=== PATIENT | male | born 1965 | race Caucasian/White ===

== ENCOUNTER 2018-05-29 13:16 | Inpatient (IN) | payer OTHER ==
[2018-05-29 13:28] VITALS: BMI 37.0
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
[2018-05-29] MEDS ORDERED: IBUPROFEN 400 MG TABLET (FP) PO PRN (15:47)
[2018-05-29] MEDS ORDERED: P-EPHED 60MG/TRIPROLIDI 2.5MG TABLET PO PRN (15:47)
[2018-05-29] MEDS ORDERED: ACETAMINOPHEN 325 MG TABLET (FP) PO PRN (15:47)
[2018-05-29] MEDS ORDERED: chlordiazePOXIDE HCL 25 MG CAPSULE PO PRN (15:47)
[2018-05-29] MEDS ORDERED: MAG HYDROX/AL HYDROX/SIMETH 30 ML UNIT-DOSE CUP PO PRN (15:47)
[2018-05-29] MEDS ORDERED: MENTHOL/PHENOL 1 EACH UD MM PRN (15:47)
[2018-05-29] MEDS ORDERED: MAGNESIUM HYDROX 2400MG/30ML ORAL SUSPENSION 30 ML CUP PO PRN (15:47)
[2018-05-29] MEDS ORDERED: guaiFENesin/D-METHORPHAN HB 10 ML UNIT-DOSE CUPS PO PRN (15:47)
[2018-05-29] MEDS ORDERED: MAGNESIUM CITRATE 300 ML BOTTLE PO PRN (15:47)
[2018-05-29] MEDS ORDERED: NICOTINE POLACRILEX 2 MG GUM BC PRN (15:47)
[2018-05-29] MEDS: OFLOXACIN 0.3% OPHTHALMIC SOLUTION 5 ML BOTTLE OD SCH ×2 (19:20→22:11)
[2018-05-29] MEDS ORDERED: COLLOIDAL OATMEAL 1 BAR EACH TP PRN (21:57)
[2018-05-29] MEDS ORDERED: MELATONIN 5 MG TABLETS PO PRN (22:00)
[2018-05-29] MEDS: THIAMINE HCL 100 MG TABLET (FP) PO SCH (22:11)
[2018-05-29] MEDS: AMOXICILLIN 500 MG CAPSULE (FP) PO SCH (22:11)
[2018-05-29] MEDS: chlordiazePOXIDE HCL 25 MG CAPSULE PO SCH (22:14)
[2018-05-30] MEDS: chlordiazePOXIDE HCL 25 MG CAPSULE PO SCH ×4 (05:57→22:09)
[2018-05-30] MEDS: AMOXICILLIN 500 MG CAPSULE (FP) PO SCH ×3 (05:57→22:09)
[2018-05-30] MEDS: OFLOXACIN 0.3% OPHTHALMIC SOLUTION 5 ML BOTTLE OD SCH ×5 (05:57→22:08)
[2018-05-30 10:16] LABS: HEMATOCRIT 40.9 % (35.4-49); HEMOGLOBIN 13.6 GM/dL (11.7-16.9); MCH 29.8 pg (25.7-33.7); MCHC 33.3 g/dl (32.0-35.9); MEAN CELL VOLUME 89.7 fl (80-96); MEAN PLT VOLUME 9.8 fl (7.5-11.1); PLATELET COUNT 230 K/MM3 (134-434); RBC 4.56 M/mm3 (4.00-5.60); RDW 14.1 % (11.9-15.9); WHITE BLOOD COUNT 9.1 K/mm3 (4.0-10.0)
[2018-05-30 10:26] LABS: ALBUMIN 3.4 g/dl (3.4-5.0); ALK PHOS 64 U/L (45-117); ANION GAP 9 MMOL/L (8-16); BILIRUBIN,TOTAL 0.3 mg/dL (0.2-1); BLOOD UREA NITROGEN 11 mg/dL (7-18); CALCIUM 8.5 mg/dL (8.5-10.1); CHLORIDE 106 mmol/L (98-107); CO2 26 mmol/L (21-32); CREATININE 1.1 mg/dL (0.55-1.3); GLUCOSE,RANDOM 106 mg/dL (74-106); POTASSIUM 3.7 mmol/L (3.5-5.1); SGOT/AST 16 U/L (15-37); SGPT/ALT 31 U/L (13-61); SODIUM 142 mmol/L (136-145); TOT PROT 6.3 g/dl (6.4-8.2)
[2018-05-30] MEDS: PRENATAL VITAMINS W/ FOLIC ACID TABLET (FP) PO SCH (10:55)
--- NOTE | 2018-05-30 11:12 | PN ---
S CIWA - CIWA Score Nausea/Vomitin-Mild Nausea/No Vomiting Muscle Tremors: 3 Anxiety: 3 Agitation: 3 Paroxysmal Sweats: 1-Minimal Palms Moist Orientation: 1-Uncertain about Date Tacttile Disturbances: 0-None Auditory Disturbances: 0-None Visual Disturbances: 0-None Headache: 2-Mild CIWA-Ar Total Score: 14 S Progress Note (SOAP) Subjective: tremor sweating anxiety irritable Objective: 05/30/18 11:16 Vital Signs Temperature 98.0 F 05/30/18 09:07 Pulse Rate 83 05/30/18 09:07 Respiratory Rate 18 05/30/18 09:07 Blood Pressure 97/58 L 05/30/18 09:07 O2 Sat by Pulse Oximetry (%) Laboratory Last Values WBC 9.1 K/mm3 (4.0-10.0) 05/30/18 07:00 RBC 4.56 M/mm3 (4.00-5.60) 05/30/18 07:00 Hgb 13.6 GM/dL (11.7-16.9) 05/30/18 07:00 Hct 40.9 % (35.4-49) 05/30/18 07:00 MCV 89.7 fl (80-96) 05/30/18 07:00 MCH 29.8 pg (25.7-33.7) 05/30/18 07:00 MCHC 33.3 g/dl (32.0-35.9) 05/30/18 07:00 RDW 14.1 % (11.9-15.9) 05/30/18 07:00 Plt Count 230 K/MM3 (134-434) 05/30/18 07:00 MPV 9.8 fl (7.5-11.1) 05/30/18 07:00 Sodium 142 mmol/L (136-145) 05/30/18 07:00 Potassium 3.7 mmol/L (3.5-5.1) 05/30/18 07:00 Chloride 106 mmol/L (98-107) 05/30/18 07:00 Carbon Dioxide 26 mmol/L (21-32) 05/30/18 07:00 Anion Gap 9 MMOL/L (8-16) 05/30/18 07:00 BUN 11 mg/dL (7-18) 05/30/18 07:00 Creatinine 1.1 mg/dL (0.55-1.3) 05/30/18 07:00 Creat Clearance w eGFR > 60 (>60) 05/30/18 07:00 Random Glucose 106 mg/dL (74-106) 05/30/18 07:00 Calcium 8.5 mg/dL (8.5-10.1) 05/30/18 07:00 Total Bilirubin 0.3 mg/dL (0.2-1) 05/30/18 07:00 AST 16 U/L (15-37) 05/30/18 07:00 ALT 31 U/L (13-61) 05/30/18 07:00 Alkaline Phosphatase 64 U/L (45-117) 05/30/18 07:00 Total Protein 6.3 g/dl (6.4-8.2) L 05/30/18 07:00 Albumin 3.4 g/dl (3.4-5.0) 05/30/18 07:00 lab noted Assessment: 05/30/18 11:16 withdrawal sx Plan: continue detox
[2018-05-30] MEDS: THIAMINE HCL 100 MG TABLET (FP) PO SCH (22:09)
[2018-05-31] MEDS: AMOXICILLIN 500 MG CAPSULE (FP) PO SCH ×3 (06:21→21:37)
[2018-05-31] MEDS: chlordiazePOXIDE HCL 25 MG CAPSULE PO SCH ×3 (06:21→17:37)
[2018-05-31] MEDS: OFLOXACIN 0.3% OPHTHALMIC SOLUTION 5 ML BOTTLE OD SCH ×5 (07:21→21:40)
[2018-05-31] MEDS: PRENATAL VITAMINS W/ FOLIC ACID TABLET (FP) PO SCH (10:14)
--- NOTE | 2018-05-31 10:47 | DS ---
[facility] Detox Discharge Summary Admission Date: 05/29/18 Discharge Date: 05/31/18 - History Present History: Alcohol Dependence Additional Comments: 53 years old male admitted on 05/29/18 for alcohol withdrawal stabilization reported mother is in the hospital no one available to taking care of her patient is alert no acute distress denies suicidal no homocidal ideation Pertinent Past History: encourage the patient return to [facility] - Physical Exam Results Vital Signs: Vital Signs Temperature 97.8 F 05/31/18 09:05 Pulse Rate 68 05/31/18 09:05 Respiratory Rate 18 05/31/18 09:05 Blood Pressure 97/59 L 05/31/18 09:05 O2 Sat by Pulse Oximetry (%) Pertinent Admission Physical Exam Findings: alcohol withdrawal sx Laboratory Last Values WBC 9.1 K/mm3 (4.0-10.0) 05/30/18 07:00 RBC 4.56 M/mm3 (4.00-5.60) 05/30/18 07:00 Hgb 13.6 GM/dL (11.7-16.9) 05/30/18 07:00 Hct 40.9 % (35.4-49) 05/30/18 07:00 MCV 89.7 fl (80-96) 05/30/18 07:00 MCH 29.8 pg (25.7-33.7) 05/30/18 07:00 MCHC 33.3 g/dl (32.0-35.9) 05/30/18 07:00 RDW 14.1 % (11.9-15.9) 05/30/18 07:00 Plt Count 230 K/MM3 (134-434) 05/30/18 07:00 MPV 9.8 fl (7.5-11.1) 05/30/18 07:00 Sodium 142 mmol/L (136-145) 05/30/18 07:00 Potassium 3.7 mmol/L (3.5-5.1) 05/30/18 07:00 Chloride 106 mmol/L (98-107) 05/30/18 07:00 Carbon Dioxide 26 mmol/L (21-32) 05/30/18 07:00 Anion Gap 9 MMOL/L (8-16) 05/30/18 07:00 BUN 11 mg/dL (7-18) 05/30/18 07:00 Creatinine 1.1 mg/dL (0.55-1.3) 05/30/18 07:00 Creat Clearance w eGFR > 60 (>60) 05/30/18 07:00 Random Glucose 106 mg/dL (74-106) 05/30/18 07:00 Calcium 8.5 mg/dL (8.5-10.1) 05/30/18 07:00 Total Bilirubin 0.3 mg/dL (0.2-1) 05/30/18 07:00 AST 16 U/L (15-37) 05/30/18 07:00 ALT 31 U/L (13-61) 05/30/18 07:00 Alkaline Phosphatase 64 U/L (45-117) 05/30/18 07:00 Total Protein 6.3 g/dl (6.4-8.2) L 05/30/18 07:00 Albumin 3.4 g/dl (3.4-5.0) 05/30/18 07:00 RPR Titer Nonreactive (NONREACTIVE) 05/30/18 07:00 lab noted - Treatment Hospital Course: Detox Protocol Followed, Responded well Patient has Accepted a [facility] Referral [facility]: [facility] - Medication Discharge Medications: Ambulatory Orders Amoxicillin - [Amoxicillin 500mg Capsule -] 500 mg PO TID #21 capsule 01/26/15 Cyclobenzaprine HCl [Flexeril] 5 mg PO TID PRN #20 tablet 01/26/15 Ibuprofen 400 mg PO Q6H PRN #30 tablet 01/26/15 predniSONE [Deltasone -] 20 mg PO BID #10 tablet 01/26/15 Ibuprofen [Motrin -] 600 mg PO TID #21 tablet 04/01/15 Meclizine HCl [Antivert -] 25 mg PO TID #21 tablet 04/01/15 Oxycodone HCl/Acetaminophen [Percocet 5/325 -] 1 - 2 tab PO Q6H #20 tab - Diagnosis (1) Uncomplicated alcohol dependence Current Visit: Yes Status: Acute (2) Nicotine dependence Current Visit: Yes Status: Acute Qualifiers: Nicotine product type: cigarettes Substance use status: in withdrawal Qualified Code(s): F17.213 - Nicotine dependence, cigarettes, with withdrawal (3) BPH (benign prostatic hyperplasia) Current Visit: Yes Status: Chronic Qualifiers: Lower urinary tract symptom presence: symptoms absent Qualified Code(s): N40.0 - Benign prostatic hyperplasia without lower urinary tract symptoms (4) Drug-induced mood disorder Current Visit: Yes Status: Suspected (5) GERD (gastroesophageal reflux disease) Current Visit: Yes Status: Chronic Qualifiers: Esophagitis presence: without esophagitis Qualified Code(s): K21.9 - Gastro -esophageal reflux disease without esophagitis - AMA Did Patient Leave Against Medical Advice: Yes
[2018-05-31] MEDS ORDERED: diphenhydrAMINE HCL 25 MG CAPSULE (FP) PO ONE (11:30)
[2018-05-31] MEDS: HYDROCORTISONE 0.5% TOPICAL CREAM 30 GM TUBE TP SCH ×2 (13:17→21:40)
--- NOTE | 2018-05-31 14:19 | PN ---
S CIWA - CIWA Score Nausea/Vomitin-No Nausea/No Vomiting Muscle Tremors: None Anxiety: 3 Agitation: 3 Paroxysmal Sweats: 3 Orientation: 2-Disoriented Date<2 days Tacttile Disturbances: 0-None Auditory Disturbances: 0-None Visual Disturbances: 0-None Headache: 3-Moderate CIWA-Ar Total Score: 14 BHS Progress Note (SOAP) Subjective: Sweating, Anxious, Agitated, H/A, Constipation. Objective: PATIENT A & O X 2 (UNCERTAIN ABOUT CURRENT DAY / DATE). PATIENT OBSERVED AMBULATING ON UNIT. IN NO ACUTE DISTRESS. 05/31/18 14:16 Vital Signs Temperature 97.8 F 05/31/18 09:05 Pulse Rate 68 05/31/18 09:05 Respiratory Rate 18 05/31/18 09:05 Blood Pressure 97/59 L 05/31/18 09:05 O2 Sat by Pulse Oximetry (%) Laboratory Tests 05/30/18 05/30/18 05/30/18 07:00 07:00 07:00 WBC 9.1 RBC 4.56 Hgb 13.6 Hct 40.9 MCV 89.7 MCH 29.8 MCHC 33.3 RDW 14.1 Plt Count 230 MPV 9.8 Sodium 142 Potassium 3.7 Chloride 106 Carbon Dioxide 26 Anion Gap 9 BUN 11 Creatinine 1.1 Creat Clearance w eGFR > 60 Random Glucose 106 Calcium 8.5 Total Bilirubin 0.3 AST 16 ALT 31 Alkaline Phosphatase 64 Total Protein 6.3 L Albumin 3.4 RPR Titer Nonreactive LABS NOTED. Assessment: 05/31/18 14:17 WITHDRAWAL SYMPTOMS. Plan: CONTINUE DETOX. INCREASE DAILY PO FLUID INTAKE. PRN MOM FOR CONSTIPATION.
--- NOTE | 2018-05-31 17:43 | PN ---
[facility] Progress Note Note: Called by nurse: Pt states that he needs a fleets enema as he has not been able to move his bowels. Pt states has tried all the other laxatives and needs this to have a BM: X1 ordered.-
[2018-05-31] MEDS ORDERED: SODIUM PHOSPHATE/NA BIPHOS 133 ML ENEMA PR ONE (18:30)
[2018-05-31] MEDS: THIAMINE HCL 100 MG TABLET (FP) PO SCH (21:37)
[2018-05-31] MEDS: chlordiazePOXIDE 5 MG CAPSULE PO SCH (22:13)
[2018-06-01] MEDS: chlordiazePOXIDE 5 MG CAPSULE PO SCH ×2 (06:14→10:28)
[2018-06-01] MEDS: OFLOXACIN 0.3% OPHTHALMIC SOLUTION 5 ML BOTTLE OD SCH ×2 (06:15→09:12)
[2018-06-01 09:25] VITALS: BP 118/72; PULSE 88; TEMP 96.5
[2018-06-01] MEDS: PRENATAL VITAMINS W/ FOLIC ACID TABLET (FP) PO SCH (10:27)
[2018-06-01] MEDS: HYDROCORTISONE 0.5% TOPICAL CREAM 30 GM TUBE TP SCH (10:28)
--- NOTE | 2018-06-01 15:39 | DS ---
[facility] Detox Discharge Summary Admission Date: 05/29/18 Discharge Date: 06/01/18 - History Present History: Alcohol Dependence, Cocaine Dependence Additional Comments: PATIENT DOES NOT WISH TO REMAIN TO COMPLETE DETOX REGIMEN. RISKS OF LEAVING DETOX UNIT AGAINST MEDICAL ADVICE AND PRIOR TO COMPLETION OF DETOX REGIMEN EXPLAINED TO PATIENT. PATIENT ADVISED TO GO IMMEDIATELY TO NEAREST ER SHOULD ANY INTOLERABLE DETOX SYMPTOMS DEVELOP AT ANY TIME. PATIENT VERBALIZED UNDERSTANDING OF ALL INFORMATION / RECOMMENDATIONS PRESENTED TO HIM PRIOR TO DEPARTURE FROM DETOX UNIT. PRIOR TO LEAVING DETOX UNIT, PATIENT DID NOTE THAT HE PLANS ON GOING [address] ([place], [place]) FOR AFTERCARE. PATIENT LEFT DETOX UNIT IN STABLE MEDICAL CONDITION. Pertinent Past History: Hypercholesterolemia, History of G.E.R.D., History of B.P.H., History of Depression, Nicotine Dependence. - Physical Exam Results Vital Signs: Vital Signs Temperature 96.5 F L 06/01/18 09:24 Pulse Rate 88 06/01/18 09:24 Respiratory Rate 18 06/01/18 09:24 Blood Pressure 118/72 06/01/18 09:24 O2 Sat by Pulse Oximetry (%) Pertinent Admission Physical Exam Findings: WITHDRAWAL SYMPTOMS. Laboratory Tests 05/30/18 05/30/18 05/30/18 07:00 07:00 07:00 WBC 9.1 RBC 4.56 Hgb 13.6 Hct 40.9 MCV 89.7 MCH 29.8 MCHC 33.3 RDW 14.1 Plt Count 230 MPV 9.8 Sodium 142 Potassium 3.7 Chloride 106 Carbon Dioxide 26 Anion Gap 9 BUN 11 Creatinine 1.1 Creat Clearance w eGFR > 60 Random Glucose 106 Calcium 8.5 Total Bilirubin 0.3 AST 16 ALT 31 Alkaline Phosphatase 64 Total Protein 6.3 L Albumin 3.4 RPR Titer Nonreactive LABS NOTED. - Treatment Hospital Course: Detoxed Safely - Medication Discharge Medications: Ambulatory Orders Amoxicillin - [Amoxicillin 500mg Capsule -] 500 mg PO TID #21 capsule 01/26/15 Cyclobenzaprine HCl [Flexeril] 5 mg PO TID PRN #20 tablet 01/26/15 Ibuprofen 400 mg PO Q6H PRN #30 tablet 01/26/15 predniSONE [Deltasone -] 20 mg PO BID #10 tablet 01/26/15 Ibuprofen [Motrin -] 600 mg PO TID #21 tablet 04/01/15 Meclizine HCl [Antivert -] 25 mg PO TID #21 tablet 04/01/15 Oxycodone HCl/Acetaminophen [Percocet 5/325 -] 1 - 2 tab PO Q6H #20 tab - Diagnosis (1) Alcohol dependence Status: Acute Qualifiers: Substance use status: in withdrawal Complication of substance-induced condition: uncomplicated Qualified Code(s): F10.230 - Alcohol dependence with withdrawal, uncomplicated (2) Nicotine dependence Status: Acute Qualifiers: Nicotine product type: cigarettes Substance use status: in withdrawal Qualified Code(s): F17.213 - Nicotine dependence, cigarettes, with withdrawal (3) Cocaine dependence Status: Chronic Qualifiers: Substance use status: uncomplicated Qualified Code(s): F14.20 - Cocaine dependence, uncomplicated - AMA Did Patient Leave Against Medical Advice: Yes (PATIENT DID NOT WISH TO REMAIN TO COMPLETE DETOX REGIMEN.)
--- NOTE | 2018-06-01 15:39 | PN ---
[facility] Progress Note (SOAP) Subjective: Interrupted Sleep, Tremors, Anxious. Objective: PATIENT A & O X 3, OBSERVED AMBULATING ON UNIT. IN NO ACUTE DISTRESS. 06/01/18 15:38 Vital Signs Temperature 96.5 F L 06/01/18 09:24 Pulse Rate 88 06/01/18 09:24 Respiratory Rate 18 06/01/18 09:24 Blood Pressure 118/72 06/01/18 09:24 O2 Sat by Pulse Oximetry (%) Laboratory Tests 05/30/18 05/30/18 05/30/18 07:00 07:00 07:00 WBC 9.1 RBC 4.56 Hgb 13.6 Hct 40.9 MCV 89.7 MCH 29.8 MCHC 33.3 RDW 14.1 Plt Count 230 MPV 9.8 Sodium 142 Potassium 3.7 Chloride 106 Carbon Dioxide 26 Anion Gap 9 BUN 11 Creatinine 1.1 Creat Clearance w eGFR > 60 Random Glucose 106 Calcium 8.5 Total Bilirubin 0.3 AST 16 ALT 31 Alkaline Phosphatase 64 Total Protein 6.3 L Albumin 3.4 RPR Titer Nonreactive LABS NOTED. Assessment: 06/01/18 15:38 WITHDRAWAL SYMPTOMS. Plan: CONTINUE DETOX.
[2018-06-01] MEDS ORDERED: chlordiazePOXIDE HCL 10 MG CAPSULE PO SCH (23:00)
== END 2018-06-01 13:12 | disposition left against medical advice (07) | DRG 770 ==
LOC: YASAS 13:16 → Y3N 18:42
PROVIDERS: ADMIT Neuromusculoskeletal Medicine & OMM; ATTEND Neuromusculoskeletal Medicine & OMM
PROC: HZ2ZZZZ Detoxification Services for Substance Abuse Treatment (ICD-10-PCS; principal; 2018-05-29)
DX: F10.230 Alcohol dependence with withdrawal, uncomplicated (principal); F14.20 Cocaine dependence, uncomplicated; F17.213 Nicotine dependence, cigarettes, with withdrawal; F19.24 Other psychoactive substance dependence with psychoactive substance-induced mood disorder; K21.9 Gastro-esophageal reflux disease without esophagitis; N40.0 Benign prostatic hyperplasia without lower urinary tract symptoms
CPT/HCPCS: 36415; 80053; 85027; 86593

== ENCOUNTER 2018-07-06 17:05 | Inpatient (IN) | payer OTHER ==
[~2018-07-06 17:05] MED LIST: chlordiazePOXIDE HCL 25 MG CAPSULE PO SCH
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
[2018-07-06 18:02] LABS: BASO % 0.5 % (0-2.0); EOS % 1.4 % (0-4.5); HEMATOCRIT 39.8 % (35.4-49); HEMOGLOBIN 13.9 GM/dL (11.7-16.9); LYMPH % 28.6 % (8-40); MCHC 34.9 g/dl (32.0-35.9); MEAN PLT VOLUME 9.7 fl (7.5-11.1); MONO % 9.4 % (3.8-10.2); NEUT % 60.1 % (42.8-82.8); PLATELET COUNT 239 K/MM3 (134-434); RBC 4.47 M/mm3 (4.00-5.60); RDW 13.8 % (11.9-15.9); WHITE BLOOD COUNT 9.5 K/mm3 (4.0-10.0)
[2018-07-06 18:11] LABS: INR 1.21 (0.83-1.09); PROTHROMBIN TIME (PATIENT) 14.3 SEC (9.7-13.0)
[2018-07-06 18:16] LABS: ALBUMIN 3.7 g/dl (3.4-5.0); ALK PHOS 66 U/L (45-117); ANION GAP 6 MMOL/L (8-16); BILIRUBIN,TOTAL 0.4 mg/dL (0.2-1); BLOOD UREA NITROGEN 15 mg/dL (7-18); CALCIUM 8.4 mg/dL (8.5-10.1); CHLORIDE 105 mmol/L (98-107); CHOLESTEROL 98 mg/dL (50-200); CO2 29 mmol/L (21-32); CREATININE 1.1 mg/dL (0.55-1.3); GLUCOSE,RANDOM 113 mg/dL (74-106); HDL CHOLESTEROL 41 mg/dL (40-60); MAGNESIUM 2.1 mg/dL (1.8-2.4); POTASSIUM 4.1 mmol/L (3.5-5.1); SGOT/AST 23 U/L (15-37); SGPT/ALT 52 U/L (13-61); SODIUM 140 mmol/L (136-145); TOT PROT 6.6 g/dl (6.4-8.2); TRIGLYCERIDES 189 mg/dL (0-150)
[2018-07-06] MEDS ORDERED: SODIUM CHLORIDE 0.9% 500 ML INFUS.BAG IV ONE (18:26)
[2018-07-06] MEDS ORDERED: chlordiazePOXIDE HCL 25 MG CAPSULE PO ONE (18:54)
[2018-07-06] MEDS ORDERED: FOLIC ACID INJECTION - 1 MG, THIAMINE HCL 100 MG, MULTIVIT INJECTION ADULT 10 ML in SOD... IVPB ONE (19:14)
[2018-07-06] MEDS ORDERED: chlordiazePOXIDE HCL 25 MG CAPSULE PO PRN (19:20)
[2018-07-06] MEDS ORDERED: SODIUM CHLORIDE 1,000 ML IV STA (20:11)
[2018-07-06] MEDS ORDERED: chlordiazePOXIDE HCL 25 MG CAPSULE ONE (20:12)
--- NOTE | 2018-07-06 20:14 | HP ---
<Thong Salazar - Last Filed: 07/07/18 02:51> CHIEF COMPLAINT: Syncopal episode PCP: None HISTORY OF PRESENT ILLNESS: 53yo M with h/o ALONSO, CAD, HTN, HLD, polysubstance abuse (Cocaine, alcohol) who presents today from [facility] due to witnessed syncopal event. Pt was in waiting room of [facility] due to wanting to detox from his recent alcohol binge when he started to develop blurry vision while walking. Pt reports worsening blurry vision and then lightheadedness when he walked to security staff for help. Pt started to sit down and then loss consciousness. Pt woke up after a minute or so on the ground with staff around him. Per EMR and verbal signout pt did not have any trauma to his head or extremities. He was brought via EMS here for further evaluation. Admittedly pt has had decreased PO intake compared to previous weeks from his binge drinking and lack of eating/drinking anything else. He denies any headaches, weakness, parasthesias, shortness of breath, chest pain , palpitations, abdominal pain, diarrhea, dysuria, hematuria, polyuria. Pt after 1LNS in Ed reportedly feels better than when coming to ER. Of note, pt had recent nuclear stress test performed at [facility] which reportedly found to have anterior reversible ischemia. Pt reports he had chest pain at the time of admission there and was recommended to transfer to [place]. He states that he wanted to follow-up outpatient and was so discharged from their hospital. He never did follow up however. Recent Travel: Denies PAST MEDICAL HISTORY: PAST SURGICAL HISTORY: Social History: Smokin-3 cigarettes daily for 5 years; pt reports quitting starting today Alcohol: Fifth of whiskey daily for multiple binge days with intermittent resting periods (last drink 2 days ago) Drugs: Cocaine (snorting; last use 3-4 weeks ago) Lives at home alone; binge drinking triggered with events involving 's about 3 years ago (i.e. ) Family History: Noncontributory Allergies No Known Allergies Allergy (Verified 07/06/18 17:14) HOME MEDICATIONS: Home Medications Medication Instructions Recorded Aspirin [Aspirin EC] 81 mg PO DAILY 07/06/18 Atorvastatin Ca [Lipitor] 80 mg PO HS 07/06/18 Clopidogrel Bisulfate [Clopidogrel] 75 mg PO DAILY 07/06/18 Tamsulosin HCl [Flomax] 0.4 mg PO DAILY 07/06/18 REVIEW OF SYSTEMS As per HPI PHYSICAL EXAMINATION Vital Signs - 24 hr 07/06/18 07/06/18 17:09 18:24 Temperature 98.0 F Pulse Rate 82 Pulse Rate [ 94 H Right side Sitting] Respiratory 16 Rate Blood Pressure 95/62 Blood Pressure 93/53 L [Right side Sitting] O2 Sat by Pulse 100 Oximetry (%) GENERAL: NAd, awake, alert, and fully oriented, laying in bed HEENT: Nc/AT, EOMi, GLADIS, sclera anicteric, MMM, no posterior oropharynx erythema or exudates. No JVD. no carotid bruits LUNGS: CTA bilaterally. No wheezes, and no crackles. No accessory muscle use. On RA HEART: RRR, normal S1 and S2 without murmur ABDOMEN: Soft, nondistended, obese, abdominal scar noted (C/D/I), nontender, 4inch hard epigastric mass noted underneath epigastric surgical site, normoactive BS, no gurading. No hepatomegaly appreciated via percussion MUSCULOSKELETAL: No CVA tenderness. EXTREMITIES: 2+ pulses, warm, well-perfused. No calf tenderness. No peripheral edema. PSYCHIATRIC: Cooperative. Good eye contact. Appropriate mood and affect. SKIN: Warm, dry, no rashes Laboratory Results 07/06/18 07/06/18 17:49 17:49 WBC 9.5 RBC 4.47 Hgb 13.9 Hct 39.8 MCV 89.0 MCH 31.0 MCHC 34.9 RDW 13.8 Plt Count 239 MPV 9.7 Absolute Neuts (auto) 5.7 Neutrophils % 60.1 D Lymphocytes % 28.6 D Monocytes % 9.4 Eosinophils % 1.4 Basophils % 0.5 Nucleated RBC % 0 PT with INR 14.30 H INR 1.21 H D-Dimer 262 Sodium Potassium Chloride Carbon Dioxide Anion Gap BUN Creatinine Creat Clearance w eGFR Random Glucose Calcium Magnesium Total Bilirubin AST ALT Alkaline Phosphatase Troponin I Total Protein Albumin Triglycerides Cholesterol Total LDL Cholesterol HDL Cholesterol 07/06/18 17:49 WBC RBC Hgb Hct MCV MCH MCHC RDW Plt Count MPV Absolute Neuts (auto) Neutrophils % Lymphocytes % Monocytes % Eosinophils % Basophils % Nucleated RBC % PT with INR INR D-Dimer Sodium 140 Potassium 4.1 Chloride 105 Carbon Dioxide 29 Anion Gap 6 L BUN 15 Creatinine 1.1 Creat Clearance w eGFR > 60 Random Glucose 113 H Calcium 8.4 L Magnesium 2.1 Total Bilirubin 0.4 AST 23 ALT 52 Alkaline Phosphatase 66 Troponin I < 0.02 Total Protein 6.6 Albumin 3.7 Triglycerides 189 H Cholesterol 98 Total LDL Cholesterol 46 HDL Cholesterol 41 ASSESSMENT/PLAN: Syncope 2/2 to dehydration CAD with NSTEMI on prior hospitalization Polysubstance abuse HLD --Dehydraton 2/2 to pt's decreased PO intake for the past couple of days --S/p 1LNS in Ed; will bolus 1LNS again and encourage PO intake --Echocardiogram for syncope workup --Cardiac monitoring to continue --Holding home Flomax due to hypotension/dehydration --Will try to obtain records from [facility] regarding nuclear stress test --Consult cardiology --Will continue ASA 81mg and Plavix 75mg qDaily --Due to pt's known CAD would recommend B-lisa, however will hold while hypotensive and start tomorrow morning --CIWA 1 due to fine tremor --Librium protocol initiated (LFTs WNL) --s/p folic acid; to continue daily --Thiamine daily --Due to pt's history he is amenable to psychiatrist referral upon discharge FEN: Fluids: NS1L bolus; bolus as needed and encourage PO Electrolyte abnormalities: None Nutrition: Regular PPX: DVT - Low risk; SCD's for now GI - Not indicated Medications confirmed with patient's medication list GOC - Full code Dispo: Telemetry observation Case discussed with Dr. Rigoberto Salazar, - IM PGY-2 Visit type - Emergency Visit Emergency Visit: Yes ED Registration Date: 07/06/18 Care time: The patient presented to the Emergency Department on the above date and was hospitalized for further evaluation of their emergent condition. - New Patient This patient is new to me today: Yes Date on this admission: 07/07/18 - Critical Care Critical Care patient: No <Deshaun Franklin - Last Filed: 07/23/18 21:05> Seen and examined; agree with the above aside from what is supplemented by myself in my own documentation. Reviewed all magaña parts of history and exam with resident team and verified independently.
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
[2018-07-06] MEDS ORDERED: ASPIRIN COATED 81 MG TABLET.EC ONE (22:06)
[2018-07-06] MEDS ORDERED: ATORVASTATIN CA 40 MG TABLET (FP) ONE (22:07)
[2018-07-06] MEDS ORDERED: CLOPIDOGREL BISULFATE 75 MG TABLET (FP) ONE (22:07)
[2018-07-06] MEDS: ASPIRIN COATED 81 MG TABLET.EC PO SCH (22:13)
[2018-07-06] MEDS: ATORVASTATIN CA 80 MG TABLET (FP) PO SCH (22:13)
[2018-07-06] MEDS: CLOPIDOGREL BISULFATE 75 MG TABLET (FP) PO SCH (22:13)
[2018-07-07 00:05] VITALS: BMI 35.4
[2018-07-07] MEDS: chlordiazePOXIDE HCL 25 MG CAPSULE PO SCH ×6 (00:35→22:37)
[2018-07-07] MEDS ORDERED: PT OWN MED DRAWER 7, Y5N ONE (06:44)
[2018-07-07 07:05] LABS: ANION GAP 5 MMOL/L (8-16); BLOOD UREA NITROGEN 11 mg/dL (7-18); CALCIUM 8.3 mg/dL (8.5-10.1); CHLORIDE 110 mmol/L (98-107); CO2 27 mmol/L (21-32); CREATININE 0.9 mg/dL (0.55-1.3); GLUCOSE,RANDOM 111 mg/dL (74-106); POTASSIUM 3.9 mmol/L (3.5-5.1); SODIUM 142 mmol/L (136-145)
[2018-07-07 07:08] LABS: HEMATOCRIT 37.2 % (35.4-49); HEMOGLOBIN 12.8 GM/dL (11.7-16.9); MCH 30.4 pg (25.7-33.7); MCHC 34.3 g/dl (32.0-35.9); MEAN CELL VOLUME 88.5 fl (80-96); MEAN PLT VOLUME 9.4 fl (7.5-11.1); PLATELET COUNT 224 K/MM3 (134-434); RBC 4.21 M/mm3 (4.00-5.60); RDW 13.8 % (11.9-15.9); WHITE BLOOD COUNT 8.8 K/mm3 (4.0-10.0)
[2018-07-07] MEDS: ASPIRIN COATED 81 MG TABLET.EC PO SCH (10:10)
[2018-07-07] MEDS: FOLIC ACID 1 MG TABLET (FP) PO SCH (10:10)
[2018-07-07] MEDS: CLOPIDOGREL BISULFATE 75 MG TABLET (FP) PO SCH (10:10)
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
--- NOTE | 2018-07-07 14:39 | PN ---
Progress Note (short form) - Note Progress Note: c/o lightheadedness, BECERRIL and shakes. denies CP, SOB, fever, chills, N/V/C/D states he signed out AMA from [facility] due to poor bedside manner. was unable to explain to him his test results in a way he could understand and implications of not getting treatment Current Medications Generic Name Dose Route Start Last Admin Trade Name Freq PRN Reason Stop Dose Admin Aspirin 81 mg 07/06/18 20:15 07/07/18 10:10 Ecotrin - PO 81 mg DAILY [facility] Administration Atorvastatin Calcium 80 mg 07/06/18 22:00 07/06/18 22:13 Lipitor - PO 80 mg HS [facility] Administration Chlordiazepoxide HCl 25 mg 07/07/18 17:00 Librium - PO 07/08/18 11:01 [id number] [facility] Chlordiazepoxide HCl 15 mg 07/08/18 17:00 Librium - PO 07/09/18 11:01 [id number] [facility] Chlordiazepoxide HCl 25 mg 07/06/18 19:20 Librium - PO 07/09/18 19:19 Q4H PRN WITHDRAWAL(CONT SUBST) Chlordiazepoxide HCl 10 mg 07/09/18 17:00 Librium - PO 07/10/18 11:01 [id number] [facility] Clopidogrel Bisulfate 75 mg 07/06/18 20:15 07/07/18 10:10 Plavix - PO 75 mg DAILY [facility] Administration Folic Acid 1 mg 07/07/18 10:00 07/07/18 10:10 Folic Acid - PO 1 mg DAILY [facility] Administration Thiamine HCl 100 mg 07/07/18 22:00 Vitamin B1 - PO [facility] Last Vital Signs Temp Pulse Resp BP Pulse Ox 98.0 F 70 18 97/44 L 96 07/07/18 14:19 07/07/18 14:19 07/07/18 14:19 07/07/18 14:19 07/07/18 11:29 General NAD CV S1 S2 RRR no murmur/rub/gallop Lungs CTA B/L no wheezing/rales/rhonchi Abdomen soft NT/ND Extremities +fine tremors CBCD WBC 8.8 K/mm3 (4.0-10.0) 07/07/18 05:30 RBC 4.21 M/mm3 (4.00-5.60) 07/07/18 05:30 Hgb 12.8 GM/dL (11.7-16.9) 07/07/18 05:30 Hct 37.2 % (35.4-49) 07/07/18 05:30 MCV 88.5 fl (80-96) 07/07/18 05:30 MCHC 34.3 g/dl (32.0-35.9) 07/07/18 05:30 RDW 13.8 % (11.9-15.9) 07/07/18 05:30 Plt Count 224 K/MM3 (134-434) 07/07/18 05:30 MPV 9.4 fl (7.5-11.1) 07/07/18 05:30 CMP Sodium 142 mmol/L (136-145) 07/07/18 05:30 Potassium 3.9 mmol/L (3.5-5.1) 07/07/18 05:30 Chloride 110 mmol/L (98-107) H 07/07/18 05:30 Carbon Dioxide 27 mmol/L (21-32) 07/07/18 05:30 Anion Gap 5 MMOL/L (8-16) L 07/07/18 05:30 BUN 11 mg/dL (7-18) 07/07/18 05:30 Creatinine 0.9 mg/dL (0.55-1.3) 07/07/18 05:30 Creat Clearance w eGFR > 60 (>60) 07/07/18 05:30 Random Glucose 111 mg/dL (74-106) H 07/07/18 05:30 Calcium 8.3 mg/dL (8.5-10.1) L 07/07/18 05:30 Total Bilirubin 0.4 mg/dL (0.2-1) 07/06/18 17:49 AST 23 U/L (15-37) 07/06/18 17:49 ALT 52 U/L (13-61) 07/06/18 17:49 Alkaline Phosphatase 66 U/L (45-117) 07/06/18 17:49 Total Protein 6.6 g/dl (6.4-8.2) 07/06/18 17:49 Albumin 3.7 g/dl (3.4-5.0) 07/06/18 17:49 CARDIAC ENZYMES Creatine Kinase 148 U/L (26-308) 07/07/18 05:30 Troponin I < 0.02 ng/ml (0.00-0.05) 07/07/18 05:30 A/P 53yo M with PMH Continuous polysubstance abuse, BPH and recent +NMST at [facility] sent from [facility] for syncope 1. Syncope- liekly due to ETOH intoxication however high concern for arrhythmia with +NMST. cardiac monitoring. check echo 2. Recent +NMST-cath was recommended but he refused as he was unclear of indication. troponins neg x2 here. will try to obtain report from [facility]. may need cath which pt is now agreeable to going. cont asa/plavix/statin. will hold betablocker at this time due to cocaine use 3. ETOH withdrawal- CIWA 5. on librium protocol. check Utox to ensure cocaine is no longer present prior to further cardiac testing. counselled on risk assoc with continued ETOH and cocaine. cont thiamine/folate/MVI 4. BPH- flomax 5. DVT ppx- EAM Visit type - Emergency Visit Emergency Visit: Yes ED Registration Date: 07/07/18 Care time: The patient presented to the Emergency Department on the above date and was hospitalized for further evaluation of their emergent condition. - New Patient This patient is new to me today: Yes Date on this admission: 07/07/18 - Critical Care Critical Care patient: No - Discharge Referral Referred to [facility] Med P.C.: No
[2018-07-07] MEDS: THIAMINE HCL 100 MG TABLET (FP) PO SCH (21:43)
[2018-07-07] MEDS: ATORVASTATIN CA 80 MG TABLET (FP) PO SCH (21:43)
[2018-07-07] MEDS: FLUTICASONE PROP 0.05% 16 GM NASAL SPRAY NS ONE (21:44)
[2018-07-07] MEDS: PSEUDOEPHEDRINE HCL 30 MG TABLET PO SCH (21:44)
--- NOTE | 2018-07-07 22:05 | EKG ---
Test Reason : Blood Pressure : / mmHG Vent. Rate : 081 BPM Atrial Rate : 081 BPM P-R Int : 164 ms QRS Dur : 092 ms QT Int : 382 ms P-R-T Axes : 052 -04 026 degrees QTc Int : 443 ms NORMAL SINUS RHYTHM INFERIOR INFARCT (CITED ON OR BEFORE 25-SEP-2014) ABNORMAL ECG WHEN COMPARED WITH ECG OF 25-SEP-2014 22:02, NO SIGNIFICANT CHANGE WAS FOUND Confirmed by OZIEL VELASQUEZ, OLIVER ([id number]) on 07/07/2018 10:04:24 PM Referred By: Confirmed By:OLIVER LUDWIG MD
[2018-07-08] MEDS: chlordiazePOXIDE HCL 25 MG CAPSULE PO SCH ×2 (04:58→10:14)
[2018-07-08] MEDS: PSEUDOEPHEDRINE HCL 30 MG TABLET PO SCH ×3 (04:59→17:57)
[2018-07-08 06:21] LABS: METHADONE, UR NEGATIVE ng/ml (CUTOFF=300); OPIATES, URI NEGATIVE ng/ml (CUTOFF=300); PHENCYCLIDINE,URINE NEGATIVE ng/ml (CUTOFF=25); URINE AMPHETAMINES NEGATIVE ng/ml (CUTOFF=500); URINE BARBITURATES NEGATIVE ng/ml (CUTOFF=200)
[2018-07-08 07:53] LABS: COCAINE, UR POSITIVE ng/ml (CUTOFF=300); URINE BENZODIAZEPINES POSITIVE ng/ml (CUTOFF=200)
--- NOTE | 2018-07-08 09:51 | PN ---
Progress Note, Physician Chief Complaint: Not in distress History of Present Illness: Patient was seen and examined. Awake and alert. Chart was reviewed Denies chest pain, SOB or palpitations - Current Medication List Current Medications: Active Medications Aspirin (Ecotrin -) 81 mg PO DAILY [facility] Last Admin: 07/07/18 10:10 Dose: 81 mg Atorvastatin Calcium (Lipitor -) 80 mg PO [facility] Last Admin: 07/07/18 21:43 Dose: 80 mg Chlordiazepoxide HCl (Librium -) 25 mg PO [id number] [facility] Stop: 07/08/18 11:01 Last Admin: 07/08/18 04:58 Dose: 25 mg Chlordiazepoxide HCl (Librium -) 15 mg PO [id number] [facility] Stop: 07/09/18 11:01 Chlordiazepoxide HCl (Librium -) 25 mg PO Q4H PRN PRN Reason: WITHDRAWAL(CONT SUBST) Stop: 07/09/18 19:19 Chlordiazepoxide HCl (Librium -) 10 mg PO [id number] [facility] Stop: 07/10/18 11:01 Clopidogrel Bisulfate (Plavix -) 75 mg PO DAILY [facility] Last Admin: 07/07/18 10:10 Dose: 75 mg Fluticasone Propionate (Flonase -) 1 spray NS ONCE ONE Stop: 07/08/18 20:53 Last Admin: 07/07/18 21:44 Dose: 1 spray Folic Acid (Folic Acid -) 1 mg PO DAILY [facility] Last Admin: 07/07/18 10:10 Dose: 1 mg Pseudoephedrine HCl (Sudafed -) 30 mg PO Q6HPO [facility] Last Admin: 07/08/18 04:59 Dose: 30 mg Thiamine HCl (Vitamin B1 -) 100 mg PO [facility] Last Admin: 07/07/18 21:43 Dose: 100 mg - Objective Vital Signs: Vital Signs Temperature 97.6 F 07/08/18 05:01 Pulse Rate 71 07/08/18 05:01 Respiratory Rate 18 07/08/18 05:01 Blood Pressure 118/63 07/08/18 05:01 O2 Sat by Pulse Oximetry (%) 97 07/07/18 21:00 Eyes: Yes: PERRL HENT: Yes: Atraumatic Neck: Yes: Supple Cardiovascular: Yes: Regular Rate and Rhythm, S1, S2 Respiratory: Yes: CTA Bilaterally Gastrointestinal: Yes: Normal Bowel Sounds, Soft. No: Tenderness Edema: No Additional Findings/Remarks: - Review of Systems Constitutional: denies: Chills, Fever Cardiovascular: denies: Chest Pain, Palpitations, Shortness of Breath Respiratory: denies: Cough, Hemoptysis, Orthopnea, PND, SOB, SOB on Exertion Gastrointestinal: denies: Abdominal Pain, Constipation, Diarrhea, Melena, Nausea , Rectal Bleeding, Vomiting Musculoskeletal: denies: Back Pain, Joint Pain Neurological: reports: Dizziness, Syncope. denies: Headache, Seizure Labs: CBC, BMP 07/07/18 05:30 07/07/18 05:30 INR, PTT INR 1.21 (0.83-1.09) H 07/06/18 17:49 Problem List - Problems (1) Hypercholesterolemia Code(s): E78.00 - PURE HYPERCHOLESTEROLEMIA, UNSPECIFIED (2) Syncope Code(s): R55 - SYNCOPE AND COLLAPSE Qualifiers: Syncope type: unspecified Qualified Code(s): R55 - Syncope and collapse (3) Alcohol dependence, episodic drinking behavior Code(s): F10.20 - ALCOHOL DEPENDENCE, UNCOMPLICATED (4) BPH (benign prostatic hyperplasia) Code(s): N40.0 - BENIGN PROSTATIC HYPERPLASIA WITHOUT LOWER URINRY TRACT SYMP Qualifiers: Lower urinary tract symptom presence: symptoms absent Qualified Code(s): N40.0 - Benign prostatic hyperplasia without lower urinary tract symptoms (5) Cocaine dependence Code(s): F14.20 - COCAINE DEPENDENCE, UNCOMPLICATED Qualifiers: Substance use status: uncomplicated Qualified Code(s): F14.20 - Cocaine dependence, uncomplicated (6) CAD (coronary artery disease) Code(s): I25.10 - ATHSCL HEART DISEASE OF [place] CORONARY ARTERY W/O ANG PCTRS Qualifiers: Coronary Disease-Associated Artery/Lesion type: [place] artery [place] vs. transplanted heart: [place] heart Associated angina: without angina Qualified Code(s): I25.10 - Atherosclerotic heart disease of [place] coronary artery without angina pectoris Assessment/Plan 1. Syncope, etiology to be determined 2. HTN currently normotensive without medications 3. Hypercholesterolemia 4. Abnormal Nuclear MPI suggests CAD to be ruled out 5. Polysubstance abuse PLAN: 1. Continue ASA and will decide on Plavix 2. Continue statin therapy 3. Avoid beta lisa for now 4. Obtain cardiac records from [facility] and further plans are to follow 5. Echocardiography should be repeated to assess LV/RV and valvular function 6. Continue telemetry monitoring Further plans are to follow David Mora MD
[2018-07-08] MEDS ORDERED: FOLIC ACID INJECTION - 1 MG, THIAMINE HCL 100 MG, MULTIVIT INJECTION ADULT 10 ML in SOD... IVPB ONE (10:00)
[2018-07-08] MEDS: ASPIRIN COATED 81 MG TABLET.EC PO SCH (10:14)
[2018-07-08] MEDS: FOLIC ACID 1 MG TABLET (FP) PO SCH (10:14)
[2018-07-08] MEDS: CLOPIDOGREL BISULFATE 75 MG TABLET (FP) PO SCH (10:14)
--- NOTE | 2018-07-08 11:10 | PN ---
Physical Exam: SUBJECTIVE: Patient seen and examined at bedside. Complains of intermittent tremors, excessive diaphoresis, and formication over his back overnight. No n/v/ c/d, no n/v, no abd pain, no CP, no SOB, no auditory/visual hallucination, no further lightheadedness. OBJECTIVE: Vital Signs Period Temp Pulse Resp BP Sys/Shah Pulse Ox Last 24 Hr 97.6 F-98.9 F 70-79 18-20 97-118/44-66 96-97 GENERAL: A&Ox3, NAD HEENT: NC/AT, PERRLA, AOMI, anicteric sclera, MMM NECK: Trachea midline, full range of motion, supple. LUNGS: CTA b/l HEART: RRR no m/r/g ABDOMEN: Soft, nondistended, obese, abdominal scar noted (C/D/I), nontender, 4inch hard epigastric mass noted underneath epigastric surgical site, EXTREMITIES: 2+ pulses, warm, well-perfused, no edema. 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 SKIN: Warm, dry, normal turgor, no rashes or lesions noted Laboratory Results - last 24 hr 07/08/18 05:00 Opiates Screen Negative Methadone Screen Negative Barbiturate Screen Negative Phencyclidine Screen Negative Ur Amphetamines Screen Negative MDMA (Ecstasy) Screen Negative Benzodiazepines Screen Positive A* Cocaine Screen Positive A* U Marijuana (THC) Screen Negative Active Medications Generic Name Dose Route Start Last Admin Trade Name Freq PRN Reason Stop Dose Admin Aspirin 81 mg 07/06/18 20:15 07/08/18 10:14 Ecotrin - PO 81 mg DAILY [facility] Administration Atorvastatin Calcium 80 mg 07/06/18 22:00 07/07/18 21:43 Lipitor - PO 80 mg HS [facility] Administration Chlordiazepoxide HCl 25 mg 07/07/18 17:00 07/08/18 10:14 Librium - PO 07/08/18 11:01 25 mg [id number] [facility] Administration Chlordiazepoxide HCl 15 mg 07/08/18 17:00 Librium - PO 07/09/18 11:01 [id number] [facility] Chlordiazepoxide HCl 25 mg 07/06/18 19:20 Librium - PO 07/09/18 19:19 Q4H PRN WITHDRAWAL(CONT SUBST) Chlordiazepoxide HCl 10 mg 07/09/18 17:00 Librium - PO 07/10/18 11:01 [id number] [facility] Clopidogrel Bisulfate 75 mg 07/06/18 20:15 07/08/18 10:14 Plavix - PO 75 mg DAILY [facility] Administration Fluticasone Propionate 1 spray 07/08/18 20:52 07/07/18 21:44 Flonase - NS 07/08/18 20:53 1 spray ONCE ONE Administration Folic Acid 1 mg 07/07/18 10:00 07/08/18 10:14 Folic Acid - PO 1 mg DAILY [facility] Administration Folic Acid 1 mg/ Thiamine HCl 1,000 mls @ 125 mls/hr 07/08/18 10:00 100 mg/ Multivitamins/Minerals IVPB 07/08/18 17:59 10 ml/ Sodium Chloride ONCE ONE Pseudoephedrine HCl 30 mg 07/07/18 21:00 07/08/18 04:59 Sudafed - PO 30 mg Q6HPO [facility] Administration Thiamine HCl 100 mg 07/07/18 22:00 07/07/18 21:43 Vitamin B1 - PO 100 mg HS [facility] Administration ASSESSMENT/PLAN: 53 y/o M w/ PMHx ALONSO, CAD, HTN, HLD, polysubstance abuse, presented from [facility] after witnessed atraumatic syncopal event, in active EtOH withdrawal #CV -syncope most likely d/t dehydration/poor PO intake/active susbtance use -no events on tele -will obtain records of NM stress study from [facility] -cannot pursue cardiac intervention while actively withdrawing -cont ASA/Plavix/Lipitor #toxicology -intermittent tremors, nighttime diaphoresis, formication -in active withdrawal -tox screen + for cocaine -librium protocol in place -will repeat tox screen after 48 hours to assess systemic clearance of cocaine -cannot pursue cardiac catheterization until no longer withdrawing and clear of cocaine -one further banana bag -cont folate, thiamine #FEN -encourage PO hydration -monitor and correct electrolytes -regular diet #PPx -DVT: SCDs -GI: not indicated #code -full #dispo -cont to monitor on telemetry Visit type - Emergency Visit Emergency Visit: No - New Patient This patient is new to me today: Yes Date on this admission: 07/08/18 - Critical Care Critical Care patient: No
--- NOTE | 2018-07-08 14:21 | PN ---
Teaching Attending Note Name of Resident: Aditya Rodriguez ATTENDING PHYSICIAN STATEMENT I saw and evaluated the patient. I reviewed the resident's note and discussed the case with the resident. I agree with the resident's findings and plan as documented. SUBJECTIVE:c/o anxiety. vry anxious about changing his life and results of echo tomorrow. denies CP, SOB, fever, chils, syncope or dizzyness OBJECTIVE: Last Vital Signs Temp Pulse Resp BP Pulse Ox 97.6 F 71 18 118/63 97 07/08/18 05:01 07/08/18 05:01 07/08/18 05:01 07/08/18 05:01 07/07/18 21:00 General NAD ASSESSMENT AND PLAN: 53yo M with PMH Continuous polysubstance abuse, BPH and recent +NMST at [facility] sent from [facility] for syncope 1. Syncope- liekly due to ETOH intoxication however high concern for arrhythmia with +NMST. cardiac monitoring. check echo 2. Recent +NMST-cath was recommended but he refused as he was unclear of indication. troponins neg x2 here. will try to obtain report from [facility]. may need cath which pt is now agreeable to going. cont asa/plavix/statin. will hold betablocker at this time due to cocaine use 3. ETOH withdrawal- CIWA 4. on librium protocol. UTOx +Cocaine and BZD (on librium) not interested in inpatient rehab, states he was sober in the past on his own and is highly motivated to do it again. cont thiamine/folate/MVI 4. Anxiety- some liekly related to ETOH withdrawals however also has significant family stressors right now. states he saw therapist in the past and was on BZD. will re-start seeing again. will give low dose ativan while hospitalized. understands script will NOT be provided on discharge 5. BPH- flomax 6. DVT ppx- EAM
[2018-07-08] MEDS ORDERED: LORazepam 2 MG/ML SDV VIAL IVPUSH ONE (16:17)
[2018-07-08] MEDS: chlordiazePOXIDE 5 MG CAPSULE PO SCH ×2 (17:57→23:03)
[2018-07-08] MEDS: ATORVASTATIN CA 80 MG TABLET (FP) PO SCH (21:37)
[2018-07-08] MEDS: THIAMINE HCL 100 MG TABLET (FP) PO SCH (21:38)
[2018-07-08] MEDS ORDERED: LORazepam 2 MG/ML SDV VIAL ONE (21:40)
[2018-07-08] MEDS: FLUTICASONE PROP 0.05% 16 GM NASAL SPRAY NS ONE (21:45)
[2018-07-09] MEDS: PSEUDOEPHEDRINE HCL 30 MG TABLET PO SCH ×4 (00:26→18:40)
[2018-07-09] MEDS: chlordiazePOXIDE 5 MG CAPSULE PO SCH ×4 (05:37→22:21)
[2018-07-09 06:07] LABS: BASO % 0.4 % (0-2.0); HEMATOCRIT 41.5 % (35.4-49); HEMOGLOBIN 14.3 GM/dL (11.7-16.9); LYMPH % 41.1 % (8-40); MCH 30.4 pg (25.7-33.7); MCHC 34.5 g/dl (32.0-35.9); MEAN CELL VOLUME 88.1 fl (80-96); MEAN PLT VOLUME 9.4 fl (7.5-11.1); MONO % 8.6 % (3.8-10.2); NEUT % 45.9 % (42.8-82.8); PLATELET COUNT 261 K/MM3 (134-434); RBC 4.71 M/mm3 (4.00-5.60); RDW 13.7 % (11.9-15.9); WHITE BLOOD COUNT 9.8 K/mm3 (4.0-10.0)
[2018-07-09 06:34] LABS: ANION GAP 6 MMOL/L (8-16); BLOOD UREA NITROGEN 7 mg/dL (7-18); CALCIUM 8.6 mg/dL (8.5-10.1); CHLORIDE 107 mmol/L (98-107); CO2 27 mmol/L (21-32); CREATININE 0.9 mg/dL (0.55-1.3); GLUCOSE,RANDOM 98 mg/dL (74-106); MAGNESIUM 1.8 mg/dL (1.8-2.4); PHOSPHOROUS 4.6 mg/dL (2.5-4.9); POTASSIUM 4.1 mmol/L (3.5-5.1); SODIUM 140 mmol/L (136-145)
--- NOTE | 2018-07-09 08:16 | PN ---
Physical Exam: SUBJECTIVE: Patient seen and examined at bedside. Unable to recall whether tremors are ongoing, continues to c/o diaphoresis and formication although improved. No n/v/c/d, no n/v, no abd pain, no CP, no SOB, no auditory/visual hallucination, no further lightheadedness. OBJECTIVE: Vital Signs Period Temp Pulse Resp BP Sys/Shah Pulse Ox Last 24 Hr 97.8 F-99.0 F 65-74 18-22 116-132/63-76 96-99 GENERAL: A&Ox3, NAD HEENT: NC/AT, PERRLA, AOMI, anicteric sclera, MMM NECK: Trachea midline, full range of motion, supple. LUNGS: CTA b/l HEART: RRR no m/r/g ABDOMEN: Soft, nondistended, obese, abdominal scar noted, nontender, 4inch hard epigastric mass noted underneath epigastric surgical site, EXTREMITIES: 2+ pulses, warm, well-perfused, no edema. 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 SKIN: Warm, dry, normal turgor, no rashes or lesions noted Laboratory Results - last 24 hr 07/09/18 07/09/18 05:30 05:30 WBC 9.8 RBC 4.71 Hgb 14.3 Hct 41.5 MCV 88.1 MCH 30.4 MCHC 34.5 RDW 13.7 Plt Count 261 MPV 9.4 Absolute Neuts (auto) 4.5 Neutrophils % 45.9 D Lymphocytes % 41.1 H D Monocytes % 8.6 Eosinophils % 4.0 D Basophils % 0.4 Nucleated RBC % 0 Sodium 140 Potassium 4.1 Chloride 107 Carbon Dioxide 27 Anion Gap 6 L BUN 7 Creatinine 0.9 Creat Clearance w eGFR > 60 Random Glucose 98 Calcium 8.6 Phosphorus 4.6 Magnesium 1.8 Active Medications Generic Name Dose Route Start Last Admin Trade Name Freq PRN Reason Stop Dose Admin Aspirin 81 mg 07/06/18 20:15 07/08/18 10:14 Ecotrin - PO 81 mg DAILY SOLITARIO Administration Atorvastatin Calcium 80 mg 07/06/18 22:00 07/08/18 21:37 Lipitor - PO 80 mg HS SOLITARIO Administration Chlordiazepoxide HCl 15 mg 07/08/18 17:00 07/09/18 05:37 Librium - PO 07/09/18 11:01 15 mg [id number] [facility] Administration Chlordiazepoxide HCl 25 mg 07/06/18 19:20 Librium - PO 07/09/18 19:19 Q4H PRN WITHDRAWAL(CONT SUBST) Chlordiazepoxide HCl 10 mg 07/09/18 17:00 Librium - PO 07/10/18 11:01 [id number] SOLITAR[facility] Clopidogrel Bisulfate 75 mg 07/06/18 20:15 07/08/18 10:14 Plavix - PO 75 mg DAILY SOLITARIO Administration Folic Acid 1 mg 07/07/18 10:00 07/08/18 10:14 Folic Acid - PO 1 mg DAILY SOLITAR[facility] Administration Pseudoephedrine HCl 30 mg 07/07/18 21:00 07/09/18 05:37 Sudafed - PO 30 mg Q6HPO SOLIT[facility] Administration Thiamine HCl 100 mg 07/07/18 22:00 07/08/18 21:38 Vitamin B1 - PO 100 mg HS SOLITARIO Administration ASSESSMENT/PLAN: 53 y/o M w/ PMHx ALONSO, CAD, HTN, HLD, polysubstance abuse, presented from [facility] after witnessed atraumatic syncopal event, in active EtOH withdrawal #CV -syncope most likely d/t dehydration/poor PO intake/active susbtance use -no events on tele -NM cardiology study at [facility] shows mild reversible mid-apical ischemia -cannot pursue cardiac intervention while actively withdrawing -cont ASA/Plavix/Lipitor -per cardiology, no invasive intervention, adding on Norvasc 2.5 qd -oupt f/u w/ [facility] [place] cardiology #toxicology -intermittent tremors, nighttime diaphoresis, formication -in active withdrawal -tox screen + for cocaine -librium protocol in place, to be completed -repeat cocaine screen in AM -cannot pursue cardiac catheterization until no longer withdrawing and clear of cocaine -one further banana bag -cont folate, thiamine #FEN -encourage PO hydration -monitor and correct electrolytes -regular diet #PPx -DVT: SCDs -GI: not indicated #code -full #dispo -cont to monitor on telemetry Visit type - Emergency Visit Emergency Visit: No - New Patient This patient is new to me today: No - Critical Care Critical Care patient: No
--- NOTE | 2018-07-09 10:04 | PN ---
Progress Note, Physician History of Present Illness: Review of recent records at [facility] show admission earlier 06/2018 for NSTEMI in context of cocaine and ETOH abuse, echo shows preserved LV fxn, MPI showed mild apical ischemia, denies recurrent near or true syncope. - Current Medication List Current Medications: Active Medications Aspirin (Ecotrin -) 81 mg PO DAILY [facility] Last Admin: 07/08/18 10:14 Dose: 81 mg Atorvastatin Calcium (Lipitor -) 80 mg PO HS [facility] Last Admin: 07/08/18 21:37 Dose: 80 mg Chlordiazepoxide HCl (Librium -) 15 mg PO [id number]-QCF [facility] Stop: 07/09/18 11:01 Last Admin: 07/09/18 05:37 Dose: 15 mg Chlordiazepoxide HCl (Librium -) 25 mg PO Q4H PRN PRN Reason: WITHDRAWAL(CONT SUBST) Stop: 07/09/18 19:19 Chlordiazepoxide HCl (Librium -) 10 mg PO [id number] [facility] Stop: 07/10/18 11:01 Clopidogrel Bisulfate (Plavix -) 75 mg PO DAILY [facility] Last Admin: 07/08/18 10:14 Dose: 75 mg Folic Acid (Folic Acid -) 1 mg PO DAILY [facility] Last Admin: 07/08/18 10:14 Dose: 1 mg Pseudoephedrine HCl (Sudafed -) 30 mg PO Q6HPO [facility] Last Admin: 07/09/18 05:37 Dose: 30 mg Thiamine HCl (Vitamin B1 -) 100 mg PO [facility] Last Admin: 07/08/18 21:38 Dose: 100 mg - Objective Vital Signs: Vital Signs Temperature 98 F 07/09/18 08:31 Pulse Rate 74 07/09/18 08:31 Respiratory Rate 18 07/09/18 08:31 Blood Pressure 111/57 L 07/09/18 08:31 O2 Sat by Pulse Oximetry (%) 99 07/08/18 20:32 Constitutional: Yes: No Distress, Calm Neck: Yes: Supple Cardiovascular: Yes: Regular Rate and Rhythm Respiratory: Yes: Regular, CTA Bilaterally Gastrointestinal: Yes: Normal Bowel Sounds, Soft Edema: No Labs: CBC, BMP 07/09/18 05:30 07/09/18 05:30 INR, PTT INR 1.21 (0.83-1.09) H 07/06/18 17:49 - ....Imaging EKG: Report Reviewed (Tele: NSR) Problem List - Problems (1) Non-ST elevation myocardial infarction (NSTEMI) greater than 8 weeks ago Code(s): I25.2 - OLD MYOCARDIAL INFARCTION (2) CAD (coronary artery disease) Code(s): I25.10 - ATHSCL HEART DISEASE OF [place] CORONARY ARTERY W/O ANG PCTRS Qualifiers: Coronary Disease-Associated Artery/Lesion type: [place] artery [place] vs. transplanted heart: [place] heart Associated angina: without angina Qualified Code(s): I25.10 - Atherosclerotic heart disease of [place] coronary artery without angina pectoris (3) Hypercholesterolemia Code(s): E78.00 - PURE HYPERCHOLESTEROLEMIA, UNSPECIFIED (4) Syncope Code(s): R55 - SYNCOPE AND COLLAPSE Qualifiers: Syncope type: unspecified Qualified Code(s): R55 - Syncope and collapse (5) Alcohol dependence, episodic drinking behavior Code(s): F10.20 - ALCOHOL DEPENDENCE, UNCOMPLICATED (6) Cocaine dependence Code(s): F14.20 - COCAINE DEPENDENCE, UNCOMPLICATED Qualifiers: Substance use status: uncomplicated Qualified Code(s): F14.20 - Cocaine dependence, uncomplicated Assessment/Plan 06/29/2018 Echo: Normal LVEF>55%, abnl LV compliance, normal RV size and fxn, mild LAE, tr-mild TR, no MR 06/2018 MPI: Mild mid apical reversible perfusion defect 1. Syncope in context of polysubstance abuse 2. HTN currently normotensive without medications 3. Hypercholesterolemia 4. CAD h/o NSTEMI, abnormal nuclear MPI 5. Polysubstance abuse (cocaine and ETOH) PLAN: 1. Continue ASA 81 qd, Lipitor 80 qhs, Plavix 75 qd 2. Avoid beta lisa for now, start Norvasc 2.5 qd, not ideal cath candidate due to ongoing polysubstance abuse and compliance issues 3. F/u echocardiography should be repeated to assess LV/RV and valvular function 4. Continue telemetry monitoring, librium detox, f/u with [facility] cardiology clinic as outpatient
[2018-07-09] MEDS: ASPIRIN COATED 81 MG TABLET.EC PO SCH (10:48)
[2018-07-09] MEDS: FOLIC ACID 1 MG TABLET (FP) PO SCH (10:48)
[2018-07-09] MEDS: amLODIPine BESYLATE 2.5 MG TABLET (FP) PO SCH (10:48)
[2018-07-09] MEDS: CLOPIDOGREL BISULFATE 75 MG TABLET (FP) PO SCH (10:48)
--- NOTE | 2018-07-09 12:48 | PN ---
Teaching Attending Note Name of Resident: Aditya Rodriguez ATTENDING PHYSICIAN STATEMENT I saw and evaluated the patient. I reviewed the resident's note and discussed the case with the resident. I agree with the resident's findings and plan as documented. SUBJECTIVE:asymptomatic. denies CP, SOB,fever, chills, N/V/C/D OBJECTIVE: Last Vital Signs Temp Pulse Resp BP Pulse Ox 98 F 74 18 111/57 L 99 07/09/18 08:31 07/09/18 08:31 07/09/18 08:31 07/09/18 08:07/09/18 09:00 General NAD ASSESSMENT AND PLAN: 53yo M with PMH Continuous polysubstance abuse, BPH and recent +NMST at [facility] sent from [facility] for syncope 1. Syncope- liekly due to ETOH intoxication however high concern for arrhythmia with +NMST. cardiac monitoring. check echo 2. Recent +NMST-report received from [facility] showing apical reversible infarct. was medically optimized and d/c from there due to +utox and lack of complicance. will f/u echo. will need to f/u as outpatient and prove compliance. cont asa/plavix/statin. will hold betablocker at this time due to cocaine use 3. ETOH withdrawal- CIWA 4. on librium protocol. UTOx +Cocaine and BZD (on librium) not interested in inpatient rehab, states he was sober in the past on his own and is highly motivated to do it again. cont thiamine/folate/MVI 4. Anxiety- will need to f/u psychiatrist as outpatient 5. BPH- flomax 6. DVT ppx- EAM 7. anticipate d/c tomorrow once librium is completed
--- NOTE | 2018-07-09 14:32 | ECHO ---
Name: CHRIS CHAVEZ Exam:Adult Echocardiogram Study Date: 07/09/2018 09:49 AM Age: 53 yrs Reason For Study: syncope Height: 70 in Weight: 247 lb BSA: 2.3 m2 Procedure A complete two-dimensional transthoracic echocardiogram was performed (2D, M-mode, Doppler and color flow Doppler). Technically limited study. Left Ventricle The left ventricle is normal in size. Left ventricular systolic function is normal. Ejection Fraction = 55- 60%. Regional wall motion could not be accurately assessed due to poor acoustic window. Right Ventricle The right ventricle is not well visualized. Atria The left atrium is mildly dilated. Right atrium not well visualized. Mitral Valve The mitral valve is normal in structure and function. There is no mitral regurgitation noted. Tricuspid Valve The tricuspid valve is normal in structure and function. No tricuspid regurgitation. Aortic Valve The aortic valve is normal in structure and function. No aortic regurgitation is present. Pulmonic Valve The pulmonic valve is not well visualized. Great Vessels Moderate aortic root dilatation. Pericardium/Pleura There is no pericardial effusion. Interpretation Summary Technically limited study The left ventricle is normal in size. Left ventricular systolic function is preserved Ejection Fraction = 55-60%. Regional wall motion could not be accurately assessed due to poor acoustic window The right ventricle is not well visualized. The left atrium is mildly dilated. Right atrium not well visualized. Moderate aortic root dilatation. Valvular regurgitation could not be accurately assessed due to poor acoustic window There is no pericardial effusion. Previous study is not available for comparison David Mora MD 07/09/2018 02:31 PM
[2018-07-09] MEDS ORDERED: chlordiazePOXIDE 5 MG CAPSULE PO SCH (17:00)
[2018-07-09] MEDS ORDERED: PT OWN MED DRAWER 7, Y5N ONE (18:40)
[2018-07-09] MEDS ORDERED: LORazepam 2 MG/ML SDV VIAL IVPUSH ONE (21:23)
[2018-07-09] MEDS: THIAMINE HCL 100 MG TABLET (FP) PO SCH (22:21)
[2018-07-09] MEDS: ATORVASTATIN CA 80 MG TABLET (FP) PO SCH (22:21)
[2018-07-10] MEDS: PSEUDOEPHEDRINE HCL 30 MG TABLET PO SCH ×2 (00:01→05:22)
[2018-07-10] MEDS: chlordiazePOXIDE 5 MG CAPSULE PO SCH (05:19)
[2018-07-10 08:01] LABS: BASO % 0.4 % (0-2.0); EOS % 3.2 % (0-4.5); HEMATOCRIT 40.3 % (35.4-49); LYMPH % 38.4 % (8-40); MCH 30.2 pg (25.7-33.7); MCHC 34.7 g/dl (32.0-35.9); MEAN CELL VOLUME 87.2 fl (80-96); MEAN PLT VOLUME 9.7 fl (7.5-11.1); MONO % 7.8 % (3.8-10.2); NEUT % 50.2 % (42.8-82.8); PLATELET COUNT 274 K/MM3 (134-434); RBC 4.62 M/mm3 (4.00-5.60); RDW 13.9 % (11.9-15.9); WHITE BLOOD COUNT 9.1 K/mm3 (4.0-10.0)
[2018-07-10 09:03] LABS: ANION GAP 9 MMOL/L (8-16); BLOOD UREA NITROGEN 8 mg/dL (7-18); CALCIUM 8.5 mg/dL (8.5-10.1); CHLORIDE 105 mmol/L (98-107); CO2 27 mmol/L (21-32); CREATININE 0.9 mg/dL (0.55-1.3); GLUCOSE,RANDOM 99 mg/dL (74-106); PHOSPHOROUS 4.9 mg/dL (2.5-4.9); SODIUM 140 mmol/L (136-145)
--- NOTE | 2018-07-10 10:16 | PN ---
Progress Note (short form) - Note Progress Note: Chief Complaint: Events noted, notes reviewed, denies any chest pain or dyspnea History of Present Illness: Seen and examined on telemetry. Events noted, notes reviewed, denies any chest pain or dyspnea Echocardiography dated 07/09/2018 revealed normal LV systolic function, LVEF 55- 60%, mild LAE and no valvular regurgitation Echocardiography dated 06/29/2018 revealed normal LV systolic function, LVEF>55% , abnormal LV compliance, normal RV size and function, mild LAE, trace-mild TR, no MR MPI study dated 06/2018 revealed mild mid apical wall reversible perfusion defect/ischemia - Current Medication List Current Medications: Current Medications Amlodipine Besylate (Norvasc -) 2.5 mg PO DAILY [facility] Last Admin: 07/09/18 10:48 Dose: 2.5 mg Aspirin (Ecotrin -) 81 mg PO DAILY [facility] Last Admin: 07/09/18 10:48 Dose: 81 mg Atorvastatin Calcium (Lipitor -) 80 mg PO [facility] Last Admin: 07/09/18 22:21 Dose: 80 mg Chlordiazepoxide HCl (Librium -) 10 mg PO [id number] [facility] Stop: 07/10/18 11:01 Last Admin: 07/10/18 05:19 Dose: 10 mg Clopidogrel Bisulfate (Plavix -) 75 mg PO DAILY [facility] Last Admin: 07/09/18 10:48 Dose: 75 mg Folic Acid (Folic Acid -) 1 mg PO DAILY [facility] Last Admin: 07/09/18 10:48 Dose: 1 mg Pseudoephedrine HCl (Sudafed -) 30 mg PO Q6HPO [facility] Last Admin: 07/10/18 05:22 Dose: Not Given Thiamine HCl (Vitamin B1 -) 100 mg PO [facility] Last Admin: 07/09/18 22:21 Dose: 100 mg Review of Systems Cardiovascular: As noted above Respiratory: denies: As noted above Gastrointestinal: denies: Nausea, Vomiting, Diarrhea, Constipation or Abdominal Discomfort Musculoskeletal: No Symptoms Reported Endocrine: No Symptoms Reported - Objective Vital Signs: Last Vital Signs Temp Pulse Resp BP Pulse Ox 98.0 F 80 20 108/70 99 07/10/18 05:00 07/10/18 05:00 07/10/18 05:00 07/10/18 05:00 07/09/18 21:00 Intake & Output 0207/08/18 07/09/18 07/10/18 23:59 23:59 23:59 23:59 Intake Total 2059 640 1240 Balance 2059 640 1240 Constitutional: No Distress, Calm, Thin Neck: Supple Negative JVD Cardiovascular: S1 S2 Regular Rate and Rhythm Respiratory: Clear to A&P Bilaterally Gastrointestinal: Soft Benign Normal Bowel Sounds Ext: No Edema Labs: CBC, BMP 07/10/18 05:30 07/10/18 05:30 Hepatic Panel Total Bilirubin 0.4 mg/dL (0.2-1) 07/06/18 17:49 AST 23 U/L (15-37) 07/06/18 17:49 ALT 52 U/L (13-61) 07/06/18 17:49 Alkaline Phosphatase 66 U/L (45-117) 07/06/18 17:49 Albumin 3.7 g/dl (3.4-5.0) 07/06/18 17:49 INR, PTT INR 1.21 (0.83-1.09) H 07/06/18 17:49 Assessment/Plan ASSESSMENT: 1. Syncope in context of poly-substance abuse 2. CAD history of NSTEMI, abnormal MPI study angina pectoris 3. Diastolic LV dysfunction with clinical class 0 NYHA classification LV failure 4. HTN currently normotensive without medications 5. Hypercholesterolemia 6. Polysubstance abuse (including cocaine and ETOH) PLAN: 1. Continue ASA and Plavix 2. Continue Lipitor 3. As outlined avoid beta lisa for now, continue Norvasc, not ideal C candidate due to ongoing poly-substance abuse and compliance issues 4. Can be D/C from the cardiovascular point of view Sabrina Thompson MD
[2018-07-10] MEDS: ASPIRIN COATED 81 MG TABLET.EC PO SCH (10:29)
[2018-07-10] MEDS: CLOPIDOGREL BISULFATE 75 MG TABLET (FP) PO SCH (10:29)
[2018-07-10] MEDS: amLODIPine BESYLATE 2.5 MG TABLET (FP) PO SCH (10:29)
[2018-07-10] MEDS: FOLIC ACID 1 MG TABLET (FP) PO SCH (10:29)
[2018-07-10 12:24] VITALS: BP 121/67; PULSE 83; TEMP 98.2
--- NOTE | 2018-07-10 12:46 | DS ---
Physical Exam: SUBJECTIVE: Patient seen and examined at bedside. Withdrawal symptoms resolved, feeling well, no complaints. No n/v/c/d, no n/v, no abd pain, no CP, no SOB, no auditory/visual hallucination, no further lightheadedness. OBJECTIVE: Vital Signs Period Temp Pulse Resp BP Sys/Shah Pulse Ox Last 24 Hr 98.0 F-98.2 F 75-90 20-20 108-129/60-85 96-99 PHYSICAL EXAM GENERAL: A&Ox3, NAD HEENT: NC/AT, PERRLA, AOMI, anicteric sclera, MMM NECK: Trachea midline, full range of motion, supple. LUNGS: CTA b/l HEART: RRR no m/r/g ABDOMEN: Soft, nondistended, obese, abdominal scar noted, nontender, 4inch hard epigastric mass noted underneath epigastric surgical site, EXTREMITIES: 2+ pulses, warm, well-perfused, no edema. 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 SKIN: Warm, dry, normal turgor, no rashes or lesions noted LABS Laboratory Results - last 24 hr 07/10/18 07/10/18 05:30 05:30 WBC 9.1 RBC 4.62 Hgb 14.0 Hct 40.3 MCV 87.2 MCH 30.2 MCHC 34.7 RDW 13.9 Plt Count 274 MPV 9.7 Absolute Neuts (auto) 4.6 Neutrophils % 50.2 Lymphocytes % 38.4 Monocytes % 7.8 Eosinophils % 3.2 Basophils % 0.4 Nucleated RBC % 0 Sodium 140 Potassium 4.0 Chloride 105 Carbon Dioxide 27 Anion Gap 9 BUN 8 Creatinine 0.9 Creat Clearance w eGFR > 60 Random Glucose 99 Calcium 8.5 Phosphorus 4.9 Magnesium 2.0 HOSPITAL COURSE: Date of Admission:07/07/18 Patient is a 53 y/o M w/ PMHx ALONSO, CAD, HTN, HLD, polysubstance abuse, presented from [facility] after witnessed atraumatic syncopal event, in active EtOH withdrawal, also positive for cocaine. EKG NSR w/o acute changes, serial troponins negative, all vitals stable. Cardiology was consulted. Records were obtained from [facility] for recent NM stress test, which found mild reversible mid-apical ischemia. Cardiology recommended against emergent intervention. Echocardiogram was reassuring. Patient completed Librium protocol and resolved withdrawal as an inpatient. He was discharged home with referrals for outpatient primary care and cardiology follow up. He was counseled on the need for complete cessation of alcohol, cocaine, and any other substance abuse. Date of Discharge: 07/10/18 Minutes to complete discharge: 40 Discharge Summary Reason For Visit: ALCOHOL DEPENDENCE Condition: Stable - Instructions Diet, Activity, Other Instructions: You were hospitalized for a fainting episode and detoxification of alcohol. You were seen and evaluated by specialists in cardiology. We obtained records from your hospitalization at [facility] indicating that you have a stress test that is mildly positive for disruption of blood flow to your heart, but does not require any emergent intervention. You were treated with medications to optimize your heart health and prevent your from experiencing symptoms of withdrawal. You will need close outpatient follow up with cardiology and we have referred you to a specialist. Please keep this appointment within 1 week of your discharge. Alternatively, you may seek cardiology care from a different doctor of your choice. Additionally, please see your primary medical doctor within 1 week of discharge. Upon discharge, resume taking your Aspirin, Plavix, and Lipitor as usual. Additionally, at the recommendation of cardiology, we have prescribed you another medication called Norvasc. Please take all of these medications exactly as prescribed and do not make any changes to your medication regimen without first consulting your doctor. Please refrain entirely from consuming alcohol or any illegal drugs. Continuing to use these substances places your life and long-term health at serious risk. If you experience any chest pain, shortness of breath, loss of consciousness, or any other new or concerning symptoms, please return to the Emergency Department. Medical recommendations Resume home prescriptions of Aspirin, Plavix, Lipitor. Begin prescription of Norvasc; it has been sent to your pharmacy. Follow up with cardiology and primary care within 1 week of discharge. Referrals: David Mora MD [Staff Physician] - Disposition: HOME - Home Medications Comprehensive Discharge Medication List: Ambulatory Orders Aspirin [Aspirin EC] 81 mg PO DAILY 07/06/18 Atorvastatin Ca [Lipitor] 80 mg PO HS 07/06/18 Clopidogrel Bisulfate [Clopidogrel] 75 mg PO DAILY 07/06/18 Tamsulosin HCl [Flomax] 0.4 mg PO DAILY 07/06/18 Amlodipine Besylate [Norvasc -] 2.5 mg PO DAILY #30 tablet 07/10/18 Folic Acid - 1 mg PO DAILY tablet 07/10/18 This patient is new to me today: No Emergency Visit: No Critical Care patient: No - Discharge Referral Referred to [facility] Med P.C.: No
--- NOTE | 2018-07-10 14:05 | PN ---
Teaching Attending Note Name of Resident: Aditya Rodriguez ATTENDING PHYSICIAN STATEMENT I saw and evaluated the patient. I reviewed the resident's note and discussed the case with the resident. I agree with the resident's findings and plan as documented. SUBJECTIVE: Feels great. Wants to go home. No complaints. OBJECTIVE: Afebrile, Hemodynamically Stable. Last Vital Signs Temp Pulse Resp BP Pulse Ox 98.2 F 83 20 121/67 96 07/10/18 09:00 07/10/18 09:00 07/10/18 09:00 07/10/18 09:00 07/10/18 09:00 HEENT - Atraumatic, Normocephalic. Heart - S1, S2, RRR Lungs - clear to auscultation. No crackles/wheeze. Abdomen - soft, non-tender. Bowel Sounds normal. Extremities - No calf tenderness. Neuro - AAO x 3. Tone/Power normal all 4 extremities. Laboratory Results - last 24 hr 07/10/18 07/10/18 05:30 05:30 WBC 9.1 RBC 4.62 Hgb 14.0 Hct 40.3 MCV 87.2 MCH 30.2 MCHC 34.7 RDW 13.9 Plt Count 274 MPV 9.7 Absolute Neuts (auto) 4.6 Neutrophils % 50.2 Lymphocytes % 38.4 Monocytes % 7.8 Eosinophils % 3.2 Basophils % 0.4 Nucleated RBC % 0 Sodium 140 Potassium 4.0 Chloride 105 Carbon Dioxide 27 Anion Gap 9 BUN 8 Creatinine 0.9 Creat Clearance w eGFR > 60 Random Glucose 99 Calcium 8.5 Phosphorus 4.9 Magnesium 2.0 ASSESSMENT AND PLAN: 53 year old male with history of Polysubstance abuse (Cocvaine, Benzodiazepines , Alcohol), BPH, CAD s/p NSTEMI with recent positive NM Stress Test at [facility], transferred from [facility] to [facility] for syncope and to complete detox. 1. Syncope- lkely sec to Alcohol intoxication. No events on cardiac monitoring. Echo - normal EF, diastolic dysfunction, difficult to appreciate wall motion abnormality. Cardiology follow up on discharge. Not given BB due to cocaine use. 2. CAD s/p NSTEMI s/p recent positive NMST- shows apical reversible infarct. Currently medically optimized to follow as out-patient due to positive Utox. Continue Aspirin, Plavix, Statin. History of compliance issues. Patient counselled. 3. Acute Alcohol Withdrawal - completed Librium detox protocol. Currently no further evidence of withdrawal. Continue Thiamine/folate/MVI. 4. Polysubstance Abuse - more invasive treatment/intervention for CAD and positive stress test deferred at [facility] due to history of non- compliance and substance abuse. Again patient has Utox positive for cocaine and Benzos. He was counselled and expressed remorse, and interest in lifestyle modification but did not feel that he needed out-patient support programs. 5. BPH - Continue Flomax. Completed Detox and Medically Stable for discharge.
== END 2018-07-10 12:06 | disposition home or self-care (01) | DRG 774 ==
LOC: JER 17:05 → JERBED 19:30 → J4W 23:32 → OBSVTOIN 07-07 12:43
PROVIDERS: ADMIT Internal Medicine
DX: F10.230 Alcohol dependence with withdrawal, uncomplicated (principal); F10.220 Alcohol dependence with intoxication, uncomplicated; F14.20 Cocaine dependence, uncomplicated; E86.0 Dehydration; R55 Syncope and collapse; I25.2 Old myocardial infarction; I10 Essential (primary) hypertension; E78.5 Hyperlipidemia, unspecified; K21.9 Gastro-esophageal reflux disease without esophagitis; I25.10 Atherosclerotic heart disease of native coronary artery without angina pectoris; R07.9 Chest pain, unspecified; G47.33 Obstructive sleep apnea (adult) (pediatric); N40.0 Benign prostatic hyperplasia without lower urinary tract symptoms
CPT/HCPCS: 36415; 71045-TC-FY; 80048; 80053; 80061; 80307; 82550; 82962; 83036; 83721; 83735; 84100; 84484; 85025; 85027; 85379; 85610; 93005; 93010; 93306-TC; 99285-25; G0378; J7030

== ENCOUNTER 2018-07-13 15:14 | Inpatient (IN) | payer OTHER ==
[2018-07-13 18:26] VITALS: BMI 37.1
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
[2018-07-13] MEDS ORDERED: MAG HYDROX/AL HYDROX/SIMETH 30 ML UNIT-DOSE CUP PO PRN (20:56)
[2018-07-13] MEDS ORDERED: NICOTINE POLACRILEX 2 MG GUM BC PRN (20:56)
[2018-07-13] MEDS ORDERED: ACETAMINOPHEN 325 MG TABLET (FP) PO PRN (20:56)
[2018-07-13] MEDS ORDERED: MENTHOL/PHENOL 1 EACH UD MM PRN (20:56)
[2018-07-13] MEDS ORDERED: guaiFENesin/D-METHORPHAN HB 10 ML UNIT-DOSE CUPS PO PRN (20:56)
[2018-07-13] MEDS ORDERED: MAGNESIUM HYDROX 2400MG/30ML ORAL SUSPENSION 30 ML CUP PO PRN (20:56)
[2018-07-13] MEDS ORDERED: MAGNESIUM CITRATE 300 ML BOTTLE PO PRN (20:56)
[2018-07-13] MEDS ORDERED: P-EPHED 60MG/TRIPROLIDI 2.5MG TABLET PO PRN (20:56)
[2018-07-13] MEDS ORDERED: LOPERAMIDE HCL 2 MG CAPSULE PO PRN (20:56)
[2018-07-13] MEDS: ATORVASTATIN CA 80 MG TABLET (FP) PO SCH (23:07)
[2018-07-13] MEDS: THIAMINE HCL 100 MG TABLET (FP) PO SCH (23:08)
[2018-07-14] MEDS: NICOTINE 14 MG/24 HOURS TOPICAL PATCH TD SCH (10:21)
[2018-07-14] MEDS: amLODIPine BESYLATE 2.5 MG TABLET (FP) PO SCH (10:33)
[2018-07-14] MEDS: PRENATAL VITAMINS W/ FOLIC ACID TABLET (FP) PO SCH (10:33)
[2018-07-14] MEDS: ASPIRIN COATED 81 MG TABLET.EC PO SCH (10:33)
[2018-07-14] MEDS: CLOPIDOGREL BISULFATE 75 MG TABLET (FP) PO SCH (10:33)
[2018-07-14] MEDS: TAMSULOSIN HCL 0.4 MG CAP PO SCH (10:33)
[2018-07-14] MEDS: hydrOXYzine PAMOATE 25 MG CAPSULE (FP) PO PRN ×2 (11:21→22:03)
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
[2018-07-14] MEDS: THIAMINE HCL 100 MG TABLET (FP) PO SCH (22:03)
[2018-07-14] MEDS: ATORVASTATIN CA 80 MG TABLET (FP) PO SCH (22:03)
[2018-07-15] MEDS: TAMSULOSIN HCL 0.4 MG CAP PO SCH (09:56)
[2018-07-15] MEDS: hydrOXYzine PAMOATE 25 MG CAPSULE (FP) PO PRN (09:56)
[2018-07-15] MEDS: PRENATAL VITAMINS W/ FOLIC ACID TABLET (FP) PO SCH (09:56)
[2018-07-15] MEDS: ASPIRIN COATED 81 MG TABLET.EC PO SCH (09:56)
[2018-07-15] MEDS: NICOTINE 14 MG/24 HOURS TOPICAL PATCH TD SCH (09:56)
[2018-07-15] MEDS: CLOPIDOGREL BISULFATE 75 MG TABLET (FP) PO SCH (09:56)
[2018-07-15] MEDS: amLODIPine BESYLATE 2.5 MG TABLET (FP) PO SCH (09:56)
[2018-07-15] MEDS: THIAMINE HCL 100 MG TABLET (FP) PO SCH (22:44)
[2018-07-15] MEDS: ATORVASTATIN CA 80 MG TABLET (FP) PO SCH (22:44)
[2018-07-16] MEDS ORDERED: COLLOIDAL OATMEAL 1 BAR EACH TP PRN (09:40)
[2018-07-16] MEDS: TAMSULOSIN HCL 0.4 MG CAP PO SCH (10:22)
[2018-07-16] MEDS: PRENATAL VITAMINS W/ FOLIC ACID TABLET (FP) PO SCH (10:23)
[2018-07-16] MEDS: ASPIRIN COATED 81 MG TABLET.EC PO SCH (10:23)
[2018-07-16] MEDS: amLODIPine BESYLATE 2.5 MG TABLET (FP) PO SCH (10:23)
[2018-07-16] MEDS: CLOPIDOGREL BISULFATE 75 MG TABLET (FP) PO SCH (10:23)
[2018-07-16] MEDS: NICOTINE 14 MG/24 HOURS TOPICAL PATCH TD SCH (10:23)
[2018-07-16] MEDS: MINERAL OIL/PETROLAT/WATER TOPICAL CREAM 113 GM JAR TP SCH ×2 (10:45→22:05)
[2018-07-16 15:32] LABS: URINE APPEARANCE CLEAR; URINE BILIRUBIN NEGATIVE (<2.0 mg/dL); URINE COLOR YELLOW; URINE GLUCOSE (UA) NEGATIVE (NEGATIVE); URINE KETONE NEGATIVE (NEGATIVE); URINE LEUK ESTERASE NEGATIVE (NEGATIVE); URINE NITRITE NEGATIVE (NEGATIVE); URINE PROTEIN NEGATIVE (NEGATIVE); URINE UROBILINOGEN NEGATIVE mg/dL (0.2-1.0)
[2018-07-16] MEDS: hydrOXYzine PAMOATE 25 MG CAPSULE (FP) PO PRN (20:30)
[2018-07-16] MEDS: THIAMINE HCL 100 MG TABLET (FP) PO SCH (22:04)
[2018-07-16] MEDS: ATORVASTATIN CA 80 MG TABLET (FP) PO SCH (22:04)
[2018-07-17] MEDS: TAMSULOSIN HCL 0.4 MG CAP PO SCH (10:30)
[2018-07-17] MEDS: amLODIPine BESYLATE 2.5 MG TABLET (FP) PO SCH (10:30)
[2018-07-17] MEDS: PRENATAL VITAMINS W/ FOLIC ACID TABLET (FP) PO SCH (10:30)
[2018-07-17] MEDS: MINERAL OIL/PETROLAT/WATER TOPICAL CREAM 113 GM JAR TP SCH ×2 (10:30→21:56)
[2018-07-17] MEDS: NICOTINE 14 MG/24 HOURS TOPICAL PATCH TD SCH (10:30)
[2018-07-17] MEDS: CLOPIDOGREL BISULFATE 75 MG TABLET (FP) PO SCH (10:30)
[2018-07-17] MEDS: ASPIRIN COATED 81 MG TABLET.EC PO SCH (10:30)
--- NOTE | 2018-07-17 10:36 | PN ---
Psychiatric Progress Note Vital Signs: Vital Signs Period Temp Pulse Resp BP Sys/Shah Pulse Ox Last 24 Hr 93 18-18 127/69 Date of Session: 07/17/18 Chief Complaint:: Follow up HPI: Mr Gonzalez is a 53 years old with history of MDD/ADHD, alcohol and cocaine use admitted to this facility on 07/14/18 for inpatient rehabilitation Current Medications: Active Medications Generic Name Dose Route Start Last Admin Trade Name Freq PRN Reason Stop Dose Admin Acetaminophen 650 mg 07/13/18 20:56 Tylenol - PO Q4H PRN FEVER Al Hydroxide/Mg Hydroxide 30 ml 07/13/18 20:56 Mylanta Oral Suspension - PO Q6H PRN DYSPEPSIA Amlodipine Besylate 2.5 mg 07/14/18 10:00 07/17/18 10:30 Norvasc - PO 2.5 mg DAILY SOLITARIO Administration Aspirin 81 mg 07/14/18 10:00 07/17/18 10:30 Ecotrin - PO 81 mg DAILY SOLITARIO Administration Atorvastatin Calcium 80 mg 07/13/18 22:00 07/16/18 22:04 Lipitor - PO 80 mg HS SOLITARIO Administration Clopidogrel Bisulfate 75 mg 07/14/18 10:00 07/17/18 10:30 Plavix - PO 75 mg DAILY SOLITARIO Administration Colloidal Oatmeal 1 applic 07/16/18 09:40 07/17/18 10:32 Aveeno Soap - TP 1 bar DAILY PRN Administration HYGEINE Eucalyptus/Menthol/Phenol/Sorbitol 1 each 07/13/18 20:56 Cepastat Lozenge - MM Q4H PRN SORE THROAT Guaifenesin 10 ml 07/13/18 20:56 Robitussin Dm - PO Q6H PRN COUGH Hydroxyzine Pamoate 25 mg 07/13/18 20:56 07/16/18 20:30 Vistaril - PO 25 mg Q4H PRN Administration AGITATION Ibuprofen 400 mg 07/13/18 20:56 Motrin - PO Q6H PRN Pain level 4-6 Loperamide HCl 4 mg 07/13/18 20:56 Imodium - PO Q6H PRN DIARRHEA Magnesium Citrate 300 ml 07/13/18 20:56 Citroma - PO Q48H PRN CONSTIPATION Magnesium Hydroxide 30 ml 07/13/18 20:56 Milk Of Magnesia - PO DAILY PRN CONSTIPATION Melatonin 5 mg 07/13/18 22:00 Melatonin PO HS PRN INSOMNIA Methylphenidate HCl 5 mg 07/17/18 10:30 Ritalin - PO DAILY SOLITARIO Multi-Ingredient Lotion 1 applic 07/16/18 10:00 07/17/18 10:30 Eucerin (Small Jar) - TP 1 applic BID SOLITARIO Administration Nicotine 14 mg 07/14/18 10:00 07/17/18 10:30 Nicoderm Patch - TD Not Given DAILY SOLITARIO Nicotine Polacrilex 2 mg 07/13/18 20:56 Nicorette Gum - BC Q2H PRN NICOTINE REPLACEMENT RX Multivit/Folic Acid/Iron 1 tab 07/14/18 10:00 07/17/18 10:30 Vitamins (Sjr) - PO 1 tab DAILY SOLITARIO Administration Pseudoephedrine/Triprolidine 1 combo 07/13/18 20:56 Actifed - PO TID PRN NASAL CONGESTION Tamsulosin HCl 0.4 mg 07/14/18 10:00 07/17/18 10:30 Flomax - PO 0.4 mg DAILY SOLITARIO Administration Thiamine HCl 100 mg 07/13/18 22:00 07/16/18 22:04 Vitamin B1 - PO 100 mg HS SOLITARIO Administration Current Side Effect: No Lab tests ordered: Yes Lab tests reviewed: Yes Provider note:: Patient complains of difficulty to maintain attention and requests that Adderall 20 mg that he was taken prior to admission be ordered. Patient was seen by Dr Gonzalez on 07/14/18 and medication was held in view of history of prior myocardial infarction. External medication verification done. Script for Adderall 20 mg#60 was filled on 06/12/18 at [facility]. Adderall is not included as part as facility formulary but Ritalin is. View of patient insistence in taking medication. Ritalin 5 mg po daily will be ordered. Risks of such prescription was explained to patient and he insisted on taking medication Total face to face time:: 25 Mental Status Exam - Mental Status Exam Alert and Oriented to: Time, Place, Person Cognitive Function: Fair Patient Appearance: Well Groomed Mood: Hopeful, Euthymic Affect: Appropriate Patient Behavior: Cooperative Speech Pattern: Clear Voice Loudness: Normal Thought Process: Intact, Goal Oriented Thought Disorder: Not Present Hallucinations: Denies Suicidal Ideation: Denies Homicidal Ideation: Denies Insight/Judgement: Fair Sleep: Fair Appetite: Good Muscle strength/Tone: Normal Gait/Station: Normal Psychiatric Treatment Plan - Problem List (1) ADHD (attention deficit hyperactivity disorder) Current Visit: Yes Comment: As per self-report. On Adderall. (2) Depressive disorder Current Visit: Yes (3) Drug-induced mood disorder Current Visit: Yes (4) Alcohol dependence Current Visit: No Qualifiers: Substance use status: in withdrawal Complication of substance-induced condition: uncomplicated Qualified Code(s): F10.230 - Alcohol dependence with withdrawal, uncomplicated (5) Cocaine dependence Current Visit: Yes Qualifiers: Substance use status: uncomplicated Qualified Code(s): F14.20 - Cocaine dependence, uncomplicated (6) Nicotine dependence Current Visit: Yes Qualifiers: Nicotine product type: cigarettes Substance use status: in withdrawal Qualified Code(s): F17.213 - Nicotine dependence, cigarettes, with withdrawal (7) CAD (coronary artery disease) Current Visit: Yes Qualifiers: Coronary Disease-Associated Artery/Lesion type: [place] artery [place] vs. transplanted heart: [place] heart Associated angina: without angina Qualified Code(s): I25.10 - Atherosclerotic heart disease of [place] coronary artery without angina pectoris (8) GERD (gastroesophageal reflux disease) Current Visit: Yes Qualifiers: Esophagitis presence: without esophagitis Qualified Code(s): K21.9 - Gastro -esophageal reflux disease without esophagitis (9) Hypercholesterolemia Current Visit: Yes (10) Hypertension Current Visit: Yes Qualifiers: Hypertension type: essential hypertension Qualified Code(s): I10 - Essential (primary) hypertension (11) BPH (benign prostatic hyperplasia) Current Visit: No Qualifiers: Lower urinary tract symptom presence: symptoms absent Qualified Code(s): N40.0 - Benign prostatic hyperplasia without lower urinary tract symptoms Initial treatment plan: 1) Start Ritalin 5 mg po daily. 2) Continue inpatient rehabilitation
[2018-07-17] MEDS: METHYLPHENIDATE HCL 5 MG TABLET PO SCH (12:01)
[2018-07-17] MEDS: IBUPROFEN 400 MG TABLET (FP) PO PRN (19:52)
[2018-07-17] MEDS: THIAMINE HCL 100 MG TABLET (FP) PO SCH (21:15)
[2018-07-17] MEDS: ATORVASTATIN CA 80 MG TABLET (FP) PO SCH (21:15)
[2018-07-17] MEDS: MELATONIN 5 MG TABLETS PO PRN (21:16)
[2018-07-17] MEDS: hydrOXYzine PAMOATE 25 MG CAPSULE (FP) PO PRN (21:16)
[2018-07-18] MEDS: CLOPIDOGREL BISULFATE 75 MG TABLET (FP) PO SCH (09:40)
[2018-07-18] MEDS: amLODIPine BESYLATE 2.5 MG TABLET (FP) PO SCH (09:40)
[2018-07-18] MEDS: NICOTINE 14 MG/24 HOURS TOPICAL PATCH TD SCH (09:40)
[2018-07-18] MEDS: METHYLPHENIDATE HCL 5 MG TABLET PO SCH (09:41)
[2018-07-18] MEDS: TAMSULOSIN HCL 0.4 MG CAP PO SCH (09:41)
[2018-07-18] MEDS: PRENATAL VITAMINS W/ FOLIC ACID TABLET (FP) PO SCH (09:41)
[2018-07-18] MEDS: ASPIRIN COATED 81 MG TABLET.EC PO SCH (09:41)
[2018-07-18] MEDS: MINERAL OIL/PETROLAT/WATER TOPICAL CREAM 113 GM JAR TP SCH ×2 (09:42→21:39)
--- NOTE | 2018-07-18 11:58 | PN ---
S Progress Note (SOAP) Subjective: Client c/o left thigh pain, x 2 days. States pain relived with motrin Objective: 07/18/18 11:56 Thigh color, size, temperature equal. No ecchymosis noted. Full weight bearing, no difficulty ambulating. 07/18/18 11:57 Assessment: 07/18/18 11:57 left thigh pain 07/18/18 11:57 Plan: Continue motrin as needed
[2018-07-18] MEDS ORDERED: hydrOXYzine PAMOATE 50 MG CAPSULE (FP) PO PRN (13:52)
--- NOTE | 2018-07-18 13:54 | PN ---
S Progress Note Note: Patient complains of anxiety despite taking Vistaril 25 mg po Q 4hrs prn. Will increase Vistaril dosage to 50 mg po Q 4hrs prn
[2018-07-18] MEDS: IBUPROFEN 400 MG TABLET (FP) PO PRN (16:46)
[2018-07-18] MEDS: MELATONIN 5 MG TABLETS PO PRN (21:14)
[2018-07-18] MEDS: ATORVASTATIN CA 80 MG TABLET (FP) PO SCH (21:14)
[2018-07-18] MEDS: THIAMINE HCL 100 MG TABLET (FP) PO SCH (21:14)
[2018-07-19 07:02] VITALS: BP 116/74; PULSE 66; TEMP 98.3
--- NOTE | 2018-07-19 09:27 | PN ---
[facility] Progress Note Note: Client is leaving. Plans to get aftercare at [facility]. Primary Care provider on [facility] and [facility] in [place] ([facility]). Has his own medications and does not need prescriptions.
[2018-07-19] MEDS: ASPIRIN COATED 81 MG TABLET.EC PO SCH (09:42)
[2018-07-19] MEDS: amLODIPine BESYLATE 2.5 MG TABLET (FP) PO SCH (09:42)
[2018-07-19] MEDS: METHYLPHENIDATE HCL 5 MG TABLET PO SCH (09:42)
[2018-07-19] MEDS: PRENATAL VITAMINS W/ FOLIC ACID TABLET (FP) PO SCH (09:43)
[2018-07-19] MEDS: CLOPIDOGREL BISULFATE 75 MG TABLET (FP) PO SCH (09:43)
[2018-07-19] MEDS: MINERAL OIL/PETROLAT/WATER TOPICAL CREAM 113 GM JAR TP SCH (09:43)
[2018-07-19] MEDS: TAMSULOSIN HCL 0.4 MG CAP PO SCH (09:43)
[2018-07-19] MEDS: NICOTINE 14 MG/24 HOURS TOPICAL PATCH TD SCH (09:43)
== END 2018-07-19 09:50 | disposition left against medical advice (07) | DRG 770 ==
LOC: YASAS 15:14 → Y3W 19:48
PROVIDERS: ADMIT Neuromusculoskeletal Medicine & OMM; ATTEND Neuromusculoskeletal Medicine & OMM
PROC: HZ42ZZZ Group Counseling for Substance Abuse Treatment, Cognitive-Behavioral (ICD-10-PCS; principal; 2018-07-13)
DX: F10.20 Alcohol dependence, uncomplicated (principal); F14.20 Cocaine dependence, uncomplicated; F17.210 Nicotine dependence, cigarettes, uncomplicated; F90.9 Attention-deficit hyperactivity disorder, unspecified type; F32.9 Major depressive disorder, single episode, unspecified; F19.24 Other psychoactive substance dependence with psychoactive substance-induced mood disorder; I10 Essential (primary) hypertension; I25.10 Atherosclerotic heart disease of native coronary artery without angina pectoris; I25.2 Old myocardial infarction; K21.9 Gastro-esophageal reflux disease without esophagitis; N40.0 Benign prostatic hyperplasia without lower urinary tract symptoms; M79.652 Pain in left thigh; G47.30 Sleep apnea, unspecified; Z79.82 Long term (current) use of aspirin
CPT/HCPCS: 81003

== ENCOUNTER 2018-09-04 19:04 | Observation (INO) | payer OTHER ==
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
[2018-09-04 19:32] VITALS: BMI 39.4
[2018-09-04] MEDS ORDERED: FOLIC ACID INJECTION - 1 MG, THIAMINE HCL 100 MG, MULTIVIT INJECTION ADULT 10 ML in SOD... IVPB ONE (20:43)
[2018-09-04] MEDS ORDERED: ONDANSETRON 4 MG/2 ML VIAL IVPUSH ONE (20:44)
[2018-09-04] MEDS ORDERED: ASPIRIN 81 MG CHEWABLE TABLETS PO ONE (20:44)
[2018-09-04] MEDS ORDERED: chlordiazePOXIDE HCL 25 MG CAPSULE PO ONE (20:53)
[2018-09-04 20:54] LABS: BASO % 0.7 % (0-2.0); EOS % 1.8 % (0-4.5); HEMATOCRIT 39.1 % (35.4-49); HEMOGLOBIN 13.3 GM/dL (11.7-16.9); LYMPH % 44.7 % (8-40); MCH 30.1 pg (25.7-33.7); MCHC 34.1 g/dl (32.0-35.9); MEAN CELL VOLUME 88.3 fl (80-96); MEAN PLT VOLUME 9.3 fl (7.5-11.1); MONO % 10.3 % (3.8-10.2); NEUT % 42.5 % (42.8-82.8); PLATELET COUNT 258 K/MM3 (134-434); RBC 4.43 M/mm3 (4.00-5.60); RDW 13.5 % (11.9-15.9); WHITE BLOOD COUNT 9.8 K/mm3 (4.0-10.0)
[2018-09-04] MEDS ORDERED: ASPIRIN 81 MG CHEWABLE TABLETS ONE (20:56)
[2018-09-04] MEDS ORDERED: ONDANSETRON 4 MG/2 ML VIAL ONE (20:57)
[2018-09-04 21:02] LABS: INR 1.13 (0.83-1.09); PROTHROMBIN TIME (PATIENT) 13.4 SEC (9.7-13.0)
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
[2018-09-04 21:22] LABS: ALBUMIN 3.8 g/dl (3.4-5.0); ALK PHOS 73 U/L (45-117); ANION GAP 8 MMOL/L (8-16); BILIRUBIN,TOTAL 0.3 mg/dL (0.2-1); BLOOD UREA NITROGEN 13 mg/dL (7-18); CALCIUM 8.5 mg/dL (8.5-10.1); CHLORIDE 107 mmol/L (98-107); CO2 27 mmol/L (21-32); CREATININE 1.3 mg/dL (0.55-1.3); GLUCOSE,RANDOM 106 mg/dL (74-106); MAGNESIUM 2.3 mg/dL (1.8-2.4); POTASSIUM 3.9 mmol/L (3.5-5.1); SGOT/AST 24 U/L (15-37); SGPT/ALT 35 U/L (13-61); SODIUM 142 mmol/L (136-145); TOT PROT 6.9 g/dl (6.4-8.2)
[2018-09-04] MEDS ORDERED: chlordiazePOXIDE HCL 25 MG CAPSULE ONE (21:24)
[2018-09-04] MEDS ORDERED: LOPERAMIDE HCL 2 MG CAPSULE PO ONE (21:44)
[2018-09-04] MEDS ORDERED: LOPERAMIDE HCL 2 MG CAPSULE ONE (22:24)
--- NOTE | 2018-09-04 22:30 | PN ---
Teaching Attending Note Name of Resident: Carlito Brooks ATTENDING PHYSICIAN STATEMENT I saw and evaluated the patient. I reviewed the resident's note and discussed the case with the resident. I agree with the resident's findings and plan as documented. SUBJECTIVE: Seen and examined; please refer to resident note for further historical discussion. Briefly, this is a 53 y/o Male presenting with chest pain that started with an argument with daughter. Normally this pain is relieved with rest but it was not relieved so he called EMS; he was chest pain free when we saw him in the ER. Didn't take any home medications recently and agrees he has been noncompliant. He has had multiple episodes of CP since his discharge, all of which relieved with rest. He continues to use cocaine (3 days ago), smoke, and drink liquor. He has had 8 episodes of diarrhea since the pain started; it is nonbloody and he doesn't have any risks for Cdif with recent abx. [place] to be a poor candidate for LHC per CV on last admission due to ongoing polysubstance abuse, etc. He hasn't seen his glass cutting machine feeder since the time of discharge. 10 sys ROS done and negative aside from HPI PMH, PSH, FH, SH reviewed Home Medications Medication Instructions Recorded Aspirin [Aspirin EC] 81 mg PO DAILY 07/06/18 Atorvastatin Ca [Lipitor] 80 mg PO HS 07/06/18 Clopidogrel Bisulfate [Clopidogrel] 75 mg PO DAILY 07/06/18 Tamsulosin HCl [Flomax] 0.4 mg PO DAILY 07/06/18 Amlodipine Besylate [Norvasc -] 2.5 mg PO DAILY #30 tablet 07/10/18 Folic Acid - 1 mg PO DAILY tablet 07/10/18 OBJECTIVE: VS, labs, imaging reviewed NAD, AAO, resting in bed NC AT EOMI PERRLA RRR s1/2 no mgr Lungs CTAB, w/ sym exp NT ND +BS CN2-12 wnl, no fnd Normal mood, appropriate behavior Echo 06/2018 revealed normal LV systolic function, LVEF 55-60%, mild LAE and no valvular regurgitation Echo 06/29/2018 revealed normal LV systolic function, LVEF>55%, abnormal LV compliance, normal RV size and function, mild LAE, trace-mild TR, no MR MPI study dated 06/2018 revealed mild mid apical wall reversible perfusion defect/ischemia EKG reviewed; shows new TWI in V3 with Q wave ASSESSMENT AND PLAN: 1) Chest pain in the setting of cocaine abuse (within 3 days) -CP free at this time. Place on telemetry, trend troponin, consult cardiology. Previous admission reviewed; history of prior + stress test, etc. No LHC hx; prior recommendations regarding this reviewed. -PRN NTG -Holding off on further echo as recent study; known + recent stress test as documented last admission. Poor candidate for LHC. Will defer further management and workup to cardiology. He states that his last cocaine use was 3 days ago and this episode did occur in the setting of emotional distress. 2) CAD, hx NSTEMI -Hx prior abnormal MPI study (discussed in detail last admission). Not an ideal candidate for LHC given ongoing polysubstance abuse. Not on BB. Continue on ASA, Plavix, and Lipitor. Medication adjustments per cardiology; appreciate expert opinion 3) Diarrhea -Given cocaine use and recent alcohol use and in the abscence of signs of infection or risks for cdif can likely monitor and treat symptomatically. Will check lactoferrin. Happened with the chest pain not cocaine use so cocaine- related ischemia less likely. If worsens or develops abdominal pain can consider CT. 3) Diastolic LV dysfunction -Asx, euvolemic today -Control BP, monitor fluid status and weights. 4) HTN -On amlodipine; will continue. He feels his legs are subjectively swollen so can consider changing but he is noncomplaint. 

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
[2018-09-05] MEDS ORDERED: chlordiazePOXIDE HCL 10 MG CAPSULE PO PRN (01:31)
[2018-09-05] MEDS ORDERED: LORazepam 2 MG/ML SDV VIAL IVPUSH ONE (02:29)
[2018-09-05] MEDS ORDERED: LORazepam 2 MG/ML SDV VIAL ONE (02:39)
[2018-09-05] MEDS ORDERED: chlordiazePOXIDE HCL 25 MG CAPSULE ONE (03:50)
[2018-09-05] MEDS: chlordiazePOXIDE HCL 25 MG CAPSULE PO SCH ×3 (04:00→21:12)
[2018-09-05 04:19] LABS: PH,URINE 5.5 (5.0-8.0); URINE APPEARANCE CLEAR; URINE BILIRUBIN NEGATIVE (NEGATIVE); URINE COLOR YELLOW; URINE GLUCOSE (UA) NEGATIVE (NEGATIVE); URINE KETONE TRACE (NEGATIVE); URINE LEUK ESTERASE NEGATIVE (NEGATIVE); URINE NITRITE NEGATIVE (NEGATIVE); URINE PROTEIN NEGATIVE (NEGATIVE); URINE UROBILINOGEN 0.2 mg/dL (0.2-1.0)
[2018-09-05] MEDS ORDERED: TAMSULOSIN HCL 0.4 MG CAP PO SCH (08:30)
[2018-09-05] MEDS: ASPIRIN COATED 81 MG TABLET.EC PO SCH (10:04)
[2018-09-05] MEDS: FOLIC ACID 1 MG TABLET (FP) PO SCH (10:04)
[2018-09-05] MEDS: TAMSULOSIN HCL 0.4 MG CAP PO SCH (10:04)
[2018-09-05] MEDS: CLOPIDOGREL BISULFATE 75 MG TABLET (FP) PO SCH (10:04)
[2018-09-05] MEDS: amLODIPine BESYLATE 2.5 MG TABLET (FP) PO SCH (10:04)
[2018-09-05] MEDS: THIAMINE HCL 100 MG TABLET (FP) PO SCH (10:05)
--- NOTE | 2018-09-05 10:31 | EKG ---
Test Reason : Blood Pressure : / mmHG Vent. Rate : 087 BPM Atrial Rate : 087 BPM P-R Int : 158 ms QRS Dur : 112 ms QT Int : 374 ms P-R-T Axes : 056 006 033 degrees QTc Int : 450 ms NORMAL SINUS RHYTHM INFERIOR INFARCT (CITED ON OR BEFORE 25-SEP-2014) ANTERIOR INFARCT , AGE UNDETERMINED ABNORMAL ECG WHEN COMPARED WITH ECG OF 06-JUL-2018 17:21, ANTERIOR INFARCT IS NOW PRESENT Confirmed by CARY VELASQUEZ, EMILY ([id number]) on 09/05/2018 10:30:56 AM Referred By: Confirmed By:EMILY TOWNSEND MD
[2018-09-05 10:55] LABS: BASO % 0.5 % (0-2.0); EOS % 5.3 % (0-4.5); HEMATOCRIT 38.7 % (35.4-49); HEMOGLOBIN 12.9 GM/dL (11.7-16.9); LYMPH % 34.1 % (8-40); MCH 29.4 pg (25.7-33.7); MCHC 33.4 g/dl (32.0-35.9); MEAN CELL VOLUME 88.2 fl (80-96); MEAN PLT VOLUME 9.2 fl (7.5-11.1); MONO % 9.3 % (3.8-10.2); NEUT % 50.8 % (42.8-82.8); PLATELET COUNT 243 K/MM3 (134-434); RBC 4.38 M/mm3 (4.00-5.60); RDW 13.6 % (11.9-15.9); WHITE BLOOD COUNT 8.1 K/mm3 (4.0-10.0)
[2018-09-05 11:12] LABS: INR 1.1 (0.83-1.09)
[2018-09-05 11:15] LABS: ACTIVATED PTT 32.6 SECONDS (25.2-36.5)
[2018-09-05] MEDS ORDERED: LORazepam 1 MG TABLET PO ONE (11:15)
[2018-09-05 11:25] LABS: ALBUMIN 3.4 g/dl (3.4-5.0); ALK PHOS 62 U/L (45-117); ANION GAP 5 MMOL/L (8-16); BILIRUBIN,TOTAL 0.5 mg/dL (0.2-1); BLOOD UREA NITROGEN 11 mg/dL (7-18); CALCIUM 8.2 mg/dL (8.5-10.1); CHLORIDE 110 mmol/L (98-107); CO2 29 mmol/L (21-32); GLUCOSE,RANDOM 87 mg/dL (74-106); LIPASE 150 U/L (73-393); MAGNESIUM 2.3 mg/dL (1.8-2.4); PHOSPHOROUS 3.3 mg/dL (2.5-4.9); POTASSIUM 4.1 mmol/L (3.5-5.1); SGOT/AST 15 U/L (15-37); SGPT/ALT 29 U/L (13-61); SODIUM 143 mmol/L (136-145); TOT PROT 6.2 g/dl (6.4-8.2)
--- NOTE | 2018-09-05 13:49 | PN ---
Teaching Attending Note Name of Resident: Sherman Leon ATTENDING PHYSICIAN STATEMENT I saw and evaluated the patient. I reviewed the resident's note and discussed the case with the resident. I agree with the resident's findings and plan as documented. SUBJECTIVE: No further CP. Feels anxious. No sweating/palpitations/nausea/ vomiting. OBJECTIVE: Afebrile, Hemodynamically Stable Last Vital Signs Temp Pulse Resp BP Pulse Ox 97.9 F 75 16 104/58 L 96 09/05/18 10:00 09/05/18 10:00 09/05/18 10:00 09/05/18 10:09/05/18 10:00 HEENT - Atraumatic, Normocephalic. Heart - S1, S2, RRR Lungs - clear to auscultation Abdomen - soft, non-tender. Bowel Sounds normal. Extremities - no edema, no calf tenderness Neuro - AAO x 3. Tremor of outstretched arms. Psych - no hallucinations. No suicidal/homicidal ideation Laboratory Results - last 24 hr 09/04/18 09/04/18 09/04/18 04:00 20:38 20:38 WBC 9.8 RBC 4.43 Hgb 13.3 Hct 39.1 MCV 88.3 MCH 30.1 MCHC 34.1 RDW 13.5 Plt Count 258 MPV 9.3 Absolute Neuts (auto) 4.2 Neutrophils % 42.5 L Lymphocytes % 44.7 H Monocytes % 10.3 H Eosinophils % 1.8 Basophils % 0.7 Nucleated RBC % 0 ESR PT with INR 13.40 H INR 1.13 H PTT (Actin FS) Sodium Potassium Chloride Carbon Dioxide Anion Gap BUN Creatinine Creat Clearance w eGFR Random Glucose Calcium Phosphorus Magnesium Total Bilirubin AST ALT Alkaline Phosphatase Creatine Kinase Creatine Kinase Index CK-MB (CK-2) Troponin I Total Protein Albumin Lipase Urine Color Yellow Urine Appearance Clear Urine pH 5.5 Ur Specific [place] 1.041 H Urine Protein Negative Urine Glucose (UA) Negative Urine Ketones Trace H Urine Blood Negative Urine Nitrite Negative Urine Bilirubin Negative Urine Urobilinogen 0.2 Ur Leukocyte Esterase Negative Alcohol, Quantitative 09/04/18 09/05/18 09/05/18 20:38 00:35 00:35 WBC RBC Hgb Hct MCV MCH MCHC RDW Plt Count MPV Absolute Neuts (auto) Neutrophils % Lymphocytes % Monocytes % Eosinophils % Basophils % Nucleated RBC % ESR 7 PT with INR INR PTT (Actin FS) Sodium 142 Potassium 3.9 Chloride 107 Carbon Dioxide 27 Anion Gap 8 BUN 13 Creatinine 1.3 Creat Clearance w eGFR 57.97 Random Glucose 106 Calcium 8.5 Phosphorus Magnesium 2.3 Total Bilirubin 0.3 AST 24 ALT 35 Alkaline Phosphatase 73 Creatine Kinase 474 H Creatine Kinase Index 0.8 CK-MB (CK-2) 3.8 H Troponin I < 0.02 < 0.02 Total Protein 6.9 Albumin 3.8 Lipase Urine Color Urine Appearance Urine pH Ur Specific [place] Urine Protein Urine Glucose (UA) Urine Ketones Urine Blood Urine Nitrite Urine Bilirubin Urine Urobilinogen Ur Leukocyte Esterase Alcohol, Quantitative < 3.0 09/05/18 09/05/18 09/05/18 09:40 09:40 09:40 WBC 8.1 RBC 4.38 Hgb 12.9 Hct 38.7 MCV 88.2 MCH 29.4 MCHC 33.4 RDW 13.6 Plt Count 243 MPV 9.2 Absolute Neuts (auto) 4.1 Neutrophils % 50.8 Lymphocytes % 34.1 D Monocytes % 9.3 Eosinophils % 5.3 H D Basophils % 0.5 Nucleated RBC % 0 ESR PT with INR 13.00 INR 1.10 H PTT (Actin FS) 32.6 Sodium 143 Potassium 4.1 Chloride 110 H Carbon Dioxide 29 Anion Gap 5 L BUN 11 Creatinine 1.0 Creat Clearance w eGFR 78.47 Random Glucose 87 Calcium 8.2 L Phosphorus 3.3 Magnesium 2.3 Total Bilirubin 0.5 AST 15 ALT 29 Alkaline Phosphatase 62 Creatine Kinase 291 Creatine Kinase Index 0.7 CK-MB (CK-2) 2.3 Troponin I < 0.02 Total Protein 6.2 L Albumin 3.4 Lipase 150 Urine Color Urine Appearance Urine pH Ur Specific [place] Urine Protein Urine Glucose (UA) Urine Ketones Urine Blood Urine Nitrite Urine Bilirubin Urine Urobilinogen Ur Leukocyte Esterase Alcohol, Quantitative Current Medications Generic Name Dose Route Start Last Admin Trade Name Freq PRN Reason Stop Dose Admin Amlodipine Besylate 2.5 mg 09/05/18 10:00 09/05/18 10:04 Norvasc - PO 2.5 mg DAILY [facility] Administration Aspirin 81 mg 09/05/18 10:00 09/05/18 10:04 Ecotrin - PO 81 mg DAILY [facility] Administration Atorvastatin Calcium 80 mg 09/05/18 22:00 Lipitor - PO HS [facility] Chlordiazepoxide HCl 10 mg 09/07/18 13:00 Librium - PO 09/08/18 13:00 Q12H PRN Signs/symptoms of Withdrawal Chlordiazepoxide HCl 10 mg 09/05/18 01:31 Librium - PO 09/07/18 13:00 Q8H PRN Signs/symptoms of Withdrawal Chlordiazepoxide HCl 25 mg 09/05/18 04:50 09/05/18 13:02 Librium - PO 09/06/18 04:51 25 mg Q8H [facility] Administration Chlordiazepoxide HCl 15 mg 09/06/18 13:00 Librium - PO 09/07/18 05:01 Q8H [facility] Chlordiazepoxide HCl 10 mg 09/07/18 13:00 Librium - PO 09/08/18 13:01 Q8H [facility] Clopidogrel Bisulfate 75 mg 09/05/18 10:00 09/05/18 10:04 Plavix - PO 75 mg DAILY [facility] Administration Folic Acid 1 mg 09/05/18 10:00 09/05/18 10:04 Folic Acid - PO 1 mg DAILY [facility] Administration Tamsulosin HCl 0.4 mg 09/05/18 08:30 09/05/18 10:04 Flomax - PO 0.4 mg DAILY@0830 [facility] Administration Thiamine HCl 100 mg 09/05/18 10:00 09/05/18 10:05 Vitamin B1 - PO 100 mg DAILY [facility] Administration Home Medications Medication Instructions Recorded Aspirin [Aspirin EC] 81 mg PO DAILY 07/06/18 Atorvastatin Ca [Lipitor] 80 mg PO HS 07/06/18 Clopidogrel Bisulfate [Clopidogrel] 75 mg PO DAILY 07/06/18 Tamsulosin HCl [Flomax] 0.4 mg PO DAILY 07/06/18 Amlodipine Besylate [Norvasc -] 2.5 mg PO DAILY #30 tablet 07/10/18 Folic Acid - 1 mg PO DAILY tablet 07/10/18 ASSESSMENT AND PLAN: 53 year old Male with history of Polysubstance Abuse (tobacco, alcohol, cocaine) , CAD (NSTEMI 06/2018), HTN, HLD, GERD, BPH, presented with CP after heated disgreement with daughter. He has recent history of positive MRI at [facility] in June 2018. 1. Chest Pain, possibly cardiac given recent positive MPI stress test Nuclear Stress test 06/2018 at [facility] [place] revealed mild mid apical wall reversible perfusion defect/ischemia Admits to cocaine use, last time 3 days ago TropI neg Non-compliant with meds - resumed on ASA, Plavix, and Lipitor. Continue Telemonitoring. Awaiting Cardiology eval ? may need transfer for cath. 2. Hx of Polysubstance Abuse/Alcohol Abuse Mild tremor Chlordiazepoxide as per [facility] protocol. For Addiction Medicine consultation and transfer to [facility] if no need for Cath (pending Cardio eval). MVI, Thiamine, Folate. 3. HTN - Continue Amlodipine. No BB due to recent Cocaine use. 4. HLD - resumed on Statin 5. BPH - Continue Tamsulosin. 6. Tobacco Use - counseled and offered nicotine patch. DVT Px - Heparin SQ
[2018-09-05] MEDS ORDERED: SODIUM CHLORIDE 1,000 ML IV STA (14:06)
--- NOTE | 2018-09-05 15:31 | CON.CARD ---
Consult Consult Specialty:: Cardiology Reason for Consultation:: Chest Pain - History of Present Illness Chief Complaint: Chest Pain History of Present Illness: This is a 53 year old male with a PMH of polysubstance abuse (alcohol, cocaine, THC, with prior sz, no intubations), HTN, CAD (NSTEMI 07/04/2018), HLD, GERD, and BPH. He presents now with SSCP associated with nausea, vomiting, and diarrhea. The pain started around 6 pm yesterday when he was arguing with his daughter and was relieved by rest. Troponin 0.02, 0.02, 0.02 EKG 09/04/18 NSR at 87 BPM with normal intervals, normal axis, inferior Q-waves, PRWP across the anterior leads, and NSSTTW changes. Presently resting comfortably with no complaints. - Past Medical History Cardio/Vascular: Yes: CAD, HTN, Hyperlipdemia Pulmonary: Yes: Other (ALONSO) - Alcohol/Substance Use Hx Alcohol Use: Yes History of Substance Use: reports: Cocaine - Smoking History Smoking history: Current every day smoker Have you smoked in the past 12 months: Yes Aproximately how many cigarettes per day: 10 If you are a former smoker, when did you quit?: 3 months Home Medications - Allergies Allergies/Adverse Reactions: Allergies Allergy/AdvReac Type Severity Reaction Status Date / Time No Known Allergies Allergy Verified 07/13/18 19:48 - Home Medications Home Medications: Ambulatory Orders Aspirin [Aspirin EC] 81 mg PO DAILY 07/06/18 Atorvastatin Ca [Lipitor] 80 mg PO HS 07/06/18 Clopidogrel Bisulfate [Clopidogrel] 75 mg PO DAILY 07/06/18 Tamsulosin HCl [Flomax] 0.4 mg PO DAILY 07/06/18 Amlodipine Besylate [Norvasc -] 2.5 mg PO DAILY #30 tablet 07/10/18 Folic Acid - 1 mg PO DAILY tablet 07/10/18 Family Disease History - Family Disease History Family Disease History: Diabetes: Mother (HTN, DM), Heart Disease: Mother, CA: Grandparent (LUNG CA - ), Other: Father (ALCOHOLIC - ), Mother Vital Signs: Vital Signs Temperature 97.9 F 09/05/18 10:00 Pulse Rate 72 09/05/18 14:00 Respiratory Rate 16 09/05/18 10:00 Blood Pressure 104/58 L 09/05/18 10:00 O2 Sat by Pulse Oximetry (%) 96 09/05/18 10:00 Constitutional: Yes: Well Nourished Neck: Yes: WNL Respiratory: Yes: CTA Bilaterally Gastrointestinal: Yes: Soft Cardiovascular: Yes: Regular Rate and Rhythm Heart Sounds: Yes: S1, S2 (No MRHG) Edema: No - Other Data Labs, Other Data: CBC, BMP 09/05/18 09:40 09/05/18 09:40 INR, PTT INR 1.10 (0.83-1.09) H 09/05/18 09:40 Troponin, BNP 09/04/18 09/05/18 09/05/18 20:38 00:35 09:40 Troponin I < 0.02 < 0.02 < 0.02 Troponin, BNP 09/04/18 09/05/18 09/05/18 20:38 00:35 09:40 Troponin I < 0.02 < 0.02 < 0.02 Assessment/Plan 53 year old male with a PMH of polysubstance abuse (alcohol, cocaine, THC, with prior sz, no intubations), HTN, CAD (NSTEMI 07/04/2018), HLD, GERD, and BPH. He presents now with SSCP associated with nausea, vomiting, and diarrhea. The pain started around 6 pm yesterday when he was arguing with his daughter and was relieved by rest. Troponin 0.02, 0.02, 0.02 EKG 09/04/18 NSR at 87 BPM with normal intervals, normal axis, inferior Q-waves, PRWP across the anterior leads, and NSSTTW changes. Last echocardiogram 07/09/18 EF 55-60% Moderate aortic root dilation Chest Pain Noted to have had a nuclear stress test at [facility] 06/2018 revealed mild mid apical wall reversible perfusion defect/ischemia He admits to cocaine use, last time 3 days ago. Would avoid beta blockers. Would not consider cardiac cath at this time for several reasons: 1) Recent above nuclear stress test does not suggest large and severe areas of myocardial ischemia to justify the risks of cardiac cath. 2) Coronary stenting is dangerous is patients who are not compliant with medications (Plavix/ASA) because of the significant risk of acute stent thrombosis if off DAPT. 3) Troponin negative and no acute EKG changes. The increase in CPK may be from skeletal muscle secondary to cocaine. 4) If cocaine metabolites are still present, there is a risk of inducing coronary spasm during the cath. Continue amlodipine/atorvastatin/Plavix/ASA
[2018-09-05] MEDS: NICOTINE 7 MG/24 HOURS TOPICAL PATCH TD SCH (17:32)
--- NOTE | 2018-09-05 17:56 | PN ---
Physical Exam: SUBJECTIVE: Patient seen and examined. Pt. states he is anxious and is thinking about drinking now. He states he usually get the shakes when he stops drinking. OBJECTIVE: Vital Signs Period Temp Pulse Resp BP Sys/Shah Pulse Ox Last 24 Hr 97.7 F-98.7 F 62-95 16-19 97-130/55-78 95-100 GENERAL: The patient is awake, alert, and fully oriented, agitated and anxious. HEAD: Normal with no signs of trauma. EYES: PERRL, extraocular movements intact, sclera anicteric, conjunctiva clear. No ptosis. ENT: Ears normal, nares patent, moist mucous membranes. LUNGS: Breath sounds equal, clear to auscultation bilaterally, no wheezes, no crackles, no accessory muscle use. HEART: Regular rate and rhythm, S1, S2 without murmur ABDOMEN: Soft, nontender, nondistended, normoactive bowel sounds EXTREMITIES: 2+ radial pulses, warm, well-perfused, no edema. NEUROLOGICAL: Normal speech, gait not observed. PSYCH: Anxious, and agitated SKIN: Warm, dry, normal turgor, no rashes or lesions noted Laboratory Results - last 24 hr 09/04/18 09/04/18 09/04/18 04:00 20:38 20:38 WBC 9.8 RBC 4.43 Hgb 13.3 Hct 39.1 MCV 88.3 MCH 30.1 MCHC 34.1 RDW 13.5 Plt Count 258 MPV 9.3 Absolute Neuts (auto) 4.2 Neutrophils % 42.5 L Lymphocytes % 44.7 H Monocytes % 10.3 H Eosinophils % 1.8 Basophils % 0.7 Nucleated RBC % 0 ESR PT with INR 13.40 H INR 1.13 H PTT (Actin FS) Sodium Potassium Chloride Carbon Dioxide Anion Gap BUN Creatinine Creat Clearance w eGFR Random Glucose Calcium Phosphorus Magnesium Total Bilirubin AST ALT Alkaline Phosphatase Creatine Kinase Creatine Kinase Index CK-MB (CK-2) Troponin I Total Protein Albumin Lipase Urine Color Yellow Urine Appearance Clear Urine pH 5.5 Ur Specific [place] 1.041 H Urine Protein Negative Urine Glucose (UA) Negative Urine Ketones Trace H Urine Blood Negative Urine Nitrite Negative Urine Bilirubin Negative Urine Urobilinogen 0.2 Ur Leukocyte Esterase Negative Alcohol, Quantitative 09/04/18 09/05/18 09/05/18 20:38 00:35 00:35 WBC RBC Hgb Hct MCV MCH MCHC RDW Plt Count MPV Absolute Neuts (auto) Neutrophils % Lymphocytes % Monocytes % Eosinophils % Basophils % Nucleated RBC % ESR 7 PT with INR INR PTT (Actin FS) Sodium 142 Potassium 3.9 Chloride 107 Carbon Dioxide 27 Anion Gap 8 BUN 13 Creatinine 1.3 Creat Clearance w eGFR 57.97 Random Glucose 106 Calcium 8.5 Phosphorus Magnesium 2.3 Total Bilirubin 0.3 AST 24 ALT 35 Alkaline Phosphatase 73 Creatine Kinase 474 H Creatine Kinase Index 0.8 CK-MB (CK-2) 3.8 H Troponin I < 0.02 < 0.02 Total Protein 6.9 Albumin 3.8 Lipase Urine Color Urine Appearance Urine pH Ur Specific [place] Urine Protein Urine Glucose (UA) Urine Ketones Urine Blood Urine Nitrite Urine Bilirubin Urine Urobilinogen Ur Leukocyte Esterase Alcohol, Quantitative < 3.0 09/05/18 09/05/18 09/05/18 09:40 09:40 09:40 WBC 8.1 RBC 4.38 Hgb 12.9 Hct 38.7 MCV 88.2 MCH 29.4 MCHC 33.4 RDW 13.6 Plt Count 243 MPV 9.2 Absolute Neuts (auto) 4.1 Neutrophils % 50.8 Lymphocytes % 34.1 D Monocytes % 9.3 Eosinophils % 5.3 H D Basophils % 0.5 Nucleated RBC % 0 ESR PT with INR 13.00 INR 1.10 H PTT (Actin FS) 32.6 Sodium 143 Potassium 4.1 Chloride 110 H Carbon Dioxide 29 Anion Gap 5 L BUN 11 Creatinine 1.0 Creat Clearance w eGFR 78.47 Random Glucose 87 Calcium 8.2 L Phosphorus 3.3 Magnesium 2.3 Total Bilirubin 0.5 AST 15 ALT 29 Alkaline Phosphatase 62 Creatine Kinase 291 Creatine Kinase Index 0.7 CK-MB (CK-2) 2.3 Troponin I < 0.02 Total Protein 6.2 L Albumin 3.4 Lipase 150 Urine Color Urine Appearance Urine pH Ur Specific [place] Urine Protein Urine Glucose (UA) Urine Ketones Urine Blood Urine Nitrite Urine Bilirubin Urine Urobilinogen Ur Leukocyte Esterase Alcohol, Quantitative Active Medications Home Medications Medication Instructions Recorded Aspirin [Aspirin EC] 81 mg PO DAILY 07/06/18 Atorvastatin Ca [Lipitor] 80 mg PO HS 07/06/18 Clopidogrel Bisulfate [Clopidogrel] 75 mg PO DAILY 07/06/18 Tamsulosin HCl [Flomax] 0.4 mg PO DAILY 07/06/18 Amlodipine Besylate [Norvasc -] 2.5 mg PO DAILY #30 tablet 07/10/18 Folic Acid - 1 mg PO DAILY tablet 07/10/18 Current Medications Amlodipine Besylate (Norvasc -) 2.5 mg PO DAILY [facility] Last Admin: 09/05/18 10:04 Dose: 2.5 mg Aspirin (Ecotrin -) 81 mg PO DAILY [facility] Last Admin: 09/05/18 10:04 Dose: 81 mg Atorvastatin Calcium (Lipitor -) 80 mg PO [facility] Chlordiazepoxide HCl (Librium -) 10 mg PO Q12H PRN PRN Reason: Signs/symptoms of Withdrawal Stop: 09/08/18 13:00 Chlordiazepoxide HCl (Librium -) 10 mg PO Q8H PRN PRN Reason: Signs/symptoms of Withdrawal Stop: 09/07/18 13:00 Chlordiazepoxide HCl (Librium -) 25 mg PO Q8H [facility] Stop: 09/06/18 04:51 Last Admin: 09/05/18 13:02 Dose: 25 mg Chlordiazepoxide HCl (Librium -) 15 mg PO Q8H [facility] Stop: 09/07/18 05:01 Chlordiazepoxide HCl (Librium -) 10 mg PO Q8H [facility] Stop: 09/08/18 13:01 Clopidogrel Bisulfate (Plavix -) 75 mg PO DAILY [facility] Last Admin: 09/05/18 10:04 Dose: 75 mg Folic Acid (Folic Acid -) 1 mg PO DAILY [facility] Last Admin: 09/05/18 10:04 Dose: 1 mg Heparin Sodium (Porcine) (Heparin -) 5,000 unit SQ TID [facility] Multivitamins/Minerals/Vitamin C (Tab-A-Vit -) 1 tab PO DAILY [facility] Nicotine (Nicoderm Patch -) 7 mg TD DAILY [facility] Last Admin: 09/05/18 17:32 Dose: 7 mg Tamsulosin HCl (Flomax -) 0.4 mg PO DAILY@0830 [facility] Last Admin: 09/05/18 10:04 Dose: 0.4 mg Thiamine HCl (Vitamin B1 -) 100 mg PO DAILY [facility] Last Admin: 09/05/18 10:05 Dose: 100 mg ASSESSMENT/PLAN: Pt is a 53 y.o. M w/ PMHx. of CAD (NSTEMI 06/2018), HTN, HLD, polysubstance abuse , GERD, and BPH who presented to [facility] after experiencing chest pain. #Chest Pain 2/2 Cocaine Use Pt endorses last used Cocaine 3 days ago. Initial troponin 0.02. Repeat. Elevated CK, CK-MB Previous Nuclear Stress test 06/2018--> revealed mild mid apical wall reversible perfusion defect/ischemia. Did not follow up with outpatient cardiology. Pt counseled on cocaine abuse and negative effects on heart in light of underlying CAD. Will resume ASA, Plavix, and Lipitor (Pt. non compliant at home) Cardiology Consult (Dr. Acosta) appreciated. Not a good candidate for PCI as Pt. is non-urgent(weakly positive Troponins likely from cocaine use, no EKG changes , noncompliant with medications and has recent cocaine use. 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 open to going to Detox facility, however resistant to going to [facility] b/ c the duration "is only 2 weeks." #HTN c/w Norvasc Avoid Beta Blockers in light of recent cocaine use #HLD c/w Lipitor #BPH Continue tamsulosin 0.4 mg #Tobacco abuse Pt counseled on hazardous effects of tobacco use. #FEN No IV Fluids, encouraeg Po intake Monitor Electrolytes, and replete as needed Low Salt Diet #DVT ppx: HEPSQTID Visit type - Emergency Visit Emergency Visit: Yes ED Registration Date: 09/04/18 Care time: The patient presented to the Emergency Department on the above date and was hospitalized for further evaluation of their emergent condition. - New Patient This patient is new to me today: Yes Date on this admission: 09/05/18 - Critical Care Critical Care patient: No - Discharge Referral Referred to [facility] Med P.C.: No
[2018-09-05] MEDS: HEPARIN NA (PORCINE) 5,000 UNITS/ML 1ML VIAL SQ SCH (21:12)
[2018-09-05] MEDS ORDERED: ATORVASTATIN CA 80 MG TABLET (FP) PO SCH (22:00)
[2018-09-06] MEDS: chlordiazePOXIDE HCL 25 MG CAPSULE PO SCH (05:36)
[2018-09-06] MEDS: HEPARIN NA (PORCINE) 5,000 UNITS/ML 1ML VIAL SQ SCH (05:36)
[2018-09-06 06:46] VITALS: TEMP 97.7
[2018-09-06 08:23] VITALS: BP 102/54; PULSE 75
[2018-09-06] MEDS: TAMSULOSIN HCL 0.4 MG CAP PO SCH (08:59)
[2018-09-06] MEDS: THIAMINE HCL 100 MG TABLET (FP) PO SCH (09:22)
[2018-09-06] MEDS: amLODIPine BESYLATE 2.5 MG TABLET (FP) PO SCH (09:22)
[2018-09-06] MEDS: NICOTINE 7 MG/24 HOURS TOPICAL PATCH TD SCH (09:22)
[2018-09-06] MEDS: ASPIRIN COATED 81 MG TABLET.EC PO SCH (09:22)
[2018-09-06] MEDS: CLOPIDOGREL BISULFATE 75 MG TABLET (FP) PO SCH (09:22)
[2018-09-06] MEDS: FOLIC ACID 1 MG TABLET (FP) PO SCH (09:22)
[2018-09-06] MEDS ORDERED: MULTIVITAMINS (DAILY MVI) TABLET (FP) PO SCH (10:00)
--- NOTE | 2018-09-06 10:31 | PN ---
Teaching Attending Note Name of Resident: Sherman Leon ATTENDING PHYSICIAN STATEMENT I saw and evaluated the patient. I reviewed the resident's note and discussed the case with the resident. I agree with the resident's findings and plan as documented. SUBJECTIVE: No further CP. More relaxed. No sweating/palpitations/nausea/ vomiting. OBJECTIVE: Afebrile, Hemodynamically Stable Last Vital Signs Temp Pulse Resp BP Pulse Ox 97.7 F 75 18 102/54 L 96 09/06/18 08:22 09/06/18 08:22 09/06/18 08:29 09/06/18 08:22 09/06/18 00:02 Heart - S1, S2, RRR Lungs - clear to auscultation Abdomen - soft, non-tender. Bowel Sounds normal. Extremities - no edema, no calf tenderness Neuro - AAO x 3. Tremor of outstretched arms improved. Psych - no hallucinations. No suicidal/homicidal ideation Laboratory Results - last 24 hr 09/05/18 09/05/18 09/05/18 00:35 09:40 09:40 WBC 8.1 RBC 4.38 Hgb 12.9 Hct 38.7 MCV 88.2 MCH 29.4 MCHC 33.4 RDW 13.6 Plt Count 243 MPV 9.2 Absolute Neuts (auto) 4.1 Neutrophils % 50.8 Lymphocytes % 34.1 D Monocytes % 9.3 Eosinophils % 5.3 H D Basophils % 0.5 Nucleated RBC % 0 PT with INR 13.00 INR 1.10 H PTT (Actin FS) 32.6 Sodium Potassium Chloride Carbon Dioxide Anion Gap BUN Creatinine Creat Clearance w eGFR Random Glucose Calcium Phosphorus Magnesium Total Bilirubin AST ALT Alkaline Phosphatase Creatine Kinase Creatine Kinase Index CK-MB (CK-2) Troponin I Total Protein Albumin Lipase HIV Genotype Non reactive 09/05/18 09:40 WBC RBC Hgb Hct MCV MCH MCHC RDW Plt Count MPV Absolute Neuts (auto) Neutrophils % Lymphocytes % Monocytes % Eosinophils % Basophils % Nucleated RBC % PT with INR INR PTT (Actin FS) Sodium 143 Potassium 4.1 Chloride 110 H Carbon Dioxide 29 Anion Gap 5 L BUN 11 Creatinine 1.0 Creat Clearance w eGFR 78.47 Random Glucose 87 Calcium 8.2 L Phosphorus 3.3 Magnesium 2.3 Total Bilirubin 0.5 AST 15 ALT 29 Alkaline Phosphatase 62 Creatine Kinase 291 Creatine Kinase Index 0.7 CK-MB (CK-2) 2.3 Troponin I < 0.02 Total Protein 6.2 L Albumin 3.4 Lipase 150 HIV Genotype Current Medications Generic Name Dose Route Start Last Admin Trade Name Radha PRN Reason Stop Dose Admin Amlodipine Besylate 2.5 mg 09/05/18 10:00 09/06/18 09:22 Norvasc - PO 2.5 mg DAILY [facility] Administration Aspirin 81 mg 09/05/18 10:00 09/06/18 09:22 Ecotrin - PO 81 mg DAILY [facility] Administration Atorvastatin Calcium 80 mg 09/05/18 22:00 09/05/18 21:13 Lipitor - PO 80 mg HS [facility] Administration Chlordiazepoxide HCl 10 mg 09/07/18 13:00 Librium - PO 09/08/18 13:00 Q12H PRN Signs/symptoms of Withdrawal Chlordiazepoxide HCl 10 mg 09/05/18 01:31 Librium - PO 09/07/18 13:00 Q8H PRN Signs/symptoms of Withdrawal Chlordiazepoxide HCl 15 mg 09/06/18 13:00 Librium - PO 09/07/18 05:01 Q8H [facility] Chlordiazepoxide HCl 10 mg 09/07/18 13:00 Librium - PO 09/08/18 13:01 Q8H [facility] Clopidogrel Bisulfate 75 mg 09/05/18 10:00 09/06/18 09:22 Plavix - PO 75 mg DAILY [facility] Administration Folic Acid 1 mg 09/05/18 10:00 09/06/18 09:22 Folic Acid - PO 1 mg DAILY [facility] Administration Heparin Sodium (Porcine) 5,000 unit 09/05/18 22:00 09/06/18 05:36 Heparin - SQ 5,000 unit TID [facility] Administration Multivitamins/Minerals/Vitamin C 1 tab 09/06/18 10:00 09/06/18 09:22 Tab-A-Vit - PO 1 tab DAILY [facility] Administration Nicotine 7 mg 09/05/18 14:15 09/06/18 09:22 Nicoderm Patch - TD 7 mg DAILY [facility] Administration Tamsulosin HCl 0.4 mg 09/05/18 08:30 09/06/18 08:59 Flomax - PO 0.4 mg DAILY@0830 [facility] Administration Thiamine HCl 100 mg 09/05/18 10:00 09/06/18 09:22 Vitamin B1 - PO 100 mg DAILY [facility] Administration ASSESSMENT AND PLAN: 53 year old Male with history of Polysubstance Abuse (tobacco, alcohol, cocaine) , CAD (NSTEMI 06/2018), HTN, HLD, GERD, BPH, presented with CP after heated disgreement with daughter. He has recent history of positive MRI at in June 2018. 1. Chest Pain, possibly cardiac given recent positive MPI stress test Nuclear Stress test 06/2018 at [facility] revealed mild mid apical wall reversible perfusion defect/ischemia Admits to cocaine use, last time 3 days ago TropI neg Non-compliant with meds - resumed on ASA, Plavix, and Lipitor. Continue Telemonitoring. Eval by Cadiology - not a candidate currently for cath due to active cocaine use and non-compliance with medications. For out-patient Cardio follow up. NTG prn. 2. Hx of Polysubstance Abuse/Alcohol Abuse Mild tremor Chlordiazepoxide as per CIWA protocol. Discussed with Dr. Olivarez of Addiction Medicine - accepted for transfer to [facility]. MVI, Thiamine, Folate. 3. HTN - Continue Amlodipine. No BB due to recent Cocaine use. 4. HLD - resumed on Statin 5. BPH - Continue Tamsulosin. 6. Tobacco Use - counseled and offered nicotine patch. Medically Stable for transfer to [facility] to complete Detox regimen.
--- NOTE | 2018-09-06 10:41 | DS ---
Physical Exam: SUBJECTIVE: Patient seen and examined OBJECTIVE: Vital Signs Period Temp Pulse Resp BP Sys/Shah Pulse Ox Last 24 Hr 97.7 F-98.3 F 65-79 18-20 93-130/47-74 96-96 PHYSICAL EXAM GENERAL: The patient is awake, alert, and fully oriented, in no acute distress. HEAD: Normal with no signs of trauma. EYES: PERRL, extraocular movements intact, sclera anicteric, conjunctiva clear. ENT: Ears normal, nares patent, oropharynx clear without exudates, moist mucous membranes. NECK: Trachea midline, full range of motion, supple. LUNGS: Breath sounds equal, clear to auscultation bilaterally, no wheezes, no crackles, no accessory muscle use. HEART: Regular rate and rhythm, S1, S2 without murmur, rub or gallop. ABDOMEN: Soft, nontender, nondistended, normoactive bowel sounds, no guarding, no rebound, no hepatosplenomegaly, no masses. EXTREMITIES: 2+ pulses, warm, well-perfused, no edema. NEUROLOGICAL: Cranial nerves II through XII grossly intact. Normal speech, gait not observed. PSYCH: Normal mood, normal affect. SKIN: Warm, dry, normal turgor, no rashes or lesions noted. LABS Laboratory Results - last 24 hr 09/05/18 09/05/18 09/05/18 00:35 09:40 09:40 WBC 8.1 RBC 4.38 Hgb 12.9 Hct 38.7 MCV 88.2 MCH 29.4 MCHC 33.4 RDW 13.6 Plt Count 243 MPV 9.2 Absolute Neuts (auto) 4.1 Neutrophils % 50.8 Lymphocytes % 34.1 D Monocytes % 9.3 Eosinophils % 5.3 H D Basophils % 0.5 Nucleated RBC % 0 PT with INR 13.00 INR 1.10 H PTT (Actin FS) 32.6 Sodium Potassium Chloride Carbon Dioxide Anion Gap BUN Creatinine Creat Clearance w eGFR Random Glucose Calcium Phosphorus Magnesium Total Bilirubin AST ALT Alkaline Phosphatase Creatine Kinase Creatine Kinase Index CK-MB (CK-2) Troponin I Total Protein Albumin Lipase HIV Genotype Non reactive 09/05/18 09:40 WBC RBC Hgb Hct MCV MCH MCHC RDW Plt Count MPV Absolute Neuts (auto) Neutrophils % Lymphocytes % Monocytes % Eosinophils % Basophils % Nucleated RBC % PT with INR INR PTT (Actin FS) Sodium 143 Potassium 4.1 Chloride 110 H Carbon Dioxide 29 Anion Gap 5 L BUN 11 Creatinine 1.0 Creat Clearance w eGFR 78.47 Random Glucose 87 Calcium 8.2 L Phosphorus 3.3 Magnesium 2.3 Total Bilirubin 0.5 AST 15 ALT 29 Alkaline Phosphatase 62 Creatine Kinase 291 Creatine Kinase Index 0.7 CK-MB (CK-2) 2.3 Troponin I < 0.02 Total Protein 6.2 L Albumin 3.4 Lipase 150 HIV Genotype HOSPITAL COURSE: Date of Admission:09/04/18 Date of Discharge: 09/06/18 Discharge Summary Reason For Visit: ALCOHOL DEPENDENCY, CHEST PAIN Current Active Problems Alcohol withdrawal (Acute) Chest pain (Acute) Non-ST elevation myocardial infarction (NSTEMI) greater than 8 weeks ago (Acute) Cocaine dependence (Chronic) Condition: Improved - Instructions Diet, Activity, Other Instructions: You came in for chest pain. We ran tests and lab work and we believe this is due to your cocaine use. Please stop using cocaine. We are transferring you to [facility] for you to complete Detox. We started you on new medications: Aspirin 81mg ONCE Daily Plavix 75mg ONCE Daily Atorvastatin 80mg ONCE at Night Nitroglycerin SL 0.3mg Needed for Chest pain. Please follow up with your Primary Care Physician within 1 week. Please repeat Liver Function Tests within 1 month. If you do not have one we have provided one for you, Dr. Hart. Please follow up with your Optician Apprentice, Dr. Acosta within 1 week. We are concerned about your heart as you have had a recent positive Stress test in June. It is very important for you to follow up with your Optician Apprentice. Please return to the ER if you are having worsening chest pain, shortness of breath, sudden changes in vision, severe muscle aches or any concerning symptoms. Referrals: Jorge Hart MD [Staff Physician] - 1 Week Aditya Acosta MD [Staff Physician] - 1 Week Disposition: TRANSFER ACUTE CARE/OTHER HOSP - Home Medications Comprehensive Discharge Medication List: Ambulatory Orders Aspirin [Aspirin EC] 81 mg PO DAILY 07/06/18 Atorvastatin Ca [Lipitor] 80 mg PO HS 07/06/18 Clopidogrel Bisulfate [Clopidogrel] 75 mg PO DAILY 07/06/18 Tamsulosin HCl [Flomax] 0.4 mg PO DAILY 02/22/19 Amlodipine Besylate [Norvasc -] 2.5 mg PO DAILY #30 tablet 07/10/18 Folic Acid - 1 mg PO DAILY tablet 07/10/18 Nitroglycerin Sublingual [Nitrostat -] 0.3 mg SL ONCE #1 btl 09/06/18 - Discharge Referral Referred to [facility] No
[2018-09-06] MEDS ORDERED: chlordiazePOXIDE 5 MG CAPSULE PO SCH (13:00)
[2018-09-07] MEDS ORDERED: chlordiazePOXIDE HCL 10 MG CAPSULE PO PRN (13:00)
[2018-09-07] MEDS ORDERED: chlordiazePOXIDE HCL 10 MG CAPSULE PO SCH (13:00)
== END 2018-09-06 10:48 | disposition other institution (70) ==
LOC: JER 19:04 → JERBED 22:06 → OBSVTOIN 23:43 → INTOOBSV 23:43 → J4W 09-05 09:07
PROVIDERS: ADMIT Internal Medicine
PROC: 3E033GC Introduction of Other Therapeutic Substance into Peripheral Vein, Percutaneous Approach (ICD-10-PCS; principal; 2018-09-04)
PROC: 3E0337Z Introduction of Electrolytic and Water Balance Substance into Peripheral Vein, Percutaneous Approach (ICD-10-PCS; 2018-09-04)
PROC: 3E013GC Introduction of Other Therapeutic Substance into Subcutaneous Tissue, Percutaneous Approach (ICD-10-PCS; 2018-09-04)
DX: R07.9 Chest pain, unspecified (principal); F10.230 Alcohol dependence with withdrawal, uncomplicated; F14.20 Cocaine dependence, uncomplicated; F12.20 Cannabis dependence, uncomplicated; I10 Essential (primary) hypertension; I25.10 Atherosclerotic heart disease of native coronary artery without angina pectoris; I25.2 Old myocardial infarction; E78.5 Hyperlipidemia, unspecified; N40.0 Benign prostatic hyperplasia without lower urinary tract symptoms; K21.9 Gastro-esophageal reflux disease without esophagitis; G47.33 Obstructive sleep apnea (adult) (pediatric); R74.8 Abnormal levels of other serum enzymes; R19.7 Diarrhea, unspecified; Z72.0 Tobacco use; Z79.82 Long term (current) use of aspirin
CPT/HCPCS: 36415; 80053; 80307; 81003; 82550; 82553; 83690; 83735; 84100; 84484; 85025; 85610; 85651; 85730; 87389; 93005; 93010; 96361; 96365; 96366; 96372; 96375; 99285-25; G0378; J1644; J7030

== ENCOUNTER 2018-09-08 12:13 | Inpatient (IN) | payer OTHER ==
[2018-09-08 14:20] VITALS: BMI 36.1
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
[2018-09-08] MEDS ORDERED: METHOCARBAMOL 500 MG TABLET PO PRN (15:06)
[2018-09-08] MEDS ORDERED: MAGNESIUM HYDROX 2400MG/30ML ORAL SUSPENSION 30 ML CUP PO PRN (15:06)
[2018-09-08] MEDS ORDERED: ACETAMINOPHEN 325 MG TABLET (FP) PO PRN (15:06)
[2018-09-08] MEDS ORDERED: chlordiazePOXIDE HCL 25 MG CAPSULE PO PRN (15:06)
[2018-09-08] MEDS ORDERED: MAGNESIUM CITRATE 300 ML BOTTLE PO PRN (15:06)
[2018-09-08] MEDS ORDERED: NICOTINE POLACRILEX 4 MG GUM BUC PRN (15:06)
[2018-09-08] MEDS ORDERED: chlordiazePOXIDE HCL 25 MG CAPSULE PO ONE (15:06)
[2018-09-08] MEDS ORDERED: MAG HYDROX/AL HYDROX/SIMETH 30 ML UNIT-DOSE CUP PO PRN (15:06)
[2018-09-08] MEDS ORDERED: BISMUTH SUBSALICYLATE 524 MG/30 ML UD PO PRN (15:06)
[2018-09-08] MEDS ORDERED: hydrOXYzine PAMOATE 25 MG CAPSULE (FP) PO PRN (15:06)
[2018-09-08] MEDS ORDERED: MENTHOL/PHENOL 1 EACH UD MM PRN (15:06)
[2018-09-08] MEDS ORDERED: MELATONIN 5 MG TABLETS PO PRN (15:06)
[2018-09-08] MEDS: chlordiazePOXIDE HCL 25 MG CAPSULE PO SCH ×2 (17:44→22:11)
[2018-09-08] MEDS: TAMSULOSIN HCL 0.4 MG CAP PO SCH (17:45)
[2018-09-08] MEDS: ASPIRIN 81 MG CHEWABLE TABLETS PO SCH (17:45)
[2018-09-08] MEDS: CLOPIDOGREL BISULFATE 75 MG TABLET (FP) PO SCH (17:45)
[2018-09-08] MEDS: ATORVASTATIN CA 80 MG TABLET (FP) PO SCH (22:10)
[2018-09-08] MEDS: THIAMINE HCL 100 MG TABLET (FP) PO SCH (22:10)
[2018-09-09] MEDS: chlordiazePOXIDE HCL 25 MG CAPSULE PO SCH ×4 (06:23→22:36)
[2018-09-09] MEDS: amLODIPine BESYLATE 5 MG TABLET (FP) PO SCH (10:24)
[2018-09-09] MEDS: TAMSULOSIN HCL 0.4 MG CAP PO SCH (10:24)
[2018-09-09] MEDS: PRENATAL VITAMINS W/ FOLIC ACID TABLET (FP) PO SCH (10:24)
[2018-09-09] MEDS: ASPIRIN 81 MG CHEWABLE TABLETS PO SCH (10:24)
[2018-09-09] MEDS: CLOPIDOGREL BISULFATE 75 MG TABLET (FP) PO SCH (10:24)
--- NOTE | 2018-09-09 11:17 | PN ---
S CIWA - CIWA Score Nausea/Vomitin-Mild Nausea/No Vomiting Muscle Tremors: 3 Anxiety: 1-Mildly Anxious Agitation: 2 Paroxysmal Sweats: 1-Minimal Palms Moist Orientation: 3-Disoriented Date>2 days Tacttile Disturbances: 0-None Auditory Disturbances: 0-None Visual Disturbances: 0-None Headache: 1-Very Mild CIWA-Ar Total Score: 12 [facility] Progress Note (SOAP) Subjective: feeling tired lack of energy to care for self today wants to stay in bed resting encourage healthy lifestyle Objective: 09/09/18 11:16 Vital Signs Temperature 96.6 F L 09/09/18 09:23 Pulse Rate 75 09/09/18 09:23 Respiratory Rate 20 09/09/18 09:23 Blood Pressure 121/77 09/09/18 09:23 O2 Sat by Pulse Oximetry (%) 09/09/18 11:16 admission lab ordered waiting for result Assessment: 09/09/18 11:16 withdrawal sx Plan: continue detox
[2018-09-09] MEDS: THIAMINE HCL 100 MG TABLET (FP) PO SCH (22:36)
[2018-09-09] MEDS: ATORVASTATIN CA 80 MG TABLET (FP) PO SCH (22:36)
[2018-09-10] MEDS: chlordiazePOXIDE HCL 25 MG CAPSULE PO SCH ×2 (06:04→10:13)
[2018-09-10] MEDS: TAMSULOSIN HCL 0.4 MG CAP PO SCH (09:11)
[2018-09-10] MEDS: ASPIRIN 81 MG CHEWABLE TABLETS PO SCH (10:10)
[2018-09-10] MEDS: CLOPIDOGREL BISULFATE 75 MG TABLET (FP) PO SCH (10:10)
[2018-09-10] MEDS: amLODIPine BESYLATE 5 MG TABLET (FP) PO SCH (10:12)
[2018-09-10] MEDS: PRENATAL VITAMINS W/ FOLIC ACID TABLET (FP) PO SCH (10:12)
[2018-09-10] MEDS ORDERED: NITROGLYCERIN SUBLINGUAL 1/200 0.3 MG BTL SL PRN (10:13)
--- NOTE | 2018-09-10 10:17 | PN ---
S CIWA - CIWA Score Nausea/Vomitin-Mild Nausea/No Vomiting Muscle Tremors: 2 Anxiety: 2 Agitation: 2 Paroxysmal Sweats: 1-Minimal Palms Moist Orientation: 0-Oriented Tacttile Disturbances: 0-None Auditory Disturbances: 0-None Visual Disturbances: 0-None Headache: 1-Very Mild CIWA-Ar Total Score: 9 [facility] Progress Note (SOAP) Subjective: feeling ok today ambulating on hallway social with peers discuss aftercare with staff Objective: 09/10/18 10:16 Vital Signs Temperature 97.2 F L 09/10/18 09:10 Pulse Rate 76 09/10/18 09:10 Respiratory Rate 18 09/10/18 09:10 Blood Pressure 88/63 L 09/10/18 09:10 O2 Sat by Pulse Oximetry (%) 09/10/18 10:16 hold amlodipine lab pending Assessment: 09/10/18 10:16 alcohol withdrawal sx Plan: continue detox
[2018-09-10 10:23] LABS: ALBUMIN 3.2 g/dl (3.4-5.0); ALK PHOS 68 U/L (45-117); ANION GAP 5 MMOL/L (8-16); BILIRUBIN,TOTAL 0.2 mg/dL (0.2-1); BLOOD UREA NITROGEN 11 mg/dL (7-18); CALCIUM 8.5 mg/dL (8.5-10.1); CHLORIDE 108 mmol/L (98-107); CO2 27 mmol/L (21-32); CREATININE 0.9 mg/dL (0.55-1.3); GLUCOSE,RANDOM 100 mg/dL (74-106); POTASSIUM 3.9 mmol/L (3.5-5.1); SGOT/AST 12 U/L (15-37); SGPT/ALT 28 U/L (13-61); SODIUM 140 mmol/L (136-145); TOT PROT 6.2 g/dl (6.4-8.2)
[2018-09-10 10:31] LABS: HEMATOCRIT 38.9 % (35.4-49); HEMOGLOBIN 13.1 GM/dL (11.7-16.9); MCH 30.3 pg (25.7-33.7); MCHC 33.7 g/dl (32.0-35.9); MEAN CELL VOLUME 89.9 fl (80-96); MEAN PLT VOLUME 9.5 fl (7.5-11.1); PLATELET COUNT 226 K/MM3 (134-434); RBC 4.32 M/mm3 (4.00-5.60); RDW 13.6 % (11.9-15.9); WHITE BLOOD COUNT 7.3 K/mm3 (4.0-10.0)
[2018-09-10] MEDS ORDERED: NITROGLYCERIN SUBLINGUAL 1/150 0.4 MG TAB SL PRN (11:46)
[2018-09-10] MEDS ORDERED: chlordiazePOXIDE HCL 10 MG CAPSULE PO PRN (17:00)
[2018-09-10] MEDS: chlordiazePOXIDE HCL 10 MG CAPSULE PO SCH ×2 (17:38→22:12)
[2018-09-10] MEDS: THIAMINE HCL 100 MG TABLET (FP) PO SCH (22:12)
[2018-09-10] MEDS: ATORVASTATIN CA 80 MG TABLET (FP) PO SCH (22:12)
[2018-09-11] MEDS: chlordiazePOXIDE HCL 10 MG CAPSULE PO SCH ×3 (06:42→17:10)
[2018-09-11] MEDS: TAMSULOSIN HCL 0.4 MG CAP PO SCH (09:10)
[2018-09-11] MEDS: PRENATAL VITAMINS W/ FOLIC ACID TABLET (FP) PO SCH (10:10)
[2018-09-11] MEDS: ASPIRIN 81 MG CHEWABLE TABLETS PO SCH (10:10)
[2018-09-11] MEDS: CLOPIDOGREL BISULFATE 75 MG TABLET (FP) PO SCH (10:10)
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
--- NOTE | 2018-09-11 11:34 | PN ---
S CIWA - CIWA Score Nausea/Vomitin-Mild Nausea/No Vomiting Muscle Tremors: 1-None Visible, but [place] Anxiety: 1-Mildly Anxious Agitation: 1-Slight > Activity Paroxysmal Sweats: No Perspiration Orientation: 0-Oriented Tacttile Disturbances: 0-None Auditory Disturbances: 0-None Visual Disturbances: 0-None Headache: 1-Very Mild CIWA-Ar Total Score: 5 S Progress Note (SOAP) Subjective: feeling better report right ankle swell x "weeks" right ankle +1 edematous, denies pain none tender on pressure, +2 pulses bilaterally, skin intact no erythema no bruises encourage to follow up with primary care for possible Doppler denies shortness of breath denies chest pain Objective: 09/11/18 11:37 Vital Signs Temperature 97.4 F L 09/11/18 09:11 Pulse Rate 81 09/11/18 09:11 Respiratory Rate 18 09/11/18 09:11 Blood Pressure 107/60 09/11/18 09:11 O2 Sat by Pulse Oximetry (%) Laboratory Last Values WBC 7.3 K/mm3 (4.0-10.0) 09/10/18 07:00 RBC 4.32 M/mm3 (4.00-5.60) 09/10/18 07:00 Hgb 13.1 GM/dL (11.7-16.9) 09/10/18 07:00 Hct 38.9 % (35.4-49) 09/10/18 07:00 MCV 89.9 fl (80-96) 09/10/18 07:00 MCH 30.3 pg (25.7-33.7) 09/10/18 07:00 MCHC 33.7 g/dl (32.0-35.9) 09/10/18 07:00 RDW 13.6 % (11.9-15.9) 09/10/18 07:00 Plt Count 226 K/MM3 (134-434) 09/10/18 07:00 MPV 9.5 fl (7.5-11.1) 09/10/18 07:00 Sodium 140 mmol/L (136-145) 09/10/18 07:00 Potassium 3.9 mmol/L (3.5-5.1) 09/10/18 07:00 Chloride 108 mmol/L (98-107) H 09/10/18 07:00 Carbon Dioxide 27 mmol/L (21-32) 09/10/18 07:00 Anion Gap 5 MMOL/L (8-16) L 09/10/18 07:00 BUN 11 mg/dL (7-18) 09/10/18 07:00 Creatinine 0.9 mg/dL (0.55-1.3) 09/10/18 07:00 Creat Clearance w eGFR 88.61 (>60) 09/10/18 07:00 Random Glucose 100 mg/dL (74-106) 09/10/18 07:00 Calcium 8.5 mg/dL (8.5-10.1) 09/10/18 07:00 Total Bilirubin 0.2 mg/dL (0.2-1) 09/10/18 07:00 AST 12 U/L (15-37) L 09/10/18 07:00 ALT 28 U/L (13-61) 09/10/18 07:00 Alkaline Phosphatase 68 U/L (45-117) 09/10/18 07:00 Total Protein 6.2 g/dl (6.4-8.2) L 09/10/18 07:00 Albumin 3.2 g/dl (3.4-5.0) L 09/10/18 07:00 RPR Titer Nonreactive (NONREACTIVE) 09/10/18 07:00 lab noted Assessment: 09/11/18 11:38 mild alcohol withdrawal sx discuss alcohol related vascular disease Plan: continue detox
[2018-09-11] MEDS: ATORVASTATIN CA 80 MG TABLET (FP) PO SCH (22:11)
[2018-09-11] MEDS: THIAMINE HCL 100 MG TABLET (FP) PO SCH (22:11)
[2018-09-12 06:30] VITALS: BP 102/59; PULSE 72; TEMP 97.2
[2018-09-12] MEDS: chlordiazePOXIDE HCL 10 MG CAPSULE PO SCH (06:51)
--- NOTE | 2018-09-12 11:37 | DS ---
[facility] Detox Discharge Summary Admission Date: 09/08/18 Discharge Date: 09/12/18 - History Present History: Alcohol Dependence Additional Comments: 53 years old male admitted on 09/08/18 for alcohol withdrawal stabilization completed detox regimen aftercare community self help group Pertinent Past History: bring in lab report and medication list to follow up appointment - Physical Exam Results Vital Signs: Vital Signs Temperature 97.2 F L 09/12/18 06:29 Pulse Rate 72 09/12/18 06:29 Respiratory Rate 18 09/12/18 06:29 Blood Pressure 102/59 L 09/12/18 06:29 O2 Sat by Pulse Oximetry (%) Pertinent Admission Physical Exam Findings: alcohol withdrawal sx Laboratory Last Values WBC 7.3 K/mm3 (4.0-10.0) 09/10/18 07:00 RBC 4.32 M/mm3 (4.00-5.60) 09/10/18 07:00 Hgb 13.1 GM/dL (11.7-16.9) 09/10/18 07:00 Hct 38.9 % (35.4-49) 09/10/18 07:00 MCV 89.9 fl (80-96) 09/10/18 07:00 MCH 30.3 pg (25.7-33.7) 09/10/18 07:00 MCHC 33.7 g/dl (32.0-35.9) 09/10/18 07:00 RDW 13.6 % (11.9-15.9) 09/10/18 07:00 Plt Count 226 K/MM3 (134-434) 09/10/18 07:00 MPV 9.5 fl (7.5-11.1) 09/10/18 07:00 Sodium 140 mmol/L (136-145) 09/10/18 07:00 Potassium 3.9 mmol/L (3.5-5.1) 09/10/18 07:00 Chloride 108 mmol/L (98-107) H 09/10/18 07:00 Carbon Dioxide 27 mmol/L (21-32) 09/10/18 07:00 Anion Gap 5 MMOL/L (8-16) L 09/10/18 07:00 BUN 11 mg/dL (7-18) 09/10/18 07:00 Creatinine 0.9 mg/dL (0.55-1.3) 09/10/18 07:00 Creat Clearance w eGFR 88.61 (>60) 09/10/18 07:00 Random Glucose 100 mg/dL (74-106) 09/10/18 07:00 Calcium 8.5 mg/dL (8.5-10.1) 09/10/18 07:00 Total Bilirubin 0.2 mg/dL (0.2-1) 09/10/18 07:00 AST 12 U/L (15-37) L 09/10/18 07:00 ALT 28 U/L (13-61) 09/10/18 07:00 Alkaline Phosphatase 68 U/L (45-117) 09/10/18 07:00 Total Protein 6.2 g/dl (6.4-8.2) L 09/10/18 07:00 Albumin 3.2 g/dl (3.4-5.0) L 09/10/18 07:00 RPR Titer Nonreactive (NONREACTIVE) 09/10/18 07:00 lab noted - Treatment Hospital Course: Detox Protocol Followed, Detoxed Safely, Responded well, Discharged Condition Good, Rehab Referral Accepted Patient has Accepted a Rehab Referral to: community self help group - Medication Discharge Medications: Ambulatory Orders Aspirin [ASA -] 81 mg PO DAILY 09/08/18 Atorvastatin Ca [Lipitor] 80 mg PO HS 09/08/18 Dextroamphetamine Sulfate [Zenzedi] 20 mg PO BID 09/08/18 Amlodipine Besylate [Norvasc -] 5 mg PO DAILY #30 tablet 09/11/18 Clopidogrel Bisulfate [Plavix -] 75 mg PO DAILY #30 tablet 09/11/18 Tamsulosin HCl [Flomax -] 0.4 mg PO DAILY #30 cap.er.24h 09/11/18 - Diagnosis (1) Alcohol dependence with uncomplicated withdrawal Status: Chronic (2) BPH (benign prostatic hyperplasia) Status: Chronic Qualifiers: Lower urinary tract symptom presence: symptoms absent Qualified Code(s): N40.0 - Benign prostatic hyperplasia without lower urinary tract symptoms (3) CAD (coronary artery disease) Status: Chronic Qualifiers: Coronary Disease-Associated Artery/Lesion type: [place] artery [place] vs. transplanted heart: [place] heart Associated angina: without angina Qualified Code(s): I25.10 - Atherosclerotic heart disease of [place] coronary artery without angina pectoris (4) GERD (gastroesophageal reflux disease) Status: Chronic Qualifiers: Esophagitis presence: without esophagitis Qualified Code(s): K21.9 - Gastro -esophageal reflux disease without esophagitis (5) Hypercholesterolemia Status: Chronic (6) Hypertension Status: Chronic Qualifiers: Hypertension type: essential hypertension Qualified Code(s): I10 - Essential (primary) hypertension (7) Nicotine dependence Status: Acute Qualifiers: Nicotine product type: cigarettes Substance use status: in withdrawal Qualified Code(s): F17.213 - Nicotine dependence, cigarettes, with withdrawal - AMA Did Patient Leave Against Medical Advice: No
== END 2018-09-12 08:53 | disposition home or self-care (01) | DRG 774 ==
LOC: YASAS 12:13 → Y3N 14:56
PROVIDERS: ADMIT Surgery; ATTEND Surgery
PROC: HZ2ZZZZ Detoxification Services for Substance Abuse Treatment (ICD-10-PCS; principal; 2018-09-08)
DX: F10.230 Alcohol dependence with withdrawal, uncomplicated (principal); F14.20 Cocaine dependence, uncomplicated; F12.10 Cannabis abuse, uncomplicated; F17.213 Nicotine dependence, cigarettes, with withdrawal; F19.24 Other psychoactive substance dependence with psychoactive substance-induced mood disorder; F90.9 Attention-deficit hyperactivity disorder, unspecified type; F32.9 Major depressive disorder, single episode, unspecified; I25.10 Atherosclerotic heart disease of native coronary artery without angina pectoris; I10 Essential (primary) hypertension; I25.2 Old myocardial infarction; K21.9 Gastro-esophageal reflux disease without esophagitis; E78.00 Pure hypercholesterolemia, unspecified; Z91.19 Patient's noncompliance with other medical treatment and regimen
CPT/HCPCS: 36415; 80053; 85027; 86593

== ENCOUNTER 2018-12-29 11:42 | Observation (INO) | payer OTHER ==
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
[2018-12-29 13:17] LABS: BASO % 0.5 % (0-2.0); EOS % 2.9 % (0-4.5); HEMOGLOBIN 13.2 GM/dL (11.7-16.9); LYMPH % 34.8 % (8-40); MCH 29.7 pg (25.7-33.7); MCHC 33.9 g/dl (32.0-35.9); MEAN CELL VOLUME 87.8 fl (80-96); MEAN PLT VOLUME 9.3 fl (7.5-11.1); MONO % 8.3 % (3.8-10.2); NEUT % 53.5 % (42.8-82.8); PLATELET COUNT 287 K/MM3 (134-434); RBC 4.44 M/mm3 (4.00-5.60); RDW 14.1 % (11.9-15.9); WHITE BLOOD COUNT 7.7 K/mm3 (4.0-10.0)
[2018-12-29 13:31] LABS: ALBUMIN 3.6 g/dl (3.4-5.0); BILIRUBIN,TOTAL 0.3 mg/dL (0.2-1); BLOOD UREA NITROGEN 14.7 mg/dL (7-18); CALCIUM 8.7 mg/dL (8.5-10.1); POTASSIUM 3.9 mmol/L (3.5-5.1); TOT PROT 6.6 g/dl (6.4-8.2)
[2018-12-29] MEDS ORDERED: METHOCARBAMOL 500 MG TABLET PO ONE (14:02)
[2018-12-29] MEDS ORDERED: ACETAMINOPHEN 325 MG TABLET (FP) PO ONE (14:03)
[2018-12-29] MEDS ORDERED: ACETAMINOPHEN 325 MG TABLET (FP) ONE (14:10)
[2018-12-29] MEDS ORDERED: METHOCARBAMOL 500 MG TABLET ONE (14:10)
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
[2018-12-29 15:20] LABS: COCAINE, UR NEGATIVE ng/ml (CUTOFF=300); METHADONE, UR NEGATIVE ng/ml (CUTOFF=300); OPIATES, URI NEGATIVE ng/ml (CUTOFF=300); PHENCYCLIDINE,URINE NEGATIVE ng/ml (CUTOFF=25); URINE AMPHETAMINES NEGATIVE ng/ml (CUTOFF=500); URINE BARBITURATES NEGATIVE ng/ml (CUTOFF=200)
[2018-12-29 15:22] LABS: URINE BENZODIAZEPINES POSITIVE ng/ml (CUTOFF=200)
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
[2018-12-29] MEDS ORDERED: CYCLOBENZAPRINE HCL 5 MG TABLET PO SCH (18:00)
[2018-12-29] MEDS ORDERED: amLODIPine BESYLATE 5 MG TABLET (FP) PO PRN (18:54)
[2018-12-29] MEDS ORDERED: CYCLOBENZAPRINE HCL 5 MG TABLET PO PRN (18:58)
[2018-12-29 20:23] VITALS: BMI 35.6
[2018-12-29] MEDS: CYCLOBENZAPRINE HCL 10 MG TABLET (FP) PO PRN (21:42)
[2018-12-29] MEDS: ATORVASTATIN CA 80 MG TABLET (FP) PO SCH (21:42)
[2018-12-29] MEDS: ACETAMINOPHEN 325 MG TABLET (FP) PO PRN (23:20)
[2018-12-30 07:35] LABS: BASO % 0.3 % (0-2.0); EOS % 3.7 % (0-4.5); HEMATOCRIT 39.6 % (35.4-49); HEMOGLOBIN 13.3 GM/dL (11.7-16.9); LYMPH % 35.4 % (8-40); MCH 29.6 pg (25.7-33.7); MCHC 33.7 g/dl (32.0-35.9); MEAN CELL VOLUME 87.9 fl (80-96); MEAN PLT VOLUME 9.4 fl (7.5-11.1); MONO % 10.6 % (3.8-10.2); PLATELET COUNT 267 K/MM3 (134-434); RDW 14.2 % (11.9-15.9); WHITE BLOOD COUNT 7.3 K/mm3 (4.0-10.0)
[2018-12-30 07:59] LABS: ALBUMIN 3.3 g/dl (3.4-5.0); ALK PHOS 58 U/L (45-117); ANION GAP 7 MMOL/L (8-16); BILIRUBIN,TOTAL 0.2 mg/dL (0.2-1); BLOOD UREA NITROGEN 14.2 mg/dL (7-18); CALCIUM 8.6 mg/dL (8.5-10.1); CHLORIDE 108 mmol/L (98-107); CO2 27 mmol/L (21-32); CREATININE 0.8 mg/dL (0.55-1.3); GLUCOSE,RANDOM 105 mg/dL (74-106); MAGNESIUM 2.1 mg/dL (1.8-2.4); PHOSPHOROUS 3.3 mg/dL (2.5-4.9); SGOT/AST 14 U/L (15-37); SGPT/ALT 33 U/L (13-61); SODIUM 141 mmol/L (136-145); TOT PROT 6.4 g/dl (6.4-8.2)
[2018-12-30] MEDS ORDERED: amLODIPine BESYLATE 5 MG TABLET (FP) PO SCH (10:00)
[2018-12-30] MEDS ORDERED: CYCLOBENZAPRINE HCL 5 MG TABLET PO SCH (10:00)
[2018-12-30] MEDS: ENOXAPARIN NA (PORCINE) 40 MG/0.4 ML DISP.SYRIN SQ SCH (10:54)
[2018-12-30] MEDS: amLODIPine BESYLATE 5 MG TABLET (FP) PO SCH (10:54)
[2018-12-30] MEDS: TAMSULOSIN HCL 0.4 MG CAP PO SCH (10:54)
[2018-12-30] MEDS: ASPIRIN 81 MG CHEWABLE TABLETS PO SCH (10:54)
[2018-12-30] MEDS: CLOPIDOGREL BISULFATE 75 MG TABLET (FP) PO SCH (10:54)
--- NOTE | 2018-12-30 11:30 | EKG ---
Test Reason : Blood Pressure : / mmHG Vent. Rate : 067 BPM Atrial Rate : 067 BPM P-R Int : 170 ms QRS Dur : 102 ms QT Int : 388 ms P-R-T Axes : 050 005 025 degrees QTc Int : 409 ms NORMAL SINUS RHYTHM INFERIOR INFARCT (CITED ON OR BEFORE 25-SEP-2014) ABNORMAL ECG WHEN COMPARED WITH ECG OF 29-DEC-2018 12:08, NO SIGNIFICANT CHANGE WAS FOUND Confirmed by CHAY VELASQUEZ, KATHY ([id number]) on 12/30/2018 11:29:51 AM Referred By: Chele CROWLEY Confirmed By:KATHY CARTWRIGHT MD
--- NOTE | 2018-12-30 11:36 | EKG ---
Test Reason : Blood Pressure : / mmHG Vent. Rate : 078 BPM Atrial Rate : 078 BPM P-R Int : 158 ms QRS Dur : 108 ms QT Int : 380 ms P-R-T Axes : 057 -13 016 degrees QTc Int : 433 ms NORMAL SINUS RHYTHM POSSIBLE LEFT ATRIAL ENLARGEMENT INFERIOR INFARCT (CITED ON OR BEFORE 25-SEP-2014) CANNOT RULE OUT ANTERIOR INFARCT (CITED ON OR BEFORE 06-JUL-2018) ABNORMAL ECG WHEN COMPARED WITH ECG OF 04-SEP-2018 19:25, NONSPECIFIC T WAVE ABNORMALITY HAS REPLACED INVERTED T WAVES IN ANTERIOR LEADS Confirmed by KATHY CARTWRIGHT MD ([id number]) on 12/30/2018 11:35:44 AM Referred By: Confirmed By:KATHY CARTWRIGHT MD
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
[2018-12-30] MEDS ORDERED: LORazepam 1 MG TABLET PO ONE (16:00)
[2018-12-30 17:57] LABS: CHOLESTEROL 173 mg/dL (50-200); HDL CHOLESTEROL 52 mg/dL (40-60); TRIGLYCERIDES 262 mg/dL (0-150)
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
[2018-12-30] MEDS: ATORVASTATIN CA 80 MG TABLET (FP) PO SCH (21:33)
[2018-12-30] MEDS: CYCLOBENZAPRINE HCL 10 MG TABLET (FP) PO PRN (21:33)
--- NOTE | 2018-12-31 06:54 | PN ---
Progress Note (short form) - Note Progress Note: Chief Complaint: Events noted, notes reviewed, denies any recurrent chest pain, denies dyspnea History of Present Illness: Seen and examined on telemetry. Events noted, notes reviewed, denies any recurrent chest pain, denies dyspnea Echocardiography dated 07/09/2018 revealed normal LV systolic function, LVEF 55- 60%, mild LAE and no valvular regurgitation Echocardiography dated 06/29/2018 revealed normal LV systolic function, LVEF>55% , abnormal LV compliance, normal RV size and function, mild LAE, trace-mild TR, no MR MPI study dated 06/2018 revealed mild mid apical wall reversible perfusion defect/ischemia - Current Medication List Current Medications: Current Medications Acetaminophen (Tylenol -) 650 mg PO Q6H PRN PRN Reason: Fever Or Pain level 6-10 Last Admin: 12/29/18 23:20 Dose: 650 mg Amlodipine Besylate (Norvasc -) 5 mg PO DAILY [facility] Last Admin: 12/30/18 10:54 Dose: 5 mg Aspirin (Asa -) 81 mg PO DAILY [facility] Last Admin: 12/30/18 10:54 Dose: 81 mg Atorvastatin Calcium (Lipitor -) 80 mg PO HS [facility] Last Admin: 12/30/18 21:33 Dose: 80 mg Clopidogrel Bisulfate (Plavix -) 75 mg PO DAILY [facility] Last Admin: 12/30/18 10:54 Dose: 75 mg Cyclobenzaprine HCl (Flexeril -) 10 mg PO Q8H PRN PRN Reason: MUSCLE SPASMS Last Admin: 12/30/18 21:33 Dose: 10 mg Enoxaparin Sodium (Lovenox -) 40 mg SQ DAILY [facility] Last Admin: 12/30/18 10:54 Dose: 40 mg Tamsulosin HCl (Flomax -) 0.4 mg PO DAILY@0830 [facility] Last Admin: 12/30/18 10:54 Dose: 0.4 mg Review of Systems Cardiovascular: As noted above Respiratory: denies: As noted above Gastrointestinal: denies: Nausea, Vomiting, Diarrhea, Constipation or Abdominal Discomfort Musculoskeletal: No Symptoms Reported Endocrine: No Symptoms Reported - Objective Vital Signs: Last Vital Signs Temp Pulse Resp BP Pulse Ox 97.7 F 60 18 107/50 L 97 12/31/18 05:55 12/31/18 05:55 12/31/18 05:55 12/31/18 05:55 12/30/18 23:45 Intake & Output 12/28/18 12/29/18 12/30/18 12/31/18 23:59 23:59 23:59 23:59 Intake Total 485 945 Balance 485 945 Weight 255 lb 6.4 oz Constitutional: No Distress, Calm, Thin Neck: Supple Negative JVD Cardiovascular: S1 S2 Regular Rate and Rhythm Respiratory: Clear to A&P Bilaterally Gastrointestinal: Soft Benign Normal Bowel Sounds Ext: No Edema Labs: CBC, BMP 12/30/18 06:38 12/30/18 06:38 Hepatic Panel Total Bilirubin 0.2 mg/dL (0.2-1) 12/30/18 06:38 AST 14 U/L (15-37) L 12/30/18 06:38 ALT 33 U/L (13-61) 12/30/18 06:38 Alkaline Phosphatase 58 U/L (45-117) 12/30/18 06:38 Albumin 3.3 g/dl (3.4-5.0) L 12/30/18 06:38 Assessment/Plan ASSESSMENT: 1. Chest pain syndrome in a patient with known history of coronary artery disease history of NSTEMI, abnormal MPI study angina pectoris 2. Diastolic LV dysfunction with clinical class 0 NYHA classification LV failure 3. HTN 4. Hypercholesterolemia 5. History of syncope in context of poly-substance abuse 6. History of polysubstance abuse (including cocaine and ETOH) PLAN: 1. Continue ASA and Plavix 2. Continue Lipitor 3. Continue Norvasc 4. Echocardiography for evaluation of left ventricular systolic function 5. Myocardial perfusion imaging study, pharmacologic Lexiscan myocardial perfusion imaging study if unable to exercise for evaluation of ischemic burden prior to planning any additional intervention/management Sabrina Thompson MD
[2018-12-31] MEDS ORDERED: REGADENOSON 0.4 MG/5 ML PRE-FILLED SYRINGE IVPUSH ONE ×2 (09:56→10:15)
--- NOTE | 2018-12-31 11:33 | ECHO ---
Name: CHRIS CHAVEZ Exam:Adult Echocardiogram Study Date: 12/31/2018 08:57 AM Age: 53 yrs Reason For Study: nstemi Height: 71 in Weight: 255 lb BSA: 2.3 m2 MMode/2D Measurements & Calculations IVSd: 1.1 cm Ao root diam: 3.0 cm LVIDd: 4.8 cm LA dimension: 4.6 cm LVIDs: 3.4 cm LVPWd: 1.2 cm EDV(Teich): 109.3 ml LVOT diam: 2.0 cm ESV(Teich): 49.1 ml LAV (MOD-bp): 68.2 ml Doppler Measurements & Calculations MV E max solitario: 70.3 cm/sec Ao V2 max: 154.7 cm/sec MV A max solitario: 99.9 cm/sec Ao max P.6 mmHg MV E/A: 0.70 MV dec time: 0.20 sec PK(V,D): 1.7 cm2 LV V1 max P.9 mmHg PA V2 max: 112.7 cm/sec LV V1 max: 85.4 cm/sec PA max P.1 mmHg Med Peak E' Solit[facility]: 4.8 cm/sec PI Vmax: 78.7 cm/sec Med E/e': 14.7 Lat Peak E' Solitario: 7.9 cm/sec Lat E/e': 8.9 Procedure The study was technically limited with all images being suboptimal in quality. Left Ventricle The left ventricle is normal in size. Left ventricular systolic function is low normal. Ejection Frac tion = 50-55%. Grade I diastolic dysfunction, (abnormal relaxation pattern). Regional wall motion abnormalit ies cannot be excluded due to limited visualization. Right Ventricle The right ventricle is normal in size and function. Atria The left atrium is mildly dilated. Right atrial size is normal. Mitral Valve The mitral valve is grossly normal. There is trace mitral regurgitation. Tricuspid Valve The tricuspid valve is not well visualized. There is trace tricuspid regurgitation. There was insuffi cient TR detected to calculate RV systolic pressure. Aortic Valve The aortic valve is not well visualized. No aortic regurgitation is present. Pulmonic Valve The pulmonic valve is not well visualized. Great Vessels Normal aortic arch, descending and ascending aorta. Pericardium/Pleura Trivial pericardial effusion not hemodynamically significant. Interpretation Summary Compared to the prior echo report on 07/09/2018, there is no significant change. There is trace tacos l regurgitation. The left ventricle is normal in size. Left ventricular systolic function is low normal. Ejection Fraction = 50-55%. The right ventricle is normal in size and function. Compared to the prior echo report on 07/09/2018, there is no significant change. Chris Constantino MD 12/31/2018 11:32 AM
[2018-12-31] MEDS ORDERED: LORazepam 1 MG TABLET PO ONE ×2 (12:15→20:15)
[2018-12-31] MEDS ORDERED: LORazepam 2 MG/ML SDV VIAL IVPUSH ONE ×3 (12:44→21:14)
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
[2018-12-31] MEDS: ACETAMINOPHEN 325 MG TABLET (FP) PO PRN (15:36)
[2018-12-31] MEDS: ENOXAPARIN NA (PORCINE) 40 MG/0.4 ML DISP.SYRIN SQ SCH (15:39)
[2018-12-31] MEDS: PANTOPRAZOLE 40 MG TABLET (FP) PO SCH (15:39)
[2018-12-31] MEDS: ASPIRIN 81 MG CHEWABLE TABLETS PO SCH (15:39)
[2018-12-31] MEDS: TAMSULOSIN HCL 0.4 MG CAP PO SCH (15:39)
[2018-12-31] MEDS: amLODIPine BESYLATE 5 MG TABLET (FP) PO SCH (15:39)
[2018-12-31] MEDS: CLOPIDOGREL BISULFATE 75 MG TABLET (FP) PO SCH (15:39)
--- NOTE | 2018-12-31 15:39 | PN ---
Physical Exam: SUBJECTIVE: Patient seen and examined at bedside. pt states his neck is causing a lot of pain. pt states he gets dizzy when he stands up. OBJECTIVE: Vital Signs Period Temp Pulse Resp BP Sys/Shah Pulse Ox Last 24 Hr 97.7 F-98.2 F 60-82 18-20 107-129/50-78 97-98 GENERAL: The patient is awake, alert, and fully oriented, in no acute distress. NECK: Trachea midline, decreased range of motion, supple. LUNGS: Breath sounds equal, clear to auscultation bilaterally, no wheezes, no crackles, no accessory muscle use. HEART: Regular rate and rhythm, S1, S2 without murmur, rub or gallop. ABDOMEN: Soft, tender to palpation in epigastric region, nondistended, normoactive bowel sounds, no guarding. EXTREMITIES: 2+ pulses, warm, well-perfused, no edema. NEUROLOGICAL: Cranial nerves II through XII grossly intact. Normal speech, gait not observed. SKIN: Warm, dry, normal turgor, no rashes or lesions noted Laboratory Results - last 24 hr 12/30/18 12/30/18 16:50 16:50 Triglycerides 262 H Cholesterol 173 Total LDL Cholesterol 99 HDL Cholesterol 52 TSH 1.89 Current Medications Acetaminophen (Tylenol -) 650 mg PO Q6H PRN PRN Reason: Fever Or Pain level 6-10 Last Admin: 12/29/18 23:20 Dose: 650 mg Amlodipine Besylate (Norvasc -) 5 mg PO DAILY [facility] Last Admin: 12/30/18 10:54 Dose: 5 mg Aspirin (Asa -) 81 mg PO DAILY [facility] Last Admin: 12/30/18 10:54 Dose: 81 mg Atorvastatin Calcium (Lipitor -) 80 mg PO HS [facility] Last Admin: 12/30/18 21:33 Dose: 80 mg Clopidogrel Bisulfate (Plavix -) 75 mg PO DAILY [facility] Last Admin: 12/30/18 10:54 Dose: 75 mg Cyclobenzaprine HCl (Flexeril -) 10 mg PO Q8H PRN PRN Reason: MUSCLE SPASMS Last Admin: 12/30/18 21:33 Dose: 10 mg Enoxaparin Sodium (Lovenox -) 40 mg SQ DAILY [facility] Last Admin: 12/30/18 10:54 Dose: 40 mg Pantoprazole Sodium (Protonix -) 40 mg PO DAILY [facility] Tamsulosin HCl (Flomax -) 0.4 mg PO DAILY@0830 [facility] Last Admin: 12/30/18 10:54 Dose: 0.4 mg ASSESSMENT/PLAN: 53 yo M w/ PMH CAD (NSTEMI 06/2018),HTN, HLD, GERD, BPH, Polysubstance abuse, presented to ED w/ neck pain since 12/26. Pt states neck pain radiates to L shoulder. Pt states he carried a heavy box on monday before incident and unsure if that triggered the pain. Neck / L shoulder pain -Brain MRI no acute pathology -awaiting C spine MRI -pt states he carried a heavy box early last -c/w flexeril Atypical CP -r/o ACS -EKG- NSR -Echo unchanged from prior, EF 50-55% -Nuclear Stress test 06/2018 at [facility] revealed mild mid apical wall reversible perfusion defect/ischemia -pt refused to complete stress testing -c/w Asa and plavix -Trops negative x 2 -cardiology recs appreciated HTN -c/w norvasc HLD -c/w Lipitor BPH -c/w Flomax F/E/N -Sodium restricted diet DVT ppx -Lovenox 40mg sq daily GERD - Protonix Disposition -full code -continue to monitor until medically optimized Visit type - Emergency Visit Emergency Visit: No - New Patient This patient is new to me today: No - Critical Care Critical Care patient: No - Discharge Referral Referred to [facility] Med P.C[facility] No ATTENDING PHYSICIAN STATEMENT I saw and evaluated the patient. I reviewed the resident's note and discussed the case with the resident. I agree with the resident's findings and plan as documented. SUBJECTIVE: OBJECTIVE: ASSESSMENT AND PLAN:
[2018-12-31] MEDS: THIAMINE HCL 100 MG TABLET (FP) PO SCH (18:49)
[2018-12-31] MEDS: FOLIC ACID 1 MG TABLET (FP) PO SCH (18:49)
[2018-12-31] MEDS ORDERED: PT OWN MED DRAWER 7, Y5N ONE (20:06)
[2018-12-31] MEDS: ATORVASTATIN CA 80 MG TABLET (FP) PO SCH (21:35)
[2019-01-01 06:31] VITALS: TEMP 98
[2019-01-01] MEDS: FOLIC ACID 1 MG TABLET (FP) PO SCH (09:24)
[2019-01-01] MEDS: PANTOPRAZOLE 40 MG TABLET (FP) PO SCH (09:24)
[2019-01-01] MEDS: ASPIRIN 81 MG CHEWABLE TABLETS PO SCH (09:24)
[2019-01-01] MEDS: TAMSULOSIN HCL 0.4 MG CAP PO SCH (09:24)
[2019-01-01] MEDS: CLOPIDOGREL BISULFATE 75 MG TABLET (FP) PO SCH (09:24)
[2019-01-01] MEDS: amLODIPine BESYLATE 5 MG TABLET (FP) PO SCH (09:25)
[2019-01-01] MEDS: THIAMINE HCL 100 MG TABLET (FP) PO SCH (09:25)
[2019-01-01] MEDS: ENOXAPARIN NA (PORCINE) 40 MG/0.4 ML DISP.SYRIN SQ SCH (09:25)
--- NOTE | 2019-01-01 10:43 | PN ---
Progress Note (short form) - Note Progress Note: Chief Complaint: Events noted, notes reviewed, denies any recurrent chest pain, denies dyspnea History of Present Illness: Seen and examined on telemetry. Events noted, notes reviewed, denies any recurrent chest pain, denies dyspnea Stress test abandoned yesterday, patient was displeased with the process, long discussion with the patient regarding options of management including 1. optimizing medical therapy since there was no evidence of ACS and D/C home- further evaluation as outpatient 2. attempt to proceed with MPI study 3. proceed with early LHC& coronary angiography will plan to proceed with option #1 Echocardiography dated 07/09/2018 revealed normal LV systolic function, LVEF 55- 60%, mild LAE and no valvular regurgitation Echocardiography dated 06/29/2018 revealed normal LV systolic function, LVEF>55% , abnormal LV compliance, normal RV size and function, mild LAE, trace-mild TR, no MR MPI study dated 06/2018 revealed mild mid apical wall reversible perfusion defect/ischemia - Current Medication List Current Medications: Current Medications Acetaminophen (Tylenol -) 650 mg PO Q6H PRN PRN Reason: Fever Or Pain level 6-10 Last Admin: 12/31/18 15:36 Dose: 650 mg Amlodipine Besylate (Norvasc -) 5 mg PO DAILY [facility] Last Admin: 01/01/19 09:25 Dose: 5 mg Aspirin (Asa -) 81 mg PO DAILY [facility] Last Admin: 01/01/19 09:24 Dose: 81 mg Atorvastatin Calcium (Lipitor -) 80 mg PO HS [facility] Last Admin: 12/31/18 21:35 Dose: 80 mg Clopidogrel Bisulfate (Plavix -) 75 mg PO DAILY [facility] Last Admin: 01/01/19 09:24 Dose: 75 mg Cyclobenzaprine HCl (Flexeril -) 10 mg PO Q8H PRN PRN Reason: MUSCLE SPASMS Last Admin: 12/30/18 21:33 Dose: 10 mg Enoxaparin Sodium (Lovenox -) 40 mg SQ DAILY [facility] Last Admin: 01/01/19 09:25 Dose: 40 mg Folic Acid (Folic Acid -) 1 mg PO DAILY [facility] Last Admin: 01/01/19 09:24 Dose: 1 mg Pantoprazole Sodium (Protonix -) 40 mg PO DAILY [facility] Last Admin: 01/01/19 09:24 Dose: 40 mg Tamsulosin HCl (Flomax -) 0.4 mg PO DAILY@0830 [facility] Last Admin: 01/01/19 09:24 Dose: 0.4 mg Thiamine HCl (Vitamin B1 -) 100 mg PO DAILY [facility] Last Admin: 01/01/19 09:25 Dose: 100 mg Review of Systems Cardiovascular: As noted above Respiratory: denies: As noted above Gastrointestinal: denies: Nausea, Vomiting, Diarrhea, Constipation or Abdominal Discomfort Musculoskeletal: No Symptoms Reported Endocrine: No Symptoms Reported - Objective Vital Signs: Last Vital Signs Temp Pulse Resp BP Pulse Ox 98.0 F 88 20 118/64 99 01/01/19 05:00 01/01/19 05:00 01/01/19 05:00 01/01/19 05:00 12/31/18 19:00 Intake & Output 12/29/18 12/30/18 12/31/18 01/01/19 23:59 23:59 23:59 23:59 Intake Total 485 945 480 22 Balance 485 945 480 22 Weight 255 lb 6.4 oz Constitutional: No Distress, Calm, Thin Neck: Supple Negative JVD Cardiovascular: S1 S2 Regular Rate and Rhythm Respiratory: Clear to A&P Bilaterally Gastrointestinal: Soft Benign Normal Bowel Sounds Ext: No Edema Labs: CBC, BMP 12/30/18 06:38 12/30/18 06:38 Assessment/Plan ASSESSMENT: 1. Chest pain syndrome in a patient with known history of coronary artery disease history of NSTEMI, abnormal MPI study angina pectoris 2. Diastolic LV dysfunction with clinical class 0 NYHA classification LV failure 3. HTN 4. Hypercholesterolemia 5. History of syncope in context of poly-substance abuse 6. History of polysubstance abuse (including cocaine and ETOH) PLAN: 1. Continue ASA and Plavix 2. Continue Lipitor 3. Continue Norvasc 4. As outlined above plan to optimize medical therapy since there was no evidence of ACS and D/C home later today (provided patient remains asymptomatic with ambulation)- further evaluation as outpatient, F/U in the office Sabrina Thompson MD
[2019-01-01 13:01] VITALS: BP 132/74; PULSE 84
--- NOTE | 2019-01-01 14:36 | PN ---
Teaching Attending Note Name of Resident: Roxana Rojas ATTENDING PHYSICIAN STATEMENT I saw and evaluated the patient. I reviewed the resident's note and discussed the case with the resident. I agree with the resident's findings and plan as documented. SUBJECTIVE:asymptomatic. states he has slight chest discmfort but always experiences this discomfort since July of this year when he had his heart attack. denies SOb, fever, chills, N/V/C/D, radiation of the CP OBJECTIVE: Last Vital Signs Temp Pulse Resp BP Pulse Ox 98.0 F 84 20 132/74 96 01/01/19 09:00 01/01/19 09:00 01/01/19 09:00 01/01/19 09:00 01/01/19 09:00 General NAD CV S1 S2 RRR no murmur/rub/gallop no chest wall tenderness ASSESSMENT AND PLAN: 53yo Mw tih PMH CAD s/p stents, HTN, dyslipidemia and remote polysubstance abuse presented wtih neck and chest pain assoc with LUE numbness 1. R/O acs- had +NMST earlier this year with stents placed. was scheduled for repeat stress today but pt refusing. wants to leave and follow up as outpatient. states he is committed to healthy living and follow up and will f/u with cardio as outpatient 2. neck pain with LUE numbness- MRI negative and planned for MRI of neck. pt refusing imaging at this time as he wants to be sedated for it to be done. as patient no longer has symptoms can be done as outpatient 3. hx of polysubstance abuse- claims last use was july of this year. state he had some personal issues which he has dealt with and has been sober since 4. HTN- cont home medications 5. will d/c home as patient is refusing further testing. strongly encouraged follow up with both PMD and cardiology and continued drug abstinence
--- NOTE | 2019-01-01 17:23 | DS ---
Physical Exam: SUBJECTIVE: Patient seen and examined at bedside. pt states he has neck pt. pt wants to go home. OBJECTIVE: Vital Signs Period Temp Pulse Resp BP Sys/Shah Pulse Ox Last 24 Hr 97.6 F-98.3 F 69-88 20-20 98-154/64-74 96-99 PHYSICAL EXAM GENERAL: The patient is awake, alert, and fully oriented, in no acute distress. HEAD: Normal with no signs of trauma. NECK: Trachea midline, decreased range of motion, supple. LUNGS: Breath sounds equal, clear to auscultation bilaterally, no wheezes, no crackles, no accessory muscle use. HEART: Regular rate and rhythm, S1, S2 without murmur, rub or gallop. ABDOMEN: Soft, nontender, nondistended, normoactive bowel sounds, no guarding, no rebound, no hepatosplenomegaly, no masses. NEUROLOGICAL: Cranial nerves II through XII grossly intact. Normal speech, gait not observed. SKIN: Warm, dry, normal turgor, no rashes or lesions noted. LABS HOSPITAL COURSE: Date of Admission:12/29/18 53 yo M w/ PMH CAD (NSTEMI 06/2018),HTN, HLD, GERD, BPH, Polysubstance abuse, presented to ED w/ neck pain since 12/26. Pt states neck pain radiates to L shoulder. Pt states he carried a heavy box on monday before incident and unsure if that triggered the pain. pt was admitted to r/o ACS. EKG was reviewed and in NSR. pt had prior nuclear stress 07/03 at [facility] revealed mild mid apical wall reversible perfusion defect/ischemia. pt had 2 negative trops. Echo was done and unchanged from prior, EF 50-55%. pt refused to complete stress testing during this admission. pt was evaluated by cardiology and recommended outpt f/ u. For Neck/ shoulder pain, pt had brain MRI negative for acute pathology. C spine MRI was ordered but pt refused 2/2 anxiety. pt was given flexeril and tylenol for pain. The HTN, HLD, BPH was managed w/ pt home doses for medications Norvasc, Lipitor, and Flomax. Pt should f/u outpt w/ PCP. Date of Discharge: 01/01/19 Minutes to complete discharge: 36 Discharge Summary Reason For Visit: CHEST [id number] Condition: Improved - Instructions Diet, Activity, Other Instructions: You came into the hospital for pain in your neck. You had multiple imaging studies of your neck, brain, and heart. Your blood work shows that you have high triglycerides (fat in your blood). The number is 262. Please continue to take your home medications as prescribed. Please follow up with your primary care physician within one week to monitor your improvement. Referral been sent to clinic at [facility]. it is important that you follow up in a week. Please follow up with your cryptologic technician technical, Dr. Mora ([phone]) regarding your cardiac conditions. You jenny need a stress test done to see if further procedures are necessary. Please continue to follow a low sodium, low fat diet. Please return to the ER if you have any signs or symptoms of chest pain, shortness of breath, uncontrollable fever, chills, nausea, vomiting, numbness, tingling, or weakness in any part of your body, changes in vision, or slurred speech. Please return to the ER if symptoms persist, worsen, or new symptoms arise. Referrals: [facility] [place] [Provider Group] David Mora MD [Staff Physician] - Disposition: HOME - Home Medications Comprehensive Discharge Medication List: Ambulatory Orders Aspirin [ASA -] 81 mg PO DAILY 09/08/18 Atorvastatin Ca [Lipitor] 80 mg PO HS 09/08/18 Amlodipine Besylate [Norvasc -] 5 mg PO DAILY #30 tablet 09/11/18 Clopidogrel Bisulfate [Plavix -] 75 mg PO DAILY #30 tablet 09/11/18 Tamsulosin HCl [Flomax -] 0.4 mg PO DAILY #30 cap.er.24h 09/11/18 Acetaminophen [Tylenol .Regular Strength -] 650 mg PO Q6H PRN tablet 01/01/19 Folic Acid - 1 mg PO DAILY tablet 01/01/19 Thiamine HCl [Vitamin B1 -] 100 mg PO DAILY tablet 01/01/19 This patient is new to me today: No Emergency Visit: No Critical Care patient: No - Discharge Referral Referred to [facility] Med P.C.: No ATTENDING PHYSICIAN STATEMENT I saw and evaluated the patient. I reviewed the resident's note and discussed the case with the resident. I agree with the resident's findings and plan as documented. SUBJECTIVE: OBJECTIVE: ASSESSMENT AND PLAN:
== END 2019-01-01 13:51 | disposition home or self-care (01) ==
LOC: JER 11:42 → JERBED 15:19 → J4W 18:47
PROVIDERS: ATTEND Internal Medicine
PROC: 3E033GC Introduction of Other Therapeutic Substance into Peripheral Vein, Percutaneous Approach (ICD-10-PCS; principal; 2018-12-29)
PROC: 3E013GC Introduction of Other Therapeutic Substance into Subcutaneous Tissue, Percutaneous Approach (ICD-10-PCS; 2018-12-29)
DX: R07.89 Other chest pain (principal); R20.2 Paresthesia of skin; M54.2 Cervicalgia; I11.0 Hypertensive heart disease with heart failure; I50.1 Left ventricular failure, unspecified; I25.2 Old myocardial infarction; I25.10 Atherosclerotic heart disease of native coronary artery without angina pectoris; K21.9 Gastro-esophageal reflux disease without esophagitis; N40.0 Benign prostatic hyperplasia without lower urinary tract symptoms; F10.21 Alcohol dependence, in remission; F14.21 Cocaine dependence, in remission; G47.33 Obstructive sleep apnea (adult) (pediatric); F32.9 Major depressive disorder, single episode, unspecified; E66.9 Obesity, unspecified; Z68.35 Body mass index [BMI] 35.0-35.9, adult; Z91.14 Patient's other noncompliance with medication regimen; Z87.891 Personal history of nicotine dependence; Z79.82 Long term (current) use of aspirin
CPT/HCPCS: 36415; 70551-TC; 71045-TC-FY; 80053; 80061; 80307; 82550; 82553; 83721; 83735; 84100; 84443; 84484; 85025; 93005; 93010; 93306-TC; 96372; 96374; 96375; 99284-25; A9502; G0378

== ENCOUNTER 2019-01-14 20:50 | Observation (INO) | payer OTHER ==
[2019-01-14] MEDS ORDERED: ASPIRIN 81 MG CHEWABLE TABLETS PO ONE (21:01)
--- NOTE | 2019-01-14 21:06 | PDOC ---
Rapid Medical Evaluation Time Seen by Provider: 01/14/19 21:01 Medical Evaluation: Allergies Allergy/AdvReac Type Severity Reaction Status Date / Time No Known Allergies Allergy Verified 12/29/18 11:48 01/14/19 21:02 HPI: Hx of CAD on plavix has not taken it in 2 days hx of [place] 07/03; CP started today and progressively increased in intensity PE: No gross deficits ORDERS: Cardiac work up Discharge Disposition - Diagnosis Chest pain - Referrals - Patient Instructions - Post Discharge Activity
[2019-01-14 21:09] VITALS: BMI 34.7
[2019-01-14] MEDS ORDERED: ASPIRIN 81 MG CHEWABLE TABLETS ONE (21:49)
[2019-01-14 22:20] LABS: BASO % 0.4 % (0-2.0); EOS % 2.3 % (0-4.5); HEMATOCRIT 42.8 % (35.4-49); HEMOGLOBIN 14.2 GM/dL (11.7-16.9); LYMPH % 43.6 % (8-40); MCH 29.1 pg (25.7-33.7); MCHC 33.1 g/dl (32.0-35.9); MEAN CELL VOLUME 87.9 fl (80-96); MEAN PLT VOLUME 9.7 fl (7.5-11.1); MONO % 9.9 % (3.8-10.2); NEUT % 43.8 % (42.8-82.8); PLATELET COUNT 237 K/MM3 (134-434); RBC 4.87 M/mm3 (4.00-5.60); RDW 14.4 % (11.9-15.9); WHITE BLOOD COUNT 9.8 K/mm3 (4.0-10.0)
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
[2019-01-14 22:30] LABS: INR 1.13 (0.83-1.09); PROTHROMBIN TIME (PATIENT) 13.3 SEC (9.7-13.0)
[2019-01-14 22:49] LABS: ALBUMIN 3.8 g/dl (3.4-5.0); BILIRUBIN,TOTAL 0.3 mg/dL (0.2-1); BLOOD UREA NITROGEN 16.5 mg/dL (7-18); CALCIUM 9.1 mg/dL (8.5-10.1); MAGNESIUM 1.9 mg/dL (1.8-2.4); POTASSIUM 3.6 mmol/L (3.5-5.1); TOT PROT 6.7 g/dl (6.4-8.2)
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
[2019-01-14] MEDS ORDERED: FAMOTIDINE 20 MG/50 ML IVPB 20 MG/50 ML MG IVPB ONE ×2 (23:06→23:23)
[2019-01-14] MEDS ORDERED: ACETAMINOPHEN 1000 MG/100 ML VIAL (NON FORMULARY) IVPB ONE (23:06)
[2019-01-14] MEDS ORDERED: SODIUM CHLORIDE 1,000 ML IV STA (23:06)
[2019-01-14] MEDS ORDERED: MAG HYDROX/AL HYDROX/SIMETH 30 ML UNIT-DOSE CUP PO ONE (23:06)
[2019-01-14] MEDS ORDERED: ACETAMINOPHEN INJECTION 100 ML IVPB ONE (23:23)
[2019-01-14] MEDS ORDERED: MAG HYDROX/AL HYDROX/SIMETH 30 ML UNIT-DOSE CUP ONE (23:23)
--- NOTE | 2019-01-15 01:01 | PN ---
Teaching Attending Note Name of Resident: Joanne Mckeon ATTENDING PHYSICIAN STATEMENT I saw and evaluated the patient. I reviewed the resident's note and discussed the case with the resident. I agree with the resident's findings and plan as documented. SUBJECTIVE: Patient is a 53 year old man with PMH of CAD, GERD, HTN, Polysubstance abuse, Alcohol abuse, Syncope, Tobacco use, BPH and NSTEMI (06/2018 at [facility]) presenting with chest pain that started around 6 pm. Pain radiated to the left shoulder. Was visiting his girlfriend in [place] and started feeling dizzy with chills as he was about to leave. He took tylenol and started driving back to [place] - pain started 10 minutes into the journey with associated diaphoresis and mild SOB. Was exposed to one of his girlfriend's grand kids who had flu-like symptoms. He was using at the time of the recent NSTEMI and he refused stents and angiograpy. His most recent NM test on 12/2018 showed mild left ventricular dilatation with normal systolic function with normal resting perfusion but he refused the stress portion). FH of CAD - father had IL at age 58 years. Deneis nausea, vomiting, dysuria, headache or diarrhea. OBJECTIVE: Alert Vital Signs Period Temp Pulse Resp BP Sys/Shah Pulse Ox Last 24 Hr 98.1 F 76-83 15-23 125-141/66-77 95-98 HEENT: No Jaundice, eye redness or discharge, PERRLA, EOMI. Normocephalic, atraumatic. External ears are normal and hearing is grossly intact. No nasal discharge. Neck: Supple, nontender. No palpable adenopathy or thyromegaly. No JVD Chest: Good effort. Clear to auscultation and percussion. Heart: Regular. No S3, rub or murmur Abdomen: Not distended, soft, nontender and no HSM. No rebound or guarding. Normal bowel sounds. Ext: Peripheral pulses intact. No leg edema. Skin: Warm and dry. No petechiae, rash or ecchymosis. Neuro: Alert. Oriented x3. CN 2-12 grossly intact. Sensation grossly intact in all four extremities and DTR are symmetric. Psych: Appropriate mood and affect. Good insight. Home Medications Medication Instructions Recorded Aspirin [ASA -] 81 mg PO DAILY 04/27/19 Atorvastatin Ca [Lipitor] 80 mg PO HS 09/08/18 Amlodipine Besylate [Norvasc -] 5 mg PO DAILY #30 tablet 09/11/18 Clopidogrel Bisulfate [Plavix -] 75 mg PO DAILY #30 tablet 09/11/18 Tamsulosin HCl [Flomax -] 0.4 mg PO DAILY #30 cap.er.24h 09/11/18 Acetaminophen [Tylenol .Regular 650 mg PO Q6H PRN tablet 01/01/19 Strength -] Folic Acid - 1 mg PO DAILY tablet 01/01/19 Thiamine HCl [Vitamin B1 -] 100 mg PO DAILY tablet 01/01/19 Abnormal Lab Results 01/14/19 01/14/19 01/14/19 22:10 22:10 22:10 Lymphocytes % 43.6 H D PT with INR INR Chloride 109 H Anion Gap 6 L Creatine Kinase 712 H 01/14/19 22:10 Lymphocytes % PT with INR 13.30 H INR 1.13 H Chloride Anion Gap Creatine Kinase ASSESSMENT AND PLAN: 1. Chest pain - Patient has risk factors for CAD. EKG shows NSR with T wave inversion in lead III and V1, IRBBB - no change from prior EKGs. Initial troponin is negative. Patient got Aspirin 162 mg PO, IV Tylenol, Pepcid and Mylanta in the ER. No acute abnormality on CXR. Urinalysis and urine toxicology pending. Will admit to telemetry to rule out ACS, repeat CPK and get ECHO. Consult cardiology. 2. Tobacco Use Counseled on risks associated with tobacco use. We will provide patient all the necessary assistance to facilitate smoking cessation and prescribe Nicotine patch. 3. Obesity Counseled on the risks associated with obesity. Will provide patient all the necessary assistance, counseling and positive reinforcement to facilitate weight loss. Consult facility examiner. 4. Alcohol and Polysubstance abuse - Monitor closely for drug and alcohol withdrawal. Implement [facility] alcohol withdrawal protocol and do neurochecks. Implement seizure, fall and aspiration precautions. Treat with thiamine and folic acid and monitor electrolytes (Ca,Mg,K,P). Counseled patient about abstaining from alcohol and illicit drugs. Will consult legal recovery specialist and refer to alcohol/drug detox upon discharge. 5. Hypertension - Restart suitable outpatient antihypertensive drugs when clinically appropriate. Revise regimen to ensure [id number] excellent BP control and eap counselor patient on the injurious effects of uncontrolled hypertension. Nonpharmacologic measures to control hypertension like weight loss , salt restriction and exercise discussed. Importance of adherence to treatment regimen and attainment of normotension emphasized. 6. DVT prophylaxis - Lovenox 40 mg SQ q 24 hours. 7. Advance directives - Full code
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
[2019-01-15 07:34] LABS: HEMATOCRIT 40.4 % (35.4-49); HEMOGLOBIN 13.6 GM/dL (11.7-16.9); MCH 29.6 pg (25.7-33.7); MCHC 33.7 g/dl (32.0-35.9); MEAN PLT VOLUME 9.6 fl (7.5-11.1); PLATELET COUNT 222 K/MM3 (134-434); RBC 4.59 M/mm3 (4.00-5.60); RDW 14.3 % (11.9-15.9); WHITE BLOOD COUNT 8.1 K/mm3 (4.0-10.0)
[2019-01-15 07:44] LABS: ALBUMIN 3.4 g/dl (3.4-5.0); ALK PHOS 57 U/L (45-117); ANION GAP 5 MMOL/L (8-16); BILIRUBIN,TOTAL 0.2 mg/dL (0.2-1); BLOOD UREA NITROGEN 13.3 mg/dL (7-18); CALCIUM 8.3 mg/dL (8.5-10.1); CHLORIDE 109 mmol/L (98-107); CO2 26 mmol/L (21-32); CREATININE 0.8 mg/dL (0.55-1.3); GLUCOSE,RANDOM 84 mg/dL (74-106); MAGNESIUM 2.1 mg/dL (1.8-2.4); PHOSPHOROUS 3.6 mg/dL (2.5-4.9); POTASSIUM 3.9 mmol/L (3.5-5.1); SGOT/AST 22 U/L (15-37); SGPT/ALT 28 U/L (13-61); SODIUM 141 mmol/L (136-145); TOT PROT 6.2 g/dl (6.4-8.2)
[2019-01-15] MEDS ORDERED: TAMSULOSIN HCL 0.4 MG CAP ONE (08:33)
[2019-01-15] MEDS: TAMSULOSIN HCL 0.4 MG CAP PO SCH (08:34)
[2019-01-15] MEDS ORDERED: ASPIRIN 81 MG CHEWABLE TABLETS ONE (10:22)
[2019-01-15] MEDS ORDERED: amLODIPine BESYLATE 5 MG TABLET (FP) ONE (10:23)
[2019-01-15] MEDS ORDERED: FOLIC ACID 1 MG TABLET (FP) ONE (10:23)
[2019-01-15] MEDS ORDERED: CLOPIDOGREL BISULFATE 75 MG TABLET (FP) ONE (10:23)
[2019-01-15] MEDS ORDERED: THIAMINE HCL 100 MG TABLET (FP) ONE (10:23)
[2019-01-15] MEDS ORDERED: ENOXAPARIN NA (PORCINE) 40 MG/0.4 ML DISP.SYRIN SQ ONE (10:24)
[2019-01-15] MEDS: ENOXAPARIN NA (PORCINE) 40 MG/0.4 ML DISP.SYRIN SQ SCH (10:35)
[2019-01-15] MEDS: FOLIC ACID 1 MG TABLET (FP) PO SCH (10:35)
[2019-01-15] MEDS: ASPIRIN 81 MG CHEWABLE TABLETS PO SCH (10:35)
[2019-01-15] MEDS: amLODIPine BESYLATE 5 MG TABLET (FP) PO SCH (10:36)
[2019-01-15] MEDS: THIAMINE HCL 100 MG TABLET (FP) PO SCH (10:36)
[2019-01-15] MEDS: CLOPIDOGREL BISULFATE 75 MG TABLET (FP) PO SCH (10:36)
--- NOTE | 2019-01-15 12:43 | EKG ---
Test Reason : Blood Pressure : / mmHG Vent. Rate : 080 BPM Atrial Rate : 080 BPM P-R Int : 164 ms QRS Dur : 102 ms QT Int : 376 ms P-R-T Axes : 061 -21 033 degrees QTc Int : 433 ms NORMAL SINUS RHYTHM POSSIBLE LEFT ATRIAL ENLARGEMENT INCOMPLETE RIGHT BUNDLE BRANCH BLOCK POSSIBLE INFERIOR INFARCT (CITED ON OR BEFORE 25-SEP-2014) ABNORMAL ECG WHEN COMPARED WITH ECG OF 30-DEC-2018 09:51, INCOMPLETE RIGHT BUNDLE BRANCH BLOCK IS NOW PRESENT Confirmed by Chandler Caballero MD ([id number]) on 01/15/2019 12:43:12 PM Referred By: Confirmed By:Chandler Caballero MD
--- NOTE | 2019-01-15 13:04 | CON.CARD ---
Consult Consult Specialty:: Cardiology Referred by:: Hospitalist Reason for Consultation:: Cardiac evaluation - History of Present Illness Chief Complaint: Chest pain History of Present Illness: Patient is a 53 year old male with underlying history of polysubstance abuse ( alcohol and cocaine), CAD history of NSTEMI (declined intervention), HTN, hypercholesterolemia and GERD who presents with chest tightness in the mid to left substernum. He also complains of shortness of breath and left arm numbness. He was recently admitted to [facility] and had echocardiography and was scheduled for nuclear MPI but only rest image was obtained which was reported apical thinning at rest with preserved rest LVEF. He denies paroxysmal nocturnal dyspnea or orthopnea. He denies palpitations. He denies fever or chills. He denies nausea, vomiting, diarrhea or abdominal pain. He denies headache or lightheadedness. - History Source History Provided By: Patient, Medical Record Limitations to Obtaining History: No Limitations - Past Medical History Cardio/Vascular: Yes: CAD, HTN, Hyperlipdemia Pulmonary: Yes: Other (ALONSO) - Alcohol/Substance Use Hx Alcohol Use: Yes History of Substance Use: reports: Cocaine - Smoking History Smoking history: Current every day smoker Have you smoked in the past 12 months: Yes Aproximately how many cigarettes per day: 5 If you are a former smoker, when did you quit?: 3 months - Social History Usual Living Arrangement: Alone ( recently, after 30 yrs marriage) Home Medications - Allergies Allergies/Adverse Reactions: Allergies Allergy/AdvReac Type Severity Reaction Status Date / Time No Known Allergies Allergy Verified 01/14/19 21:05 - Home Medications Home Medications: Ambulatory Orders Aspirin [ASA -] 81 mg PO DAILY 09/08/18 Atorvastatin Ca [Lipitor] 80 mg PO HS 09/08/18 Amlodipine Besylate [Norvasc -] 5 mg PO DAILY #30 tablet 09/11/18 Clopidogrel Bisulfate [Plavix -] 75 mg PO DAILY #30 tablet 09/11/18 Tamsulosin HCl [Flomax -] 0.4 mg PO DAILY #30 cap.er.24h 09/11/18 Acetaminophen [Tylenol .Regular Strength -] 650 mg PO Q6H PRN tablet 01/01/19 Folic Acid - 1 mg PO DAILY tablet 01/01/19 Thiamine HCl [Vitamin B1 -] 100 mg PO DAILY tablet 01/01/19 Family Disease History - Family Disease History Family Disease History: Diabetes: Mother (HTN, DM), Heart Disease: Mother, CA: Grandparent (LUNG CA - ), Other: Father (ALCOHOLIC - ), Mother, Sister (one - bipolar), Daughter (five - one in navy, one in med school, on heroin addict, one in business school) Review of Systems - Review of Systems Constitutional: denies: Chills, Fever Cardiovascular: reports: Chest Pain, Shortness of Breath. denies: Palpitations Respiratory: reports: SOB, SOB on Exertion. denies: Cough, Hemoptysis, Orthopnea, PND Gastrointestinal: denies: Abdominal Pain, Constipation, Diarrhea, Melena, Nausea , Rectal Bleeding, Vomiting Musculoskeletal: denies: Back Pain, Joint Pain Neurological: denies: Dizziness, Headache, Seizure, Syncope Vital Signs: Vital Signs Temperature 98.4 F 01/15/19 12:12 Pulse Rate 62 01/15/19 12:12 Respiratory Rate 18 01/15/19 09:03 Blood Pressure 126/71 01/15/19 12:12 O2 Sat by Pulse Oximetry (%) 98 01/15/19 12:12 Eyes: Yes: PERRL HENT: Yes: Atraumatic Neck: Yes: Supple Respiratory: Yes: CTA Bilaterally Gastrointestinal: Yes: Normal Bowel Sounds, Soft. No: Tenderness Cardiovascular: Yes: Regular Rate and Rhythm JVD: No Carotid Bruit: No Heart Sounds: Yes: S1, S2. No: Gallop Edema: No - Other Data Labs, Other Data: CBC, BMP 01/15/19 06:20 01/15/19 06:20 INR, PTT INR 1.13 (0.83-1.09) H 01/14/19 22:10 Troponin, BNP 01/14/19 01/15/19 01/15/19 22:10 06:20 06:20 Troponin I < 0.02 < 0.02 < 0.02 Normal sinus rhythm with incomplete RBBB Problem List - Problems (1) Chest pain Code(s): R07.9 - CHEST PAIN, UNSPECIFIED (2) Cocaine abuse in remission Code(s): F14.11 - COCAINE ABUSE, IN REMISSION (3) NSTEMI (non-ST elevated myocardial infarction) Code(s): I21.4 - NON-ST ELEVATION (NSTEMI) MYOCARDIAL INFARCTION (4) Alcohol dependence Code(s): F10.20 - ALCOHOL DEPENDENCE, UNCOMPLICATED Qualifiers: Substance use status: in withdrawal Complication of substance-induced condition: uncomplicated Qualified Code(s): F10.230 - Alcohol dependence with withdrawal, uncomplicated (5) CAD (coronary artery disease) Code(s): I25.10 - ATHSCL HEART DISEASE OF [place] CORONARY ARTERY W/O ANG PCTRS Qualifiers: Coronary Disease-Associated Artery/Lesion type: [place] artery [place] vs. transplanted heart: [place] heart Associated angina: without angina Qualified Code(s): I25.10 - Atherosclerotic heart disease of [place] coronary artery without angina pectoris (6) GERD (gastroesophageal reflux disease) Code(s): K21.9 - GASTRO-ESOPHAGEAL REFLUX DISEASE WITHOUT ESOPHAGITIS Qualifiers: Esophagitis presence: without esophagitis Qualified Code(s): K21.9 - Gastro -esophageal reflux disease without esophagitis (7) Hypercholesterolemia Code(s): E78.00 - PURE HYPERCHOLESTEROLEMIA, UNSPECIFIED (8) Hypertension Code(s): I10 - ESSENTIAL (PRIMARY) HYPERTENSION Qualifiers: Hypertension type: essential hypertension Qualified Code(s): I10 - Essential (primary) hypertension Assessment/Plan 1. CAD history of NSTEMI, angina pectoris 2. HTN 3. Hypercholesterolemia 4. GERD 5. ALONSO 6. Polysubstance abuse (Cocaine) 7. Noncompliance PLAN: 1. Continue Amlodipine. Avoiding use of beta lisa since patient has history of Cocaine abuse, thought he states that he has not used it since June. Patient currently refuses toxicology screen 2. Continue ASA and Plavix unless contraindicated 3. Continue Atorvastatin 4. Consider completing nuclear stress test with rest and stress images Further plans are to follow David Mora MD
--- NOTE | 2019-01-15 15:59 | PN ---
Teaching Attending Note Name of Resident: Lynne Yuan ATTENDING PHYSICIAN STATEMENT I saw and evaluated the patient. I reviewed the resident's note and discussed the case with the resident. I agree with the resident's findings and plan as documented. SUBJECTIVE:CP mostly subsided.denies Cp, SOB, fever, chills, N/V/C/D OBJECTIVE: Last Vital Signs Temp Pulse Resp BP Pulse Ox 97.2 F L 78 18 128/59 L 98 01/15/19 15:14 01/15/19 15:14 01/15/19 09:03 01/15/19 15:14 01/15/19 15:14 General NAD CV S1 S2 RRR no murmur/rub/gallop ASSESSMENT AND PLAN: 53yo Mw tih PMH CAD s/p stents, HTN, dyslipidemia and remote polysubstance abuse presented with CP 1. R/O acs- had +NMST earlier this year with stents placed. agreeable to repeat NMST test and cath if needed. Cardio on board 2. hx of polysubstance abuse- claims last use was july of this year. state he had some personal issues which he has dealt with and has been sober since 3. HTN- cont home medications 4. DVT ppx- lovenox
--- NOTE | 2019-01-15 17:14 | PN ---
Physical Exam: SUBJECTIVE: Patient seen and examined. He reports chest pain is now 1/10. Non- exertional. He also reports left side neck pain x 1 month. OBJECTIVE: Vital Signs Period Temp Pulse Resp BP Sys/Shah Pulse Ox Last 24 Hr 97.2 F-98.4 F 62-83 14-23 106-141/59-77 95-100 GENERAL: The patient is awake, alert, and fully oriented, in no acute distress. HEAD: Normal with no signs of trauma. EYES: PERRL, extraocular movements intact, sclera anicteric, conjunctiva clear. No ptosis. ENT: Ears normal, nares patent, moist mucous membranes. NECK: Trachea midline, full range of motion, hypertonicity of left neck muscles and rhomboid LUNGS: Breath sounds equal, clear to auscultation bilaterally, no wheezes, no crackles, no accessory muscle use. HEART: Regular rate and rhythm, S1, S2 without murmur, rub or gallop. ABDOMEN: Soft, nontender, nondistended, normoactive bowel sounds NEUROLOGICAL: Cranial nerves II through XII grossly intact. Normal speech, gait not observed. PSYCH: Normal mood, normal affect. SKIN: Warm, dry, normal turgor, no rashes or lesions noted Laboratory Results - last 24 hr 01/14/19 01/14/19 01/14/19 22:10 22:10 22:10 WBC 9.8 RBC 4.87 Hgb 14.2 Hct 42.8 MCV 87.9 MCH 29.1 MCHC 33.1 RDW 14.4 Plt Count 237 MPV 9.7 Absolute Neuts (auto) 4.3 Neutrophils % 43.8 Lymphocytes % 43.6 H D Monocytes % 9.9 Eosinophils % 2.3 Basophils % 0.4 Nucleated RBC % 0 PT with INR INR Sodium 143 Potassium 3.6 Chloride 109 H Carbon Dioxide 27 Anion Gap 6 L BUN 16.5 Creatinine 1.0 Est GFR (CKD-EPI)AfAm 99.85 Est GFR (CKD-EPI)NonAf 86.15 Random Glucose 96 Calcium 9.1 Phosphorus Magnesium 1.9 Total Bilirubin 0.3 AST 25 ALT 33 Alkaline Phosphatase 60 Creatine Kinase 712 H Creatine Kinase Index 0.4 CK-MB (CK-2) 3.5 Troponin I < 0.02 Total Protein 6.7 Albumin 3.8 01/14/19 01/15/1901/15/19 22:10 06:20 06:20 WBC 8.1 RBC 4.59 Hgb 13.6 Hct 40.4 MCV 88.0 MCH 29.6 MCHC 33.7 RDW 14.3 Plt Count 222 MPV 9.6 Absolute Neuts (auto) Neutrophils % Lymphocytes % Monocytes % Eosinophils % Basophils % Nucleated RBC % PT with INR 13.30 H INR 1.13 H Sodium 141 Potassium 3.9 Chloride 109 H Carbon Dioxide 26 Anion Gap 5 L BUN 13.3 Creatinine 0.8 Est GFR (CKD-EPI)AfAm 119.04 Est GFR (CKD-EPI)NonAf 102.71 Random Glucose 84 Calcium 8.3 L Phosphorus 3.6 Magnesium 2.1 Total Bilirubin 0.2 AST 22 ALT 28 Alkaline Phosphatase 57 Creatine Kinase 522 H Creatine Kinase Index 0.4 CK-MB (CK-2) 2.5 Troponin I < 0.02 Total Protein 6.2 L Albumin 3.4 01/15/19 06:20 WBC RBC Hgb Hct MCV MCH MCHC RDW Plt Count MPV Absolute Neuts (auto) Neutrophils % Lymphocytes % Monocytes % Eosinophils % Basophils % Nucleated RBC % PT with INR INR Sodium Potassium Chloride Carbon Dioxide Anion Gap BUN Creatinine Est GFR (CKD-EPI)AfAm Est GFR (CKD-EPI)NonAf Random Glucose Calcium Phosphorus Magnesium Total Bilirubin AST ALT Alkaline Phosphatase Creatine Kinase 514 H Creatine Kinase Index 0.4 CK-MB (CK-2) 2.5 Troponin I < 0.02 Total Protein Albumin Active Medications Generic Name Dose Route Start Last Admin Trade Name Freq PRN Reason Stop Dose Admin Amlodipine Besylate 5 mg 01/15/19 10:00 01/15/19 10:36 Norvasc - PO 5 mg DAILY [facility] Administration Aspirin 81 mg 01/15/19 10:01/15/19 10:35 Asa - PO 81 mg DAILY [facility] Administration Atorvastatin Calcium 80 mg 01/15/19 22:00 Lipitor - PO HS [facility] Clopidogrel Bisulfate 75 mg 01/15/19 10:00 01/15/19 10:36 Plavix - PO 75 mg DAILY [facility] Administration Enoxaparin Sodium 40 mg 01/15/19 10:00 01/15/19 10:35 Lovenox - SQ 40 mg DAILY [facility] Administration Folic Acid 1 mg 01/15/19 10:00 01/15/19 10:35 Folic Acid - PO 1 mg DAILY [facility] Administration Tamsulosin HCl 0.4 mg 01/15/19 08:30 01/15/19 08:34 Flomax - PO 0.4 mg DAILY@0830 [facility] Administration Thiamine HCl 100 mg 01/15/19 10:00 01/15/19 10:36 Vitamin B1 - PO 100 mg DAILY [facility] Administration ASSESSMENT/PLAN: Mr. Gonzalez is a 53yo male with hx of NSTEMI (07/03 refused stent), HTN, HLD, BPH , and GERD who presents with right substernal chest pain with radiation to the shoulder overnight. He was admitted for neck and chest pain on 12/29 to 01/01 with negative EKG and trops. He denies association with activity. Previous hx of cocaine use and alcohol use, refusing tox screen today. Family hx of HLD and [place]. #r/o ACS EKG unchanged from previous- NSR with T wave inversion leads III and V1, IRBBB, trop negative x 2, echo on 12/31/18 EF 50-55% -cards consulted -avoiding beta blockers with cocaine use hx -nuclear stress test in the morning -continue ASA and Plavix -continue statin #hx of NSTEMI -continue ASA and Plavix #hx cocaine use disorder and alcohol use disorder pt denies use of substances currenty -avoid beta lisa #left side neck strain Pt reports 1 month of neck pain. No known accident. Reports improvement with motrin. -Tylenol PRN -lidoderm patch PRN -will discuss NSAID for d/c or if pain is not improved #HLD -continue Lipitor #HTN -continue amlodipine #BPH -continue tamsulosin FEN PO fluids and Na controlled diet, NPO after midnight monitor lytes PRN DVT Ppe Lovenox Visit type - Emergency Visit Emergency Visit: Yes ED Registration Date: 01/15/19 Care time: The patient presented to the Emergency Department on the above date and was hospitalized for further evaluation of their emergent condition. - New Patient This patient is new to me today: Yes Date on this admission: 01/15/19 - Critical Care Critical Care patient: No - Discharge Referral Referred to [facility] Med P.C.: No ATTENDING PHYSICIAN STATEMENT I saw and evaluated the patient. I reviewed the resident's note and discussed the case with the resident. I agree with the resident's findings and plan as documented. SUBJECTIVE: OBJECTIVE: ASSESSMENT AND PLAN:
[2019-01-15] MEDS ORDERED: LIDOCAINE 5% TOPICAL PATCH TP PRN (17:30)
[2019-01-15] MEDS ORDERED: ATORVASTATIN CA 80 MG TABLET (FP) PO SCH (22:00)
[2019-01-15] MEDS ORDERED: LIDOCAINE PATCH REMOVAL MC SCH (22:00)
[2019-01-15] MEDS ORDERED: ACETAMINOPHEN 500 MG TABLET (FP) PO ONE (22:16)
[2019-01-16] MEDS: amLODIPine BESYLATE 5 MG TABLET (FP) PO SCH ×2 (08:34→10:05)
[2019-01-16] MEDS: TAMSULOSIN HCL 0.4 MG CAP PO SCH ×2 (08:35→11:29)
--- NOTE | 2019-01-16 09:24 | PN ---
Progress Note, Physician History of Present Illness: Denies further chest pain, dyspnea. - Current Medication List Current Medications: Active Medications Amlodipine Besylate (Norvasc -) 5 mg PO DAILY [facility] Last Admin: 01/16/19 08:34 Dose: 5 mg Aspirin (Asa -) 81 mg PO DAILY [facility] Last Admin: 01/15/19 10:35 Dose: 81 mg Atorvastatin Calcium (Lipitor -) 80 mg PO HS [facility] Last Admin: 01/15/19 22:33 Dose: 80 mg Clopidogrel Bisulfate (Plavix -) 75 mg PO DAILY [facility] Last Admin: 01/15/19 10:36 Dose: 75 mg Enoxaparin Sodium (Lovenox -) 40 mg SQ DAILY [facility] Last Admin: 01/15/19 10:35 Dose: 40 mg Folic Acid (Folic Acid -) 1 mg PO DAILY [facility] Last Admin: 01/15/19 10:35 Dose: 1 mg Lidocaine (Lidoderm Patch -) 1 patch TP DAILY PRN PRN Reason: PAIN Miscellaneous (Lidoderm Patch Removal) 1 each MC DAILY@2200 [facility] Last Admin: 01/15/19 22:32 Dose: Not Given Tamsulosin HCl (Flomax -) 0.4 mg PO DAILY@0830 [facility] Last Admin: 01/16/19 08:35 Dose: Not Given Thiamine HCl (Vitamin B1 -) 100 mg PO DAILY [facility] Last Admin: 01/15/19 10:36 Dose: 100 mg - Objective Vital Signs: Vital Signs Temperature 97.8 F 01/16/19 01:00 Pulse Rate 60 01/16/19 05:00 Respiratory Rate 20 01/16/19 05:00 Blood Pressure 121/69 01/16/19 05:00 O2 Sat by Pulse Oximetry (%) 97 01/15/19 20:00 Constitutional: Yes: No Distress, Calm Neck: Yes: Supple Cardiovascular: Yes: Regular Rate and Rhythm Respiratory: Yes: Regular, CTA Bilaterally Gastrointestinal: Yes: Normal Bowel Sounds, Soft Edema: No Labs: CBC, BMP 01/15/19 06:20 01/15/19 06:20 INR, PTT INR 1.13 (0.83-1.09) H 01/14/19 22:10 - ....Imaging EKG: Report Reviewed (Tele: No events) Problem List - Problems (1) Chest pain Code(s): R07.9 - CHEST PAIN, UNSPECIFIED Qualifiers: Ischemic chest pain type: stable angina pectoris (2) CAD (coronary artery disease) Code(s): I25.10 - ATHSCL HEART DISEASE OF [place] CORONARY ARTERY W/O ANG PCTRS Qualifiers: Coronary Disease-Associated Artery/Lesion type: [place] artery [place] vs. transplanted heart: [place] heart Associated angina: with stable angina Qualified Code(s): I25.118 - Atherosclerotic heart disease of [place] coronary artery with other forms of angina pectoris (3) Cocaine dependence Code(s): F14.20 - COCAINE DEPENDENCE, UNCOMPLICATED Qualifiers: Substance use status: uncomplicated Qualified Code(s): F14.20 - Cocaine dependence, uncomplicated (4) Hypercholesterolemia Code(s): E78.00 - PURE HYPERCHOLESTEROLEMIA, UNSPECIFIED (5) Hypertension Code(s): I10 - ESSENTIAL (PRIMARY) HYPERTENSION Qualifiers: Hypertension type: essential hypertension Qualified Code(s): I10 - Essential (primary) hypertension (6) Non-compliance Code(s): Z91.19 - PATIENT'S NONCOMPLIANCE [facility] Assessment/Plan 12/31/2018 Echo: Normal LV size with low normal LVEF 50-55%, grade I diastolic dysfunction, normal RV size and fxn, tr MR, TR 01/16/2019 ETT Myoview: Moderate size mild posterolateral ischemia LVEF 60% 1. CAD history of NSTEMI, angina pectoris 2. HTN 3. Hypercholesterolemia 4. GERD 5. ALONSO 6. Polysubstance abuse (Cocaine) 7. Noncompliance PLAN: 1. Continue Amlodipine 5 qd. Avoiding use of beta lisa since patient has history of Cocaine abuse, thought he states that he has not used it since June. Patient currently refuses toxicology screen 2. Continue ASA 81 qd and Plavix 75 qd 3. Continue Atorvastatin 80 qhs 4. Patient may be d/alexander from CV standpoint on continued medical therapy given low risk MPI, h/o noncompliance makes him not ideal candidate for invasive coronary angiogram +/- PCI 5. F/u in cardiology office , abstinence from toxic habits
[2019-01-16] MEDS: FOLIC ACID 1 MG TABLET (FP) PO SCH ×2 (10:04→11:29)
[2019-01-16] MEDS: ASPIRIN 81 MG CHEWABLE TABLETS PO SCH ×2 (10:04→11:29)
[2019-01-16] MEDS: THIAMINE HCL 100 MG TABLET (FP) PO SCH (10:05)
[2019-01-16] MEDS: ENOXAPARIN NA (PORCINE) 40 MG/0.4 ML DISP.SYRIN SQ SCH ×2 (10:05→11:30)
[2019-01-16] MEDS: CLOPIDOGREL BISULFATE 75 MG TABLET (FP) PO SCH ×2 (10:05→11:29)
--- NOTE | 2019-01-16 11:39 | PN ---
Teaching Attending Note Name of Resident: Lynne Yuan ATTENDING PHYSICIAN STATEMENT I saw and evaluated the patient. I reviewed the resident's note and discussed the case with the resident. I agree with the resident's findings and plan as documented. SUBJECTIVE:c/o continued chest pressure and discomfort but no pain. denies fever , chills, N/V/C/D, pain not radiating OBJECTIVE: Last Vital Signs Temp Pulse Resp BP Pulse Ox 97.8 F 58 L 18 143/77 98 01/16/19 01:00 01/16/19 09:00 01/16/19 09:00 01/16/19 09:00 01/16/19 08:00 General NAD CV S1 S2 RRR no murmur/rub/gallop ASSESSMENT AND PLAN: 53yo Mw tih PMH CAD s/p stents, HTN, dyslipidemia and remote polysubstance abuse presented with CP 1. R/O acs- continues to have chest pressure. NMST showing moderate size ischemia. seen by cardio and not good candidate for cath due to non compliance and hx of cocaine use. refuses to submit to tox screen here. cont with home medications with outpatient follow up. Cardio on board 2. hx of polysubstance abuse- claims last use was july of this year. state he had some personal issues which he has dealt with and has been sober since. refuses tox screen here 3. HTN- cont home medications 4. DVT ppx- lovenox 5. d/c home
--- NOTE | 2019-01-16 14:21 | DS ---
Physical Exam: SUBJECTIVE: Patient seen and examined. He denies any current chest pain. OBJECTIVE: tele: occasional PVCs overnight Vital Signs Period Temp Pulse Resp BP Sys/Shah Pulse Ox Last 24 Hr 97.2 F-97.8 F 58-79 18-20 116-155/59-91 96-98 PHYSICAL EXAM GENERAL: The patient is awake, alert, and fully oriented, in no acute distress. HEAD: Normal with no signs of trauma. EYES: PERRL, extraocular movements intact, sclera anicteric, conjunctiva clear. ENT: Ears normal, nares patent, moist mucous membranes. NECK: Trachea midline, full range of motion, supple. LUNGS: Breath sounds equal, clear to auscultation bilaterally, no wheezes, no crackles, no accessory muscle use. HEART: Regular rate and rhythm, S1, S2 without murmur, rub or gallop. ABDOMEN: Soft, nontender, nondistended, normoactive bowel sounds EXTREMITIES: 2+ pulses, warm, well-perfused, no edema. NEUROLOGICAL: Cranial nerves II through XII grossly intact. Normal speech, gait not observed. PSYCH: Normal mood, normal affect. SKIN: Warm, dry, normal turgor, no rashes or lesions noted. LABS CBC,CMP WBC 8.1 K/mm3 (4.0-10.0) 01/15/19 06:20 RBC 4.59 M/mm3 (4.00-5.60) 01/15/19 06:20 Hgb 13.6 GM/dL (11.7-16.9) 01/15/19 06:20 Hct 40.4 % (35.4-49) 01/15/19 06:20 MCV 88.0 fl (80-96) 01/15/19 06:20 MCH 29.6 pg (25.7-33.7) 01/15/19 06:20 MCHC 33.7 g/dl (32.0-35.9) 01/15/19 06:20 RDW 14.3 % (11.9-15.9) 01/15/19 06:20 Plt Count 222 K/MM3 (134-434) 01/15/19 06:20 MPV 9.6 fl (7.5-11.1) 01/15/19 06:20 Absolute Neuts (auto) 4.3 K/mm3 (1.5-8.0) 01/14/19 22:10 Neutrophils % 43.8 % (42.8-82.8) 01/14/19 22:10 Lymphocytes % 43.6 % (8-40) H D 01/14/19 22:10 Monocytes % 9.9 % (3.8-10.2) 01/14/19 22:10 Eosinophils % 2.3 % (0-4.5) 01/14/19 22:10 Basophils % 0.4 % (0-2.0) 01/14/19 22:10 Nucleated RBC % 0 % (0-0) 01/14/19 22:10 Sodium 141 mmol/L (136-145) 01/15/19 06:20 Potassium 3.9 mmol/L (3.5-5.1) 01/15/19 06:20 Chloride 109 mmol/L (98-107) H 01/15/19 06:20 Carbon Dioxide 26 mmol/L (21-32) 01/15/19 06:20 Anion Gap 5 MMOL/L (8-16) L 01/15/19 06:20 BUN 13.3 mg/dL (7-18) 01/15/19 06:20 Creatinine 0.8 mg/dL (0.55-1.3) 01/15/19 06:20 Est GFR (CKD-EPI)AfAm 119.04 01/15/19 06:20 Est GFR (CKD-EPI)NonAf 102.71 01/15/19 06:20 Random Glucose 84 mg/dL (74-106) 01/15/19 06:20 Calcium 8.3 mg/dL (8.5-10.1) L 01/15/19 06:20 Phosphorus 3.6 mg/dL (2.5-4.9) 01/15/19 06:20 Magnesium 2.1 mg/dL (1.8-2.4) 01/15/19 06:20 Total Bilirubin 0.2 mg/dL (0.2-1) 01/15/19 06:20 AST 22 U/L (15-37) 01/15/19 06:20 ALT 28 U/L (13-61) 01/15/19 06:20 Alkaline Phosphatase 57 U/L (45-117) 01/15/19 06:20 Creatine Kinase 514 U/L (26-308) H 01/15/19 06:20 Creatine Kinase Index 0.4 % (0.0-5.0) 01/15/19 06:20 CK-MB (CK-2) 2.5 ng/mL (0.5-3.6) 01/15/19 06:20 Troponin I < 0.02 ng/ml (0.00-0.05) 01/15/19 06:20 Total Protein 6.2 g/dl (6.4-8.2) L 01/15/19 06:20 Albumin 3.4 g/dl (3.4-5.0) 01/15/19 06:20 HOSPITAL COURSE: Mr. Gonzalez is a 53yo male with hx of NSTEMI (07/03 refused stent), HTN, HLD, BPH , and GERD who presents with right substernal chest pain with radiation to the shoulder overnight. He was admitted for neck and chest pain on 12/29 to 01/01 with negative EKG and trops. He denies association with activity. Previous hx of cocaine use and alcohol use, refusing tox screen today. Family hx of HLD and [place]. EKG and trops x 2 were negative on admission. Patient was placed on tele with no significant events, only occasional PVCs. Nuclear stress test showed "moderately sized mild intensity posterior lateral reversible perfusion defect associated with ischemia." Cardiology f/u recommended. Pt was also advised to follow up with PCP for neck sprain and can take ibuprofen 400mg QID until f/u. Home meds were resumed, including ASA, Plavix, and atorvastatin for CAD. Date of Admission:01/15/19 Date of Discharge: 01/16/19 Minutes to complete discharge: 35 Discharge Summary Reason For Visit: CHEST PAIN Current Active Problems Chest pain (Acute) Condition: Stable - Instructions Diet, Activity, Other Instructions: Hospital Stay: You were admitted to the hospital because you were having chest pain. You were given aspirin to help in case you were having a heart attack. The lab work and EKG showed you were not having a heart attack, so your heart was monitored overnight. A nuclear stress test was performed and found no areas where you have heart muscle that has following a heart attack. It does show an area that loses oxygen more quickly than it should when you were exercised. You are stable enough to be discharged. It is very important you follow up with a hand pattern marker. You were also having left side neck pain. The muscles feel tight on that side. You should have your primary care doctor evaluate you as well and he will decide if more tests need to be done. Medications: You may resume your home medications. You may continue to take ibuprofen 400mg 3 times a day for your neck pain until you follow up with your primary care doctor. Follow Up: Please follow up with Dr. Mora from cardiology in the next 1-2 weeks. Please follow up with the [facility]. Dr. Yuan is available on morning or you may make an appointment at the time that works best for you. Other Instructions: Please return to the nearest emergency room if you experience chest pain or pressure, feel dizzy, have a headache not improved with medication, shortness of breath, lose consciousness, nausea, or vomiting (especially if red or black like coffee grounds). Referrals: David Mora MD [Staff Physician] - Kesha Lopez MD [Staff Physician] - Disposition: HOME - Home Medications Comprehensive Discharge Medication List: Ambulatory Orders Aspirin [ASA -] 81 mg PO DAILY 09/08/18 Atorvastatin Ca [Lipitor] 80 mg PO HS 09/08/18 Amlodipine Besylate [Norvasc -] 5 mg PO DAILY #30 tablet 09/11/18 Clopidogrel Bisulfate [Plavix -] 75 mg PO DAILY #30 tablet 09/11/18 Tamsulosin HCl [Flomax -] 0.4 mg PO DAILY #30 cap.er.24h 09/11/18 Folic Acid - 1 mg PO DAILY tablet 01/01/19 Thiamine HCl [Vitamin B1 -] 100 mg PO DAILY tablet 01/01/19 This patient is new to me today: No Emergency Visit: Yes ED Registration Date: 01/15/19 Care time: The patient presented to the Emergency Department on the above date and was hospitalized for further evaluation of their emergent condition. Critical Care patient: No - Discharge Referral Referred to [facility] Med [facility].C.: No ATTENDING PHYSICIAN STATEMENT I saw and evaluated the patient. I reviewed the resident's note and discussed the case with the resident. I agree with the resident's findings and plan as documented. SUBJECTIVE: OBJECTIVE: ASSESSMENT AND PLAN:
[2019-01-16 18:45] VITALS: BP 146/107; PULSE 71; TEMP 98.5
== END 2019-01-16 19:06 | disposition home or self-care (01) ==
LOC: JER 20:50 → JERBED 01-15 00:56 → J4W 01-15 20:38
PROVIDERS: ADMIT Internal Medicine; ATTEND Internal Medicine
PROC: 3E033NZ Introduction of Analgesics, Hypnotics, Sedatives into Peripheral Vein, Percutaneous Approach (ICD-10-PCS; principal; 2019-01-15)
PROC: 3E033GC Introduction of Other Therapeutic Substance into Peripheral Vein, Percutaneous Approach (ICD-10-PCS; 2019-01-15)
PROC: 3E0337Z Introduction of Electrolytic and Water Balance Substance into Peripheral Vein, Percutaneous Approach (ICD-10-PCS; 2019-01-15)
PROC: 3E013GC Introduction of Other Therapeutic Substance into Subcutaneous Tissue, Percutaneous Approach (ICD-10-PCS; 2019-01-15)
DX: R07.89 Other chest pain (principal); I10 Essential (primary) hypertension; I25.118 Atherosclerotic heart disease of native coronary artery with other forms of angina pectoris; I25.2 Old myocardial infarction; K21.9 Gastro-esophageal reflux disease without esophagitis; N40.0 Benign prostatic hyperplasia without lower urinary tract symptoms; E78.5 Hyperlipidemia, unspecified; F17.210 Nicotine dependence, cigarettes, uncomplicated; F10.20 Alcohol dependence, uncomplicated; F14.11 Cocaine abuse, in remission; E66.9 Obesity, unspecified; Z68.34 Body mass index [BMI] 34.0-34.9, adult; Z79.01 Long term (current) use of anticoagulants; Z79.82 Long term (current) use of aspirin; Z91.19 Patient's noncompliance with other medical treatment and regimen
CPT/HCPCS: 36415; 71046-TC-FY; 78452-TC; 80053; 82550; 82553; 83735; 84100; 84484; 85025; 85027; 85610; 93005; 93010; 93017; 96361; 96365; 96372; 96375; 99285-25; A9502; G0378; J0131; J7030

== ENCOUNTER 2019-01-19 13:11 | Inpatient (IN) | payer OTHER ==
[2019-01-19 17:37] VITALS: BMI 33.7
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
[2019-01-19] MEDS ORDERED: MAGNESIUM CITRATE 300 ML BOTTLE PO PRN (19:38)
[2019-01-19] MEDS ORDERED: chlordiazePOXIDE HCL 10 MG CAPSULE PO PRN (19:38)
[2019-01-19] MEDS ORDERED: MAGNESIUM HYDROX 2400MG/30ML ORAL SUSPENSION 30 ML CUP PO PRN (19:38)
[2019-01-19] MEDS ORDERED: ACETAMINOPHEN 325 MG TABLET (FP) PO PRN ×2 (19:38)
[2019-01-19] MEDS ORDERED: hydrOXYzine PAMOATE 25 MG CAPSULE (FP) PO PRN (19:38)
[2019-01-19] MEDS ORDERED: NICOTINE POLACRILEX 2 MG GUM BUC PRN (19:38)
[2019-01-19] MEDS ORDERED: METHOCARBAMOL 500 MG TABLET PO PRN (19:38)
[2019-01-19] MEDS ORDERED: MENTHOL/PHENOL 1 EACH UD MM PRN (19:38)
[2019-01-19] MEDS ORDERED: BISMUTH SUBSALICYLATE 524 MG/30 ML UD PO PRN (19:38)
[2019-01-19] MEDS ORDERED: IBUPROFEN 400 MG TABLET (FP) PO PRN (19:38)
[2019-01-19] MEDS: THIAMINE HCL 100 MG TABLET (FP) PO SCH (22:48)
[2019-01-19] MEDS: ATORVASTATIN CA 80 MG TABLET (FP) PO SCH (22:48)
[2019-01-19] MEDS: chlordiazePOXIDE HCL 25 MG CAPSULE PO SCH (22:48)
[2019-01-20] MEDS: chlordiazePOXIDE HCL 25 MG CAPSULE PO SCH ×3 (06:16→20:05)
[2019-01-20 10:20] LABS: HEMATOCRIT 39.2 % (35.4-49); HEMOGLOBIN 13.2 GM/dL (11.7-16.9); MCH 29.5 pg (25.7-33.7); MCHC 33.6 g/dl (32.0-35.9); MEAN CELL VOLUME 87.6 fl (80-96); MEAN PLT VOLUME 9.6 fl (7.5-11.1); PLATELET COUNT 237 K/MM3 (134-434); RBC 4.47 M/mm3 (4.00-5.60); RDW 14.1 % (11.9-15.9); WHITE BLOOD COUNT 8.8 K/mm3 (4.0-10.0)
[2019-01-20 10:28] LABS: ALBUMIN 3.6 g/dl (3.4-5.0); BILIRUBIN,TOTAL 0.6 mg/dL (0.2-1); BLOOD UREA NITROGEN 10.2 mg/dL (7-18); CALCIUM 8.8 mg/dL (8.5-10.1); POTASSIUM 3.6 mmol/L (3.5-5.1); TOT PROT 6.3 g/dl (6.4-8.2)
[2019-01-20] MEDS: amLODIPine BESYLATE 5 MG TABLET (FP) PO SCH (10:55)
[2019-01-20] MEDS: ASPIRIN 81 MG CHEWABLE TABLETS PO SCH (10:55)
[2019-01-20] MEDS: CLOPIDOGREL BISULFATE 75 MG TABLET (FP) PO SCH (10:55)
[2019-01-20] MEDS: TAMSULOSIN HCL 0.4 MG CAP PO SCH (10:55)
[2019-01-20] MEDS: PRENATAL VITAMINS W/ FOLIC ACID TABLET (FP) PO SCH (10:55)
--- NOTE | 2019-01-20 14:06 | PN ---
[facility] CIWA - CIWA Score Nausea/Vomitin-Mild Nausea/No Vomiting Muscle Tremors: 4-Moderate,w/Arms Extend Anxiety: 4-Mod. Anxious/Guarded Agitation: 2 Paroxysmal Sweats: 3 Orientation: 0-Oriented Tacttile Disturbances: 0-None Auditory Disturbances: 0-None Visual Disturbances: 0-None Headache: 0-None Present CIWA-Ar Total Score: 14 [facility] Progress Note (SOAP) Subjective: Tremor, diarrhea, interrupted sleep Objective: 01/20/19 14:02 Last Vital Signs Temp Pulse Resp BP Pulse Ox 98.1 F 64 18 124/79 01/20/19 13:02 01/20/19 13:02 01/20/19 13:02 01/20/19 13:02 Laboratory Tests 01/20/19 01/20/19 01/20/19 08:00 08:00 08:00 WBC 8.8 RBC 4.47 Hgb 13.2 Hct 39.2 MCV 87.6 MCH 29.5 MCHC 33.6 RDW 14.1 Plt Count 237 MPV 9.6 Sodium 143 Potassium 3.6 Chloride 106 Carbon Dioxide 32 Anion Gap 5 L BUN 10.2 Creatinine 1.0 Est GFR (CKD-EPI)AfAm 99.85 Est GFR (CKD-EPI)NonAf 86.15 Random Glucose 97 Calcium 8.8 Total Bilirubin 0.6 AST 20 ALT 30 Alkaline Phosphatase 64 Total Protein 6.3 L Albumin 3.6 RPR Titer Nonreactive Labs reviewed Assessment: 01/20/19 14:06 Withdrawal sxs Plan: Continue detox Encourage PO water intake
[2019-01-20] MEDS: ATORVASTATIN CA 80 MG TABLET (FP) PO SCH (22:08)
[2019-01-20] MEDS: MELATONIN 5 MG TABLETS PO PRN (22:08)
[2019-01-20] MEDS: THIAMINE HCL 100 MG TABLET (FP) PO SCH (22:08)
[2019-01-21] MEDS: chlordiazePOXIDE 5 MG CAPSULE PO SCH ×3 (06:29→22:16)
--- NOTE | 2019-01-21 08:51 | PN ---
[facility] CIWA - CIWA Score Nausea/Vomitin-Mild Nausea/No Vomiting Muscle Tremors: 3 Anxiety: 3 Agitation: 2 Paroxysmal Sweats: 1-Minimal Palms Moist Orientation: 0-Oriented Tacttile Disturbances: 0-None Auditory Disturbances: 0-None Visual Disturbances: 0-None Headache: 2-Mild CIWA-Ar Total Score: 12 [facility] Progress Note (SOAP) Subjective: Patient has some withdrawals that are moderate. . Objective: 01/21/19 08:49 bp:115/67 P:69 R:18 T:97.5 01/21/19 08:51 Laboratory 01/20/19 01/20/19 01/20/19 08:00 08:00 08:00 WBC 8.8 K/mm3 K/mm3 (4.0-10.0) RBC 4.47 M/mm3 M/mm3 (4.00-5.60) Hgb 13.2 GM/dL GM/dL (11.7-16.9) Hct 39.2 % % (35.4-49) MCV 87.6 fl fl (80-96) MCH 29.5 pg pg (25.7-33.7) MCHC 33.6 g/dl g/dl (32.0-35.9) RDW 14.1 % % (11.9-15.9) Plt Count 237 K/MM3 K/MM3 (134-434) MPV 9.6 fl fl (7.5-11.1) Sodium 143 mmol/L mmol/L (136-145) Potassium 3.6 mmol/L mmol/L (3.5-5.1) Chloride 106 mmol/L mmol/L (98-107) Carbon Dioxide 32 mmol/L mmol/L (21-32) Anion Gap 5 MMOL/L L MMOL/L (8-16) BUN 10.2 mg/dL mg/dL (7-18) Creatinine 1.0 mg/dL mg/dL (0.55-1.3) Est GFR (CKD-EPI)AfAm 99.85 Est GFR (CKD-EPI)NonAf 86.15 Random Glucose 97 mg/dL mg/dL (74-106) Calcium 8.8 mg/dL mg/dL (8.5-10.1) Total Bilirubin 0.6 mg/dL mg/dL (0.2-1) AST 20 U/L U/L (15-37) ALT 30 U/L U/L (13-61) Alkaline Phosphatase 64 U/L U/L (45-117) Total Protein 6.3 g/dl L g/dl (6.4-8.2) Albumin 3.6 g/dl g/dl (3.4-5.0) RPR Titer Nonreactive (NONREACTIVE) Assessment: 01/21/19 08:48 1. Alcohol Dependence with uncomplicated withdrawals. 2. Hypertension. 3. BPH 4. Abnormal labs: Low AG and Low TP Plan: 1. Encourage PO intake. Encouraged him that withdrawal symptoms will subside once he progresses on librium detox protocol. 2. BP is better controlled 3. Observe 4. AG due to vomitting most likely and TP reflects his poor nutritional status.
[2019-01-21] MEDS ORDERED: COLLOIDAL OATMEAL 1 BAR EACH TP PRN (09:27)
[2019-01-21] MEDS: PRENATAL VITAMINS W/ FOLIC ACID TABLET (FP) PO SCH (10:50)
[2019-01-21] MEDS: amLODIPine BESYLATE 5 MG TABLET (FP) PO SCH (10:50)
[2019-01-21] MEDS: ASPIRIN 81 MG CHEWABLE TABLETS PO SCH (10:50)
[2019-01-21] MEDS: CLOPIDOGREL BISULFATE 75 MG TABLET (FP) PO SCH (10:50)
[2019-01-21] MEDS: TAMSULOSIN HCL 0.4 MG CAP PO SCH (10:50)
[2019-01-21] MEDS: THIAMINE HCL 100 MG TABLET (FP) PO SCH (22:16)
[2019-01-21] MEDS: ATORVASTATIN CA 80 MG TABLET (FP) PO SCH (22:16)
[2019-01-21] MEDS: MELATONIN 5 MG TABLETS PO PRN (23:52)
[2019-01-22] MEDS ORDERED: chlordiazePOXIDE HCL 10 MG CAPSULE PO PRN
[2019-01-22] MEDS: chlordiazePOXIDE HCL 10 MG CAPSULE PO SCH ×3 (06:08→22:14)
--- NOTE | 2019-01-22 09:47 | PN ---
[facility] CIWA - CIWA Score Nausea/Vomitin-Mild Nausea/No Vomiting Muscle Tremors: 2 Anxiety: 2 Agitation: 2 Paroxysmal Sweats: No Perspiration Orientation: 0-Oriented Tacttile Disturbances: 0-None Auditory Disturbances: 0-None Visual Disturbances: 0-None Headache: 1-Very Mild CIWA-Ar Total Score: 8 [facility] Progress Note (SOAP) Subjective: alert,irritable,interrupted sleep,pain in the body Objective: 01/22/19 09:46 Vital Signs Temperature 98.1 F 01/22/19 09:34 Pulse Rate 77 01/22/19 09:34 Respiratory Rate 18 01/22/19 09:34 Blood Pressure 109/53 L 01/22/19 09:34 O2 Sat by Pulse Oximetry (%) Assessment: 01/22/19 09:46 withdrawal symptom Plan: continue detox librium regimen,discharge in am
[2019-01-22] MEDS: amLODIPine BESYLATE 5 MG TABLET (FP) PO SCH (10:32)
[2019-01-22] MEDS: ASPIRIN 81 MG CHEWABLE TABLETS PO SCH (10:50)
[2019-01-22] MEDS: TAMSULOSIN HCL 0.4 MG CAP PO SCH (10:50)
[2019-01-22] MEDS: CLOPIDOGREL BISULFATE 75 MG TABLET (FP) PO SCH (10:50)
[2019-01-22] MEDS: PRENATAL VITAMINS W/ FOLIC ACID TABLET (FP) PO SCH (10:50)
[2019-01-22] MEDS: MAG HYDROX/AL HYDROX/SIMETH 30 ML UNIT-DOSE CUP PO PRN ×2 (13:59→22:16)
[2019-01-22] MEDS: ATORVASTATIN CA 80 MG TABLET (FP) PO SCH (22:14)
[2019-01-22] MEDS: THIAMINE HCL 100 MG TABLET (FP) PO SCH (22:14)
[2019-01-22] MEDS: MELATONIN 5 MG TABLETS PO PRN (22:15)
[2019-01-23] MEDS ORDERED: chlordiazePOXIDE HCL 10 MG CAPSULE PO ONE (05:00)
[2019-01-23 07:20] VITALS: BP 94/63; PULSE 66; TEMP 97.5
--- NOTE | 2019-01-23 08:56 | DS ---
[facility] Detox Discharge Summary Admission Date: 01/19/19 Discharge Date: 01/23/19 - History Present History: Alcohol Dependence, Cannabis Dependence, Cocaine Dependence - Physical Exam Results Vital Signs: Vital Signs Temperature 97.5 F L 01/23/19 07:20 Pulse Rate 66 01/23/19 07:20 Respiratory Rate 18 01/23/19 07:20 Blood Pressure 94/63 01/23/19 07:20 O2 Sat by Pulse Oximetry (%) Pertinent Admission Physical Exam Findings: pt arrived in withdrawals Laboratory Tests 01/20/19 01/20/19 01/20/19 08:00 08:00 08:00 WBC 8.8 RBC 4.47 Hgb 13.2 Hct 39.2 MCV 87.6 MCH 29.5 MCHC 33.6 RDW 14.1 Plt Count 237 MPV 9.6 Sodium 143 Potassium 3.6 Chloride 106 Carbon Dioxide 32 Anion Gap 5 L BUN 10.2 Creatinine 1.0 Est GFR (CKD-EPI)AfAm 99.85 Est GFR (CKD-EPI)NonAf 86.15 Random Glucose 97 Calcium 8.8 Total Bilirubin 0.6 AST 20 ALT 30 Alkaline Phosphatase 64 Total Protein 6.3 L Albumin 3.6 RPR Titer Nonreactive today pt is aaox3 ambulating no acute distress no s/s of withdrawals - Treatment Hospital Course: Detox Protocol Followed, Detoxed Safely, Responded well, Discharged Condition Good, Rehab Referral Accepted Patient has Accepted a Rehab Referral to: pt declined rehab;referral provided - Medication Discharge Medications: Ambulatory Orders Folic Acid - 1 mg PO DAILY tablet 01/01/19 Thiamine HCl [Vitamin B1 -] 100 mg PO DAILY tablet 01/01/19 Amlodipine Besylate [Norvasc -] 5 mg PO DAILY 30 Days #30 tablet 01/16/19 Aspirin [ASA -] 81 mg PO DAILY 30 Days #30 tab.chew 01/16/19 Atorvastatin Ca [Lipitor] 80 mg PO HS 30 Days #30 tab 01/16/19 Clopidogrel Bisulfate [Plavix] 75 mg PO DAILY 30 Days #30 tablet 01/16/19 Tamsulosin HCl [Flomax] 0.4 mg PO DAILY 30 Days #30 cap.er.24h 01/16/19 - Diagnosis (1) Alcohol dependence with uncomplicated withdrawal Current Visit: Yes Status: Chronic (2) GERD (gastroesophageal reflux disease) Current Visit: Yes Status: Chronic Qualifiers: Esophagitis presence: without esophagitis Qualified Code(s): K21.9 - Gastro -esophageal reflux disease without esophagitis (3) Hypercholesterolemia Current Visit: Yes Status: Chronic (4) Hypertension Current Visit: Yes Status: Chronic Qualifiers: Hypertension type: essential hypertension Qualified Code(s): I10 - Essential (primary) hypertension (5) Cannabis abuse Current Visit: No Status: Acute (6) Nicotine dependence Current Visit: Yes Status: Acute Qualifiers: Nicotine product type: cigarettes Substance use status: uncomplicated Qualified Code(s): F17.210 - Nicotine dependence, cigarettes, uncomplicated (7) Obesity Current Visit: Yes Status: Chronic Qualifiers: Obesity type: unspecified obesity type Obesity classification: unspecified obesity classification (8) ADHD (attention deficit hyperactivity disorder) Current Visit: No Status: Chronic (9) Alcohol dependence Current Visit: Yes Status: Chronic Qualifiers: Substance use status: in withdrawal Complication of substance-induced condition: uncomplicated Qualified Code(s): F10.230 - Alcohol dependence with withdrawal, uncomplicated (10) BPH (benign prostatic hyperplasia) Current Visit: Yes Status: Chronic Qualifiers: Lower urinary tract symptom presence: symptoms absent Qualified Code(s): N40.0 - Benign prostatic hyperplasia without lower urinary tract symptoms (11) CAD (coronary artery disease) Current Visit: Yes Status: Chronic Qualifiers: Coronary Disease-Associated Artery/Lesion type: [place] artery [place] vs. transplanted heart: [place] heart Associated angina: with stable angina Qualified Code(s): I25.118 - Atherosclerotic heart disease of [place] coronary artery with other forms of angina pectoris (12) Depressive disorder Current Visit: No Status: Chronic (13) Drug-induced mood disorder Current Visit: No Status: Chronic (14) Opioid dependence Current Visit: Yes Status: Chronic Qualifiers: Substance use status: uncomplicated Qualified Code(s): F11.20 - Opioid dependence, uncomplicated (15) NSTEMI (non-ST elevated myocardial infarction) Current Visit: No Status: Resolved - AMA Did Patient Leave Against Medical Advice: No
== END 2019-01-23 09:10 | disposition home or self-care (01) | DRG 773 ==
LOC: YASAS 13:11 → Y6N 19:49
PROVIDERS: ADMIT Surgery; ATTEND Surgery
PROC: HZ2ZZZZ Detoxification Services for Substance Abuse Treatment (ICD-10-PCS; principal; 2019-01-19)
DX: F10.230 Alcohol dependence with withdrawal, uncomplicated (principal); F11.20 Opioid dependence, uncomplicated; F12.10 Cannabis abuse, uncomplicated; F17.210 Nicotine dependence, cigarettes, uncomplicated; F19.24 Other psychoactive substance dependence with psychoactive substance-induced mood disorder; F90.9 Attention-deficit hyperactivity disorder, unspecified type; F32.9 Major depressive disorder, single episode, unspecified; I10 Essential (primary) hypertension; K21.9 Gastro-esophageal reflux disease without esophagitis; E78.00 Pure hypercholesterolemia, unspecified; N40.0 Benign prostatic hyperplasia without lower urinary tract symptoms; I25.118 Atherosclerotic heart disease of native coronary artery with other forms of angina pectoris; I25.2 Old myocardial infarction; E66.9 Obesity, unspecified; Z68.33 Body mass index [BMI] 33.0-33.9, adult; R79.89 Other specified abnormal findings of blood chemistry; Z86.69 Personal history of other diseases of the nervous system and sense organs
CPT/HCPCS: 36415; 80053; 85027; 86593

== ENCOUNTER 2019-02-15 11:53 | Emergency (ER) | payer OTHER ==
[2019-02-15 12:00] VITALS: BP 106/54; PULSE 74; TEMP 98.3; BMI 34.8
[2019-02-15] MEDS ORDERED: KETOROLAC TROMETHAMINE 60 MG/2 ML VIAL IM ONE (12:26)
[2019-02-15] MEDS ORDERED: KETOROLAC TROMETHAMINE 60 MG/2 ML VIAL ONE (12:29)
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
== END 2019-02-15 12:42 | disposition home or self-care (01) ==
LOC: JERFT 11:53
DX: K08.89 Other specified disorders of teeth and supporting structures (principal); K02.9 Dental caries, unspecified
CPT/HCPCS: 99281-25

== ENCOUNTER 2019-05-16 08:47 | Inpatient (IN) | payer SELFPAY ==
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
[2019-05-16 09:39] LABS: BASO % 0.8 % (0-2.0); EOS % 1.4 % (0-4.5); HEMATOCRIT 41.7 % (35.4-49); HEMOGLOBIN 13.9 GM/dL (11.7-16.9); LYMPH % 25.3 % (8-40); MCH 29.6 pg (25.7-33.7); MCHC 33.4 g/dl (32.0-35.9); MEAN CELL VOLUME 88.5 fl (80-96); MEAN PLT VOLUME 9.2 fl (7.5-11.1); MONO % 10.9 % (3.8-10.2); NEUT % 61.6 % (42.8-82.8); PLATELET COUNT 264 K/MM3 (134-434); RBC 4.71 M/mm3 (4.00-5.60); RDW 13.8 % (11.9-15.9); WHITE BLOOD COUNT 9.2 K/mm3 (4.0-10.0)
[2019-05-16 10:01] LABS: ALBUMIN 3.7 g/dl (3.4-5.0); BILIRUBIN,TOTAL 0.3 mg/dL (0.2-1); BLOOD UREA NITROGEN 11.5 mg/dL (7-18); CALCIUM 8.5 mg/dL (8.5-10.1); CREATININE 0.9 mg/dL (0.55-1.3); N-TERMINAL BNP 10.9 pg/ml (5-125); POTASSIUM 3.7 mmol/L (3.5-5.1); TOT PROT 6.7 g/dl (6.4-8.2)
--- NOTE | 2019-05-16 11:27 | PDOC ---
Attending Attestation - Resident Resident Name: Sarah Perez - ED Attending Attestation I have performed the following: I have examined & evaluated the patient, The case was reviewed & discussed with the resident, I agree w/resident's findings & plan, Exceptions are as noted - HPI HPI: 05/16/19 11:22 54 yo male h/o substance abuse, ( cocain, etoh ) last use cocain HERLINDA here with c /o chest pain, feeling lightheaded today while standing in [employer]. also c /;o left foot leg pain. no h/o pe or dvt. does have n/o NSTEMI related to prior cocaine use. no f/c no cough. no mod factors. pain pressure tightheness. non radiating started last pim. no associated sob. feels drowsy today. and very thirsty. - Physicial Exam PE: 05/16/19 11:24 awake but drowsy, lungs clear bilat heart rrr no mrg abd soft mild llq ttp. no rebound no guarding. no cva tenderness. ext wwp. left second toe with erythem. ecymosis ttp, left kne ttp from no effusion . no edema.skin wawrm and dry intact. - Medical Decision Making 05/16/19 11:27 54 yo male h/o substance abuse, here following cocaine binge c/o chest pain and lightheaded. differential acs, dehydration, rhabdo, nstemi, plan cxr labs ekg trop ckmb cpk. iv hydration will require admission for high risk h/o nstemi. tox screen 05/16/19 13:55 pt with negative knee and foot xray. no fx. cxr normal no acute process. labs unremarkable. will give asa 325. admitted to telemetry. Heart Score/ECG Review #1 ECG reviewed & interpreted by me at: 13:56 General ECG Interpretation: Sinus Rhythm, Normal Rate (71), Normal Intervals, No acute ischemic changes
--- NOTE | 2019-05-16 11:51 | EKG ---
Test Reason : Blood Pressure : / mmHG Vent. Rate : 071 BPM Atrial Rate : 071 BPM P-R Int : 174 ms QRS Dur : 098 ms QT Int : 408 ms P-R-T Axes : 064 -25 026 degrees QTc Int : 443 ms NORMAL SINUS RHYTHM POSSIBLE LEFT ATRIAL ENLARGEMENT INFERIOR INFARCT (CITED ON OR BEFORE 25-SEP-2014) CANNOT RULE OUT ANTERIOR INFARCT , AGE UNDETERMINED ABNORMAL ECG WHEN COMPARED WITH ECG OF 14-JAN-2019 20:57, NO SIGNIFICANT CHANGE WAS FOUND Confirmed by DALIA ESTEVES MD ([id number]) on 05/16/2019 11:51:26 AM Referred By: Confirmed By:DALIA ESTEVES MD
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
[2019-05-16] MEDS ORDERED: FOLIC ACID 1 MG TABLET (FP) ONE (12:43)
[2019-05-16] MEDS ORDERED: THIAMINE HCL 100 MG TABLET (FP) ONE (12:43)
[2019-05-16] MEDS: FOLIC ACID 1 MG TABLET (FP) PO SCH (12:45)
[2019-05-16] MEDS: THIAMINE HCL 100 MG TABLET (FP) PO SCH ×2 (12:45→21:54)
[2019-05-16] MEDS ORDERED: chlordiazePOXIDE HCL 10 MG CAPSULE PO PRN (13:12)
[2019-05-16] MEDS: chlordiazePOXIDE HCL 25 MG CAPSULE PO SCH ×2 (13:22→21:53)
[2019-05-16] MEDS ORDERED: ASPIRIN 81 MG CHEWABLE TABLETS PO ONE (14:00)
[2019-05-16] MEDS ORDERED: ASPIRIN 81 MG CHEWABLE TABLETS ONE (14:04)
[2019-05-16] MEDS: MULTIVITAMINS (DAILY MVI) TABLET (FP) PO SCH (14:07)
--- NOTE | 2019-05-16 14:59 | CON.CARD ---
Consult Consult Specialty:: Cardiology Referred by:: Hospitalist Medicine Reason for Consultation:: Chest pain - History of Present Illness Chief Complaint: Chest pain History of Present Illness: Patient is a 54 year old male with underlying history of polysubstance abuse ( alcohol and cocaine), CAD history of NSTEMI (declined intervention), HTN, hypercholesterolemia and GERD who presents with left sided chest pressure radiating to left am associated with light-headedness and dyspnea. He denies associated true syncope, palpitations, paroxysmal nocturnal dyspnea or orthopnea or LE edema. Patient admits he has not been taking any of his home medications for past several months. Did not show for 01/22/2019 f/u office appointment post hospital d/c, last used cocaine 05/14/2019. - History Source History Provided By: Patient Limitations to Obtaining History: No Limitations - Past Medical History Cardio/Vascular: Yes: CAD, HTN, Hyperlipdemia Pulmonary: Yes: Other (ALONSO) - Alcohol/Substance Use Hx Alcohol Use: No History of Substance Use: reports: Cocaine - Smoking History Smoking history: Current every day smoker Have you smoked in the past 12 months: Yes Aproximately how many cigarettes per day: 10 If you are a former smoker, when did you quit?: 3 months - Social History Usual Living Arrangement: Alone ( recently, after 30 yrs marriage) Home Medications - Allergies Allergies/Adverse Reactions: Allergies Allergy/AdvReac Type Severity Reaction Status Date / Time No Known Allergies Allergy Verified 02/15/19 11:56 - Home Medications Home Medications: Ambulatory Orders Aspirin [ASA -] 81 mg PO DAILY 30 Days #30 tab.chew 01/16/19 Amlodipine Besylate [Norvasc -] 5 mg PO DAILY 05/16/19 Atorvastatin Ca [Lipitor] 40 mg PO HS 05/16/19 Clopidogrel Bisulfate [Plavix] 75 mg PO DAILY 05/16/19 Tamsulosin HCl [Flomax] 0.4 mg PO DAILY 05/16/19 Review of Systems - Review of Systems Cardiovascular: reports: Chest Pain Vital Signs: Vital Signs Temperature 98.1 F 05/16/19 13:40 Pulse Rate 78 05/16/19 13:40 Respiratory Rate 18 05/16/19 13:40 Blood Pressure 123/62 05/16/19 13:40 O2 Sat by Pulse Oximetry (%) 96 05/16/19 13:40 Constitutional: Yes: No Distress, Calm Neck: Yes: Supple Respiratory: Yes: Regular, CTA Bilaterally Gastrointestinal: Yes: Normal Bowel Sounds, Soft Cardiovascular: Yes: Regular Rate and Rhythm JVD: No Carotid Bruit: No Heart Sounds: Yes: S1, S2 Edema: No - Other Data Labs, Other Data: CBC, BMP 05/16/19 09:25 05/16/19 09:25 Troponin, BNP 05/16/19 05/16/19 09:25 10:00 Troponin I < 0.02 B-Natriuretic Peptide 10.9 Troponin, BNP 05/16/19 05/16/19 09:25 10:00 Troponin I < 0.02 B-Natriuretic Peptide 10.9 NSR @ 71 LAE, inferior infarct Ejection Fraction %: LVEF > or = 40 % Imaging - Results Chest X-ray: Report Reviewed (NAD) Problem List - Problems (1) Chest pain due to coronary artery disease Code(s): I25.119 - ATHSCL HEART DISEASE OF [place] COR ART W UNSP ANG PCTRS (2) CAD (coronary artery disease) Code(s): I25.10 - ATHSCL HEART DISEASE OF [place] CORONARY ARTERY W/O ANG PCTRS Qualifiers: Coronary Disease-Associated Artery/Lesion type: [place] artery [place] vs. transplanted heart: [place] heart Associated angina: with stable angina Qualified Code(s): I25.118 - Atherosclerotic heart disease of [place] coronary artery with other forms of angina pectoris (3) Hypercholesterolemia Code(s): E78.00 - PURE HYPERCHOLESTEROLEMIA, UNSPECIFIED (4) Hypertension Code(s): I10 - ESSENTIAL (PRIMARY) HYPERTENSION Qualifiers: Hypertension type: essential hypertension Qualified Code(s): I10 - Essential (primary) hypertension Assessment/Plan 12/31/2018 Echo: Normal LV size with low normal LVEF 50-55%, grade I diastolic dysfunction, normal RV size and fxn, tr MR, TR 01/16/2019 ETT Myoview: Moderate size mild posterolateral ischemia LVEF 60% 1. Cocaine chest pain 2. CAD history of NSTEMI, abnl MPI 3. HTN 4. Hypercholesterolemia 5. GERD 6. ALONSO 7. Polysubstance abuse (Cocaine) 8. Noncompliance with medications and clinical f/u PLAN: 1. Ruling out got [place], check TSH, lipid panel and Ha1c 2. Resume Amlodipine 5 qd given history of cocaine abuse 3. Continue ASA 81 qd and Plavix 75 qd 4. Continue Atorvastatin 80 qhs per lipid panel 5. H/o noncompliance makes him not ideal candidate for invasive coronary angiogram +/- PCI 6. F/u in cardiology office upon d/c, abstinence from toxic habits 7. Thank you for consultative opportunity
--- NOTE | 2019-05-16 17:32 | PN ---
Progress Note (short form) - Note Progress Note: 54 M h/o obesity, PSA (cocaine,EtOH,tobacco), HTN, HLD, CAD w/ posterior wall reversible ischemia on last MPI, presents with episode of substernal CP and associated SOB this morning that lasted several minutes. Patient endorses waiting on line at [employer], when he suddenly felt, a pressure-like pain, substernal region, radiating to L shoulder and arm, associated w/ anxiety and SOB. Patient endorses he was given a chair to sit down until pain subsided. Endorsed last cocaine use new years k[employer], where he used about an ounce of cocaine , cigarettes and alcohol. Denies LOC/syncope. Recently had MPI in 03/2019 where there was mild-moderate area of reversible ischemia in the posterior wall and pt. refused stent treatment at that time. Currently denies CP/SOB, feels concerned of findings and is willing for further intervention if needed. EKG does not show any new ischemic changes, trops neg x2. PE VSS GA comfortable, AAox3, speaks in full sentences HEENT NC/AT, EOMI, no JVD Chest CTAB, no crackles or wheezing CVS s1, S2+, RRR Abd obese, Soft, NT, ND Ext No LE edema, no calf tenderness, no tram-track lines on arms Vital Signs - 24 hr 05/16/19 05/16/19 05/16/19 09:00 13:40 16:45 Temperature 98.3 F 98.1 F 98.6 F Pulse Rate 88 Pulse Rate [ 78 74 Right Radial] Respiratory 16 18 16 Rate Blood Pressure 104/70 Blood Pressure 123/62 129/76 [Left Arm] O2 Sat by Pulse 100 96 98 Oximetry (%) Laboratory Results - last 24 hr 05/16/19 05/16/19 05/16/19 09:25 09:25 10:00 WBC 9.2 RBC 4.71 Hgb 13.9 Hct 41.7 MCV 88.5 MCH 29.6 MCHC 33.4 RDW 13.8 Plt Count 264 MPV 9.2 Absolute Neuts (auto) 5.6 Neutrophils % 61.6 D Lymphocytes % 25.3 D Monocytes % 10.9 H Eosinophils % 1.4 Basophils % 0.8 Nucleated RBC % 0 Sodium 139 Potassium 3.7 Chloride 107 Carbon Dioxide 27 Anion Gap 6 L BUN 11.5 Creatinine 0.9 Est GFR (CKD-EPI)AfAm 112.62 Est GFR (CKD-EPI)NonAf 97.17 Random Glucose 100 Calcium 8.5 Total Bilirubin 0.3 AST 17 ALT 24 Alkaline Phosphatase 71 Creatine Kinase 296 Creatine Kinase Index 0.6 CK-MB (CK-2) 2.0 Troponin I < 0.02 B-Natriuretic Peptide 10.9 Total Protein 6.7 Albumin 3.7 05/16/19 16:00 WBC RBC Hgb Hct MCV MCH MCHC RDW Plt Count MPV Absolute Neuts (auto) Neutrophils % Lymphocytes % Monocytes % Eosinophils % Basophils % Nucleated RBC % Sodium Potassium Chloride Carbon Dioxide Anion Gap BUN Creatinine Est GFR (CKD-EPI)AfAm Est GFR (CKD-EPI)NonAf Random Glucose Calcium Total Bilirubin AST ALT Alkaline Phosphatase Creatine Kinase 217 Creatine Kinase Index CK-MB (CK-2) Troponin I < 0.02 B-Natriuretic Peptide Total Protein Albumin Current Medications Generic Name Dose Route Start Last Admin Trade Name Freq PRN Reason Stop Dose Admin Amlodipine Besylate 5 mg 05/17/19 10:00 Norvasc - PO DAILY [facility] Aspirin 81 mg 05/17/19 10:00 Asa - PO DAILY [facility] Atorvastatin Calcium 40 mg 05/16/19 22:00 Lipitor - PO HS [facility] Chlordiazepoxide HCl 10 mg 05/19/19 00:00 Librium - PO 05/19/19 23:59 Q12H PRN Signs/symptoms of Withdrawal Chlordiazepoxide HCl 10 mg 05/16/19 13:12 Librium - PO 05/18/19 23:59 Q8H PRN Signs/symptoms of Withdrawal Chlordiazepoxide HCl 25 mg 05/16/19 13:00 05/16/19 13:22 Librium - PO 05/17/19 21:01 25 mg Q8H [facility] Administration Chlordiazepoxide HCl 15 mg 05/18/19 05:00 Librium - PO 05/18/19 21:01 Q8H [facility] Chlordiazepoxide HCl 10 mg 05/19/19 05:00 Librium - PO 05/19/19 21:01 Q8H [facility] Chlordiazepoxide HCl 10 mg 05/20/19 05:00 Librium - PO 05/20/19 05:01 ONCE ONE Clopidogrel Bisulfate 75 mg 05/17/19 10:00 Plavix - PO DAILY [facility] Enoxaparin Sodium 40 mg 05/17/19 10:00 Lovenox - SQ DAILY [facility] Folic Acid 1 mg 05/16/19 12:45 05/16/19 12:45 Folic Acid - PO 1 mg DAILY [facility] Administration Multivitamins/Minerals/Vitamin C 1 tab 05/16/19 13:45 05/16/19 14:07 Tab-A-Vit - PO 1 tab DAILY [facility] Administration Tamsulosin HCl 0.4 mg 05/17/19 08:30 Flomax - PO 0830 [facility] Thiamine HCl 100 mg 05/16/19 12:30 05/16/19 12:45 Vitamin B1 - PO 100 mg BID [facility] Administration A/P: 54 M h/o CAD, HTN, HLD, obesity, PSA w/ cocaine/Etoh/tobacco presents with episode of pectoral angina which lasted several minutes and resolved without medication. Overall impression includes cocaine-induced vasospasm v.s. stable angina. ACS to be ruled out. Angina pectoris with underlying CAD likely 2/2 cocaine induced vasospasm, no signs of ACS with trops negx2, absent chest pain right now, EKG not showing new ischemic changes cont. Atorvastatin 80mg Cont. ASA 81mg daily Cont. Plavix 75mg daily Avoid BB in view of cocaine use Obtain A1c, lipids, TSH strongly counseled patient on avoidance of cocaine,etoh smoking Cardiology: Dr. Constantino, so far recommend conservative medical treatment due to patient poor compliance for PCI stenting PSA patient refusing to give urine when patient urinates obtain Utox counseled on cocaine/tobacco/Etoh use, HTN avoid BB for now until utox is obtained which shows negative cocaine Amlodipine 5mg for BP control retirement plan counselor on avoidance of cocaine and alcohol HLD cont. Atorvastatin 80mg LFTs OK, CPK trending down L knee pain likely due to OA v.s. trauma no signs of fracture, or dislocation on Knee xray Tylenol PRN for pain follow up PCp outpatient, counseled on weight loss BPH resume Flomax monitor output DVT PPX: Lovenox SC GI regimen: Senna, docusate, Miralax Visit type - Emergency Visit Emergency Visit: Yes ED Registration Date: 05/16/19 Care time: The patient presented to the Emergency Department on the above date and was hospitalized for further evaluation of their emergent condition. - New Patient This patient is new to me today: No - Critical Care Critical Care patient: No
[2019-05-16] MEDS ORDERED: SENNOSIDES 8.6MG TABLET (FP) PO PRN (17:46)
[2019-05-16 18:49] VITALS: BMI 35.9
[2019-05-16] MEDS ORDERED: ACETAMINOPHEN 325 MG TABLET (FP) PO ONE (19:37)
[2019-05-16 21:21] LABS: METHADONE, UR NEGATIVE ng/ml (CUTOFF=300); OPIATES, URI NEGATIVE ng/ml (CUTOFF=300); PHENCYCLIDINE,URINE NEGATIVE ng/ml (CUTOFF=25); URINE AMPHETAMINES NEGATIVE ng/ml (CUTOFF=500); URINE BARBITURATES NEGATIVE ng/ml (CUTOFF=200); URINE BENZODIAZEPINES NEGATIVE ng/ml (CUTOFF=200)
[2019-05-16 21:48] LABS: COCAINE, UR POSITIVE ng/ml (CUTOFF=300)
[2019-05-16] MEDS: ATORVASTATIN CA 40 MG TABLET (FP) PO SCH (21:53)
[2019-05-16] MEDS: DOCUSATE SODIUM 100 MG CAPSULE (FP) PO SCH (21:54)
[2019-05-17] MEDS: chlordiazePOXIDE HCL 25 MG CAPSULE PO SCH ×3 (05:49→21:09)
[2019-05-17 07:30] LABS: HEMATOCRIT 41.5 % (35.4-49); HEMOGLOBIN 13.8 GM/dL (11.7-16.9); MCH 29.7 pg (25.7-33.7); MCHC 33.2 g/dl (32.0-35.9); MEAN CELL VOLUME 89.4 fl (80-96); MEAN PLT VOLUME 9.7 fl (7.5-11.1); PLATELET COUNT 255 K/MM3 (134-434); RBC 4.64 M/mm3 (4.00-5.60); RDW 14.1 % (11.9-15.9); WHITE BLOOD COUNT 6.2 K/mm3 (4.0-10.0)
[2019-05-17 07:40] LABS: CHOLESTEROL 149 mg/dL (50-200); HDL CHOLESTEROL 48 mg/dL (40-60); LDL CHOLESTEROL (ONLY SJRH) 85 mg/dL (5-100); TRIGLYCERIDES 145 mg/dL (0-150)
[2019-05-17 07:56] LABS: ALBUMIN 3.5 g/dl (3.4-5.0); BILIRUBIN,TOTAL 0.3 mg/dL (0.2-1); BLOOD UREA NITROGEN 9.1 mg/dL (7-18); CALCIUM 8.8 mg/dL (8.5-10.1); CREATININE 0.9 mg/dL (0.55-1.3); MAGNESIUM 2.2 mg/dL (1.8-2.4); PHOSPHOROUS 3.3 mg/dL (2.5-4.9); TOT PROT 6.2 g/dl (6.4-8.2)
[2019-05-17] MEDS: DOCUSATE SODIUM 100 MG CAPSULE (FP) PO SCH ×2 (09:51→21:09)
[2019-05-17] MEDS: FOLIC ACID 1 MG TABLET (FP) PO SCH (09:51)
[2019-05-17] MEDS: TAMSULOSIN HCL 0.4 MG CAP PO SCH (09:51)
[2019-05-17] MEDS: PANTOPRAZOLE 40 MG TABLET (FP) PO SCH (09:51)
[2019-05-17] MEDS: CLOPIDOGREL BISULFATE 75 MG TABLET (FP) PO SCH (09:51)
[2019-05-17] MEDS: THIAMINE HCL 100 MG TABLET (FP) PO SCH ×2 (09:51→21:10)
[2019-05-17] MEDS: ENOXAPARIN NA (PORCINE) 40 MG/0.4 ML DISP.SYRIN SQ SCH (09:51)
[2019-05-17] MEDS: MULTIVITAMINS (DAILY MVI) TABLET (FP) PO SCH (09:52)
[2019-05-17] MEDS: ASPIRIN 81 MG CHEWABLE TABLETS PO SCH (09:52)
[2019-05-17] MEDS: amLODIPine BESYLATE 5 MG TABLET (FP) PO SCH (09:52)
--- NOTE | 2019-05-17 09:56 | PN ---
Progress Note, Physician History of Present Illness: Denies further chest tightness, light-headedness and dyspnea. Ruled out for NH. - Current Medication List Current Medications: Active Medications Amlodipine Besylate (Norvasc -) 5 mg PO DAILY [facility] Last Admin: 05/17/19 09:52 Dose: 5 mg Aspirin (Asa -) 81 mg PO DAILY [facility] Last Admin: 05/17/19 09:52 Dose: 81 mg Atorvastatin Calcium (Lipitor -) 40 mg PO HS [facility] Last Admin: 05/16/19 21:53 Dose: 40 mg Chlordiazepoxide HCl (Librium -) 10 mg PO Q12H PRN PRN Reason: Signs/symptoms of Withdrawal Stop: 05/19/19 23:59 Chlordiazepoxide HCl (Librium -) 10 mg PO Q8H PRN PRN Reason: Signs/symptoms of Withdrawal Stop: 05/18/19 23:59 Chlordiazepoxide HCl (Librium -) 25 mg PO Q8H [facility] Stop: 05/17/19 21:01 Last Admin: 05/17/19 05:49 Dose: 25 mg Chlordiazepoxide HCl (Librium -) 15 mg PO Q8H [facility] Stop: 05/18/19 21:01 Chlordiazepoxide HCl (Librium -) 10 mg PO Q8H [facility] Stop: 05/19/19 21:01 Chlordiazepoxide HCl (Librium -) 10 mg PO ONCE ONE Stop: 05/20/19 05:01 Clopidogrel Bisulfate (Plavix -) 75 mg PO DAILY [facility] Last Admin: 05/17/19 09:51 Dose: 75 mg Docusate Sodium (Colace -) 100 mg PO BID [facility] Last Admin: 05/17/19 09:51 Dose: 100 mg Enoxaparin Sodium (Lovenox -) 40 mg SQ DAILY [facility] Last Admin: 05/17/19 09:51 Dose: 40 mg Folic Acid (Folic Acid -) 1 mg PO DAILY [facility] Last Admin: 05/17/19 09:51 Dose: 1 mg Multivitamins/Minerals/Vitamin C (Tab-A-Vit -) 1 tab PO DAILY [facility] Last Admin: 05/17/19 09:52 Dose: 1 tab Pantoprazole Sodium (Protonix -) 40 mg PO DAILY [facility] Last Admin: 05/17/19 09:51 Dose: 40 mg Senna (Senna -) 2 tab PO HS PRN PRN Reason: CONSTIPATION Tamsulosin HCl (Flomax -) 0.4 mg PO 0830 [facility] Last Admin: 05/17/19 09:51 Dose: 0.4 mg Thiamine HCl (Vitamin B1 -) 100 mg PO BID [facility] Last Admin: 05/17/19 09:51 Dose: 100 mg - Objective Vital Signs: Vital Signs Temperature 98.0 F 05/17/19 05:47 Pulse Rate 74 05/17/19 05:47 Respiratory Rate 05/17/19 05:47 Blood Pressure 108/64 05/17/19 05:47 O2 Sat by Pulse Oximetry (%) 98 05/16/19 22:00 Constitutional: Yes: No Distress, Calm Neck: Yes: Supple Cardiovascular: Yes: Regular Rate and Rhythm Respiratory: Yes: Regular, CTA Bilaterally Gastrointestinal: Yes: Normal Bowel Sounds, Soft Edema: No Labs: CBC, BMP 05/17/19 05:45 05/17/19 05:45 Problem List - Problems (1) Chest pain due to coronary artery disease Code(s): I25.119 - ATHSCL HEART DISEASE OF [place] COR ART W UNSP ANG PCTRS (2) CAD (coronary artery disease) Code(s): I25.10 - ATHSCL HEART DISEASE OF [place] CORONARY ARTERY W/O ANG PCTRS Qualifiers: Coronary Disease-Associated Artery/Lesion type: [place] artery [place] vs. transplanted heart: [place] heart Associated angina: with stable angina Qualified Code(s): I25.118 - Atherosclerotic heart disease of [place] coronary artery with other forms of angina pectoris (3) Hypercholesterolemia Code(s): E78.00 - PURE HYPERCHOLESTEROLEMIA, UNSPECIFIED (4) Hypertension Code(s): I10 - ESSENTIAL (PRIMARY) HYPERTENSION Qualifiers: Hypertension type: essential hypertension Qualified Code(s): I10 - Essential (primary) hypertension Assessment/Plan 12/31/2018 Echo: Normal LV size with low normal LVEF 50-55%, grade I diastolic dysfunction, normal RV size and fxn, tr MR, TR 01/16/2019 ETT Myoview: Moderate size mild posterolateral ischemia LVEF 60% 1. Cocaine chest pain, ruled out for NH 2. CAD history of NSTEMI, abnl MPI 3. HTN 4. Hypercholesterolemia 5. GERD 6. ALONSO 7. Polysubstance abuse (Cocaine and ETOH) 8. Noncompliance with medications and clinical f/u PLAN: 1. Ruled out for NH 2. Continue Amlodipine 5 qd given history of cocaine abuse 3. Continue ASA 81 qd and Plavix 75 qd 4. Continue Atorvastatin 40 qhs per lipid panel 5. Undergoing Librium detox 6. H/o noncompliance makes him not ideal candidate for invasive coronary angiogram +/- PCI 7. F/u in cardiology office upon d/c, abstinence from toxic habits
--- NOTE | 2019-05-17 17:49 | PN ---
Physical Exam: SUBJECTIVE: Patient seen and examined. States that his chest pain has improved. Complains of left knee pain that has been bothering him for months, states that he takes multiple motrins daily to help with the pain as he has trouble walking otherwise. Denies SOB, abd pain, chills, fever. Patient is open to the possibility of cardiac cath now. OBJECTIVE: Vital Signs Period Temp Pulse Resp BP Sys/Shah Pulse Ox Last 24 Hr 97.2 F-98.6 F 73-86 18-20 107-135/58-68 96-98 GENERAL: The patient is awake, alert, and fully oriented, in no acute distress. HEAD: Normal with no signs of trauma. EYES: EOMI, no ptosis ENT: Ears normal, nares patent, oropharynx clear without exudates, moist mucous membranes. NECK: Trachea midline, full range of motion, supple. LUNGS: Breath sounds equal, clear to auscultation bilaterally, no wheezes, no crackles, no accessory muscle use. HEART: Regular rate and rhythm, S1, S2 without murmur, rub or gallop. ABDOMEN: Soft, nontender, nondistended, normoactive bowel sounds. Large ex-lap scar on midline, fibrotic tissue palpated over RUQ and LUQ. EXTREMITIES: 2+ pulses, warm, well-perfused, no edema. Full range of motion of left knee with only mild pain. NEUROLOGICAL: Cranial nerves II through XII grossly intact. Normal speech, gait not observed. PSYCH: Normal mood, normal affect. SKIN: Warm, dry, normal turgor, ex-lap scar on abd Laboratory Results - last 24 hr 05/16/19 05/16/19 05/17/19 16:00 20:35 05:45 WBC 6.2 RBC 4.64 Hgb 13.8 Hct 41.5 MCV 89.4 MCH 29.7 MCHC 33.2 RDW 14.1 Plt Count 255 MPV 9.7 Sodium Potassium Chloride Carbon Dioxide Anion Gap BUN Creatinine Est GFR (CKD-EPI)AfAm Est GFR (CKD-EPI)NonAf Random Glucose Hemoglobin A1c % Calcium Phosphorus Magnesium Total Bilirubin AST ALT Alkaline Phosphatase Creatine Kinase Creatine Kinase Index 0.7 CK-MB (CK-2) 1.6 Troponin I Total Protein Albumin Triglycerides Cholesterol Total LDL Cholesterol HDL Cholesterol TSH Free T4 Opiates Screen Negative Methadone Screen Negative Barbiturate Screen Negative Phencyclidine Screen Negative Ur Amphetamines Screen Negative MDMA (Ecstasy) Screen Negative Benzodiazepines Screen Negative Cocaine Screen Positive A* U Marijuana (THC) Screen Negative 05/17/19 05/17/19 05/17/19 05:45 05:45 05:45 WBC RBC Hgb Hct MCV MCH MCHC RDW Plt Count MPV Sodium 140 Potassium 4.0 Chloride 108 H Carbon Dioxide 27 Anion Gap 6 L BUN 9.1 Creatinine 0.9 Est GFR (CKD-EPI)AfAm 112.62 Est GFR (CKD-EPI)NonAf 97.17 Random Glucose 102 Hemoglobin A1c % 5.4 Calcium 8.8 Phosphorus 3.3 Magnesium 2.2 Total Bilirubin 0.3 AST 12 L ALT 22 Alkaline Phosphatase 62 Creatine Kinase 146 Creatine Kinase Index CK-MB (CK-2) Troponin I < 0.02 Total Protein 6.2 L Albumin 3.5 Triglycerides 145 Cholesterol 149 Total LDL Cholesterol 85 HDL Cholesterol 48 TSH 6.01 H D Free T4 0.79 Opiates Screen Methadone Screen Barbiturate Screen Phencyclidine Screen Ur Amphetamines Screen MDMA (Ecstasy) Screen Benzodiazepines Screen Cocaine Screen U Marijuana (THC) Screen Active Medications Generic Name Dose Route Start Last Admin Trade Name Freq PRN Reason Stop Dose Admin Amlodipine Besylate 5 mg 05/17/19 10:00 05/17/19 09:52 Norvasc - PO 5 mg DAILY [facility] Administration Aspirin 81 mg 05/17/19 10:00 05/17/19 09:52 Asa - PO 81 mg DAILY [facility] Administration Atorvastatin Calcium 40 mg 05/16/19 22:00 05/16/19 21:53 Lipitor - PO 40 mg HS [facility] Administration Chlordiazepoxide HCl 10 mg 05/19/19 00:00 Librium - PO 05/19/19 23:59 Q12H PRN Signs/symptoms of Withdrawal Chlordiazepoxide HCl 10 mg 05/16/19 13:12 Librium - PO 05/18/19 23:59 Q8H PRN Signs/symptoms of Withdrawal Chlordiazepoxide HCl 25 mg 05/16/19 13:00 05/17/19 13:52 Librium - PO 05/17/19 21:01 25 mg Q8H [facility] Administration Chlordiazepoxide HCl 15 mg 05/18/19 05:00 Librium - PO 05/18/19 21:01 Q8H [facility] Chlordiazepoxide HCl 10 mg 05/19/19 05:00 Librium - PO 05/19/19 21:01 Q8H [facility] Chlordiazepoxide HCl 10 mg 05/20/19 05:00 Librium - PO 05/20/19 05:01 ONCE ONE Clopidogrel Bisulfate 75 mg 05/17/19 10:00 05/17/19 09:51 Plavix - PO 75 mg DAILY [facility] Administration Docusate Sodium 100 mg 05/16/19 22:00 05/17/19 09:51 Colace - PO 100 mg BID [facility] Administration Enoxaparin Sodium 40 mg 05/17/19 10:00 05/17/19 09:51 Lovenox - SQ 40 mg DAILY [facility] Administration Folic Acid 1 mg 05/16/19 12:45 05/17/19 09:51 Folic Acid - PO 1 mg DAILY [facility] Administration Multivitamins/Minerals/Vitamin C 1 tab 05/16/19 13:45 05/17/19 09:52 Tab-A-Vit - PO 1 tab DAILY [facility] Administration Pantoprazole Sodium 40 mg 05/17/19 10:00 05/17/19 09:51 Protonix - PO 40 mg DAILY [facility] Administration Senna 2 tab 05/16/19 17:46 Senna - PO HS PRN CONSTIPATION Tamsulosin HCl 0.4 mg 05/17/19 08:30 05/17/19 09:51 Flomax - PO 0.4 mg 0830 [facility] Administration Thiamine HCl 100 mg 05/16/19 12:30 05/17/19 09:51 Vitamin B1 - PO 100 mg BID [facility] Administration ASSESSMENT/PLAN: 54 y/o/m with PMHx of coronary artery disease, (NSTEMI 06/2018; declined cardiac catheterization) hypertension, polysubstance use disorder (cocaine, alcohol), presented with complaint of chest pain. Patient non compliant with medications, as per pharmacy he has not picked up medications since May of this year. #Coronary artery disease; Atypical chest pain - Concerning for ACS, given patient's cardiac history - Past stress test (01/2019) revealed moderately sized mild intensity posterior lateral posterior perfusion defect. LVEF 60%. - Trops negative x3 - Cardiac monitoring - Patient non compliant with medications, as per pharmacy he has not picked up medications since May of this year - Cardiology consulted. Patient states he is now agreeable to any necessary interventions (cardiac catheterization/ stenting). - CXR negative for acute pathology - Continue Amlodipine 5mg QD - Continue ASA 81 qd and Plavix 75 qd - Continue Atorvastatin 40 qhs per lipid panel #Polysubstance use disorder - CIWA, COWS negative - Utox positive for cocaine - Librium protocol - Fall precautions - Seizure precautions - Thiamine Folate, Multivitamin #Hypertension - Continue home Amplodipine #Benign prostatic hyperplasia - Continue home Flomax #Left knee pain - Knee/foot xrays negative for acute pathology - Consider orthopedic evaluation/outpatient follow up. #FEN - No IV fluids indicated - Monitor and replete lytes as needed - Sodium modified diet #Prophylaxis - Lovenox 40mg subq daily #Disposition - Hx of past positive stress test, patient in need of cardiac cath but not a candidate as per cardiology, will f/u Visit type - Emergency Visit Emergency Visit: Yes ED Registration Date: 05/16/19 Care time: The patient presented to the Emergency Department on the above date and was hospitalized for further evaluation of their emergent condition. - New Patient This patient is new to me today: No - Critical Care Critical Care patient: No ATTENDING PHYSICIAN STATEMENT I saw and evaluated the patient. I reviewed the resident's note and discussed the case with the resident. I agree with the resident's findings and plan as documented. SUBJECTIVE: OBJECTIVE: ASSESSMENT AND PLAN:
--- NOTE | 2019-05-17 19:54 | PN ---
Teaching Attending Note Name of Resident: Robina Contreras ATTENDING PHYSICIAN STATEMENT I saw and evaluated the patient. I reviewed the resident's note and discussed the case with the resident. I agree with the resident's findings and plan as documented. SUBJECTIVE: No further CP. No palpitations/SOB. OBJECTIVE: Afebrile, Hemodynamically Stable. Last Vital Signs Temp Pulse Resp BP Pulse Ox 98.3 F 74 20 125/60 96 05/17/19 18:00 05/17/19 18:00 05/17/19 18:00 05/17/19 18:00 05/17/19 17:00 HEENT - Atraumatic, Normocephalic. Heart - S1, S2, RRR Lungs - clear to auscultation abdomen - Soft, non-tender. Bowel Sounds normal. Extremities - no edema, no calf tenderness. Laboratory Results - last 24 hr 05/16/19 05/17/19 05/17/19 20:35 05:45 05:45 WBC 6.2 RBC 4.64 Hgb 13.8 Hct 41.5 MCV 89.4 MCH 29.7 MCHC 33.2 RDW 14.1 Plt Count 255 MPV 9.7 Sodium 140 Potassium 4.0 Chloride 108 H Carbon Dioxide 27 Anion Gap 6 L BUN 9.1 Creatinine 0.9 Est GFR (CKD-EPI)AfAm 112.62 Est GFR (CKD-EPI)NonAf 97.17 Random Glucose 102 Hemoglobin A1c % Calcium 8.8 Phosphorus 3.3 Magnesium 2.2 Total Bilirubin 0.3 AST 12 L ALT 22 Alkaline Phosphatase 62 Creatine Kinase Troponin I Total Protein 6.2 L Albumin 3.5 Triglycerides Cholesterol Total LDL Cholesterol HDL Cholesterol TSH 6.01 H D Free T4 Opiates Screen Negative Methadone Screen Negative Barbiturate Screen Negative Phencyclidine Screen Negative Ur Amphetamines Screen Negative MDMA (Ecstasy) Screen Negative Benzodiazepines Screen Negative Cocaine Screen Positive A* U Marijuana (THC) Screen Negative 05/17/19 05/17/19 05:45 05:45 WBC RBC Hgb Hct MCV MCH MCHC RDW Plt Count MPV Sodium Potassium Chloride Carbon Dioxide Anion Gap BUN Creatinine Est GFR (CKD-EPI)AfAm Est GFR (CKD-EPI)NonAf Random Glucose Hemoglobin A1c % 5.4 Calcium Phosphorus Magnesium Total Bilirubin AST ALT Alkaline Phosphatase Creatine Kinase 146 Troponin I < 0.02 Total Protein Albumin Triglycerides 145 Cholesterol 149 Total LDL Cholesterol 85 HDL Cholesterol 48 TSH Free T4 0.79 Opiates Screen Methadone Screen Barbiturate Screen Phencyclidine Screen Ur Amphetamines Screen MDMA (Ecstasy) Screen Benzodiazepines Screen Cocaine Screen U Marijuana (THC) Screen Current Medications Generic Name Dose Route Start Last Admin Trade Name Freq PRN Reason Stop Dose Admin Amlodipine Besylate 5 mg 05/17/19 10:00 05/17/19 09:52 Norvasc - PO 5 mg DAILY [facility] Administration Aspirin 81 mg 05/17/19 10:00 05/17/19 09:52 Asa - PO 81 mg DAILY [facility] Administration Atorvastatin Calcium 40 mg 05/16/19 22:00 05/16/19 21:53 Lipitor - PO 40 mg HS [facility] Administration Chlordiazepoxide HCl 10 mg 05/19/19 00:00 Librium - PO 05/19/19 23:59 Q12H PRN Signs/symptoms of Withdrawal Chlordiazepoxide HCl 10 mg 05/16/19 13:12 Librium - PO 05/18/19 23:59 Q8H PRN Signs/symptoms of Withdrawal Chlordiazepoxide HCl 25 mg 05/16/19 13:00 05/17/19 13:52 Librium - PO 05/17/19 21:01 25 mg Q8H [facility] Administration Chlordiazepoxide HCl 15 mg 05/18/19 05:00 Librium - PO 05/18/19 21:01 Q8H [facility] Chlordiazepoxide HCl 10 mg 05/19/19 05:00 Librium - PO 05/19/19 21:01 Q8H [facility] Chlordiazepoxide HCl 10 mg 05/20/19 05:00 Librium - PO 05/20/19 05:01 ONCE ONE Clopidogrel Bisulfate 75 mg 05/17/19 10:00 05/17/19 09:51 Plavix - PO 75 mg DAILY [facility] Administration Docusate Sodium 100 mg 05/16/19 22:00 05/17/19 09:51 Colace - PO 100 mg BID [facility] Administration Enoxaparin Sodium 40 mg 05/17/19 10:00 05/17/19 09:51 Lovenox - SQ 40 mg DAILY [facility] Administration Folic Acid 1 mg 05/16/19 12:45 05/17/19 09:51 Folic Acid - PO 1 mg DAILY [facility] Administration Multivitamins/Minerals/Vitamin C 1 tab 05/16/19 13:45 05/17/19 09:52 Tab-A-Vit - PO 1 tab DAILY [facility] Administration Pantoprazole Sodium 40 mg 05/17/19 10:00 05/17/19 09:51 Protonix - PO 40 mg DAILY [facility] Administration Senna 2 tab 05/16/19 17:46 Senna - PO HS PRN CONSTIPATION Tamsulosin HCl 0.4 mg 05/17/19 08:30 05/17/19 09:51 Flomax - PO 0.4 mg 0830 [facility] Administration Thiamine HCl 100 mg 05/16/19 12:30 05/17/19 09:51 Vitamin B1 - PO 100 mg BID [facility] Administration ASSESSMENT AND PLAN: 54 year old male with history of CAD s/p positive stress test 01/31, Polysubstance Abuse (cocaine, EtOH, tobacco), HTN, HLD, CAD w/ posterior wall reversible ischemia on last MPI, presents with episode of substernal CP and associated SOB with radiation to L shoulder and arm. He previously declined cardiac cath, now agrees. 1. CP, likely Angina on background CAD s/p NSTEMI Positive MPI 01/31 ?cocaine induced vasospasm vs oclusive disease. Patient now expresses wishes for further Ix including cath. Cardiology to kindly facilitate patient's request/wishes. If not, will need to transfer to another facility. Continue Aspirin, Plavix, Statin 2. Polysubstanc Abuse (cocaine, Alcohol, Tobacco) Counselled. No evidence of withdrawal currently. Librium protocol as per CIWA if withdrawal signs/symptoms. MVI, Thiamine, Folic Acid. 3. BPH - continue Tamsulosin 4. HTN - Norvasc started for BP 5. HLD - continue Atorvastatin 6. L Knee Pain likely sec to OA Xray - no signs of fracture For out-patient PCP/Ortho follow up. DVT Px - Lovenox SQ.
[2019-05-17] MEDS: ATORVASTATIN CA 40 MG TABLET (FP) PO SCH (21:09)
[2019-05-18] MEDS: chlordiazePOXIDE 5 MG CAPSULE PO SCH ×3 (05:19→21:29)
[2019-05-18 07:14] LABS: ALBUMIN 3.4 g/dl (3.4-5.0); BILIRUBIN,TOTAL 0.2 mg/dL (0.2-1); BLOOD UREA NITROGEN 10.5 mg/dL (7-18); CALCIUM 8.9 mg/dL (8.5-10.1); CREATININE 0.9 mg/dL (0.55-1.3); POTASSIUM 3.9 mmol/L (3.5-5.1); TOT PROT 6.3 g/dl (6.4-8.2)
--- NOTE | 2019-05-18 08:33 | PN ---
Physical Exam: SUBJECTIVE: Patient seen and examined at bedside. No acute complaints. He denies subjective fevers, chills, shortness of breath, chest pain, palpitations , abdominal pain, nausea, vomiting, diarrhea. OBJECTIVE: Vital Signs Period Temp Pulse Resp BP Sys/Shah Pulse Ox Last 24 Hr 97.2 F-98.6 F 73-90 18-20 107-135/60-73 95-96 GENERAL: The patient is awake, alert, and fully oriented, in no acute distress. HEAD: Normocephalic, atraumatic. EYES: PERRL, extraocular movements intact, sclera anicteric, conjunctiva clear. ENT: Oropharynx clear, without erythema or exudates. Moist mucous membranes. NECK: Trachea midline, full range of motion. Supple without lymphadenopathy. LUNGS: Breath sounds equal, clear to auscultation bilaterally, no wheezes, no crackles. No accessory muscle use. HEART: Regular rate and rhythm, S1, S2 without murmur, rub or gallop. ABDOMEN: Soft, nondistended, nontender to light and deep palpation x4 quadrants , no rebound tenderness, no guarding. Normoactive bowel sounds x4 quadrants. no hepatosplenomegaly, no masses. EXTREMITIES: 2+ radial, dorsalis pedis pulses bilaterally. Warm, well-perfused. No lower extremity edema bilaterally. NEUROLOGICAL: Cranial nerves II through XII grossly intact. Normal speech. No gross focal deficits. PSYCH: Normal mood, normal affect upon my encounter. SKIN: Warm, dry. Laboratory Results - last 24 hr 05/17/19 05/18/19 05:45 05:50 Sodium 140 Potassium 3.9 Chloride 106 Carbon Dioxide 28 Anion Gap 6 L BUN 10.5 Creatinine 0.9 Est GFR (CKD-EPI)AfAm 112.62 Est GFR (CKD-EPI)NonAf 97.17 Random Glucose 113 H Calcium 8.9 Total Bilirubin 0.2 AST 12 L ALT 23 Alkaline Phosphatase 66 Creatine Kinase 146 Troponin I < 0.02 Total Protein 6.3 L Albumin 3.4 Triglycerides 145 Cholesterol 149 Total LDL Cholesterol 85 HDL Cholesterol 48 Free T4 0.79 Active Medications Generic Name Dose Route Start Last Admin Trade Name Freq PRN Reason Stop Dose Admin Amlodipine Besylate 5 mg 05/17/19 10:00 05/17/19 09:52 Norvasc - PO 5 mg DAILY [facility] Administration Aspirin 81 mg 05/17/19 10:00 05/17/19 09:52 Asa - PO 81 mg DAILY [facility] Administration Atorvastatin Calcium 40 mg 05/16/19 22:00 05/17/19 21:09 Lipitor - PO 40 mg HS [facility] Administration Chlordiazepoxide HCl 10 mg 05/19/19 00:00 Librium - PO 05/19/19 23:59 Q12H PRN Signs/symptoms of Withdrawal Chlordiazepoxide HCl 10 mg 05/16/19 13:12 Librium - PO 05/18/19 23:59 Q8H PRN Signs/symptoms of Withdrawal Chlordiazepoxide HCl 15 mg 05/18/19 05:00 05/18/19 05:19 Librium - PO 05/18/19 21:01 15 mg Q8H [facility] Administration Chlordiazepoxide HCl 10 mg 05/19/19 05:00 Librium - PO 05/19/19 21:01 Q8H [facility] Chlordiazepoxide HCl 10 mg 05/20/19 05:00 Librium - PO 05/20/19 05:01 ONCE ONE Clopidogrel Bisulfate 75 mg 05/17/19 10:00 05/17/19 09:51 Plavix - PO 75 mg DAILY [facility] Administration Docusate Sodium 100 mg 05/16/19 22:00 05/17/19 21:09 Colace - PO 100 mg BID [facility] Administration Enoxaparin Sodium 40 mg 05/17/19 10:00 05/17/19 09:51 Lovenox - SQ 40 mg DAILY [facility] Administration Folic Acid 1 mg 05/16/19 12:45 05/17/19 09:51 Folic Acid - PO 1 mg DAILY [facility] Administration Multivitamins/Minerals/Vitamin C 1 tab 05/16/19 13:45 05/17/19 09:52 Tab-A-Vit - PO 1 tab DAILY [facility] Administration Pantoprazole Sodium 40 mg 05/17/19 10:00 05/17/19 09:51 Protonix - PO 40 mg DAILY [facility] Administration Senna 2 tab 05/16/19 17:46 Senna - PO HS PRN CONSTIPATION Tamsulosin HCl 0.4 mg 05/17/19 08:30 05/17/19 09:51 Flomax - PO 0.4 mg 0830 [facility] Administration Thiamine HCl 100 mg 05/16/19 12:30 05/17/19 21:10 Vitamin B1 - PO 100 mg BID [facility] Administration ASSESSMENT/PLAN: Patient is a 54 year old male with history of coronary artery disease, (NSTEMI 06/2018; declined cardiac catheterization) hypertension, polysubstance use disorder (cocaine, alcohol), presents with complaint of chest pain Coronary artery disease; Atypical chest pain -Concerning for ACS vs cocaine induced vasospasm -Past stress test (01/2019) revealed moderately sized mild intensity posterior lateral posterior perfusion defect. LVEF 60%. -Initial Troponon 0.02 x2 -Cardiac monitoring -Continue Aspirin, Plavix, Atorvastatin -Cardiology evaluation (Dr. Abby Hernandez). Patient states he is now agreeable to any necessary interventions (cardiac catheterization/ stenting). Patient will follow up for additional testing as outpatient. No current indication for inpatient workup. Polysubstance use disorder -Currently CIWA 0 -Librium protocol -Fall precautions -Seizure precautions -Thiamine Folate, Multivitamin -Patient agreeable to [facility] to complete alcohol detox. Hypertension -Continue home Amplodipine Benign prostatic hyperplasia -Continue home Flomax Left knee pain -Likely osteoarthritis. No acute fracture noted on radiograph -Orthopedic evaluation/ outpatient follow up. -Ibuprofen 400mg PO [id number] PRN for pain. Patient admits that Acetaminophen is not palliative. FEN -No IV fluids indicated -Follow BMp, replete as necessary -Sodium modified diet Prophylaxis -Lovenox 40mg subq daily Disposition -Telemetry observation. Pending bed availability in [facility] to complete alcohol detox. Visit type - Emergency Visit Emergency Visit: Yes ED Registration Date: 05/18/19 Care time: The patient presented to the Emergency Department on the above date and was hospitalized for further evaluation of their emergent condition. - New Patient This patient is new to me today: No - Critical Care Critical Care patient: No - Discharge Referral Referred to [facility] No ATTENDING PHYSICIAN STATEMENT I saw and evaluated the patient. I reviewed the resident's note and discussed the case with the resident. I agree with the resident's findings and plan as documented. SUBJECTIVE: OBJECTIVE: ASSESSMENT AND PLAN:
[2019-05-18] MEDS: PANTOPRAZOLE 40 MG TABLET (FP) PO SCH (10:03)
[2019-05-18] MEDS: DOCUSATE SODIUM 100 MG CAPSULE (FP) PO SCH ×3 (10:03→21:33)
[2019-05-18] MEDS: ENOXAPARIN NA (PORCINE) 40 MG/0.4 ML DISP.SYRIN SQ SCH (10:03)
[2019-05-18] MEDS: MULTIVITAMINS (DAILY MVI) TABLET (FP) PO SCH (10:03)
[2019-05-18] MEDS: THIAMINE HCL 100 MG TABLET (FP) PO SCH ×2 (10:03→21:29)
[2019-05-18] MEDS: TAMSULOSIN HCL 0.4 MG CAP PO SCH (10:03)
[2019-05-18] MEDS: FOLIC ACID 1 MG TABLET (FP) PO SCH (10:03)
[2019-05-18] MEDS: ASPIRIN 81 MG CHEWABLE TABLETS PO SCH (10:03)
[2019-05-18] MEDS: CLOPIDOGREL BISULFATE 75 MG TABLET (FP) PO SCH (10:03)
[2019-05-18] MEDS: amLODIPine BESYLATE 5 MG TABLET (FP) PO SCH (10:05)
--- NOTE | 2019-05-18 11:36 | PN ---
Progress Note, Physician Chief Complaint: Events noted Not in distress History of Present Illness: Patient was seen and examined. Awake and alert. Chart was reviewed Denies chest pain, SOB or palpitations - Current Medication List Current Medications: Active Medications Amlodipine Besylate (Norvasc -) 5 mg PO DAILY [facility] Last Admin: 05/18/19 10:05 Dose: Not Given Aspirin (Asa -) 81 mg PO DAILY [facility] Last Admin: 05/18/19 10:03 Dose: 81 mg Atorvastatin Calcium (Lipitor -) 40 mg PO HS [facility] Last Admin: 05/17/19 21:09 Dose: 40 mg Chlordiazepoxide HCl (Librium -) 10 mg PO Q12H PRN PRN Reason: Signs/symptoms of Withdrawal Stop: 05/19/19 23:59 Chlordiazepoxide HCl (Librium -) 10 mg PO Q8H PRN PRN Reason: Signs/symptoms of Withdrawal Stop: 05/18/19 23:59 Chlordiazepoxide HCl (Librium -) 15 mg PO Q8H [facility] Stop: 05/18/19 21:01 Last Admin: 05/18/19 05:19 Dose: 15 mg Chlordiazepoxide HCl (Librium -) 10 mg PO Q8H [facility] Stop: 05/19/19 21:01 Chlordiazepoxide HCl (Librium -) 10 mg PO ONCE ONE Stop: 05/20/19 05:01 Clopidogrel Bisulfate (Plavix -) 75 mg PO DAILY [facility] Last Admin: 05/18/19 10:03 Dose: 75 mg Docusate Sodium (Colace -) 100 mg PO BID [facility] Last Admin: 05/18/19 10:03 Dose: 100 mg Enoxaparin Sodium (Lovenox -) 40 mg SQ DAILY [facility] Last Admin: 05/18/19 10:03 Dose: 40 mg Folic Acid (Folic Acid -) 1 mg PO DAILY [facility] Last Admin: 05/18/19 10:03 Dose: 1 mg Multivitamins/Minerals/Vitamin C (Tab-A-Vit -) 1 tab PO DAILY [facility] Last Admin: 05/18/19 10:03 Dose: 1 tab Pantoprazole Sodium (Protonix -) 40 mg PO DAILY [facility] Last Admin: 05/18/19 10:03 Dose: 40 mg Senna (Senna -) 2 tab PO HS PRN PRN Reason: CONSTIPATION Tamsulosin HCl (Flomax -) 0.4 mg PO 0830 [facility] Last Admin: 05/18/19 10:03 Dose: 0.4 mg Thiamine HCl (Vitamin B1 -) 100 mg PO BID [facility] Last Admin: 05/18/19 10:03 Dose: 100 mg - Objective Vital Signs: Vital Signs Temperature 98 F 05/18/19 10:00 Pulse Rate 78 05/18/19 10:00 Respiratory Rate 20 05/18/19 10:00 Blood Pressure 106/59 L 05/18/19 10:00 O2 Sat by Pulse Oximetry (%) 95 05/18/19 05:00 Eyes: Yes: PERRL HENT: Yes: Atraumatic Neck: Yes: Supple Cardiovascular: Yes: Regular Rate and Rhythm, S1, S2 Respiratory: Yes: CTA Bilaterally Gastrointestinal: Yes: Normal Bowel Sounds, Soft. No: Tenderness Edema: No Additional Findings/Remarks: - Review of Systems Constitutional: denies Chills. denies: Fever Cardiovascular: denies Shortness of Breath. (+) Chest Pain, denies: Palpitations Respiratory: denies SOB. denies: Cough, Hemoptysis, Orthopnea, PND Gastrointestinal: denies: Abdominal Pain, Constipation, Diarrhea, Melena, Nausea , Rectal Bleeding, Vomiting Genitourinary: denies: Dysuria, Hematuria Musculoskeletal: denies Joint Pain Neurological: denies: Dizziness, Headache, Seizure, Syncope Labs: CBC, BMP 05/17/19 05:45 05/18/19 05:50 Problem List - Problems (1) Chest pain due to coronary artery disease Code(s): I25.119 - ATHSCL HEART DISEASE OF [place] COR ART W [facility] PCTRS (2) Alcohol dependence Code(s): F10.20 - ALCOHOL DEPENDENCE, UNCOMPLICATED Qualifiers: Substance use status: in withdrawal Complication of substance-induced condition: uncomplicated Qualified Code(s): F10.230 - Alcohol dependence with withdrawal, uncomplicated (3) CAD (coronary artery disease) Code(s): I25.10 - ATHSCL HEART DISEASE OF [place] CORONARY ARTERY W/O [facility] PCTRS Qualifiers: Coronary Disease-Associated Artery/Lesion type: [place] artery [place] vs. transplanted heart: [place] heart Associated angina: with stable angina Qualified Code(s): I25.118 - Atherosclerotic heart disease of [place] coronary artery with other forms of angina pectoris (4) GERD (gastroesophageal reflux disease) Code(s): K21.9 - GASTRO-ESOPHAGEAL REFLUX DISEASE WITHOUT ESOPHAGITIS Qualifiers: Esophagitis presence: without esophagitis Qualified Code(s): K21.9 - Gastro -esophageal reflux disease without esophagitis (5) Hypercholesterolemia Code(s): E78.00 - PURE HYPERCHOLESTEROLEMIA, UNSPECIFIED (6) Hypertension Code(s): I10 - ESSENTIAL (PRIMARY) HYPERTENSION Qualifiers: Hypertension type: essential hypertension Qualified Code(s): I10 - Essential (primary) hypertension (7) NSTEMI (non-ST elevated myocardial infarction) Code(s): I21.4 - NON-ST ELEVATION (NSTEMI) MYOCARDIAL INFARCTION Assessment/Plan 1. CAD history of NSTEMI and abnormal nuclear MPI with ischemia 2. HTN 3. Hypercholesterolemia 4. GERD 5. ALONSO 6. Polysubstance abuse (Cocaine and ETOH) 7. Noncompliance with medications and clinical follow up PLAN: 1. Continue Amlodipine 5 mg QD given history of cocaine abuse 2. Continue ASA 81 mg QD and Plavix 75 mg QD 3. Continue Atorvastatin 40 mg QHS 4. Librium detox 5. Possible coronary angiogram +/- PCI as outpatient after detox and if compliance with treatment is assured 6. [facility] David Mora MD
--- NOTE | 2019-05-18 11:37 | PN ---
Teaching Attending Note Name of Resident: Imtiaz Conde ATTENDING PHYSICIAN STATEMENT I saw and evaluated the patient. I reviewed the resident's note and discussed the case with the resident. I agree with the resident's findings and plan as documented. SUBJECTIVE: No further CP. No palpitations/SOB. OBJECTIVE: Afebrile, Hemodynamically Stable. Last Vital Signs Temp Pulse Resp BP Pulse Ox 98 F 78 20 106/59 L 95 05/18/19 10:00 05/18/19 10:00 05/18/19 10:05/18/19 10:00 05/18/19 05:00 HEENT - Atraumatic, Normocephalic. Heart - S1, S2, RRR Lungs - clear to auscultation abdomen - Soft, non-tender. Bowel Sounds normal. Extremities - no edema, no calf tenderness. Neuro - AAO x 3. Minimal tremor outstretched arms Laboratory Results - last 24 hr 05/18/19 05:50 Sodium 140 Potassium 3.9 Chloride 106 Carbon Dioxide 28 Anion Gap 6 L BUN 10.5 Creatinine 0.9 Est GFR (CKD-EPI)AfAm 112.62 Est GFR (CKD-EPI)NonAf 97.17 Random Glucose 113 H Calcium 8.9 Total Bilirubin 0.2 AST 12 L ALT 23 Alkaline Phosphatase 66 Total Protein 6.3 L Albumin 3.4 Current Medications Generic Name Dose Route Start Last Admin Trade Name Freq PRN Reason Stop Dose Admin Amlodipine Besylate 5 mg 05/17/19 10:00 05/18/19 10:05 Norvasc - PO Not Given DAILY [facility] Aspirin 81 mg 05/17/19 10:00 05/18/19 10:03 Asa - PO 81 mg DAILY [facility] Administration Atorvastatin Calcium 40 mg 05/16/19 22:00 05/17/19 21:09 Lipitor - PO 40 mg HS [facility] Administration Chlordiazepoxide HCl 10 mg 05/19/19 00:00 Librium - PO 05/19/19 23:59 Q12H PRN Signs/symptoms of Withdrawal Chlordiazepoxide HCl 10 mg 05/16/19 13:12 Librium - PO 05/18/19 23:59 Q8H PRN Signs/symptoms of Withdrawal Chlordiazepoxide HCl 15 mg 05/18/19 05:00 05/18/19 05:19 Librium - PO 01/04/20 21:01 15 mg Q8H [facility] Administration Chlordiazepoxide HCl 10 mg 05/19/19 05:00 Librium - PO 05/19/19 21:01 Q8H [facility] Chlordiazepoxide HCl 10 mg 05/20/19 05:00 Librium - PO 05/20/19 05:01 ONCE ONE Clopidogrel Bisulfate 75 mg 05/17/19 10:00 05/18/19 10:03 Plavix - PO 75 mg DAILY [facility] Administration Docusate Sodium 100 mg 05/16/19 22:00 05/18/19 10:03 Colace - PO 100 mg BID [facility] Administration Enoxaparin Sodium 40 mg 05/17/19 10:00 05/18/19 10:03 Lovenox - SQ 40 mg DAILY [facility] Administration Folic Acid 1 mg 05/16/19 12:45 05/18/19 10:03 Folic Acid - PO 1 mg DAILY [facility] Administration Multivitamins/Minerals/Vitamin C 1 tab 05/16/19 13:45 05/18/19 10:03 Tab-A-Vit - PO 1 tab DAILY [facility] Administration Pantoprazole Sodium 40 mg 05/17/19 10:00 05/18/19 10:03 Protonix - PO 40 mg DAILY [facility] Administration Senna 2 tab 05/16/19 17:46 Senna - PO HS PRN CONSTIPATION Tamsulosin HCl 0.4 mg 05/17/19 08:30 05/18/19 10:03 Flomax - PO 0.4 mg 0830 [facility] Administration Thiamine HCl 100 mg 05/16/19 12:30 05/18/19 10:03 Vitamin B1 - PO 100 mg BID [facility] Administration Home Medications Medication Instructions Recorded Dextroamphetamine/Amphetamine 20 mg PO BID 05/17/19 [Adderall 10 mg Tablet] ASSESSMENT AND PLAN: 54 year old male with history of CAD s/p positive stress test 01/31, Polysubstance Abuse (cocaine, EtOH, tobacco), HTN, HLD, CAD w/ posterior wall reversible ischemia on last MPI, presents with episode of substernal CP and associated SOB with radiation to L shoulder and arm. He previously declined cardiac cath, now agrees. 1. CP, likely Angina on background CAD s/p NSTEMI Positive MPI 01/31 ?cocaine induced vasospasm vs coronary oclusive disease. Patient now expresses wishes for further Ix (previously refused Cath) Cardiology prefers to pursue further Ix including cardiac cath as out-patient. Discussed with dr. Mora. Continue Aspirin, Plavix, Statin 2. Polysubstanc Abuse (cocaine, Alcohol, Tobacco) on Librium as per CIWA for Alcohol withdrawal. Counselled. CIWA 1 currently. Librium protocol as per CIWA if withdrawal signs/symptoms. MVI, Thiamine, Folic Acid. Will refer for transfer to [facility]. 3. BPH - continue Tamsulosin 4. HTN - Norvasc started for BP 5. HLD - continue Atorvastatin 6. L Knee Pain likely sec to OA Xray - no signs of fracture For out-patient PCP/Ortho follow up. DVT Px - Lovenox SQ. Medically Stable for transfer to [facility] once accepted.
[2019-05-18] MEDS ORDERED: IBUPROFEN 400 MG TABLET (FP) PO PRN (13:56)
[2019-05-18] MEDS: ATORVASTATIN CA 40 MG TABLET (FP) PO SCH (21:29)
[2019-05-19] MEDS ORDERED: chlordiazePOXIDE HCL 10 MG CAPSULE PO PRN
[2019-05-19] MEDS ORDERED: chlordiazePOXIDE HCL 10 MG CAPSULE PO SCH (05:00)
[2019-05-19 07:37] LABS: ALBUMIN 3.4 g/dl (3.4-5.0); BILIRUBIN,TOTAL 0.2 mg/dL (0.2-1); BLOOD UREA NITROGEN 16.1 mg/dL (7-18); CALCIUM 8.9 mg/dL (8.5-10.1); TOT PROT 6.4 g/dl (6.4-8.2)
[2019-05-19] MEDS ORDERED: PT OWN MED DRAWER 7, Y5N ONE (09:56)
--- NOTE | 2019-05-19 10:39 | PN ---
Progress Note, Physician Chief Complaint: Events noted Not in distress History of Present Illness: Patient was seen and examined. Awake and alert. Chart was reviewed Denies chest pain, SOB or palpitations - Current Medication List Current Medications: Active Medications Amlodipine Besylate (Norvasc -) 5 mg PO DAILY [facility] Last Admin: 05/18/19 10:05 Dose: Not Given Aspirin (Asa -) 81 mg PO DAILY [facility] Last Admin: 05/18/19 10:03 Dose: 81 mg Atorvastatin Calcium (Lipitor -) 40 mg PO HS [facility] Last Admin: 05/18/19 21:29 Dose: 40 mg Chlordiazepoxide HCl (Librium -) 10 mg PO Q12H PRN PRN Reason: Signs/symptoms of Withdrawal Stop: 05/19/19 23:59 Chlordiazepoxide HCl (Librium -) 10 mg PO Q8H [facility] Stop: 05/19/19 21:01 Last Admin: 05/19/19 05:42 Dose: 10 mg Chlordiazepoxide HCl (Librium -) 10 mg PO ONCE ONE Stop: 05/20/19 05:01 Clopidogrel Bisulfate (Plavix -) 75 mg PO DAILY [facility] Last Admin: 05/18/19 10:03 Dose: 75 mg Docusate Sodium (Colace -) 100 mg PO BID [facility] Last Admin: 05/18/19 21:33 Dose: Not Given Enoxaparin Sodium (Lovenox -) 40 mg SQ DAILY [facility] Last Admin: 05/18/19 10:03 Dose: 40 mg Folic Acid (Folic Acid -) 1 mg PO DAILY [facility] Last Admin: 05/18/19 10:03 Dose: 1 mg Ibuprofen (Motrin -) 400 mg PO Q6H PRN PRN Reason: PAIN LEVEL 6-10 Last Admin: 05/18/19 14:09 Dose: 400 mg Multivitamins/Minerals/Vitamin C (Tab-A-Vit -) 1 tab PO DAILY [facility] Last Admin: 05/18/19 10:03 Dose: 1 tab Pantoprazole Sodium (Protonix -) 40 mg PO DAILY [facility] Last Admin: 05/18/19 10:03 Dose: 40 mg Senna (Senna -) 2 tab PO HS PRN PRN Reason: CONSTIPATION Tamsulosin HCl (Flomax -) 0.4 mg PO 0830 [facility] Last Admin: 05/18/19 10:03 Dose: 0.4 mg Thiamine HCl (Vitamin B1 -) 100 mg PO BID [facility] Last Admin: 05/18/19 21:29 Dose: 100 mg - Objective Vital Signs: Vital Signs Temperature 97.9 F 05/19/19 06:00 Pulse Rate 90 05/19/19 06:00 Respiratory Rate 20 05/19/19 06:00 Blood Pressure 112/61 05/19/19 06:00 O2 Sat by Pulse Oximetry (%) 97 05/18/19 20:47 Eyes: Yes: PERRL HENT: Yes: Atraumatic Neck: Yes: Supple Cardiovascular: Yes: Regular Rate and Rhythm, S1, S2 Respiratory: Yes: CTA Bilaterally Gastrointestinal: Yes: Normal Bowel Sounds, Soft. No: Tenderness Edema: No Additional Findings/Remarks: - Review of Systems Constitutional: denies Chills. denies: Fever Cardiovascular: denies Shortness of Breath. (+) Chest Pain, denies: Palpitations Respiratory: denies SOB. denies: Cough, Hemoptysis, Orthopnea, PND Gastrointestinal: denies: Abdominal Pain, Constipation, Diarrhea, Melena, Nausea , Rectal Bleeding, Vomiting Genitourinary: denies: Dysuria, Hematuria Musculoskeletal: denies Joint Pain Neurological: denies: Dizziness, Headache, Seizure, Syncope Labs: CBC, BMP 05/17/19 05:45 05/19/19 06:05 Problem List - Problems (1) Chest pain due to coronary artery disease Code(s): I25.119 - ATHSCL HEART DISEASE OF [place] COR ART W [facility] PCTRS (2) Alcohol dependence Code(s): F10.20 - ALCOHOL DEPENDENCE, UNCOMPLICATED Qualifiers: Substance use status: in withdrawal Complication of substance-induced condition: uncomplicated Qualified Code(s): F10.230 - Alcohol dependence with withdrawal, uncomplicated (3) CAD (coronary artery disease) Code(s): I25.10 - ATHSCL HEART DISEASE OF [place] CORONARY ARTERY W/O ANG PCTRS Qualifiers: Coronary Disease-Associated Artery/Lesion type: [place] artery [place] vs. transplanted heart: [place] heart Associated angina: with stable angina Qualified Code(s): I25.118 - Atherosclerotic heart disease of [place] coronary artery with other forms of angina pectoris (4) GERD (gastroesophageal reflux disease) Code(s): K21.9 - GASTRO-ESOPHAGEAL REFLUX DISEASE WITHOUT ESOPHAGITIS Qualifiers: Esophagitis presence: without esophagitis Qualified Code(s): K21.9 - Gastro -esophageal reflux disease without esophagitis (5) Hypercholesterolemia Code(s): E78.00 - PURE HYPERCHOLESTEROLEMIA, UNSPECIFIED (6) Hypertension Code(s): I10 - ESSENTIAL (PRIMARY) HYPERTENSION Qualifiers: Hypertension type: essential hypertension Qualified Code(s): I10 - Essential (primary) hypertension (7) NSTEMI (non-ST elevated myocardial infarction) Code(s): I21.4 - NON-ST ELEVATION (NSTEMI) MYOCARDIAL INFARCTION Assessment/Plan 1. CAD history of NSTEMI and abnormal nuclear MPI with ischemia 2. HTN 3. Hypercholesterolemia 4. GERD 5. ALONSO 6. Polysubstance abuse (Cocaine and ETOH) 7. Noncompliance with medications and clinical follow up PLAN: 1. Continue Amlodipine 5 mg QD given history of cocaine abuse 2. Continue ASA 81 mg QD and Plavix 75 mg QD 3. Continue Atorvastatin 40 mg QHS 4. Librium detox 5. Possible coronary angiogram +/- PCI as outpatient after detox and if compliance with treatment is assured - explained this to patient 6. [facility] David Mora MD
[2019-05-19] MEDS: PANTOPRAZOLE 40 MG TABLET (FP) PO SCH (11:28)
[2019-05-19] MEDS: amLODIPine BESYLATE 5 MG TABLET (FP) PO SCH (11:28)
[2019-05-19] MEDS: THIAMINE HCL 100 MG TABLET (FP) PO SCH (11:28)
[2019-05-19] MEDS: CLOPIDOGREL BISULFATE 75 MG TABLET (FP) PO SCH (11:28)
[2019-05-19] MEDS: TAMSULOSIN HCL 0.4 MG CAP PO SCH (11:28)
[2019-05-19] MEDS: ENOXAPARIN NA (PORCINE) 40 MG/0.4 ML DISP.SYRIN SQ SCH (11:29)
[2019-05-19] MEDS: FOLIC ACID 1 MG TABLET (FP) PO SCH (11:29)
[2019-05-19] MEDS: ASPIRIN 81 MG CHEWABLE TABLETS PO SCH (11:29)
[2019-05-19] MEDS: MULTIVITAMINS (DAILY MVI) TABLET (FP) PO SCH (11:29)
[2019-05-19] MEDS: DOCUSATE SODIUM 100 MG CAPSULE (FP) PO SCH (11:35)
[2019-05-19 12:37] VITALS: BP 122/71; PULSE 88; TEMP 97.2
--- NOTE | 2019-05-19 14:49 | PN ---
Progress Note (short form) - Note Progress Note: SUBJECTIVE: No further CP. No palpitations/SOB. OBJECTIVE: Afebrile, Hemodynamically Stable. No tremor, no evidence of withdrawal. Last Vital Signs Temp Pulse Resp BP Pulse Ox 98 F 78 20 106/59 L 95 05/18/19 10:00 05/18/19 10:00 05/18/19 10:00 05/18/19 10:00 05/18/19 05:00 Heart - S1, S2, RRR Lungs - clear to auscultation abdomen - Soft, non-tender. Bowel Sounds normal. Extremities - no edema, no calf tenderness. Neuro - AAO x 3. Minimal tremor outstretched arms Laboratory Results - last 24 hr 05/19/19 06:05 Sodium 141 Potassium 4.0 Chloride 108 H Carbon Dioxide 27 Anion Gap 6 L BUN 16.1 Creatinine 1.0 Est GFR (CKD-EPI)AfAm 99.15 Est GFR (CKD-EPI)NonAf 85.55 Random Glucose 111 H Calcium 8.9 Total Bilirubin 0.2 AST 15 ALT 28 Alkaline Phosphatase 61 Total Protein 6.4 Albumin 3.4 Home Medications Medication Instructions Recorded Amlodipine Besylate [Norvasc -] 5 mg PO DAILY 30 Days #30 tablet 05/18/19 Aspirin [ASA -] 81 mg PO DAILY 30 Days #30 tab.chew 05/18/19 Atorvastatin Ca [Lipitor] 40 mg PO HS 30 Days #30 tablet 05/18/19 Clopidogrel Bisulfate [Plavix -] 75 mg PO DAILY 30 Days #30 tablet 05/18/19 Folic Acid - 1 mg PO DAILY 30 Days #30 tablet 05/18/19 Multivitamins [Multivit ([facility] 1 tab PO DAILY 30 Days #30 tab 05/18/19 Formulary)] Pantoprazole Sodium [Protonix -] 40 mg PO DAILY 30 Days #30 05/18/19 tablet.ec Tamsulosin HCl [Flomax -] 0.4 mg PO 30 30 Days #30 05/18/19 cap.er.24h Thiamine HCl [Vitamin B1 -] 100 mg PO BID 30 Days #60 tablet 05/18/19 ASSESSMENT AND PLAN: 54 year old male with history of CAD s/p positive stress test 01/31, Polysubstance Abuse (cocaine, EtOH, tobacco), HTN, HLD, CAD w/ posterior wall reversible ischemia on last MPI, presents with episode of substernal CP and associated SOB with radiation to L shoulder and arm. He previously declined cardiac cath, now agrees. 1. CP, likely Angina on background CAD s/p NSTEMI Positive MPI 01/31 ?cocaine induced vasospasm vs coronary oclusive disease. Patient now expresses wishes for further Ix (previously refused Cath) Cardiology prefers to pursue further Ix including cardiac cath as out-patient. Discussed with dr. Mora. Continue Aspirin, Plavix, Statin 2. Polysubstance Abuse (cocaine, Alcohol, Tobacco) on Librium as per CIWA for Alcohol withdrawal. CIWA 0 currently. Day 3 Librium protocol. MVI, Thiamine, Folic Acid. Stable for transfer to [facility]. 3. BPH - continue Tamsulosin 4. HTN - Norvasc started for BP 5. HLD - continue Atorvastatin DVT Px - Lovenox SQ. Medically Stable for transfer to [facility] once bed available. Visit type - Emergency Visit Emergency Visit: Yes ED Registration Date: 05/18/19 Care time: The patient presented to the Emergency Department on the above date and was hospitalized for further evaluation of their emergent condition. - New Patient This patient is new to me today: No - Critical Care Critical Care patient: No - Discharge Referral Referred to [facility] No
--- NOTE | 2019-05-19 14:52 | DS ---
Physical Exam: SUBJECTIVE: No further CP. No palpitations/SOB. OBJECTIVE: Afebrile, Hemodynamically Stable. No tremor, no evidence of withdrawal. Last Vital Signs Temp Pulse Resp BP Pulse Ox 98 F 78 20 106/59 L 95 05/18/19 10:00 05/18/19 10:00 05/18/19 10:00 05/18/19 10:00 05/18/19 05:00 Heart - S1, S2, RRR Lungs - clear to auscultation abdomen - Soft, non-tender. Bowel Sounds normal. Extremities - no edema, no calf tenderness. Neuro - AAO x 3. No tremor. Laboratory Results - last 24 hr 05/19/19 06:05 Sodium 141 Potassium 4.0 Chloride 108 H Carbon Dioxide 27 Anion Gap 6 L BUN 16.1 Creatinine 1.0 Est GFR (CKD-EPI)AfAm 99.15 Est GFR (CKD-EPI)NonAf 85.55 Random Glucose 111 H Calcium 8.9 Total Bilirubin 0.2 AST 15 ALT 28 Alkaline Phosphatase 61 Total Protein 6.4 Albumin 3.4 Discharge Medications Medication Instructions Recorded Amlodipine Besylate [Norvasc -] 5 mg PO DAILY 30 Days #30 tablet 05/18/19 Aspirin [ASA -] 81 mg PO DAILY 30 Days #30 tab.chew 05/18/19 Atorvastatin Ca [Lipitor] 40 mg PO HS 30 Days #30 tablet 05/18/19 Clopidogrel Bisulfate [Plavix -] 75 mg PO DAILY 30 Days #30 tablet 05/18/19 Folic Acid - 1 mg PO DAILY 30 Days #30 tablet 05/18/19 Multivitamins [Multivit ([facility] 1 tab PO DAILY 30 Days #30 tab 05/18/19 Formulary)] Pantoprazole Sodium [Protonix -] 40 mg PO DAILY 30 Days #30 05/18/19 tablet.ec Tamsulosin HCl [Flomax -] 0.4 mg PO 0830 30 Days #30 05/18/19 cap.er.24h Thiamine HCl [Vitamin B1 -] 100 mg PO BID 30 Days #60 tablet 05/18/19 Date of Admission:05/18/19 Date of Discharge: 05/19/19 Minutes to complete discharge: 40 Discharge Summary Problems reviewed: Yes Reason For Visit: ACUTE CORONARY SYNDROME, CHEST PAIN Acute alcohol withdrawal Hospital Course: 54 year old male with history of CAD s/p positive stress test 01/31, Polysubstance Abuse (cocaine, EtOH, tobacco), HTN, HLD, CAD w/ posterior wall reversible ischemia on last MPI, presents with episode of substernal CP and associated SOB with radiation to L shoulder and arm. He previously declined cardiac cath, now agrees. He was evaluated by cardiology and recommended for further investigation as out-patient. He has one more day of Librium detox to complete, but he wants to leave against medical advice. He was explained all risks of dosing so and accepts responsibility for leaving. He was of sound mind with full capacity for medical decision making when he left. 1. CP, likely Angina on background CAD s/p NSTEMI Positive MPI 01/31 ?cocaine induced vasospasm vs coronary oclusive disease. Patient now expresses wishes for further Ix (previously refused Cath) Cardiology prefers to pursue further Ix including cardiac cath as out-patient. Discussed with dr. Mora. Continue Aspirin, Plavix, Statin Cardio out-patient follow up. 2. Polysubstance Abuse (cocaine, Alcohol, Tobacco) on Librium as per CIWA for Alcohol withdrawal. CIWA 0 currently. Day 3 Librium protocol. MVI, Thiamine, Folic Acid. Stable for transfer to [facility]. Patient declining transfer, wants to leave AMA. 3. BPH - continue Tamsulosin 4. HTN - Norvasc started for BP 5. HLD - continue Atorvastatin He was advised that leaving against medical advice, before completing his detox protocol would be risky. All risks were explained including seizure, fall, head injury, intracranial bleed, disability, . Condition: Stable - Instructions Diet, Activity, Other Instructions: You are choosing to leave against medical advice, before completing your detox protocol. All risks were explained to you including seizure, fall, head injury, intracranial bleed, disability, . You were admitted to the hospital for chest pain. You were evaluated by the hospice rn; there is no acute cardiac infraction, however it is strongly recommended that you follow up as outpatient for cardiac catheterization to evaluate your positive stress test in January 2019. You are being discharged to [facility] facility to finish your alcohol detox. Continue taking your home medications as directed; Aspirin, Atorvastatin, Amlodipine, Clopidogrel, Folic acid, Thiamine, Multivitamin, Tamsulosin, Pantoprazole. Abstain from Alcohol, and any illicit drug use as this can worsen your cardiac function, or lead to acute cardiac syndromes, and potentially . Consider joining outpatient 12 step program, and/ or support group to assist with abstinence. Follow up with your primary care physician within one - two days after discharge. A referral to Dr. Hart has been provided. Follow up with [facility] (Dr. Abby Hernandez) within one week to discuss further cardiac workup. Follow up with Orthopedics (Dr. Berrios) regarding your knee pain. Return to the nearest emergency department if you experience worsening symptoms, subjective fevers, chills, shortness of breath, chest pain, palpitations, abdominal pain, nausea, vomiting, fall, loss of consciousness. Referrals: Jorge Hart MD [Staff Physician] - David Mora MD [Staff Physician] - Sherman Berrios MD [Staff Physician] - Disposition: AGAINST MEDICAL ADVICE - Home Medications Comprehensive Discharge Medication List: Ambulatory Orders Amlodipine Besylate [Norvasc -] 5 mg PO DAILY 30 Days #30 tablet 05/18/19 Aspirin [ASA -] 81 mg PO DAILY 30 Days #30 tab.chew 05/18/19 Atorvastatin Ca [Lipitor] 40 mg PO HS 30 Days #30 tablet 05/18/19 Clopidogrel Bisulfate [Plavix -] 75 mg PO DAILY 30 Days #30 tablet 05/18/19 Folic Acid - 1 mg PO DAILY 30 Days #30 tablet 05/18/19 Multivitamins [Multivit ([facility] Formulary)] 1 tab PO DAILY 30 Days #30 tab Pantoprazole Sodium [Protonix -] 40 mg PO DAILY 30 Days #30 tablet.ec 05/18/19 Tamsulosin HCl [Flomax -] 0.4 mg PO 0830 30 Days #30 cap.er.24h 05/18/19 Thiamine HCl [Vitamin B1 -] 100 mg PO BID 30 Days #60 tablet 05/18/19 This patient is new to me today: No Emergency Visit: Yes ED Registration Date: 05/18/19 Care time: The patient presented to the Emergency Department on the above date and was hospitalized for further evaluation of their emergent condition. Critical Care patient: No - Discharge Referral Referred to [facility] No
[2019-05-20] MEDS ORDERED: chlordiazePOXIDE HCL 10 MG CAPSULE PO ONE (05:00)
== END 2019-05-19 12:44 | disposition left against medical advice (07) | DRG 198 ==
LOC: JER 08:47 → JERBED 12:23 → J4W 18:37 → OBSVTOIN 05-18 12:38
DX: I25.110 Atherosclerotic heart disease of native coronary artery with unstable angina pectoris (principal); F10.239 Alcohol dependence with withdrawal, unspecified; F14.23 Cocaine dependence with withdrawal; N40.0 Benign prostatic hyperplasia without lower urinary tract symptoms; E78.5 Hyperlipidemia, unspecified; I10 Essential (primary) hypertension; K21.9 Gastro-esophageal reflux disease without esophagitis; Z91.14 Patient's other noncompliance with medication regimen; R07.89 Other chest pain; M25.562 Pain in left knee; F17.210 Nicotine dependence, cigarettes, uncomplicated
CPT/HCPCS: 36415; 71045-TC-FY; 73562-TC-LT-FY; 73630-TC-LT; 80053; 80061; 80307; 82550; 82553; 83036; 83721; 83735; 83880; 84100; 84439; 84443; 84484; 85025; 85027; 93005; 93010; 99285-25; G0378

== ENCOUNTER 2019-06-08 10:42 | Inpatient (IN) | payer OTHER ==
[2019-06-08 11:36] VITALS: BMI 36.1
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
[2019-06-08] MEDS ORDERED: IBUPROFEN 400 MG TABLET (FP) PO PRN (12:07)
[2019-06-08] MEDS ORDERED: ONDANSETRON *ODT* 4 MG TABLET SL PRN (12:07)
[2019-06-08] MEDS ORDERED: MAGNESIUM HYDROX 2400MG/30ML ORAL SUSPENSION 30 ML CUP PO PRN (12:07)
[2019-06-08] MEDS ORDERED: MENTHOL/PHENOL 1 EACH UD MM PRN (12:07)
[2019-06-08] MEDS ORDERED: BISMUTH SUBSALICYLATE 524 MG/30 ML UD PO PRN (12:07)
[2019-06-08] MEDS ORDERED: P-EPHED 60MG/TRIPROLIDI 2.5MG TABLET PO PRN (12:07)
[2019-06-08] MEDS ORDERED: MAG HYDROX/AL HYDROX/SIMETH 30 ML UNIT-DOSE CUP PO PRN (12:07)
[2019-06-08] MEDS ORDERED: MAGNESIUM CITRATE 300 ML BOTTLE PO PRN (12:07)
[2019-06-08] MEDS ORDERED: NICOTINE POLACRILEX 2 MG GUM BUC PRN (12:07)
[2019-06-08] MEDS ORDERED: hydrOXYzine PAMOATE 25 MG CAPSULE (FP) PO PRN (12:07)
[2019-06-08] MEDS ORDERED: chlordiazePOXIDE HCL 10 MG CAPSULE PO PRN (12:07)
[2019-06-08] MEDS ORDERED: ACETAMINOPHEN 325 MG TABLET (FP) PO PRN (12:07)
[2019-06-08] MEDS: CLOPIDOGREL BISULFATE 75 MG TABLET (FP) PO SCH (14:23)
[2019-06-08] MEDS: PANTOPRAZOLE 40 MG TABLET PO SCH (14:23)
[2019-06-08] MEDS: chlordiazePOXIDE HCL 25 MG CAPSULE PO SCH ×2 (14:25→22:44)
[2019-06-08] MEDS: NICOTINE 14 MG/24 HOURS TOPICAL PATCH TD SCH (14:25)
[2019-06-08] MEDS: THIAMINE HCL 100 MG TABLET (FP) PO SCH (22:44)
[2019-06-08] MEDS: ATORVASTATIN CA 40 MG TABLET (FP) PO SCH (22:44)
[2019-06-09] MEDS: chlordiazePOXIDE HCL 25 MG CAPSULE PO SCH ×3 (06:32→23:19)
[2019-06-09] MEDS: TAMSULOSIN HCL 0.4 MG CAP PO SCH (10:36)
[2019-06-09] MEDS: ASPIRIN 81 MG CHEWABLE TABLETS PO SCH (10:36)
[2019-06-09] MEDS: PANTOPRAZOLE 40 MG TABLET PO SCH (10:36)
[2019-06-09] MEDS: NICOTINE 14 MG/24 HOURS TOPICAL PATCH TD SCH (10:37)
[2019-06-09] MEDS: PRENATAL VITAMINS W/ FOLIC ACID TABLET (FP) PO SCH (10:37)
[2019-06-09] MEDS: CLOPIDOGREL BISULFATE 75 MG TABLET (FP) PO SCH (10:38)
[2019-06-09 11:06] LABS: HEMATOCRIT 38.7 % (35.4-49); HEMOGLOBIN 12.9 GM/dL (11.7-16.9); MCH 29.8 pg (25.7-33.7); MCHC 33.4 g/dl (32.0-35.9); MEAN CELL VOLUME 89.1 fl (80-96); MEAN PLT VOLUME 9.6 fl (7.5-11.1); PLATELET COUNT 227 K/MM3 (134-434); RBC 4.34 M/mm3 (4.00-5.60); RDW 14.1 % (11.9-15.9); WHITE BLOOD COUNT 5.9 K/mm3 (4.0-10.0)
[2019-06-09 11:19] LABS: ALBUMIN 3.1 g/dl (3.4-5.0); BILIRUBIN,TOTAL 0.6 mg/dL (0.2-1); CREATININE 0.9 mg/dL (0.55-1.3); POTASSIUM 3.7 mmol/L (3.5-5.1); TOT PROT 5.7 g/dl (6.4-8.2)
--- NOTE | 2019-06-09 13:23 | PN ---
[facility] CIWA - CIWA Score Nausea/Vomitin-Mild Nausea/No Vomiting Muscle Tremors: 3 Anxiety: 3 Agitation: 3 Paroxysmal Sweats: 3 Orientation: 0-Oriented Tacttile Disturbances: 0-None Auditory Disturbances: 0-None Visual Disturbances: 0-None Headache: 0-None Present CIWA-Ar Total Score: 13 S Progress Note (SOAP) Subjective: Chills, tremor, interrupted sleep Objective: 06/09/19 13:20 Last Vital Signs Temp Pulse Resp BP Pulse Ox 97.5 F L 70 18 123/63 06/09/19 09:55 06/09/19 09:55 06/09/19 09:55 06/09/19 09:55 Laboratory Tests 06/09/19 06/09/19 06:50 06:50 WBC 5.9 RBC 4.34 Hgb 12.9 Hct 38.7 MCV 89.1 MCH 29.8 MCHC 33.4 RDW 14.1 Plt Count 227 MPV 9.6 Sodium 141 Potassium 3.7 Chloride 109 H Carbon Dioxide 28 Anion Gap 4 L BUN 11.0 Creatinine 0.9 Est GFR (CKD-EPI)AfAm 112.62 Est GFR (CKD-EPI)NonAf 97.17 Random Glucose 108 H Calcium 8.0 L Total Bilirubin 0.6 AST 15 ALT 24 Alkaline Phosphatase 64 Total Protein 5.7 L Albumin 3.1 L Labs reviewed: serum calcium 8 (low) Assessment: 06/09/19 13:21 Withdrawal sxs Noted with hypocalcemia Plan: Continue detox Encouraged PO water intake Hypocalcemia: start calcium carbonate 650mg PO bid x 3 days
--- NOTE | 2019-06-09 14:43 | CONSULT ---
[facility] Psychiatric Consult - Data Date of interview: 06/09/19 Psychiatric History: Patient approached at bedside. Told ghost writer:" I'm good, I don't need to see you"
--- NOTE | 2019-06-09 19:08 | PN ---
S Progress Note Note: Patient is referred for left ear pain. Patient reports pain as 7/10, feels fullness in ear. There is slight redness noted with positive tragal tenderness. He denies fever or chills Vital Signs Temperature 96.4 F L 06/09/19 17:25 Pulse Rate 84 06/09/19 17:25 Respiratory Rate 18 06/09/19 17:25 Blood Pressure 121/66 06/09/19 17:25 O2 Sat by Pulse Oximetry (%) A/P Otitis externa Cipro otic drops ordered
[2019-06-09] MEDS: OFLOXACIN 0.3% OTIC SOLUTION 5 ML BOTTLE AS SCH (23:18)
[2019-06-09] MEDS: ATORVASTATIN CA 40 MG TABLET (FP) PO SCH (23:19)
[2019-06-09] MEDS: CALCIUM CARBONATE 650 MG TABLET PO SCH (23:19)
[2019-06-09] MEDS: THIAMINE HCL 100 MG TABLET (FP) PO SCH (23:19)
[2019-06-10] MEDS: chlordiazePOXIDE 5 MG CAPSULE PO SCH ×3 (06:40→21:54)
[2019-06-10] MEDS: PANTOPRAZOLE 40 MG TABLET PO SCH (11:21)
[2019-06-10] MEDS: PRENATAL VITAMINS W/ FOLIC ACID TABLET (FP) PO SCH (11:21)
[2019-06-10] MEDS: OFLOXACIN 0.3% OTIC SOLUTION 5 ML BOTTLE AS SCH ×2 (11:21→22:23)
[2019-06-10] MEDS: CLOPIDOGREL BISULFATE 75 MG TABLET (FP) PO SCH (11:21)
[2019-06-10] MEDS: ASPIRIN 81 MG CHEWABLE TABLETS PO SCH (11:21)
[2019-06-10] MEDS: TAMSULOSIN HCL 0.4 MG CAP PO SCH (11:22)
[2019-06-10] MEDS: CALCIUM CARBONATE 650 MG TABLET PO SCH ×2 (11:22→22:24)
[2019-06-10] MEDS: NICOTINE 14 MG/24 HOURS TOPICAL PATCH TD SCH (11:49)
--- NOTE | 2019-06-10 12:58 | PN ---
S CIWA - CIWA Score Nausea/Vomitin-No Nausea/No Vomiting Muscle Tremors: 3 Anxiety: 3 Agitation: 3 Paroxysmal Sweats: 3 Orientation: 0-Oriented Tacttile Disturbances: 0-None Auditory Disturbances: 0-None Visual Disturbances: 0-None Headache: 0-None Present CIWA-Ar Total Score: 12 S Progress Note (SOAP) Subjective: irritable agitation sweats knee pain ear ache getting better Objective: 06/10/19 12:56 Vital Signs Temperature 98.1 F 06/10/19 11:18 Pulse Rate 73 06/10/19 11:18 Respiratory Rate 18 06/10/19 11:18 Blood Pressure 125/91 06/10/19 11:18 O2 Sat by Pulse Oximetry (%) Laboratory Tests 06/09/19 06/09/19 06/09/19 06:50 06:50 06:50 WBC 5.9 RBC 4.34 Hgb 12.9 Hct 38.7 MCV 89.1 MCH 29.8 MCHC 33.4 RDW 14.1 Plt Count 227 MPV 9.6 Sodium 141 Potassium 3.7 Chloride 109 H Carbon Dioxide 28 Anion Gap 4 L BUN 11.0 Creatinine 0.9 Est GFR (CKD-EPI)AfAm 112.62 Est GFR (CKD-EPI)NonAf 97.17 Random Glucose 108 H Calcium 8.0 L Total Bilirubin 0.6 AST 15 ALT 24 Alkaline Phosphatase 64 Total Protein 5.7 L Albumin 3.1 L RPR Titer Nonreactive aaox3 lying in bed no acute distress Assessment: 06/10/19 12:57 withdrawals Plan: continue detox increase fluids tylenol prn analgesic balm josé luis bandage unable to order motrin; pt is on plavix; pt has been made aware
[2019-06-10] MEDS: ACETAMINOPHEN 325 MG TABLET (FP) PO PRN ×2 (13:37→19:46)
[2019-06-10] MEDS: METHYL SALICYLATE/MENTHOL OINT 30 GM TUBE TP SCH ×2 (14:18→22:30)
[2019-06-10] MEDS: METHOCARBAMOL 500 MG TABLET PO PRN (19:46)
[2019-06-10] MEDS: THIAMINE HCL 100 MG TABLET (FP) PO SCH (22:24)
[2019-06-10] MEDS: ATORVASTATIN CA 40 MG TABLET (FP) PO SCH (22:24)
[2019-06-10] MEDS: MELATONIN 5 MG TABLETS PO PRN (22:25)
[2019-06-11] MEDS ORDERED: chlordiazePOXIDE HCL 10 MG CAPSULE PO PRN
[2019-06-11] MEDS: chlordiazePOXIDE HCL 10 MG CAPSULE PO SCH ×3 (06:56→21:14)
[2019-06-11] MEDS: TAMSULOSIN HCL 0.4 MG CAP PO SCH (10:03)
[2019-06-11] MEDS: PANTOPRAZOLE 40 MG TABLET PO SCH (10:03)
[2019-06-11] MEDS: NICOTINE 14 MG/24 HOURS TOPICAL PATCH TD SCH (10:03)
[2019-06-11] MEDS: ASPIRIN 81 MG CHEWABLE TABLETS PO SCH (10:03)
[2019-06-11] MEDS: CALCIUM CARBONATE 650 MG TABLET PO SCH ×2 (10:03→21:15)
[2019-06-11] MEDS: PRENATAL VITAMINS W/ FOLIC ACID TABLET (FP) PO SCH (10:03)
[2019-06-11] MEDS: CLOPIDOGREL BISULFATE 75 MG TABLET (FP) PO SCH (10:03)
--- NOTE | 2019-06-11 12:14 | PN ---
S CIWA - CIWA Score Nausea/Vomitin-No Nausea/No Vomiting Muscle Tremors: 3 Anxiety: 1-Mildly Anxious Agitation: 1-Slight > Activity Paroxysmal Sweats: 1-Minimal Palms Moist Orientation: 0-Oriented Tacttile Disturbances: 0-None Auditory Disturbances: 0-None Visual Disturbances: 0-None Headache: 0-None Present CIWA-Ar Total Score: 6 [facility] Progress Note (SOAP) Subjective: restless sweats anxiety Objective: 06/11/19 12:13 Vital Signs Temperature 98.5 F 06/11/19 09:21 Pulse Rate 68 06/11/19 09:21 Respiratory Rate 17 06/11/19 09:21 Blood Pressure 126/75 06/11/19 09:21 O2 Sat by Pulse Oximetry (%) aaox3 ambulating no acute distress Assessment: 06/11/19 12:13 mild withdrawals Plan: continue detox d/c in am
[2019-06-11] MEDS: ACETAMINOPHEN 325 MG TABLET (FP) PO PRN (12:57)
[2019-06-11] MEDS: METHOCARBAMOL 500 MG TABLET PO PRN (12:58)
[2019-06-11] MEDS: METHYL SALICYLATE/MENTHOL OINT 30 GM TUBE TP SCH ×2 (14:25→21:17)
[2019-06-11] MEDS: THIAMINE HCL 100 MG TABLET (FP) PO SCH (21:14)
[2019-06-11] MEDS: MELATONIN 5 MG TABLETS PO PRN (21:15)
[2019-06-11] MEDS: ATORVASTATIN CA 40 MG TABLET (FP) PO SCH (21:37)
[2019-06-12] MEDS ORDERED: chlordiazePOXIDE HCL 10 MG CAPSULE PO ONE (05:00)
--- NOTE | 2019-06-12 08:45 | DS ---
[facility] Detox Discharge Summary Admission Date: 06/08/19 Discharge Date: 06/12/19 - History Present History: Alcohol Dependence, Cannabis Dependence - Physical Exam Results Vital Signs: Vital Signs Temperature 97.2 F L 06/12/19 07:26 Pulse Rate 66 06/12/19 07:26 Respiratory Rate 18 06/12/19 07:26 Blood Pressure 102/52 L 06/12/19 07:26 O2 Sat by Pulse Oximetry (%) Pertinent Admission Physical Exam Findings: Laboratory Tests 06/09/19 06/09/19 06/09/19 06:50 06:50 06:50 WBC 5.9 RBC 4.34 Hgb 12.9 Hct 38.7 MCV 89.1 MCH 29.8 MCHC 33.4 RDW 14.1 Plt Count 227 MPV 9.6 Sodium 141 Potassium 3.7 Chloride 109 H Carbon Dioxide 28 Anion Gap 4 L BUN 11.0 Creatinine 0.9 Est GFR (CKD-EPI)AfAm 112.62 Est GFR (CKD-EPI)NonAf 97.17 Random Glucose 108 H Calcium 8.0 L Total Bilirubin 0.6 AST 15 ALT 24 Alkaline Phosphatase 64 Total Protein 5.7 L Albumin 3.1 L RPR Titer Nonreactive aaox3 ambulating no acute distress - Treatment Hospital Course: Detox Protocol Followed, Detoxed Safely, Responded well, Discharged Condition Good, Rehab Referral Accepted - Medication Discharge Medications: Ambulatory Orders Aspirin [ASA -] 81 mg PO DAILY 30 Days #30 tab.chew 05/18/19 Atorvastatin Ca [Lipitor] 40 mg PO HS 30 Days #30 tablet 05/18/19 Clopidogrel Bisulfate [Plavix -] 75 mg PO DAILY 30 Days #30 tablet 05/18/19 Pantoprazole Sodium [Protonix -] 40 mg PO DAILY 30 Days #30 tablet.ec 05/18/19 Tamsulosin HCl [Flomax -] 0.4 mg PO 0830 30 Days #30 cap.er.24h 05/18/19 - Diagnosis (1) CAD (coronary artery disease) Current Visit: Yes Status: Chronic Qualifiers: Coronary Disease-Associated Artery/Lesion type: [place] artery [place] vs. transplanted heart: [place] heart Associated angina: with stable angina Qualified Code(s): I25.118 - Atherosclerotic heart disease of [place] coronary artery with other forms of angina pectoris (2) Depressive disorder Current Visit: Yes Status: Chronic (3) GERD (gastroesophageal reflux disease) Current Visit: Yes Status: Chronic Qualifiers: Esophagitis presence: without esophagitis Qualified Code(s): K21.9 - Gastro -esophageal reflux disease without esophagitis (4) Hypercholesterolemia Current Visit: Yes Status: Chronic (5) Hypertension Current Visit: Yes Status: Chronic Qualifiers: Hypertension type: essential hypertension Qualified Code(s): I10 - Essential (primary) hypertension (6) Cannabis abuse Current Visit: Yes Status: Chronic (7) Chest pain due to coronary artery disease Current Visit: No Status: Acute (8) Nicotine dependence Current Visit: Yes Status: Chronic Qualifiers: Nicotine product type: cigarettes Substance use status: uncomplicated Qualified Code(s): F17.210 - Nicotine dependence, cigarettes, uncomplicated (9) ADHD (attention deficit hyperactivity disorder) Current Visit: No Status: Chronic (10) Alcohol dependence with uncomplicated withdrawal Current Visit: Yes Status: Chronic (11) BPH (benign prostatic hyperplasia) Current Visit: No Status: Chronic Qualifiers: Lower urinary tract symptom presence: symptoms absent Qualified Code(s): N40.0 - Benign prostatic hyperplasia without lower urinary tract symptoms (12) Drug-induced mood disorder Current Visit: No Status: Chronic (13) Obesity Current Visit: No Status: Chronic Qualifiers: Obesity type: unspecified obesity type Obesity classification: unspecified obesity classification (14) NSTEMI (non-ST elevated myocardial infarction) Current Visit: No Status: Resolved - AMA Did Patient Leave Against Medical Advice: No
[2019-06-12 09:55] VITALS: BP 141/77; PULSE 71; TEMP 98.4
[2019-06-12] MEDS: PANTOPRAZOLE 40 MG TABLET PO SCH (10:09)
[2019-06-12] MEDS: PRENATAL VITAMINS W/ FOLIC ACID TABLET (FP) PO SCH (10:09)
[2019-06-12] MEDS: CALCIUM CARBONATE 650 MG TABLET PO SCH (10:10)
[2019-06-12] MEDS: METHYL SALICYLATE/MENTHOL OINT 30 GM TUBE TP SCH (10:10)
[2019-06-12] MEDS: ASPIRIN 81 MG CHEWABLE TABLETS PO SCH (10:10)
[2019-06-12] MEDS: NICOTINE 14 MG/24 HOURS TOPICAL PATCH TD SCH (10:10)
[2019-06-12] MEDS: TAMSULOSIN HCL 0.4 MG CAP PO SCH (10:10)
[2019-06-12] MEDS: CLOPIDOGREL BISULFATE 75 MG TABLET (FP) PO SCH (10:11)
== END 2019-06-12 13:50 | disposition home or self-care (01) | DRG 775 ==
LOC: YASAS 10:42 → Y6N 12:53
PROVIDERS: ADMIT Allergy & Immunology; ATTEND Allergy & Immunology
PROC: HZ2ZZZZ Detoxification Services for Substance Abuse Treatment (ICD-10-PCS; principal; 2019-06-08)
DX: F10.230 Alcohol dependence with withdrawal, uncomplicated (principal); F12.10 Cannabis abuse, uncomplicated; F19.24 Other psychoactive substance dependence with psychoactive substance-induced mood disorder; F32.9 Major depressive disorder, single episode, unspecified; F90.9 Attention-deficit hyperactivity disorder, unspecified type; I10 Essential (primary) hypertension; E78.00 Pure hypercholesterolemia, unspecified; K21.9 Gastro-esophageal reflux disease without esophagitis; I25.118 Atherosclerotic heart disease of native coronary artery with other forms of angina pectoris; I25.2 Old myocardial infarction; R07.89 Other chest pain; N40.0 Benign prostatic hyperplasia without lower urinary tract symptoms; H60.92 Unspecified otitis externa, left ear; E83.51 Hypocalcemia; E66.9 Obesity, unspecified; Z68.36 Body mass index [BMI] 36.0-36.9, adult; Z86.69 Personal history of other diseases of the nervous system and sense organs
CPT/HCPCS: 36415; 80053; 85027; 86593

== ENCOUNTER 2019-06-14 10:34 | Inpatient (IN) | payer OTHER ==
[2019-06-14 11:24] VITALS: BMI 36.1
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
[2019-06-14] MEDS ORDERED: MENTHOL/PHENOL 1 EACH UD MM PRN (12:41)
[2019-06-14] MEDS ORDERED: MAGNESIUM CITRATE 300 ML BOTTLE PO PRN (12:41)
[2019-06-14] MEDS ORDERED: MAGNESIUM HYDROX 2400MG/30ML ORAL SUSPENSION 30 ML CUP PO PRN (12:41)
[2019-06-14] MEDS ORDERED: LOPERAMIDE HCL 2 MG CAPSULE PO PRN (12:41)
[2019-06-14] MEDS ORDERED: guaiFENesin 200 MG/10 ML 10 ML UNIT-DOSE CUPS PO PRN (12:41)
[2019-06-14] MEDS ORDERED: P-EPHED 60MG/TRIPROLIDI 2.5MG TABLET PO PRN (12:41)
[2019-06-14] MEDS: CLOPIDOGREL BISULFATE 75 MG TABLET (FP) PO SCH (15:31)
[2019-06-14] MEDS: PANTOPRAZOLE 40 MG TABLET PO SCH (15:31)
[2019-06-14] MEDS: ASPIRIN 81 MG CHEWABLE TABLETS PO SCH (15:31)
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
--- NOTE | 2019-06-14 18:07 | PN ---
[facility] Progress Note Note: Patient admitted to rehab for alcohol dependence. He completed detox on 06/12/19 and relapsed after discharge. Patient states feeling depressed and did not want to speak to staff. No SI/HI reported. Psych consult ordered and Dr. Gonzalez called to have consult done today due to depressed affect. Exam deferred at this time due to mood. Vital Signs Temperature 98.2 F 06/14/19 11:14 Pulse Rate 87 06/14/19 11:14 Respiratory Rate 18 06/14/19 11:14 Blood Pressure 134/74 06/14/19 11:14 O2 Sat by Pulse Oximetry (%)
[2019-06-14] MEDS: ATORVASTATIN CA 40 MG TABLET (FP) PO SCH (22:43)
[2019-06-14] MEDS: THIAMINE HCL 100 MG TABLET (FP) PO SCH (22:43)
[2019-06-15] MEDS: TAMSULOSIN HCL 0.4 MG CAP PO SCH (08:46)
[2019-06-15] MEDS: PRENATAL VITAMINS W/ FOLIC ACID TABLET (FP) PO SCH (10:46)
[2019-06-15] MEDS: ASPIRIN 81 MG CHEWABLE TABLETS PO SCH (10:46)
[2019-06-15] MEDS: CLOPIDOGREL BISULFATE 75 MG TABLET (FP) PO SCH (10:46)
[2019-06-15] MEDS: PANTOPRAZOLE 40 MG TABLET PO SCH (10:46)
[2019-06-15] MEDS: ACETAMINOPHEN 325 MG TABLET (FP) PO PRN ×2 (10:48→16:16)
[2019-06-15] MEDS: hydrOXYzine PAMOATE 25 MG CAPSULE (FP) PO PRN (10:48)
[2019-06-15] MEDS ORDERED: LIDOCAINE 5% TOPICAL PATCH TP PRN (18:28)
--- NOTE | 2019-06-15 18:29 | PN ---
[facility] Progress Note Note: pt c/o left knee pain , not relieved by Tylenol , known h/o Blevins's cyst Vital Signs - 24 hr 06/15/19 06/15/19 06/15/19 00:30 03:30 06:38 Temperature 97.8 F Pulse Rate 71 Respiratory 18 20 18 Rate Blood Pressure 135/95 P : Lidocaine patch to affected area as needed. Pt on AC
[2019-06-15] MEDS: THIAMINE HCL 100 MG TABLET (FP) PO SCH (23:24)
[2019-06-15] MEDS: LIDOCAINE PATCH REMOVAL MC SCH (23:24)
[2019-06-15] MEDS: ATORVASTATIN CA 40 MG TABLET (FP) PO SCH (23:24)
[2019-06-16] MEDS: CLOPIDOGREL BISULFATE 75 MG TABLET (FP) PO SCH (10:55)
[2019-06-16] MEDS: PANTOPRAZOLE 40 MG TABLET PO SCH (10:55)
[2019-06-16] MEDS: PRENATAL VITAMINS W/ FOLIC ACID TABLET (FP) PO SCH (10:55)
[2019-06-16] MEDS: TAMSULOSIN HCL 0.4 MG CAP PO SCH (10:55)
[2019-06-16] MEDS: ASPIRIN 81 MG CHEWABLE TABLETS PO SCH (10:55)
[2019-06-16] MEDS: hydrOXYzine PAMOATE 25 MG CAPSULE (FP) PO PRN (18:09)
[2019-06-16] MEDS: ATORVASTATIN CA 40 MG TABLET (FP) PO SCH (22:04)
[2019-06-16] MEDS: LIDOCAINE PATCH REMOVAL MC SCH (22:04)
[2019-06-16] MEDS: THIAMINE HCL 100 MG TABLET (FP) PO SCH (22:04)
[2019-06-17] MEDS: PRENATAL VITAMINS W/ FOLIC ACID TABLET (FP) PO SCH ×2 (10:27→11:00)
[2019-06-17] MEDS: TAMSULOSIN HCL 0.4 MG CAP PO SCH ×2 (10:27→11:00)
[2019-06-17] MEDS: PANTOPRAZOLE 40 MG TABLET PO SCH ×2 (10:27→11:00)
[2019-06-17] MEDS: CLOPIDOGREL BISULFATE 75 MG TABLET (FP) PO SCH ×2 (10:27→16:11)
[2019-06-17] MEDS: ASPIRIN 81 MG CHEWABLE TABLETS PO SCH ×2 (10:27→11:11)
[2019-06-17] MEDS: hydrOXYzine PAMOATE 25 MG CAPSULE (FP) PO PRN ×2 (10:28→17:43)
[2019-06-17] MEDS: ACETAMINOPHEN 325 MG TABLET (FP) PO PRN (17:43)
[2019-06-17] MEDS: LIDOCAINE PATCH REMOVAL MC SCH (22:56)
[2019-06-17] MEDS: THIAMINE HCL 100 MG TABLET (FP) PO SCH (22:57)
[2019-06-17] MEDS: FAMOTIDINE 20 MG TABLET PO SCH (22:57)
[2019-06-17] MEDS: ATORVASTATIN CA 40 MG TABLET (FP) PO SCH (22:57)
[2019-06-18] MEDS: CLOPIDOGREL BISULFATE 75 MG TABLET (FP) PO SCH (07:13)
[2019-06-18] MEDS: TAMSULOSIN HCL 0.4 MG CAP PO SCH (09:10)
[2019-06-18] MEDS ORDERED: CLOPIDOGREL BISULFATE 75 MG TABLET (FP) PO ONE (09:38)
--- NOTE | 2019-06-18 09:48 | PN ---
S Progress Note (SOAP) Subjective: Patient with pain in Left leg, remaining in bed and refusing Plavix PMHx: Blevins's cyst, Left knee, htn on meds in the past , NSTEMI Jun 2018 on Plavix and ASA , Plavix d/c'd after stress test , re-started May 2019 Objective: General:appears to be in pain Lungs: clear Heart: s1 s2 ABD: +BS Extremities: Color of feet and legs equal, Left leg with slight, non-pitting edema, Warm to touch, left leg slightly warmer than right, Pedal pulses: L<R, popliteal: L<R, Groin: L=R 06/18/19 09:43 Assessment: Blevins's cyst consider DVT, r/t effect of Blevins's cyst, refusal of plavix 06/18/19 09:46 Plan: Encouraged patient to take Plavix, he agreed. One time dose ordered Will initiate consult for evaluation
[2019-06-18] MEDS: ASPIRIN 81 MG CHEWABLE TABLETS PO SCH (10:10)
[2019-06-18] MEDS: PRENATAL VITAMINS W/ FOLIC ACID TABLET (FP) PO SCH (10:11)
[2019-06-18] MEDS: FAMOTIDINE 20 MG TABLET PO SCH ×2 (10:11→23:59)
--- NOTE | 2019-06-18 17:04 | PN ---
Psychiatric Progress Note Vital Signs: Vital Signs Period Temp Pulse Resp BP Sys/Shah Pulse Ox Last 24 Hr 98.2 F 67 18-20 130/74 Date of Session: 06/18/19 Chief Complaint:: " I am feeling much bettter. I read a lot. " HPI: Day 5 of rehabilitation at [address] Patient is addressing his AMA issues (alcohol, cocaine, nicotine) co-morbid with mood disorder. No psychiatric complaints at this time.This is a follow-up visit. Mental status has remained stable since admission. ROS: Patient is alert, fully oriented and cognitively intact. Mr Gonzalez is currently being worked-up for DVT's (see medical notes for details). Current Medications: Active Medications Generic Name Dose Route Start Last Admin Trade Name Freq PRN Reason Stop Dose Admin Acetaminophen 650 mg 06/14/19 12:41 06/17/19 17:43 Tylenol - PO 650 mg Q4H PRN Administration FEVER Al Hydroxide/Mg Hydroxide 30 ml 06/14/19 12:41 Mylanta Oral Suspension - PO Q6H PRN DYSPEPSIA Aspirin 81 mg 06/14/19 14:00 06/18/19 10:10 Asa - PO 81 mg DAILY SOLITARIO Administration Atorvastatin Calcium 40 mg 06/14/19 22:00 06/17/19 22:57 Lipitor - PO Not Given HS SOLITARIO Clopidogrel Bisulfate 75 mg 06/17/19 18:05 06/18/19 07:13 Plavix - PO Not Given DAILY@0700 SOLITARIO Eucalyptus/Menthol/Phenol/Sorbitol 1 each 06/14/19 12:41 Cepastat Lozenge - MM Q4H PRN SORE THROAT Famotidine 20 mg 06/17/19 22:00 06/18/19 10:11 Pepcid - PO 20 mg BID SOLITARIO Administration Guaifenesin 10 ml 06/14/19 12:41 Robitussin - PO Q6H PRN COUGH Hydroxyzine Pamoate 25 mg 06/14/19 12:41 06/17/19 17:43 Vistaril - PO 25 mg Q4H PRN Administration AGITATION Lidocaine 1 patch 06/15/19 18:28 Lidoderm Patch - TP DAILY PRN PAIN Loperamide HCl 4 mg 06/14/19 12:41 Imodium - PO Q6H PRN DIARRHEA Magnesium Citrate 300 ml 06/14/19 12:41 Citroma - PO Q48H PRN CONSTIPATION Magnesium Hydroxide 30 ml 06/14/19 12:41 Milk Of Magnesia - PO DAILY PRN CONSTIPATION Melatonin 5 mg 06/14/19 22:00 Melatonin PO HS PRN INSOMNIA Miscellaneous 1 each 06/15/19 22:00 06/17/19 22:56 Lidoderm Patch Removal MC 1 each DAILY@2200 SOLITARIO Administration Multivit/Folic Acid/Iron 1 tab 06/15/19 10:00 06/18/19 10:11 Vitamins (Sjr) - PO 1 tab DAILY SOLITARIO Administration Pseudoephedrine/Triprolidine 1 combo 06/14/19 12:41 Actifed - PO TID PRN NASAL CONGESTION Tamsulosin HCl 0.4 mg 06/15/19 08:30 06/18/19 09:10 Flomax - PO 0.4 mg 0830 SOLITARIO Administration Thiamine HCl 100 mg 06/14/19 22:00 06/17/19 22:57 Vitamin B1 - PO Not Given HS SOLITARIO Medication(s) Change(s): See orders. Current Side Effect: No Lab tests ordered: No Lab tests reviewed: Yes Provider note:: Chart reviewed. Patient is interviewed for mental status. Mr Gonzalez is noted as calm, pleasant on approach and cooperative. Full range affect and euthymic mood. Patient reports feeling much better. " I got some rest , slept better and I no longer feel like leaving the program." Personal hygiene is adequate. Noted as well groomed and appropriate. No evidence of thought disorder. Decent energy level. Patient is adherent to his plan of care. Medications (antidepressants) discussed. Mr Gonzalez aknowledges making good progress with psychotherapy (supportive) and he continues to express reluctance to take medications. Patient denies suicidal or homcidal ideation, intent or plan. See MSE report for details. Baseline. Total face to face time:: 35 Mental Status Exam - Mental Status Exam Alert and Oriented to: Time, Place, Person Cognitive Function: Good Patient Appearance: Well Groomed Mood: Hopeful, Euthymic Affect: Appropriate, Normal Range Patient Behavior: Appropriate, Cooperative Speech Pattern: Clear, Appropriate Voice Loudness: Normal Thought Process: Intact, Goal Oriented Thought Disorder: Not Present Hallucinations: Denies Suicidal Ideation: Denies Homicidal Ideation: Denies Insight/Judgement: Fair Appetite: Good Gait/Station: Other (slightly limping : pain in left leg) Psychiatric Treatment Plan - Problem List (1) Alcohol dependence Current Visit: Yes Qualifiers: Substance use status: uncomplicated Qualified Code(s): F10.20 - Alcohol dependence, uncomplicated Comment: . (2) Cocaine use disorder Current Visit: Yes Comment: . (3) Nicotine dependence Current Visit: Yes Qualifiers: Nicotine product type: cigarettes Substance use status: uncomplicated Qualified Code(s): F17.210 - Nicotine dependence, cigarettes, uncomplicated Comment: . (4) Substance induced mood disorder Current Visit: Yes Comment: . (5) Depressive disorder Current Visit: Yes Comment: .Suspected. Patient declines to take antidepressant medications (SSRI or other formulations).
--- NOTE | 2019-06-18 17:11 | PN ---
[facility] Progress Note (SOAP) Subjective: 54 yo M PMH of CAD(NSTEMI 06/2018; declined cardiac catheterization), hypertension, polysubstance use disorder (cocaine, alcohol). Pt is complaining of LLE pain. Pt states he has had this pain for 1.5 mo and it has been progressively worsening. he states the pain is all along his knee, throughout the leg. he denies trauma. he states the pain slightly improved with NSAIDs and elevation. Pt has not been very adherent to Plavix. Gen: No acute distress, obese male Resp: CTA b/l ,no wrr Cardio: +S1 S2 , no murmur Extremities: LLE tenderness to palpation, calf tenderness, + Raya Will send to [facility] for further workup. Sign out given to Dr. Chaya Logan ED.
[2019-06-18] MEDS: LIDOCAINE PATCH REMOVAL MC SCH (23:58)
[2019-06-18] MEDS: THIAMINE HCL 100 MG TABLET (FP) PO SCH (23:59)
[2019-06-18] MEDS: ATORVASTATIN CA 40 MG TABLET (FP) PO SCH (23:59)
[2019-06-19] MEDS: ACETAMINOPHEN 325 MG TABLET (FP) PO PRN ×2 (01:10→17:43)
[2019-06-19] MEDS: hydrOXYzine PAMOATE 25 MG CAPSULE (FP) PO PRN ×2 (01:10→21:18)
[2019-06-19] MEDS: CLOPIDOGREL BISULFATE 75 MG TABLET (FP) PO SCH (07:39)
[2019-06-19] MEDS: TAMSULOSIN HCL 0.4 MG CAP PO SCH (08:50)
[2019-06-19] MEDS: ASPIRIN 81 MG CHEWABLE TABLETS PO SCH (10:03)
[2019-06-19] MEDS: PRENATAL VITAMINS W/ FOLIC ACID TABLET (FP) PO SCH (10:03)
[2019-06-19] MEDS: FAMOTIDINE 20 MG TABLET PO SCH ×2 (10:03→21:17)
[2019-06-19] MEDS: THIAMINE HCL 100 MG TABLET (FP) PO SCH (21:17)
[2019-06-19] MEDS: MELATONIN 5 MG TABLETS PO PRN (21:17)
[2019-06-19] MEDS: ATORVASTATIN CA 40 MG TABLET (FP) PO SCH (21:17)
[2019-06-19] MEDS: LIDOCAINE PATCH REMOVAL MC SCH (21:18)
[2019-06-20] MEDS: CLOPIDOGREL BISULFATE 75 MG TABLET (FP) PO SCH (07:05)
[2019-06-20] MEDS: TAMSULOSIN HCL 0.4 MG CAP PO SCH (10:42)
[2019-06-20] MEDS: PRENATAL VITAMINS W/ FOLIC ACID TABLET (FP) PO SCH (10:42)
[2019-06-20] MEDS: FAMOTIDINE 20 MG TABLET PO SCH ×2 (10:42→21:16)
[2019-06-20] MEDS: ASPIRIN 81 MG CHEWABLE TABLETS PO SCH (10:42)
[2019-06-20] MEDS: ACETAMINOPHEN 325 MG TABLET (FP) PO PRN ×2 (12:48→21:17)
--- NOTE | 2019-06-20 16:29 | PN ---
S Progress Note (SOAP) Subjective: Patient c/o diarrhea and feeling like he has a fever. Body aches, no nasal congestion. One incident of diarrhea and he was given immodium. Patient has not eaten or drank much during the day. Recently seen in [facility] ER to R/O DVT. States his leg feels better since he started taking the plavix as prescribed. Objective: General: no apparent distress, does not look ill. HEENTM: nares patent, no sinus tenderness, throat clear Lungs: clear Heart: s1 s2 Abd: obese, +BS Extremities: color, temperature, pulses equal Vital Signs (72 hours) 06/18/19 06/18/19 06/18/19 00:30 03:30 06:52 Temperature 98.2 F Pulse Rate 67 Respiratory 18 20 18 Rate Blood Pressure 130/74 06/18/19 06/19/19 06/19/19 17:33 01:00 03:35 Temperature 98.8 F 97.5 F L Pulse Rate 80 65 Respiratory 20 18 20 Rate Blood Pressure 145/69 138/77 06/20/19 06/20/19 06/20/19 03:40 06:16 15:39 Temperature 98.6 F 99 F Pulse Rate 86 79 Respiratory 18 20 18 Rate Blood Pressure 126/67 126/74 06/20/19 16:26 06/20/19 16:28 Assessment: low grade temperature, 06/20/19 16:29 Plan: Advised patient to increase fluid intake, tylenol as directed, continue to monitor.
[2019-06-20] MEDS: LIDOCAINE PATCH REMOVAL MC SCH (21:17)
[2019-06-20] MEDS: THIAMINE HCL 100 MG TABLET (FP) PO SCH (21:17)
[2019-06-20] MEDS: ATORVASTATIN CA 40 MG TABLET (FP) PO SCH (21:17)
[2019-06-20] MEDS: hydrOXYzine PAMOATE 25 MG CAPSULE (FP) PO PRN (21:18)
[2019-06-21] MEDS: CLOPIDOGREL BISULFATE 75 MG TABLET (FP) PO SCH (06:20)
[2019-06-21] MEDS: PRENATAL VITAMINS W/ FOLIC ACID TABLET (FP) PO SCH (10:16)
[2019-06-21] MEDS: FAMOTIDINE 20 MG TABLET PO SCH ×2 (10:16→21:26)
[2019-06-21] MEDS: ASPIRIN 81 MG CHEWABLE TABLETS PO SCH (10:16)
[2019-06-21] MEDS: TAMSULOSIN HCL 0.4 MG CAP PO SCH (10:16)
[2019-06-21] MEDS: LIDOCAINE PATCH REMOVAL MC SCH (21:26)
[2019-06-21] MEDS: MELATONIN 5 MG TABLETS PO PRN (21:26)
[2019-06-21] MEDS: ATORVASTATIN CA 40 MG TABLET (FP) PO SCH (21:26)
[2019-06-21] MEDS: THIAMINE HCL 100 MG TABLET (FP) PO SCH (21:26)
[2019-06-21] MEDS: ACETAMINOPHEN 325 MG TABLET (FP) PO PRN (21:27)
[2019-06-21] MEDS: hydrOXYzine PAMOATE 25 MG CAPSULE (FP) PO PRN (21:27)
[2019-06-22] MEDS: CLOPIDOGREL BISULFATE 75 MG TABLET (FP) PO SCH (06:58)
[2019-06-22] MEDS: TAMSULOSIN HCL 0.4 MG CAP PO SCH (10:04)
[2019-06-22] MEDS: ASPIRIN 81 MG CHEWABLE TABLETS PO SCH (10:05)
[2019-06-22] MEDS: FAMOTIDINE 20 MG TABLET PO SCH ×2 (10:05→21:18)
[2019-06-22] MEDS: PRENATAL VITAMINS W/ FOLIC ACID TABLET (FP) PO SCH (10:05)
[2019-06-22] MEDS: MAG HYDROX/AL HYDROX/SIMETH 30 ML UNIT-DOSE CUP PO PRN (19:06)
[2019-06-22] MEDS: MELATONIN 5 MG TABLETS PO PRN (21:18)
[2019-06-22] MEDS: ATORVASTATIN CA 40 MG TABLET (FP) PO SCH (21:18)
[2019-06-22] MEDS: THIAMINE HCL 100 MG TABLET (FP) PO SCH (21:18)
[2019-06-22] MEDS: LIDOCAINE PATCH REMOVAL MC SCH (21:18)
[2019-06-22] MEDS: hydrOXYzine PAMOATE 25 MG CAPSULE (FP) PO PRN (21:19)
[2019-06-23] MEDS: CLOPIDOGREL BISULFATE 75 MG TABLET (FP) PO SCH (06:13)
[2019-06-23] MEDS: ASPIRIN 81 MG CHEWABLE TABLETS PO SCH (10:02)
[2019-06-23] MEDS: PRENATAL VITAMINS W/ FOLIC ACID TABLET (FP) PO SCH (10:02)
[2019-06-23] MEDS: FAMOTIDINE 20 MG TABLET PO SCH ×2 (10:03→21:24)
[2019-06-23] MEDS: TAMSULOSIN HCL 0.4 MG CAP PO SCH (10:03)
[2019-06-23] MEDS: ACETAMINOPHEN 325 MG TABLET (FP) PO PRN (10:03)
[2019-06-23] MEDS: THIAMINE HCL 100 MG TABLET (FP) PO SCH (21:24)
[2019-06-23] MEDS: LIDOCAINE PATCH REMOVAL MC SCH (21:24)
[2019-06-23] MEDS: ATORVASTATIN CA 40 MG TABLET (FP) PO SCH (21:24)
[2019-06-23] MEDS: MELATONIN 5 MG TABLETS PO PRN (21:24)
[2019-06-24] MEDS: CLOPIDOGREL BISULFATE 75 MG TABLET (FP) PO SCH (07:44)
[2019-06-24] MEDS: TAMSULOSIN HCL 0.4 MG CAP PO SCH (08:50)
[2019-06-24] MEDS: FAMOTIDINE 20 MG TABLET PO SCH ×2 (10:06→21:53)
[2019-06-24] MEDS: ASPIRIN 81 MG CHEWABLE TABLETS PO SCH (10:06)
[2019-06-24] MEDS: PRENATAL VITAMINS W/ FOLIC ACID TABLET (FP) PO SCH (10:06)
[2019-06-24] MEDS: ACETAMINOPHEN 325 MG TABLET (FP) PO PRN (19:05)
[2019-06-24] MEDS: METHYL SALICYLATE/MENTHOL OINT 30 GM TUBE TP SCH (21:52)
[2019-06-24] MEDS: THIAMINE HCL 100 MG TABLET (FP) PO SCH (21:53)
[2019-06-24] MEDS: ATORVASTATIN CA 40 MG TABLET (FP) PO SCH (21:53)
[2019-06-24] MEDS: LIDOCAINE PATCH REMOVAL MC SCH (21:53)
[2019-06-24] MEDS: hydrOXYzine PAMOATE 25 MG CAPSULE (FP) PO PRN (23:13)
[2019-06-25] MEDS: CLOPIDOGREL BISULFATE 75 MG TABLET (FP) PO SCH (06:20)
[2019-06-25] MEDS: TAMSULOSIN HCL 0.4 MG CAP PO SCH (10:45)
[2019-06-25] MEDS: FAMOTIDINE 20 MG TABLET PO SCH ×2 (10:45→21:17)
[2019-06-25] MEDS: ASPIRIN 81 MG CHEWABLE TABLETS PO SCH (10:45)
[2019-06-25] MEDS: PRENATAL VITAMINS W/ FOLIC ACID TABLET (FP) PO SCH (10:45)
[2019-06-25] MEDS: THIAMINE HCL 100 MG TABLET (FP) PO SCH (21:16)
[2019-06-25] MEDS: ATORVASTATIN CA 40 MG TABLET (FP) PO SCH (21:16)
[2019-06-25] MEDS: MELATONIN 5 MG TABLETS PO PRN (21:17)
[2019-06-25] MEDS: METHYL SALICYLATE/MENTHOL OINT 30 GM TUBE TP SCH (21:18)
[2019-06-25] MEDS: LIDOCAINE PATCH REMOVAL MC SCH (21:18)
[2019-06-26] MEDS: CLOPIDOGREL BISULFATE 75 MG TABLET (FP) PO SCH (07:52)
[2019-06-26] MEDS: TAMSULOSIN HCL 0.4 MG CAP PO SCH (09:34)
[2019-06-26] MEDS: PRENATAL VITAMINS W/ FOLIC ACID TABLET (FP) PO SCH (09:34)
[2019-06-26] MEDS: FAMOTIDINE 20 MG TABLET PO SCH ×2 (09:34→21:18)
[2019-06-26] MEDS: ASPIRIN 81 MG CHEWABLE TABLETS PO SCH (09:34)
[2019-06-26] MEDS: MELATONIN 5 MG TABLETS PO PRN (21:18)
[2019-06-26] MEDS: ATORVASTATIN CA 40 MG TABLET (FP) PO SCH (21:18)
[2019-06-26] MEDS: THIAMINE HCL 100 MG TABLET (FP) PO SCH (21:18)
[2019-06-26] MEDS: LIDOCAINE PATCH REMOVAL MC SCH (21:19)
[2019-06-26] MEDS: METHYL SALICYLATE/MENTHOL OINT 30 GM TUBE TP SCH (21:19)
[2019-06-27] MEDS: CLOPIDOGREL BISULFATE 75 MG TABLET (FP) PO SCH (06:32)
[2019-06-27] MEDS: PRENATAL VITAMINS W/ FOLIC ACID TABLET (FP) PO SCH (09:59)
[2019-06-27] MEDS: FAMOTIDINE 20 MG TABLET PO SCH ×2 (09:59→21:27)
[2019-06-27] MEDS: ASPIRIN 81 MG CHEWABLE TABLETS PO SCH (09:59)
[2019-06-27] MEDS: ACETAMINOPHEN 325 MG TABLET (FP) PO PRN (10:00)
[2019-06-27] MEDS: TAMSULOSIN HCL 0.4 MG CAP PO SCH (10:00)
[2019-06-27] MEDS: hydrOXYzine PAMOATE 25 MG CAPSULE (FP) PO PRN (12:58)
[2019-06-27] MEDS: THIAMINE HCL 100 MG TABLET (FP) PO SCH (21:27)
[2019-06-27] MEDS: ATORVASTATIN CA 40 MG TABLET (FP) PO SCH (21:27)
[2019-06-27] MEDS: MELATONIN 5 MG TABLETS PO PRN (21:27)
[2019-06-27] MEDS: LIDOCAINE PATCH REMOVAL MC SCH (21:28)
[2019-06-27] MEDS: METHYL SALICYLATE/MENTHOL OINT 30 GM TUBE TP SCH (21:28)
[2019-06-28] MEDS: CLOPIDOGREL BISULFATE 75 MG TABLET (FP) PO SCH (07:16)
[2019-06-28] MEDS: MAG HYDROX/AL HYDROX/SIMETH 30 ML UNIT-DOSE CUP PO PRN (09:03)
[2019-06-28] MEDS: FAMOTIDINE 20 MG TABLET PO SCH ×2 (09:03→21:20)
[2019-06-28] MEDS: TAMSULOSIN HCL 0.4 MG CAP PO SCH (09:03)
[2019-06-28] MEDS: PRENATAL VITAMINS W/ FOLIC ACID TABLET (FP) PO SCH (09:03)
[2019-06-28] MEDS: ASPIRIN 81 MG CHEWABLE TABLETS PO SCH (09:03)
[2019-06-28] MEDS: THIAMINE HCL 100 MG TABLET (FP) PO SCH (21:19)
[2019-06-28] MEDS: MELATONIN 5 MG TABLETS PO PRN (21:19)
[2019-06-28] MEDS: ATORVASTATIN CA 40 MG TABLET (FP) PO SCH (21:19)
[2019-06-28] MEDS: hydrOXYzine PAMOATE 25 MG CAPSULE (FP) PO PRN (21:20)
[2019-06-28] MEDS: METHYL SALICYLATE/MENTHOL OINT 30 GM TUBE TP SCH (21:20)
[2019-06-28] MEDS: LIDOCAINE PATCH REMOVAL MC SCH (21:20)
[2019-06-29] MEDS: CLOPIDOGREL BISULFATE 75 MG TABLET (FP) PO SCH (06:42)
[2019-06-29] MEDS: TAMSULOSIN HCL 0.4 MG CAP PO SCH (08:49)
[2019-06-29] MEDS: PRENATAL VITAMINS W/ FOLIC ACID TABLET (FP) PO SCH (10:48)
[2019-06-29] MEDS: ASPIRIN 81 MG CHEWABLE TABLETS PO SCH (10:48)
[2019-06-29] MEDS: FAMOTIDINE 20 MG TABLET PO SCH ×2 (10:48→21:30)
[2019-06-29] MEDS ORDERED: PT OWN MED DRAWER 7, Y5N ONE (19:50)
[2019-06-29] MEDS: ATORVASTATIN CA 40 MG TABLET (FP) PO SCH (21:30)
[2019-06-29] MEDS: LIDOCAINE PATCH REMOVAL MC SCH (21:30)
[2019-06-29] MEDS: THIAMINE HCL 100 MG TABLET (FP) PO SCH (21:30)
[2019-06-29] MEDS: METHYL SALICYLATE/MENTHOL OINT 30 GM TUBE TP SCH (21:30)
[2019-06-29] MEDS: MELATONIN 5 MG TABLETS PO PRN (23:14)
[2019-06-29] MEDS: MAG HYDROX/AL HYDROX/SIMETH 30 ML UNIT-DOSE CUP PO PRN (23:15)
[2019-06-30] MEDS: CLOPIDOGREL BISULFATE 75 MG TABLET (FP) PO SCH (07:01)
[2019-06-30] MEDS: TAMSULOSIN HCL 0.4 MG CAP PO SCH (08:48)
[2019-06-30] MEDS: ASPIRIN 81 MG CHEWABLE TABLETS PO SCH (09:48)
[2019-06-30] MEDS: FAMOTIDINE 20 MG TABLET PO SCH ×2 (09:48→21:36)
[2019-06-30] MEDS: PRENATAL VITAMINS W/ FOLIC ACID TABLET (FP) PO SCH (09:49)
[2019-06-30] MEDS: MAG HYDROX/AL HYDROX/SIMETH 30 ML UNIT-DOSE CUP PO PRN (19:01)
[2019-06-30] MEDS: SIMETHICONE 80 MG TAB.CHEW (FP) PO PRN (20:33)
[2019-06-30] MEDS: LIDOCAINE PATCH REMOVAL MC SCH (21:36)
[2019-06-30] MEDS: METHYL SALICYLATE/MENTHOL OINT 30 GM TUBE TP SCH (21:36)
[2019-06-30] MEDS: ATORVASTATIN CA 40 MG TABLET (FP) PO SCH (21:37)
[2019-06-30] MEDS: THIAMINE HCL 100 MG TABLET (FP) PO SCH (21:37)
[2019-06-30] MEDS: MELATONIN 5 MG TABLETS PO PRN (21:38)
[2019-07-01] MEDS: CLOPIDOGREL BISULFATE 75 MG TABLET (FP) PO SCH (06:37)
[2019-07-01] MEDS: ACETAMINOPHEN 325 MG TABLET (FP) PO PRN (06:37)
[2019-07-01 07:01] VITALS: BP 125/61; PULSE 66; TEMP 97.8
[2019-07-01] MEDS ORDERED: PT OWN MED DRAWER 7, Y5N ONE (08:32)
[2019-07-01] MEDS: MAG HYDROX/AL HYDROX/SIMETH 30 ML UNIT-DOSE CUP PO PRN (08:32)
[2019-07-01] MEDS: PRENATAL VITAMINS W/ FOLIC ACID TABLET (FP) PO SCH (10:21)
[2019-07-01] MEDS: ASPIRIN 81 MG CHEWABLE TABLETS PO SCH (10:21)
[2019-07-01] MEDS: TAMSULOSIN HCL 0.4 MG CAP PO SCH (10:21)
[2019-07-01] MEDS: FAMOTIDINE 20 MG TABLET PO SCH ×2 (10:22→21:24)
[2019-07-01] MEDS: SIMETHICONE 80 MG TAB.CHEW (FP) PO PRN ×2 (12:04→21:33)
[2019-07-01] MEDS: THIAMINE HCL 100 MG TABLET (FP) PO SCH (21:24)
[2019-07-01] MEDS: MELATONIN 5 MG TABLETS PO PRN (21:24)
[2019-07-01] MEDS: ATORVASTATIN CA 40 MG TABLET (FP) PO SCH (21:24)
[2019-07-01] MEDS: METHYL SALICYLATE/MENTHOL OINT 30 GM TUBE TP SCH (21:25)
[2019-07-01] MEDS: LIDOCAINE PATCH REMOVAL MC SCH (21:25)
[2019-07-02] MEDS: CLOPIDOGREL BISULFATE 75 MG TABLET (FP) PO SCH (07:27)
[2019-07-02] MEDS: PRENATAL VITAMINS W/ FOLIC ACID TABLET (FP) PO SCH (10:04)
[2019-07-02] MEDS: ASPIRIN 81 MG CHEWABLE TABLETS PO SCH (10:04)
[2019-07-02] MEDS: FAMOTIDINE 20 MG TABLET PO SCH ×2 (10:04→21:18)
[2019-07-02] MEDS: TAMSULOSIN HCL 0.4 MG CAP PO SCH (10:04)
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
[2019-07-02] MEDS: hydrOXYzine PAMOATE 25 MG CAPSULE (FP) PO PRN (16:34)
[2019-07-02] MEDS: ATORVASTATIN CA 40 MG TABLET (FP) PO SCH (21:18)
[2019-07-02] MEDS: MELATONIN 5 MG TABLETS PO PRN (21:18)
[2019-07-02] MEDS: THIAMINE HCL 100 MG TABLET (FP) PO SCH (21:18)
[2019-07-02] MEDS: LIDOCAINE PATCH REMOVAL MC SCH (21:19)
[2019-07-02] MEDS: METHYL SALICYLATE/MENTHOL OINT 30 GM TUBE TP SCH (21:19)
[2019-07-03] MEDS: CLOPIDOGREL BISULFATE 75 MG TABLET (FP) PO SCH (07:05)
[2019-07-03] MEDS: ASPIRIN 81 MG CHEWABLE TABLETS PO SCH (09:03)
[2019-07-03] MEDS: PRENATAL VITAMINS W/ FOLIC ACID TABLET (FP) PO SCH (09:03)
[2019-07-03] MEDS: FAMOTIDINE 20 MG TABLET PO SCH (09:03)
[2019-07-03] MEDS: TAMSULOSIN HCL 0.4 MG CAP PO SCH (09:03)
== END 2019-07-03 10:51 | disposition home or self-care (01) | DRG 772 ==
LOC: YASAS 10:34 → Y3W 12:57
PROVIDERS: ADMIT Allergy & Immunology; ATTEND Allergy & Immunology
PROC: HZ42ZZZ Group Counseling for Substance Abuse Treatment, Cognitive-Behavioral (ICD-10-PCS; principal; 2019-06-14)
DX: F10.20 Alcohol dependence, uncomplicated (principal); F14.20 Cocaine dependence, uncomplicated; F12.20 Cannabis dependence, uncomplicated; F17.210 Nicotine dependence, cigarettes, uncomplicated; F19.24 Other psychoactive substance dependence with psychoactive substance-induced mood disorder; F32.9 Major depressive disorder, single episode, unspecified; F90.9 Attention-deficit hyperactivity disorder, unspecified type; I25.10 Atherosclerotic heart disease of native coronary artery without angina pectoris; I10 Essential (primary) hypertension; I25.2 Old myocardial infarction; Z79.82 Long term (current) use of aspirin; Z79.02 Long term (current) use of antithrombotics/antiplatelets; K21.9 Gastro-esophageal reflux disease without esophagitis; N40.0 Benign prostatic hyperplasia without lower urinary tract symptoms; M79.605 Pain in left leg; M71.22 Synovial cyst of popliteal space [Baker], left knee; E66.9 Obesity, unspecified; Z68.36 Body mass index [BMI] 36.0-36.9, adult; Z87.828 Personal history of other (healed) physical injury and trauma; Z91.19 Patient's noncompliance with other medical treatment and regimen

== ENCOUNTER 2019-06-18 18:47 | Emergency (ER) | payer OTHER ==
[2019-06-18 19:10] VITALS: BP 132/66; PULSE 77; TEMP 98.1; BMI 36.1
--- NOTE | 2019-06-18 19:21 | PDOC ---
Rapid Medical Evaluation Time Seen by Provider: 06/18/19 19:07 Medical Evaluation: Allergies Allergy/AdvReac Type Severity Reaction Status Date / Time No Known Allergies Allergy Verified 06/18/19 19:10 Vital Signs Temp Pulse Resp BP Pulse Ox 98.1 F 77 18 132/66 97 06/18/19 19:06 06/18/19 19:06 06/18/19 19:06 06/18/19 19:06 06/18/19 19:06 06/18/19 19:10 Pt c/o: left leg pain x 2weeks worsening over the past 3 days with some swelling , no discoloration Pt on brief exam: - homans, gen leg tenderness, 2+ pulses pt ordered for: duplex Pt to proceed to the ED Discharge Disposition - Diagnosis Leg pain, left - Discharge Dispostion Disposition: HOME - Referrals - Patient Instructions Printed Discharge Instructions: DI for Leg Pain Additional Instructions: There was no DVT in your left leg Please follow up with your primary physician - Post Discharge Activity
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
== END 2019-06-19 00:22 | disposition home or self-care (01) ==
LOC: JER 18:47
DX: M79.605 Pain in left leg (principal); I25.10 Atherosclerotic heart disease of native coronary artery without angina pectoris; I10 Essential (primary) hypertension; I25.2 Old myocardial infarction; E78.00 Pure hypercholesterolemia, unspecified; Z86.69 Personal history of other diseases of the nervous system and sense organs; F10.10 Alcohol abuse, uncomplicated; F14.10 Cocaine abuse, uncomplicated; F17.210 Nicotine dependence, cigarettes, uncomplicated; Z79.02 Long term (current) use of antithrombotics/antiplatelets; Z79.82 Long term (current) use of aspirin; Z90.49 Acquired absence of other specified parts of digestive tract
CPT/HCPCS: 93971-TC; 99281-25

== ENCOUNTER 2019-08-07 15:42 | Inpatient (IN) | payer OTHER ==
--- NOTE | 2019-08-07 16:39 | BHS.RME ---
Substance Use & Tx History - Substance Use History Alcohol Substance amount: 3-4 pints Frequency of use: Daily Substance route: Oral Date of Last Use: 08/06/19 (4 a.m.) Cocaine (Powder) Substance amount: $100 Frequency of use: Less than 3 times per week Substance route: Inhalation (ex: sniffing or snorting) - Last Treatment Date of last treatment: 07/28/2019 Treatment type: Substance Use Disorder (AMA) Where was last treatment: Detox Physical/Psych/Mental Status - Behavior Eye Contact: Normal - Cooperativeness Cooperativeness: Cooperative - Thinking Thought Processes: Goal Directed - Physical Health Problems Is patient presently having any pain?: Yes ((L) leg pain r/t cellulitis) Does patient presently have any injuries (include location): No Does patient currently have a fever: No (Denies COVID/Flu Sx or exposure) Is patient : No CIWA Nausea/Vomitin-No Nausea/No Vomiting Muscle Tremors: 1-None Visible, but [place] Anxiety: 1-Mildly Anxious Agitation: 0-Normal Activity Paroxysmal Sweats: No Perspiration Orientation: 1-Uncertain about Date Tacttile Disturbances: 0-None Auditory Disturbances: 0-None Visual Disturbances: 0-None Headache: 2-Mild CIWA-Ar Total Score: 5
[2019-08-07 17:17] VITALS: BMI 36.1
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
[2019-08-07] MEDS ORDERED: BISMUTH SUBSALICYLATE 524 MG/30 ML UD PO PRN (18:10)
[2019-08-07] MEDS ORDERED: MENTHOL/PHENOL 1 EACH UD MM PRN (18:10)
[2019-08-07] MEDS ORDERED: ACETAMINOPHEN 325 MG TABLET (FP) PO PRN ×2 (18:10)
[2019-08-07] MEDS ORDERED: MAG HYDROX/AL HYDROX/SIMETH 30 ML UNIT-DOSE CUP PO PRN (18:10)
[2019-08-07] MEDS ORDERED: MAGNESIUM CITRATE 300 ML BOTTLE PO PRN (18:10)
[2019-08-07] MEDS ORDERED: MAGNESIUM HYDROX 2400MG/30ML ORAL SUSPENSION 30 ML CUP PO PRN (18:10)
[2019-08-07] MEDS ORDERED: NICOTINE POLACRILEX 2 MG GUM BUC PRN (18:10)
[2019-08-07] MEDS ORDERED: METHOCARBAMOL 500 MG TABLET PO PRN (18:10)
[2019-08-07] MEDS ORDERED: chlordiazePOXIDE HCL 10 MG CAPSULE PO PRN (18:10)
[2019-08-07] MEDS ORDERED: COLLOIDAL OATMEAL 1 BAR EACH TP PRN (18:15)
[2019-08-07] MEDS ORDERED: ONDANSETRON *ODT* 4 MG TABLET SL ONE (19:00)
[2019-08-07] MEDS ORDERED: chlordiazePOXIDE HCL 25 MG CAPSULE PO ONE (19:00)
[2019-08-07] MEDS: IBUPROFEN 600 MG TABLET (FP) PO PRN (19:02)
[2019-08-07] MEDS: CEPHALEXIN MONOHYDRATE 500 MG CAPSULE (UD) PO SCH (19:10)
[2019-08-07] MEDS ORDERED: chlordiazePOXIDE HCL 10 MG CAPSULE PO ONE (19:15)
[2019-08-07] MEDS ORDERED: MELATONIN 5 MG TABLETS PO SCH (22:00)
[2019-08-07] MEDS ORDERED: P-EPHED 60MG/TRIPROLIDI 2.5MG TABLET PO PRN (22:26)
[2019-08-07] MEDS: THIAMINE HCL 100 MG TABLET (FP) PO SCH (23:38)
[2019-08-07] MEDS: ATORVASTATIN CA 40 MG TABLET (FP) PO SCH (23:44)
[2019-08-07] MEDS: chlordiazePOXIDE HCL 25 MG CAPSULE PO SCH (23:44)
[2019-08-08] MEDS: CEPHALEXIN MONOHYDRATE 500 MG CAPSULE (UD) PO SCH ×4 (00:09→19:03)
[2019-08-08] MEDS: chlordiazePOXIDE HCL 25 MG CAPSULE PO SCH ×3 (06:57→21:37)
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
--- NOTE | 2019-08-08 09:34 | PN ---
S CIWA - CIWA Score Nausea/Vomitin-No Nausea/No Vomiting Muscle Tremors: 3 Anxiety: 2 Agitation: 2 Paroxysmal Sweats: 3 Orientation: 0-Oriented Tacttile Disturbances: 0-None Auditory Disturbances: 0-None Visual Disturbances: 0-None Headache: 0-None Present CIWA-Ar Total Score: 10 BHS Progress Note (SOAP) Subjective: sweats agitation right leg swelling is getting better. Objective: 08/08/19 09:32 Vital Signs Temperature 98.1 F 08/08/19 09:05 Pulse Rate 81 08/08/19 09:05 Respiratory Rate 18 08/08/19 09:05 Blood Pressure 146/67 08/08/19 09:05 O2 Sat by Pulse Oximetry (%) 97 08/08/19 05:36 labs pending aaox3 ambulating no acute distress Assessment: 08/08/19 09:33 mild withdrawals Plan: continue detox increase fluids continue with ABX as ordered encouraged to keep leg elevated.
[2019-08-08 09:49] LABS: ALBUMIN 3.1 g/dl (3.4-5.0); BILIRUBIN,TOTAL 0.3 mg/dL (0.2-1); BLOOD UREA NITROGEN 12.7 mg/dL (7-18); CALCIUM 8.4 mg/dL (8.5-10.1); POTASSIUM 3.9 mmol/L (3.5-5.1); TOT PROT 6.1 g/dl (6.4-8.2)
[2019-08-08] MEDS: TAMSULOSIN HCL 0.4 MG CAP PO SCH (10:20)
[2019-08-08] MEDS: PRENATAL VITAMINS W/ FOLIC ACID TABLET (FP) PO SCH (10:20)
[2019-08-08] MEDS: ASPIRIN 81 MG CHEWABLE TABLETS PO SCH (10:20)
[2019-08-08] MEDS: PANTOPRAZOLE 40 MG TABLET PO SCH (10:20)
[2019-08-08] MEDS: amLODIPine BESYLATE 5 MG TABLET (FP) PO SCH (10:20)
[2019-08-08] MEDS: NICOTINE 14 MG/24 HOURS TOPICAL PATCH TD SCH (10:21)
[2019-08-08] MEDS: IBUPROFEN 600 MG TABLET (FP) PO PRN (16:41)
[2019-08-08] MEDS: ATORVASTATIN CA 40 MG TABLET (FP) PO SCH (21:37)
[2019-08-08] MEDS: THIAMINE HCL 100 MG TABLET (FP) PO SCH (21:37)
[2019-08-08] MEDS ORDERED: SUVOREXANT 10 MG TABLET PO PRN (22:00)
[2019-08-09] MEDS: CEPHALEXIN MONOHYDRATE 500 MG CAPSULE (UD) PO SCH ×2 (01:00→06:38)
[2019-08-09] MEDS ORDERED: chlordiazePOXIDE 5 MG CAPSULE PO SCH (05:00)
[2019-08-09 09:23] VITALS: BP 110/62; PULSE 69; TEMP 98.2
--- NOTE | 2019-08-09 10:03 | PN ---
S CIWA - CIWA Score Nausea/Vomitin-No Nausea/No Vomiting Muscle Tremors: 2 Anxiety: 1-Mildly Anxious Agitation: 1-Slight > Activity Paroxysmal Sweats: 2 Orientation: 0-Oriented Tacttile Disturbances: 0-None Auditory Disturbances: 0-None Visual Disturbances: 0-None Headache: 0-None Present CIWA-Ar Total Score: 6 BHS Progress Note (SOAP) Subjective: feeling agitation foot swelling getting better Objective: 08/09/19 10:01 Vital Signs Temperature 98.2 F 08/09/19 09:10 Pulse Rate 69 08/09/19 09:10 Respiratory Rate 19 08/09/19 09:10 Blood Pressure 110/62 08/09/19 09:10 O2 Sat by Pulse Oximetry (%) 95 08/09/19 05:48 Laboratory Tests 08/08/19 07:15 Sodium 141 Potassium 3.9 Chloride 108 H Carbon Dioxide 27 Anion Gap 6 L BUN 12.7 Creatinine 1.0 Est GFR (CKD-EPI)AfAm 99.15 Est GFR (CKD-EPI)NonAf 85.55 Random Glucose 110 H Calcium 8.4 L Total Bilirubin 0.3 AST 12 L ALT 18 Alkaline Phosphatase 70 Total Protein 6.1 L Albumin 3.1 L aaox3 ambulating no acute distress Assessment: 08/09/19 10:04 mild withdrawal sx Plan: continue detox increase fluids
[2019-08-09] MEDS: ASPIRIN 81 MG CHEWABLE TABLETS PO SCH (10:08)
[2019-08-09] MEDS: PRENATAL VITAMINS W/ FOLIC ACID TABLET (FP) PO SCH (10:08)
[2019-08-09] MEDS: amLODIPine BESYLATE 5 MG TABLET (FP) PO SCH (10:08)
[2019-08-09] MEDS: NICOTINE 14 MG/24 HOURS TOPICAL PATCH TD SCH (10:08)
[2019-08-09] MEDS: TAMSULOSIN HCL 0.4 MG CAP PO SCH (10:08)
[2019-08-09] MEDS: PANTOPRAZOLE 40 MG TABLET PO SCH (10:09)
--- NOTE | 2019-08-09 11:09 | PN ---
S Progress Note (SOAP) Subjective: I am feeling better, no withdrawals and want to go home. Objective: 08/09/19 11:08 Vital Signs Temperature 98.2 F 08/09/19 09:10 Pulse Rate 69 08/09/19 09:10 Respiratory Rate 19 08/09/19 09:10 Blood Pressure 110/62 08/09/19 09:10 O2 Sat by Pulse Oximetry (%) 95 08/09/19 05:48 aaox3 ambulating no acute distress Assessment: 08/09/19 11:08 no s/s of withdrawals noted foot cellulites has improved and swelling decreased. Plan: d/c today to home continue with ABX as ordered.
--- NOTE | 2019-08-09 11:14 | DS ---
[facility] Detox Discharge Summary Admission Date: 08/07/19 Discharge Date: 08/09/19 - History Present History: Alcohol Dependence, Cannabis Dependence, Cocaine Dependence - Physical Exam Results Vital Signs: Vital Signs Temperature 98.2 F 08/09/19 09:10 Pulse Rate 69 08/09/19 09:10 Respiratory Rate 19 08/09/19 09:10 Blood Pressure 110/62 08/09/19 09:10 O2 Sat by Pulse Oximetry (%) 95 08/09/19 05:48 Pertinent Admission Physical Exam Findings: Vital Signs Temperature 98.2 F 08/09/19 09:10 Pulse Rate 69 08/09/19 09:10 Respiratory Rate 19 08/09/19 09:10 Blood Pressure 110/62 08/09/19 09:10 O2 Sat by Pulse Oximetry (%) 95 08/09/19 05:48 Laboratory Tests 08/08/19 07:15 Sodium 141 Potassium 3.9 Chloride 108 H Carbon Dioxide 27 Anion Gap 6 L BUN 12.7 Creatinine 1.0 Est GFR (CKD-EPI)AfAm 99.15 Est GFR (CKD-EPI)NonAf 85.55 Random Glucose 110 H Calcium 8.4 L Total Bilirubin 0.3 AST 12 L ALT 18 Alkaline Phosphatase 70 Total Protein 6.1 L Albumin 3.1 L aaox3 ambulating no acute distress leg swelling decreased - Treatment Hospital Course: Detox Protocol Followed, Detoxed Safely, Responded well, Discharged Condition Good, Rehab Referral Accepted - Medication Discharge Medications: Ambulatory Orders Atorvastatin Ca [Lipitor] 40 mg PO HS 30 Days #30 tablet 07/02/19 Pantoprazole Sodium [Protonix -] 40 mg PO DAILY 30 Days #30 tablet.ec 07/02/19 Tamsulosin HCl [Flomax -] 0.4 mg PO 30 30 Days #30 cap.er.24h 07/02/19 D-Amphetamine Sulfate [Dexedrine Spansule (Nf) -] 20 mg PO BID 07/23/19 Amlodipine Besylate 5 mg PO DAILY 07/24/19 Buspirone HCl [Buspar -] 10 mg PO DAILY 07/24/19 Folic Acid - 1 mg PO DAILY tablet 07/25/19 Multivitamins [Multivit ([facility] Form[facility])] 1 tab PO DAILY tab 07/25/19 Thiamine HCl [Vitamin B1 -] 100 mg PO DAILY tablet 07/25/19 Aspirin [ASA -] 2 tab PO DAILY 08/07/19 Cephalexin Monohydrate [Keflex -] 500 mg PO Q6H #40 capsule 08/07/19 - Diagnosis (1) Alcohol dependence with uncomplicated withdrawal Current Visit: Yes Status: Chronic (2) Cellulitis Current Visit: Yes Status: Acute Qualifiers: Site of cellulitis: extremity Site of cellulitis of extremity: lower extremity Laterality: left Qualified Code(s): L03.116 - Cellulitis of left lower limb (3) Cocaine dependence, uncomplicated Current Visit: Yes Status: Chronic (4) Leg edema, left Current Visit: Yes Status: Acute (5) Substance induced mood disorder Current Visit: Yes Status: Acute (6) BPH (benign prostatic hyperplasia) Current Visit: Yes Status: Chronic Qualifiers: Lower urinary tract symptom presence: symptoms absent Qualified Code(s): N40.0 - Benign prostatic hyperplasia without lower urinary tract symptoms (7) Blevins's cyst of knee Current Visit: Yes Status: Acute Qualifiers: Laterality: left Qualified Code(s): M71.22 - Synovial cyst of popliteal space [Blevins], left knee (8) CAD (coronary artery disease) Current Visit: Yes Status: Chronic Qualifiers: Coronary Disease-Associated Artery/Lesion type: unspecified vessel or lesion type [place] vs. transplanted heart: [place] heart Associated angina: with stable angina Qualified Code(s): I25.118 - Atherosclerotic heart disease of [place] coronary artery with other forms of angina pectoris (9) GERD (gastroesophageal reflux disease) Current Visit: Yes Status: Chronic Qualifiers: Esophagitis presence: without esophagitis Qualified Code(s): K21.9 - Gastro-esophageal reflux disease without esophagitis (10) Hypercholesterolemia Current Visit: Yes Status: Chronic (11) Hypertension Current Visit: Yes Status: Chronic Qualifiers: Hypertension type: essential hypertension Qualified Code(s): I10 - Essential (primary) hypertension (12) Nicotine dependence Current Visit: Yes Status: Chronic Qualifiers: Nicotine product type: cigarettes Substance use status: uncomplicated Qualified Code(s): F17.210 - Nicotine dependence, cigarettes, uncomplicated (13) Obesity Current Visit: Yes Status: Chronic Qualifiers: Obesity type: unspecified obesity type Obesity classification: adult class 2 (BMI 35 - 39.9) Serious obesity comorbidity presence: unspecified whether se rious comorbidity present Body mass index: BMI 36.0-36.9 Qualified Code(s): E66.9 - Obesity, unspecified; Z68.36 - Body mass index (BMI) 36.0-36.9, adult (14) Sinus complaint Current Visit: Yes Status: Chronic (15) Myocardial infarction Current Visit: Yes Status: Resolved Qualifiers: Myocardial infarction type: unspecified (16) Substance-induced sleep disorder Current Visit: No Status: Acute (17) ADHD (attention deficit hyperactivity disorder) Current Visit: No Status: Chronic (18) Anxiety Current Visit: No Status: Chronic (19) Depressive disorder Current Visit: No Status: Chronic (20) Drug-induced mood disorder Current Visit: No Status: Chronic (21) ALONSO (obstructive sleep apnea) Current Visit: No Status: Chronic (22) Substance induced mood disorder Current Visit: No Status: Chronic (23) NSTEMI (non-ST elevated myocardial infarction) Current Visit: No Status: Resolved (24) Syncope Current Visit: No Status: Resolved Qualifiers: Syncope type: unspecified Qualified Code(s): R55 - Syncope and collapse - AMA Did Patient Leave Against Medical Advice: No
[2019-08-10] MEDS ORDERED: chlordiazePOXIDE HCL 10 MG CAPSULE PO PRN
[2019-08-10] MEDS ORDERED: chlordiazePOXIDE HCL 10 MG CAPSULE PO SCH (05:00)
[2019-08-11] MEDS ORDERED: chlordiazePOXIDE HCL 10 MG CAPSULE PO ONE (05:00)
== END 2019-08-09 11:44 | disposition home or self-care (01) | DRG 774 ==
LOC: YASAS 15:42 → Y6N 18:29
PROVIDERS: ADMIT Allergy & Immunology; ATTEND Allergy & Immunology
PROC: HZ2ZZZZ Detoxification Services for Substance Abuse Treatment (ICD-10-PCS; principal; 2019-08-07)
DX: F10.230 Alcohol dependence with withdrawal, uncomplicated (principal); F14.20 Cocaine dependence, uncomplicated; F12.20 Cannabis dependence, uncomplicated; F17.210 Nicotine dependence, cigarettes, uncomplicated; F19.282 Other psychoactive substance dependence with psychoactive substance-induced sleep disorder; F19.24 Other psychoactive substance dependence with psychoactive substance-induced mood disorder; F90.9 Attention-deficit hyperactivity disorder, unspecified type; I25.118 Atherosclerotic heart disease of native coronary artery with other forms of angina pectoris; I10 Essential (primary) hypertension; I25.2 Old myocardial infarction; L03.116 Cellulitis of left lower limb; K21.9 Gastro-esophageal reflux disease without esophagitis; E78.00 Pure hypercholesterolemia, unspecified; M71.22 Synovial cyst of popliteal space [Baker], left knee; R60.0 Localized edema; G47.33 Obstructive sleep apnea (adult) (pediatric); J34.89 Other specified disorders of nose and nasal sinuses; N40.0 Benign prostatic hyperplasia without lower urinary tract symptoms; E66.9 Obesity, unspecified; Z68.36 Body mass index [BMI] 36.0-36.9, adult; Z86.718 Personal history of other venous thrombosis and embolism; Z79.01 Long term (current) use of anticoagulants
CPT/HCPCS: 36415; 80053

== ENCOUNTER 2020-12-18 15:43 | Inpatient (IN) | payer OTHER ==
[2020-12-18 19:56] VITALS: BMI 34.8
[2020-12-19] MEDS ORDERED: MAGNESIUM HYDROX 2400MG/30ML ORAL SUSPENSION 30 ML CUP PO PRN (06:03)
[2020-12-19] MEDS ORDERED: IBUPROFEN 400 MG TABLET (FP) PO PRN (06:03)
[2020-12-19] MEDS ORDERED: BISMUTH SUBSALICYLATE 524 MG/30 ML PO PRN (06:03)
[2020-12-19] MEDS ORDERED: MENTHOL/PHENOL 1 EACH UD MM PRN (06:03)
[2020-12-19] MEDS ORDERED: ACETAMINOPHEN 325 MG TABLET (FP) PO PRN ×2 (06:03)
[2020-12-19] MEDS ORDERED: METHOCARBAMOL 500 MG TABLET PO PRN (06:03)
[2020-12-19] MEDS ORDERED: MAGNESIUM CITRATE 300 ML BOTTLE PO PRN (06:03)
[2020-12-19] MEDS ORDERED: NICOTINE POLACRILEX 2 MG GUM BUC PRN (06:03)
[2020-12-19] MEDS ORDERED: MAG HYDROX/AL HYDROX/SIMETH 30 ML UNIT-DOSE CUP PO PRN (06:03)
[2020-12-19] MEDS ORDERED: ONDANSETRON *ODT* 4 MG TABLET SL PRN (06:03)
[2020-12-19] MEDS ORDERED: LORazepam 1 MG TABLET PO PRN (06:09)
[2020-12-19] MEDS ORDERED: LORazepam 2 MG TABLET ONE ×2 (07:11→12:03)
[2020-12-19] MEDS: LORazepam 2 MG TABLET PO SCH ×4 (07:14→22:18)
[2020-12-19] MEDS: PRENATAL VITAMINS W/ FOLIC ACID TABLET (FP) PO SCH (12:02)
[2020-12-19] MEDS: TAMSULOSIN HCL 0.4 MG CAP PO SCH (14:28)
[2020-12-19] MEDS: ASPIRIN 81 MG CHEWABLE TABLETS PO SCH (14:28)
[2020-12-19] MEDS: NICOTINE 14 MG/24 HOURS TOPICAL PATCH TD SCH (14:31)
[2020-12-19] MEDS: THIAMINE HCL 100 MG TABLET (FP) PO SCH (22:19)
[2020-12-19] MEDS: MELATONIN 5 MG TABLETS PO SCH (22:19)
[2020-12-20] MEDS: LORazepam 1 MG TABLET PO SCH ×4 (05:43→22:20)
[2020-12-20 10:16] LABS: HEMATOCRIT 38.5 % (35.4-49); HEMOGLOBIN 13.1 GM/dL (11.7-16.9); MCH 29.1 pg (25.7-33.7); MCHC 33.9 g/dl (32.0-35.9); MEAN CELL VOLUME 85.8 fl (80-96); MEAN PLT VOLUME 7.9 fl (7.5-11.1); PLATELET COUNT 258 10^3/uL (134-434); RBC 4.49 M/mm3 (4.00-5.60); RDW 13.7 % (11.9-15.9)
[2020-12-20 10:28] LABS: ALBUMIN 3.8 g/dl (3.4-5.0); BLOOD UREA NITROGEN 21.1 mg/dL (7-18); CALCIUM 8.9 mg/dL (8.5-10.1)
[2020-12-20 10:33] LABS: BILIRUBIN,TOTAL 0.2 mg/dL (0.2-1); TOT PROT 7.7 g/dl (6.4-8.2)
[2020-12-20] MEDS: NICOTINE 14 MG/24 HOURS TOPICAL PATCH TD SCH (10:48)
[2020-12-20] MEDS: TAMSULOSIN HCL 0.4 MG CAP PO SCH (10:48)
[2020-12-20] MEDS: ASPIRIN 81 MG CHEWABLE TABLETS PO SCH (10:48)
[2020-12-20] MEDS: PRENATAL VITAMINS W/ FOLIC ACID TABLET (FP) PO SCH (10:48)
[2020-12-20 11:16] LABS: HIV INTERPRETATION NEGATIVE (NEGATIVE)
[2020-12-20] MEDS ORDERED: NICOTINE 10 MG CARTRIDGE (INHALER) IH PRN (18:28)
[2020-12-20] MEDS ORDERED: TAMSULOSIN HCL 0.4 MG CAP PO SCH (22:00)
[2020-12-20] MEDS: THIAMINE HCL 100 MG TABLET (FP) PO SCH (22:21)
[2020-12-20] MEDS: MELATONIN 5 MG TABLETS PO SCH (22:21)
[2020-12-21] MEDS ORDERED: LORazepam 0.5 MG TABLET PO PRN
[2020-12-21] MEDS ORDERED: LORazepam 0.5 MG TABLET PO SCH (05:00)
[2020-12-21 06:05] VITALS: TEMP 96.9
[2020-12-21 10:06] VITALS: BP 146/89; PULSE 99
[2020-12-22] MEDS ORDERED: LORazepam 0.5 MG TABLET PO ONE (05:00)
== END 2020-12-21 09:12 | disposition home or self-care (01) | DRG 774 ==
LOC: YASAS 15:43 → Y3N 12-19 12:03 → UNDOADMIN 12-19 12:03 → Y6N 12-19 13:35 → Y3N 12-20 13:11
PROVIDERS: ADMIT Allergy & Immunology; ATTEND Allergy & Immunology
PROC: HZ2ZZZZ Detoxification Services for Substance Abuse Treatment (ICD-10-PCS; principal; 2020-12-19)
DX: F10.230 Alcohol dependence with withdrawal, uncomplicated (principal); F14.20 Cocaine dependence, uncomplicated; F17.210 Nicotine dependence, cigarettes, uncomplicated; F90.9 Attention-deficit hyperactivity disorder, unspecified type; F19.24 Other psychoactive substance dependence with psychoactive substance-induced mood disorder; F19.282 Other psychoactive substance dependence with psychoactive substance-induced sleep disorder; I10 Essential (primary) hypertension; N40.0 Benign prostatic hyperplasia without lower urinary tract symptoms; E78.5 Hyperlipidemia, unspecified; I25.2 Old myocardial infarction; G47.33 Obstructive sleep apnea (adult) (pediatric); K21.9 Gastro-esophageal reflux disease without esophagitis; E66.9 Obesity, unspecified; Z68.34 Body mass index [BMI] 34.0-34.9, adult; Z86.718 Personal history of other venous thrombosis and embolism; Z86.69 Personal history of other diseases of the nervous system and sense organs; Z56.0 Unemployment, unspecified
CPT/HCPCS: 36415; 80053; 85027; 86780; 87389; 93005; 93010; C9803; U0003; U0005

== ENCOUNTER 2021-07-22 11:52 | Inpatient (IN) | payer OTHER ==
[2021-07-22] MEDS ORDERED: guaiFENesin 200 MG/10 ML 10 ML UNIT-DOSE CUPS PO PRN (13:22)
[2021-07-22] MEDS ORDERED: ACETAMINOPHEN 325 MG TABLET (FP) PO PRN (13:22)
[2021-07-22] MEDS ORDERED: MAGNESIUM HYDROX 2400MG/30ML ORAL SUSPENSION 30 ML CUP PO PRN (13:22)
[2021-07-22] MEDS ORDERED: MAG HYDROX/AL HYDROX/SIMETH 30 ML UNIT-DOSE CUP PO PRN (13:22)
[2021-07-22] MEDS ORDERED: MAGNESIUM CITRATE 300 ML BOTTLE PO PRN (13:22)
[2021-07-22] MEDS ORDERED: IBUPROFEN 400 MG TABLET (FP) PO PRN (13:22)
[2021-07-22] MEDS ORDERED: P-EPHED 60MG/TRIPROLIDI 2.5MG TABLET PO PRN (13:22)
[2021-07-22] MEDS ORDERED: LOPERAMIDE HCL 2 MG CAPSULE PO PRN (13:22)
[2021-07-22] MEDS ORDERED: diazePAM 5 MG TABLET PO PRN (13:24)
[2021-07-22 13:39] VITALS: BMI 38.0
[2021-07-22] MEDS ORDERED: LORazepam 2 MG TABLET PO PRN (16:42)
[2021-07-22 17:16] LABS: CALCIUM 9.2 mg/dL (8.5-10.1)
[2021-07-22 17:18] LABS: ALBUMIN 3.8 g/dl (3.4-5.0); BLOOD UREA NITROGEN 13.5 mg/dL (7-18)
[2021-07-22 17:19] LABS: CREATININE 1.1 mg/dL (0.55-1.3)
[2021-07-22 17:20] LABS: TOT PROT 7.1 g/dl (6.4-8.2)
[2021-07-22 17:21] LABS: BILIRUBIN,TOTAL 0.3 mg/dL (0.2-1)
[2021-07-22 17:26] LABS: HEMATOCRIT 42.6 % (35.4-49); MCH 31.2 pg (25.7-33.7); MCHC 35.1 g/dl (32.0-35.9); MEAN CELL VOLUME 88.8 fl (80-96); MEAN PLT VOLUME 9.3 fl (7.5-11.1); PLATELET COUNT 255 10^3/uL (134-434); RBC 4.79 M/mm3 (4.00-5.60); RDW 13.9 % (11.9-15.9); WHITE BLOOD COUNT 7.5 K/mm3 (4.0-10.0)
[2021-07-22 17:36] LABS: SYPHILIS W/ RPR CONF NON-REACTIVE (NONREACTIVE)
[2021-07-22] MEDS: hydrOXYzine PAMOATE 25 MG CAPSULE (FP) PO SCH ×3 (18:38→23:13)
[2021-07-22] MEDS: PRENATAL VITAMINS W/ FOLIC ACID TABLET (FP) PO SCH (18:38)
[2021-07-22] MEDS: NICOTINE 7 MG/24 HOURS TOPICAL PATCH TD SCH (18:40)
[2021-07-22] MEDS: NICOTINE 10 MG CARTRIDGE (INHALER) IH PRN (18:40)
[2021-07-22] MEDS ORDERED: CEPHALEXIN 250 MG/5 ML ORAL SUSPENSION PO SCH (22:00)
[2021-07-22] MEDS: TAMSULOSIN HCL 0.4 MG CAP PO SCH (23:13)
[2021-07-22] MEDS: MELATONIN 5 MG TABLETS PO SCH (23:13)
[2021-07-22] MEDS: THIAMINE HCL 100 MG TABLET (FP) PO SCH (23:13)
[2021-07-23] MEDS: hydrOXYzine PAMOATE 25 MG CAPSULE (FP) PO SCH ×2 (07:31→11:35)
[2021-07-23] MEDS ORDERED: ASPIRIN 81 MG CHEWABLE TABLETS PO SCH (10:00)
[2021-07-23] MEDS ORDERED: hydrOXYzine PAMOATE 25 MG CAPSULE (FP) PO PRN (11:17)
[2021-07-23] MEDS: PRENATAL VITAMINS W/ FOLIC ACID TABLET (FP) PO SCH (11:25)
[2021-07-23] MEDS: NICOTINE 7 MG/24 HOURS TOPICAL PATCH TD SCH (11:25)
[2021-07-23] MEDS: NICOTINE 10 MG CARTRIDGE (INHALER) IH PRN (18:33)
[2021-07-23] MEDS: MELATONIN 5 MG TABLETS PO SCH (21:48)
[2021-07-23] MEDS: THIAMINE HCL 100 MG TABLET (FP) PO SCH (21:48)
[2021-07-23] MEDS: TAMSULOSIN HCL 0.4 MG CAP PO SCH (21:49)
[2021-07-23] MEDS: CEPHALEXIN MONOHYDRATE PO SCH (21:51)
[2021-07-23] MEDS ORDERED: CEPHALEXIN PO SCH (22:00)
[2021-07-24] MEDS ORDERED: hydrOXYzine PAMOATE 25 MG CAPSULE (FP) PO PRN (00:29)
[2021-07-24] MEDS: PRENATAL VITAMINS W/ FOLIC ACID TABLET (FP) PO SCH (10:14)
[2021-07-24] MEDS: NICOTINE 7 MG/24 HOURS TOPICAL PATCH TD SCH (10:15)
[2021-07-24] MEDS: ASPIRIN 81 MG CHEWABLE TABLETS PO SCH (10:15)
[2021-07-24] MEDS: CEPHALEXIN MONOHYDRATE PO SCH ×2 (10:15→21:58)
[2021-07-24] MEDS: NICOTINE 10 MG CARTRIDGE (INHALER) IH PRN (10:15)
[2021-07-24] MEDS: THIAMINE HCL 100 MG TABLET (FP) PO SCH (21:59)
[2021-07-24] MEDS: MELATONIN 5 MG TABLETS PO SCH (21:59)
[2021-07-24] MEDS: TAMSULOSIN HCL 0.4 MG CAP PO SCH (21:59)
[2021-07-25] MEDS: ASPIRIN 81 MG CHEWABLE TABLETS PO SCH (11:20)
[2021-07-25] MEDS: CEPHALEXIN MONOHYDRATE PO SCH ×2 (11:21→21:33)
[2021-07-25] MEDS: PRENATAL VITAMINS W/ FOLIC ACID TABLET (FP) PO SCH (11:21)
[2021-07-25] MEDS: NICOTINE 7 MG/24 HOURS TOPICAL PATCH TD SCH (11:21)
[2021-07-25] MEDS: NICOTINE 10 MG CARTRIDGE (INHALER) IH PRN (11:21)
[2021-07-25] MEDS: MELATONIN 5 MG TABLETS PO SCH (21:34)
[2021-07-25] MEDS: THIAMINE HCL 100 MG TABLET (FP) PO SCH (21:34)
[2021-07-25] MEDS: TAMSULOSIN HCL 0.4 MG CAP PO SCH (21:34)
[2021-07-26 06:58] VITALS: BP 149/79; PULSE 76; TEMP 97.3
[2021-07-26] MEDS: NICOTINE 7 MG/24 HOURS TOPICAL PATCH TD SCH (09:36)
[2021-07-26] MEDS: CEPHALEXIN MONOHYDRATE PO SCH (09:36)
[2021-07-26] MEDS: PRENATAL VITAMINS W/ FOLIC ACID TABLET (FP) PO SCH (09:36)
[2021-07-26] MEDS: ASPIRIN 81 MG CHEWABLE TABLETS PO SCH (09:36)
[2021-07-26] MEDS: NICOTINE 10 MG CARTRIDGE (INHALER) IH PRN (09:36)
[2021-07-26 14:08] LABS: SARS-CoV-2 NAA Not Detected (Not Detected)
== END 2021-07-26 10:00 | disposition home or self-care (01) | DRG 772 ==
LOC: YASAS 11:52 → Y3W 18:03 → Y5N 07-23 11:33
PROVIDERS: ADMIT Allergy & Immunology; ATTEND Allergy & Immunology
PROC: HZ42ZZZ Group Counseling for Substance Abuse Treatment, Cognitive-Behavioral (ICD-10-PCS; principal; 2021-07-22)
DX: F10.20 Alcohol dependence, uncomplicated (principal); F14.20 Cocaine dependence, uncomplicated; F17.210 Nicotine dependence, cigarettes, uncomplicated; F32.A Depression, unspecified; G47.33 Obstructive sleep apnea (adult) (pediatric); E78.5 Hyperlipidemia, unspecified; I25.10 Atherosclerotic heart disease of native coronary artery without angina pectoris; I10 Essential (primary) hypertension; I25.2 Old myocardial infarction; E66.9 Obesity, unspecified; Z68.38 Body mass index [BMI] 38.0-38.9, adult; Z87.19 Personal history of other diseases of the digestive system
CPT/HCPCS: 36415; 80053; 82962; 85027; 86780; 86803; C9803; U0003; U0005

== ENCOUNTER 2021-12-06 08:18 | Inpatient (IN) | payer OTHER ==
[2021-12-06 09:15] VITALS: BMI 35.6
[2021-12-06] MEDS ORDERED: MAGNESIUM CITRATE 300 ML BOTTLE PO PRN (10:23)
[2021-12-06] MEDS ORDERED: LOPERAMIDE HCL 2 MG CAPSULE PO PRN (10:23)
[2021-12-06] MEDS ORDERED: ACETAMINOPHEN 325 MG TABLET (FP) PO PRN ×2 (10:23)
[2021-12-06] MEDS ORDERED: MAG HYDROX/AL HYDROX/SIMETH 30 ML UNIT-DOSE CUP PO PRN (10:23)
[2021-12-06] MEDS ORDERED: IBUPROFEN 600 MG TABLET (FP) PO PRN (10:23)
[2021-12-06] MEDS ORDERED: DICYCLOMINE HCL 10 MG CAPSULE PO PRN (10:23)
[2021-12-06] MEDS ORDERED: NICOTINE 10 MG CARTRIDGE (INHALER) IH PRN (10:23)
[2021-12-06] MEDS ORDERED: IBUPROFEN 400 MG TABLET (FP) PO PRN (10:23)
[2021-12-06] MEDS ORDERED: METHOCARBAMOL 500 MG TABLET PO PRN (10:23)
[2021-12-06] MEDS ORDERED: BENZOCAINE/MENTHOL (CHLORASEPTIC ) LOZENGE MM PRN (10:23)
[2021-12-06] MEDS ORDERED: MAGNESIUM HYDROX 2400MG/30ML ORAL SUSPENSION 30 ML CUP PO PRN (10:23)
[2021-12-06] MEDS ORDERED: NICOTINE POLACRILEX 2 MG GUM BUC PRN (10:23)
[2021-12-06] MEDS ORDERED: BISMUTH SUBSALICYLATE 262 MG/15 ML BTL PO PRN (10:23)
[2021-12-06] MEDS ORDERED: ONDANSETRON *ODT* 4 MG TABLET SL PRN (10:23)
[2021-12-06] MEDS: diazePAM 5 MG TABLET PO PRN (12:44)
[2021-12-06] MEDS: ASPIRIN 81 MG CHEWABLE TABLETS PO SCH (12:44)
[2021-12-06] MEDS: PRENATAL VITAMINS W/ FOLIC ACID TABLET (FP) PO SCH (12:50)
[2021-12-06] MEDS: hydrOXYzine PAMOATE 25 MG CAPSULE (FP) PO SCH ×3 (13:12→22:26)
[2021-12-06 15:30] LABS: HEMATOCRIT 43.1 % (35.4-49); HEMOGLOBIN 14.5 GM/dL (11.7-16.9); MCH 29.8 pg (25.7-33.7); MCHC 33.6 g/dl (32.0-35.9); MEAN CELL VOLUME 88.8 fl (80-96); MEAN PLT VOLUME 9.4 fl (7.5-11.1); PLATELET COUNT 271 10^3/uL (134-434); RBC 4.85 M/mm3 (4.00-5.60); RDW 14.1 % (11.9-15.9)
[2021-12-06 15:35] LABS: BLOOD UREA NITROGEN 10.4 mg/dL (7-18); CALCIUM 8.9 mg/dL (8.5-10.1)
[2021-12-06 15:36] LABS: ALBUMIN 3.9 g/dl (3.4-5.0)
[2021-12-06 15:40] LABS: BILIRUBIN,TOTAL 0.4 mg/dL (0.2-1); TOT PROT 7.1 g/dl (6.4-8.2)
[2021-12-06] MEDS: diazePAM 5 MG TABLET PO SCH ×2 (18:24→22:29)
[2021-12-06] MEDS: THIAMINE HCL 100 MG TABLET (FP) PO SCH (22:27)
[2021-12-06] MEDS: MELATONIN 5 MG TABLETS PO SCH (22:27)
[2021-12-07] MEDS: hydrOXYzine PAMOATE 25 MG CAPSULE (FP) PO SCH ×5 (06:56→22:35)
[2021-12-07] MEDS: diazePAM 5 MG TABLET PO SCH ×4 (06:56→22:34)
[2021-12-07] MEDS: PRENATAL VITAMINS W/ FOLIC ACID TABLET (FP) PO SCH (11:37)
[2021-12-07] MEDS: ASPIRIN 81 MG CHEWABLE TABLETS PO SCH (11:37)
[2021-12-07] MEDS: TAMSULOSIN HCL 0.4 MG CAP PO SCH (22:35)
[2021-12-07] MEDS: THIAMINE HCL 100 MG TABLET (FP) PO SCH (22:35)
[2021-12-07] MEDS: MELATONIN 5 MG TABLETS PO SCH (22:36)
[2021-12-08] MEDS: diazePAM 5 MG TABLET PO SCH ×3 (07:19→23:08)
[2021-12-08] MEDS: hydrOXYzine PAMOATE 25 MG CAPSULE (FP) PO SCH ×5 (07:27→23:07)
[2021-12-08] MEDS: ASPIRIN 81 MG CHEWABLE TABLETS PO SCH (11:00)
[2021-12-08] MEDS: PRENATAL VITAMINS W/ FOLIC ACID TABLET (FP) PO SCH (11:00)
[2021-12-08 12:52] VITALS: RESP 18
[2021-12-08] MEDS: diazePAM 5 MG TABLET PO PRN (17:59)
[2021-12-08] MEDS: TAMSULOSIN HCL 0.4 MG CAP PO SCH (23:07)
[2021-12-08] MEDS: MELATONIN 5 MG TABLETS PO SCH (23:07)
[2021-12-08] MEDS: THIAMINE HCL 100 MG TABLET (FP) PO SCH (23:07)
[2021-12-09] MEDS: hydrOXYzine PAMOATE 25 MG CAPSULE (FP) PO SCH ×5 (06:43→21:56)
[2021-12-09] MEDS: diazePAM 5 MG TABLET PO SCH ×2 (06:43→18:42)
[2021-12-09] MEDS: ASPIRIN 81 MG CHEWABLE TABLETS PO SCH (10:58)
[2021-12-09] MEDS: PRENATAL VITAMINS W/ FOLIC ACID TABLET (FP) PO SCH (11:01)
[2021-12-09] MEDS ORDERED: diazePAM 5 MG TABLET PO ONE (16:42)
[2021-12-09 21:48] VITALS: TEMP 97.7
[2021-12-09] MEDS: TAMSULOSIN HCL 0.4 MG CAP PO SCH (21:56)
[2021-12-09] MEDS: THIAMINE HCL 100 MG TABLET (FP) PO SCH (21:56)
[2021-12-09] MEDS: MELATONIN 5 MG TABLETS PO SCH (21:57)
[2021-12-10] MEDS ORDERED: diazePAM 5 MG TABLET PO ONE (06:00)
[2021-12-10] MEDS: hydrOXYzine PAMOATE 25 MG CAPSULE (FP) PO SCH ×2 (07:18→09:34)
[2021-12-10] MEDS: PRENATAL VITAMINS W/ FOLIC ACID TABLET (FP) PO SCH (09:33)
[2021-12-10] MEDS: ASPIRIN 81 MG CHEWABLE TABLETS PO SCH (09:33)
[2021-12-10 09:46] VITALS: BP 148/84; PULSE 88
== END 2021-12-10 09:25 | disposition home or self-care (01) | DRG 774 ==
LOC: SUATTDRO 08:18 → YASAS 08:18 → Y3N 10:55
PROVIDERS: ADMIT Allergy & Immunology; ATTEND Surgery
PROC: HZ2ZZZZ Detoxification Services for Substance Abuse Treatment (ICD-10-PCS; principal; 2021-12-06)
DX: F10.230 Alcohol dependence with withdrawal, uncomplicated (principal); F14.20 Cocaine dependence, uncomplicated; F12.20 Cannabis dependence, uncomplicated; F17.210 Nicotine dependence, cigarettes, uncomplicated; I10 Essential (primary) hypertension; I25.2 Old myocardial infarction; I25.10 Atherosclerotic heart disease of native coronary artery without angina pectoris; E78.5 Hyperlipidemia, unspecified; G47.33 Obstructive sleep apnea (adult) (pediatric); Z28.310 Unvaccinated for COVID-19
CPT/HCPCS: 36415; 80053; 85027; 86780; 87811; C9803-CS; U0003; U0005

== ENCOUNTER 2023-02-11 11:41 | Inpatient (IN) | payer OTHER ==
[2023-02-11 12:28] VITALS: BMI 34.8
[2023-02-11] MEDS ORDERED: BENZOCAINE/MENTHOL (CHLORASEPTIC ) LOZENGE MM PRN (13:09)
[2023-02-11] MEDS ORDERED: ONDANSETRON *ODT* 4 MG TABLET SL PRN (13:09)
[2023-02-11] MEDS ORDERED: NALOXONE HCL (KLOXXADO) 8 MG SPRAY NS PRN (13:09)
[2023-02-11] MEDS ORDERED: NALOXONE HCL 0.4 MG/ML VIAL IM PRN (13:09)
[2023-02-11] MEDS ORDERED: LORazepam 1 MG TABLET PO PRN (13:09)
[2023-02-11] MEDS ORDERED: LOPERAMIDE HCL 2 MG CAPSULE PO PRN (13:09)
[2023-02-11] MEDS ORDERED: MAG HYDROX/AL HYDROX/SIMETH 30 ML UNIT-DOSE CUP PO PRN (13:09)
[2023-02-11] MEDS ORDERED: DICYCLOMINE HCL 10 MG CAPSULE PO PRN (13:09)
[2023-02-11] MEDS ORDERED: POLYETHYLENE GLYCOL (HEALTHYLAX) 3350 17 GM PACKET PO PRN (13:09)
[2023-02-11] MEDS ORDERED: BENZONATATE 200 MG CAPSULE PO PRN (13:09)
[2023-02-11] MEDS ORDERED: BISMUTH SUBSALICYLATE 524 MG/30 ML PO PRN (13:09)
[2023-02-11] MEDS ORDERED: COLLOIDAL OATMEAL 1 BAR EACH TP PRN (13:09)
[2023-02-11] MEDS ORDERED: MAGNESIUM HYDROX 2400MG/30ML ORAL SUSPENSION 30 ML CUP PO PRN (13:09)
[2023-02-11] MEDS ORDERED: guaiFENesin 600 MG TABLET.ER (FP) PO PRN (13:09)
[2023-02-11] MEDS ORDERED: ACETAMINOPHEN 325 MG TABLET (FP) PO PRN (13:09)
[2023-02-11] MEDS ORDERED: NICOTINE POLACRILEX 4 MG LOZENGE BC PRN (13:13)
[2023-02-11] MEDS ORDERED: LORazepam 1 MG TABLET ONE (14:56)
[2023-02-11] MEDS: ASPIRIN COATED 81 MG TABLET.EC PO SCH (15:11)
[2023-02-11] MEDS: TAMSULOSIN HCL 0.4 MG CAP PO SCH ×2 (15:11→22:37)
[2023-02-11] MEDS: METHOCARBAMOL 500 MG TABLET PO PRN (17:25)
[2023-02-11] MEDS: LORazepam 2 MG TABLET PO SCH ×2 (17:25→22:37)
[2023-02-11] MEDS: THIAMINE HCL 100 MG TABLET (FP) PO SCH (22:37)
[2023-02-11] MEDS: MELATONIN 5 MG TABLETS PO SCH (22:40)
[2023-02-12] MEDS: LORazepam 2 MG TABLET PO SCH ×4 (05:46→22:22)
[2023-02-12 09:56] LABS: POTASSIUM 3.9 mmol/L (3.5-5.1)
[2023-02-12 09:59] LABS: HEMATOCRIT 40.4 % (35.4-49); HEMOGLOBIN 13.5 GM/dL (11.7-16.9); MCH 29.6 pg (25.7-33.7); MCHC 33.4 g/dl (32.0-35.9); MEAN CELL VOLUME 88.7 fl (80-96); MEAN PLT VOLUME 9.6 fl (7.5-11.1); PLATELET COUNT 228 10^3/uL (134-434); RBC 4.55 M/mm3 (4.00-5.60); RDW 13.4 % (11.9-15.9); WHITE BLOOD COUNT 7.9 K/mm3 (4.0-10.0)
[2023-02-12 10:04] LABS: ALBUMIN 3.3 g/dl (3.4-5.0); BLOOD UREA NITROGEN 10.8 mg/dL (7-18); CALCIUM 8.4 mg/dL (8.5-10.1)
[2023-02-12 10:06] LABS: BILIRUBIN,TOTAL 0.3 mg/dL (0.2-1); TOT PROT 6.1 g/dl (6.4-8.2)
[2023-02-12] MEDS: ASPIRIN COATED 81 MG TABLET.EC PO SCH (10:30)
[2023-02-12] MEDS: PRENATAL VITAMINS W/ FOLIC ACID TABLET (FP) PO SCH (10:30)
[2023-02-12] MEDS ORDERED: PNEUMOC 20-VAL CONJ-DIP CRM/PF 0.5 ML SYRINGE IM ONE (14:04)
[2023-02-12] MEDS: LACTULOSE 20 GM/30 ML UDC (FOR ORAL USE ONLY) PO SCH ×3 (14:48→22:22)
[2023-02-12] MEDS: THIAMINE HCL 100 MG TABLET (FP) PO SCH (22:22)
[2023-02-12] MEDS: TAMSULOSIN HCL 0.4 MG CAP PO SCH (22:22)
[2023-02-12] MEDS: MELATONIN 5 MG TABLETS PO SCH (22:22)
[2023-02-13] MEDS: LORazepam 1 MG TABLET PO SCH ×4 (05:50→22:08)
[2023-02-13 09:01] VITALS: RESP 18
[2023-02-13] MEDS: LACTULOSE 20 GM/30 ML UDC (FOR ORAL USE ONLY) PO SCH ×4 (10:24→22:08)
[2023-02-13] MEDS: PRENATAL VITAMINS W/ FOLIC ACID TABLET (FP) PO SCH (10:24)
[2023-02-13] MEDS: ASPIRIN COATED 81 MG TABLET.EC PO SCH (10:25)
[2023-02-13] MEDS: METHOCARBAMOL 500 MG TABLET PO PRN ×2 (12:37→22:08)
[2023-02-13] MEDS: MELATONIN 5 MG TABLETS PO SCH (22:08)
[2023-02-13] MEDS: THIAMINE HCL 100 MG TABLET (FP) PO SCH (22:08)
[2023-02-13] MEDS: TAMSULOSIN HCL 0.4 MG CAP PO SCH (22:08)
[2023-02-14] MEDS ORDERED: LORazepam 0.5 MG TABLET PO PRN
[2023-02-14] MEDS ORDERED: LORazepam 0.5 MG TABLET PO SCH (05:00)
[2023-02-14 09:20] VITALS: BP 140/81; PULSE 85; TEMP 98.2
[2023-02-15] MEDS ORDERED: LORazepam 0.5 MG TABLET PO ONE (05:00)
== END 2023-02-14 10:06 | disposition home or self-care (01) | DRG 774 ==
LOC: YASAS 11:41 → Y6N 14:14
PROVIDERS: ADMIT Allergy & Immunology; ATTEND Surgery
PROC: HZ2ZZZZ Detoxification Services for Substance Abuse Treatment (ICD-10-PCS; principal; 2023-02-11)
DX: F10.230 Alcohol dependence with withdrawal, uncomplicated (principal); F14.20 Cocaine dependence, uncomplicated; F17.213 Nicotine dependence, cigarettes, with withdrawal; E72.20 Disorder of urea cycle metabolism, unspecified; G47.33 Obstructive sleep apnea (adult) (pediatric); I25.118 Atherosclerotic heart disease of native coronary artery with other forms of angina pectoris; I10 Essential (primary) hypertension; I25.2 Old myocardial infarction; K21.9 Gastro-esophageal reflux disease without esophagitis; N40.1 Benign prostatic hyperplasia with lower urinary tract symptoms; R39.11 Hesitancy of micturition; M72.2 Plantar fascial fibromatosis
CPT/HCPCS: 36415; 80053; 82140; 83036; 84443; 85027; 86780; 87635; 93005; 93010

== ENCOUNTER 2023-06-02 12:29 | Inpatient (IN) | payer OTHER ==
[2023-06-02 12:43] VITALS: BMI 34.5
[2023-06-02] MEDS ORDERED: MAG HYDROX/AL HYDROX/SIMETH 30 ML UNIT-DOSE CUP PO PRN (13:41)
[2023-06-02] MEDS ORDERED: BENZOCAINE/MENTHOL (CHLORASEPTIC ) LOZENGE MM PRN (13:41)
[2023-06-02] MEDS ORDERED: DICYCLOMINE HCL 10 MG CAPSULE PO PRN (13:41)
[2023-06-02] MEDS ORDERED: LOPERAMIDE HCL 2 MG CAPSULE PO PRN (13:41)
[2023-06-02] MEDS ORDERED: IBUPROFEN 600 MG TABLET (FP) PO PRN (13:41)
[2023-06-02] MEDS ORDERED: NALOXONE HCL 0.4 MG/ML VIAL IM PRN (13:41)
[2023-06-02] MEDS ORDERED: ONDANSETRON *ODT* 4 MG TABLET SL PRN (13:41)
[2023-06-02] MEDS ORDERED: IBUPROFEN 400 MG TABLET (FP) PO PRN (13:41)
[2023-06-02] MEDS ORDERED: guaiFENesin 600 MG TABLET.ER (FP) PO PRN (13:41)
[2023-06-02] MEDS ORDERED: BISMUTH SUBSALICYLATE 262 MG/15 ML BTL PO PRN (13:41)
[2023-06-02] MEDS ORDERED: BENZONATATE 200 MG CAPSULE PO PRN (13:41)
[2023-06-02] MEDS ORDERED: MAGNESIUM HYDROX 2400MG/30ML ORAL SUSPENSION 30 ML CUP PO PRN (13:41)
[2023-06-02] MEDS ORDERED: LORazepam 1 MG TABLET PO PRN (13:41)
[2023-06-02] MEDS ORDERED: NALOXONE HCL (KLOXXADO) 8 MG SPRAY NS PRN (13:41)
[2023-06-02] MEDS ORDERED: ACETAMINOPHEN 325 MG TABLET (FP) PO PRN (13:41)
[2023-06-02] MEDS ORDERED: METHOCARBAMOL 500 MG TABLET PO PRN (13:41)
[2023-06-02] MEDS ORDERED: POLYETHYLENE GLYCOL (HEALTHYLAX) 3350 17 GM PACKET PO PRN (13:41)
[2023-06-02] MEDS ORDERED: NICOTINE POLACRILEX 2 MG GUM BUC PRN (13:41)
[2023-06-02] MEDS: PRENATAL VITAMINS W/ FOLIC ACID TABLET (FP) PO SCH (15:10)
[2023-06-02] MEDS: hydrOXYzine PAMOATE 25 MG CAPSULE (FP) PO PRN (15:10)
[2023-06-02] MEDS ORDERED: hydrOXYzine PAMOATE 25 MG CAPSULE (FP) PO ONE (15:14)
[2023-06-02] MEDS: LORazepam 2 MG TABLET PO SCH ×2 (16:41→22:54)
[2023-06-02] MEDS ORDERED: TAMSULOSIN HCL 0.4 MG CAP PO SCH ×2 (22:00)
[2023-06-02] MEDS: TAMSULOSIN HCL 0.4 MG CAP PO SCH (22:55)
[2023-06-02] MEDS: THIAMINE HCL 100 MG TABLET (FP) PO SCH (22:55)
[2023-06-02] MEDS: MELATONIN 5 MG TABLETS PO SCH (22:56)
[2023-06-03] MEDS: LORazepam 2 MG TABLET PO SCH ×4 (05:55→22:55)
[2023-06-03 10:41] LABS: HEMATOCRIT 41.1 % (35.4-49); HEMOGLOBIN 13.6 GM/dL (11.7-16.9); MCH 29.7 pg (25.7-33.7); MCHC 33.2 g/dl (32.0-35.9); MEAN CELL VOLUME 89.6 fl (80-96); MEAN PLT VOLUME 9.5 fl (7.5-11.1); PLATELET COUNT 233 10^3/uL (134-434); RBC 4.59 M/mm3 (4.00-5.60); RDW 13.6 % (11.9-15.9); WHITE BLOOD COUNT 7.7 K/mm3 (4.0-10.0)
[2023-06-03] MEDS: ASPIRIN 81 MG CHEWABLE TABLETS PO SCH (10:41)
[2023-06-03] MEDS: PRENATAL VITAMINS W/ FOLIC ACID TABLET (FP) PO SCH (10:41)
[2023-06-03 11:11] LABS: CHLORIDE 108 mmol/L (98-107); POTASSIUM 3.9 mmol/L (3.5-5.1); SODIUM 140 mmol/L (136-145)
[2023-06-03 11:23] LABS: CALCIUM 8.6 mg/dL (8.5-10.1)
[2023-06-03 11:24] LABS: ALBUMIN 3.2 g/dl (3.4-5.0); ANION GAP 6 mmol/L (4-13); BLOOD UREA NITROGEN 11.7 mg/dL (7-18); CO2 26 mmol/L (21-32); GLUCOSE,RANDOM 92 mg/dL (74-106)
[2023-06-03 11:27] LABS: CREATININE 0.8 mg/dL (0.55-1.3); SGOT/AST 11 U/L (15-37); SGPT/ALT 25 U/L (13-61)
[2023-06-03 11:28] LABS: BILIRUBIN,TOTAL 0.3 mg/dL (0.2-1)
[2023-06-03 11:29] LABS: TOT PROT 6.2 g/dl (6.4-8.2)
[2023-06-03 11:30] LABS: ALK PHOS 55 U/L (45-117)
[2023-06-03] MEDS: MELATONIN 5 MG TABLETS PO SCH (22:55)
[2023-06-03] MEDS: TAMSULOSIN HCL 0.4 MG CAP PO SCH (22:55)
[2023-06-03] MEDS: THIAMINE HCL 100 MG TABLET (FP) PO SCH (22:55)
[2023-06-04] MEDS: LORazepam 1 MG TABLET PO SCH ×4 (06:00→22:37)
[2023-06-04] MEDS: ASPIRIN 81 MG CHEWABLE TABLETS PO SCH (10:23)
[2023-06-04] MEDS: PRENATAL VITAMINS W/ FOLIC ACID TABLET (FP) PO SCH (10:23)
[2023-06-04] MEDS: LACTULOSE 20 GM/30 ML UDC (FOR ORAL USE ONLY) PO SCH ×4 (13:40→22:31)
[2023-06-04] MEDS: THIAMINE HCL 100 MG TABLET (FP) PO SCH (22:31)
[2023-06-04] MEDS: TAMSULOSIN HCL 0.4 MG CAP PO SCH (22:31)
[2023-06-04] MEDS: MELATONIN 5 MG TABLETS PO SCH (22:31)
[2023-06-05] MEDS ORDERED: LORazepam 0.5 MG TABLET PO PRN
[2023-06-05] MEDS: LORazepam 0.5 MG TABLET PO SCH ×4 (06:00→22:01)
[2023-06-05] MEDS: PRENATAL VITAMINS W/ FOLIC ACID TABLET (FP) PO SCH (10:53)
[2023-06-05] MEDS: ASPIRIN 81 MG CHEWABLE TABLETS PO SCH (10:54)
[2023-06-05] MEDS: hydrOXYzine PAMOATE 25 MG CAPSULE (FP) PO PRN ×2 (10:54→22:02)
[2023-06-05] MEDS: LACTULOSE 20 GM/30 ML UDC (FOR ORAL USE ONLY) PO SCH ×4 (10:55→22:04)
[2023-06-05] MEDS: THIAMINE HCL 100 MG TABLET (FP) PO SCH (22:01)
[2023-06-05] MEDS: TAMSULOSIN HCL 0.4 MG CAP PO SCH (22:01)
[2023-06-05] MEDS: MELATONIN 5 MG TABLETS PO SCH (22:02)
[2023-06-06] MEDS ORDERED: LORazepam 0.5 MG TABLET PO ONE (05:00)
[2023-06-06 06:25] VITALS: TEMP 97.7
[2023-06-06] MEDS: ASPIRIN 81 MG CHEWABLE TABLETS PO SCH (09:40)
[2023-06-06] MEDS: LACTULOSE 20 GM/30 ML UDC (FOR ORAL USE ONLY) PO SCH (09:40)
[2023-06-06] MEDS: PRENATAL VITAMINS W/ FOLIC ACID TABLET (FP) PO SCH (09:40)
[2023-06-06 09:42] VITALS: BP 138/76; PULSE 88; RESP 20
== END 2023-06-06 09:40 | disposition home or self-care (01) | DRG 774 ==
LOC: YASAS 12:29 → Y6N 15:05
PROVIDERS: ADMIT Allergy & Immunology; ATTEND Allergy & Immunology
PROC: HZ2ZZZZ Detoxification Services for Substance Abuse Treatment (ICD-10-PCS; principal; 2023-06-02)
DX: F10.230 Alcohol dependence with withdrawal, uncomplicated (principal); F14.20 Cocaine dependence, uncomplicated; F12.10 Cannabis abuse, uncomplicated; F17.210 Nicotine dependence, cigarettes, uncomplicated; F19.282 Other psychoactive substance dependence with psychoactive substance-induced sleep disorder; F19.24 Other psychoactive substance dependence with psychoactive substance-induced mood disorder; E72.20 Disorder of urea cycle metabolism, unspecified; I25.118 Atherosclerotic heart disease of native coronary artery with other forms of angina pectoris; I10 Essential (primary) hypertension; I25.2 Old myocardial infarction; G47.33 Obstructive sleep apnea (adult) (pediatric); N40.1 Benign prostatic hyperplasia with lower urinary tract symptoms; R39.11 Hesitancy of micturition
CPT/HCPCS: 36415; 80053; 80307; 82140; 85027; 86780; 87635

== ENCOUNTER 2023-09-22 08:20 | Inpatient (IN) | payer OTHER ==
[2023-09-22 08:39] VITALS: BMI 34.9
[2023-09-22] MEDS ORDERED: LORazepam 1 MG TABLET PO PRN (09:10)
[2023-09-22] MEDS ORDERED: POLYETHYLENE GLYCOL (HEALTHYLAX) 3350 17 GM PACKET PO PRN (09:10)
[2023-09-22] MEDS ORDERED: ACETAMINOPHEN 325 MG TABLET (FP) PO PRN (09:10)
[2023-09-22] MEDS ORDERED: guaiFENesin 600 MG TABLET.ER (FP) PO PRN (09:10)
[2023-09-22] MEDS ORDERED: NALOXONE HCL 0.4 MG/ML VIAL IM PRN (09:10)
[2023-09-22] MEDS ORDERED: NICOTINE POLACRILEX 4 MG GUM BUC PRN (09:10)
[2023-09-22] MEDS ORDERED: METHOCARBAMOL 500 MG TABLET PO PRN (09:10)
[2023-09-22] MEDS ORDERED: BISMUTH SUBSALICYLATE 262 MG/15 ML BTL PO PRN (09:10)
[2023-09-22] MEDS ORDERED: MAGNESIUM HYDROX 2400MG/30ML ORAL SUSPENSION 30 ML CUP PO PRN (09:10)
[2023-09-22] MEDS ORDERED: MAG HYDROX/AL HYDROX/SIMETH 30 ML UNIT-DOSE CUP PO PRN (09:10)
[2023-09-22] MEDS ORDERED: BENZONATATE 200 MG CAPSULE PO PRN (09:10)
[2023-09-22] MEDS ORDERED: hydrOXYzine PAMOATE 25 MG CAPSULE (FP) PO PRN (09:10)
[2023-09-22] MEDS ORDERED: NALOXONE HCL (KLOXXADO) 8 MG SPRAY NS PRN (09:10)
[2023-09-22] MEDS ORDERED: IBUPROFEN 400 MG TABLET (FP) PO PRN (09:10)
[2023-09-22] MEDS ORDERED: ONDANSETRON *ODT* 4 MG TABLET SL PRN (09:10)
[2023-09-22] MEDS ORDERED: LOPERAMIDE HCL 2 MG CAPSULE PO PRN (09:10)
[2023-09-22] MEDS ORDERED: BENZOCAINE/MENTHOL (CHLORASEPTIC ) LOZENGE MM PRN (09:10)
[2023-09-22] MEDS ORDERED: DICYCLOMINE HCL 10 MG CAPSULE PO PRN (09:10)
[2023-09-22] MEDS ORDERED: COLLOIDAL OATMEAL 1 BAR EACH TP PRN (09:13)
[2023-09-22] MEDS ORDERED: ASPIRIN 81 MG CHEWABLE TABLETS ONE (09:55)
[2023-09-22] MEDS ORDERED: LORazepam 2 MG TABLET ONE (09:55)
[2023-09-22] MEDS ORDERED: PRENATAL VITAMINS W/ FOLIC ACID TABLET (FP) PO ONE (09:55)
[2023-09-22] MEDS: LORazepam 2 MG TABLET PO SCH (09:59)
[2023-09-22] MEDS: PRENATAL VITAMINS W/ FOLIC ACID TABLET (FP) PO SCH (09:59)
[2023-09-22] MEDS: ASPIRIN 81 MG CHEWABLE TABLETS PO SCH (09:59)
[2023-09-22] MEDS: LACTULOSE 20 GM/30 ML UDC (FOR ORAL USE ONLY) PO SCH (10:55)
[2023-09-22] MEDS: PNEUMOC 20-VAL CONJ-DIP CRM/PF 0.5 ML SYRINGE IM ONE (11:52)
[2023-09-22 12:34] LABS: HEMATOCRIT 41.9 % (35.4-49); HEMOGLOBIN 14.6 GM/dL (11.7-16.9); MCH 30.6 pg (25.7-33.7); MCHC 34.8 g/dl (32.0-35.9); MEAN CELL VOLUME 87.9 fl (80-96); MEAN PLT VOLUME 9.7 fl (7.5-11.1); PLATELET COUNT 248 10^3/uL (134-434); RBC 4.77 M/mm3 (4.00-5.60); WHITE BLOOD COUNT 10.8 K/mm3 (4.0-10.0)
[2023-09-22 12:44] LABS: CHLORIDE 108 mmol/L (98-107); POTASSIUM 3.7 mmol/L (3.5-5.1); SODIUM 140 mmol/L (136-145)
[2023-09-22 12:47] LABS: ANION GAP 3 mmol/L (4-13); BLOOD UREA NITROGEN 12.6 mg/dL (7-18); CO2 29 mmol/L (21-32); GLUCOSE,RANDOM 103 mg/dL (74-106)
[2023-09-22 12:51] LABS: ALBUMIN 3.9 g/dl (3.4-5.0); CALCIUM 9.1 mg/dL (8.5-10.1); CREATININE 0.9 mg/dL (0.55-1.3); SGOT/AST 24 U/L (15-37); SGPT/ALT 33 U/L (13-61)
[2023-09-22 12:52] LABS: BILIRUBIN,TOTAL 0.5 mg/dL (0.2-1); TOT PROT 7.3 g/dl (6.4-8.2)
[2023-09-22 12:54] LABS: ALK PHOS 78 U/L (45-117)
[2023-09-22] MEDS: MELATONIN 5 MG TABLETS PO SCH (22:23)
[2023-09-22] MEDS: TAMSULOSIN HCL 0.4 MG CAP PO SCH (22:23)
[2023-09-22] MEDS: THIAMINE 100 MG TABLET PO SCH (22:24)
[2023-09-24] MEDS: LORazepam 1 MG TABLET PO SCH (05:48)
[2023-09-24] MEDS: IBUPROFEN 600 MG TABLET (FP) PO PRN (15:16)
[2023-09-25] MEDS ORDERED: LORazepam 0.5 MG TABLET PO PRN
[2023-09-25] MEDS: LORazepam 0.5 MG TABLET PO SCH (05:06)
[2023-09-25 07:34] VITALS: BP 141/72; PULSE 77; RESP 16; TEMP 97.8
[2023-09-26] MEDS ORDERED: LORazepam 0.5 MG TABLET PO ONE (05:00)
== END 2023-09-25 09:34 | disposition home or self-care (01) | DRG 774 ==
LOC: YASAS 08:20 → Y6N 09:25
PROVIDERS: ADMIT Allergy & Immunology; ATTEND Surgery
PROC: HZ2ZZZZ Detoxification Services for Substance Abuse Treatment (ICD-10-PCS; principal; 2023-09-22)
DX: F10.230 Alcohol dependence with withdrawal, uncomplicated (principal); F14.20 Cocaine dependence, uncomplicated; F17.210 Nicotine dependence, cigarettes, uncomplicated; I10 Essential (primary) hypertension; I25.10 Atherosclerotic heart disease of native coronary artery without angina pectoris; N40.1 Benign prostatic hyperplasia with lower urinary tract symptoms; R39.11 Hesitancy of micturition; G47.33 Obstructive sleep apnea (adult) (pediatric); E72.20 Disorder of urea cycle metabolism, unspecified; K21.9 Gastro-esophageal reflux disease without esophagitis
CPT/HCPCS: 36415; 80053; 80305; 80307; 82140; 85027; 86780; 93005; 93010

== ENCOUNTER 2023-10-27 11:40 | Inpatient (IN) | payer OTHER ==
[2023-10-27 13:13] VITALS: BMI 35.6
[2023-10-27] MEDS ORDERED: LOPERAMIDE HCL 2 MG CAPSULE PO PRN (14:09)
[2023-10-27] MEDS ORDERED: BENZOCAINE/MENTHOL (CHLORASEPTIC ) LOZENGE MM PRN (14:09)
[2023-10-27] MEDS ORDERED: IBUPROFEN 400 MG TABLET (FP) PO PRN (14:09)
[2023-10-27] MEDS ORDERED: BENZONATATE 200 MG CAPSULE PO PRN (14:09)
[2023-10-27] MEDS ORDERED: ONDANSETRON *ODT* 4 MG TABLET SL PRN (14:09)
[2023-10-27] MEDS ORDERED: NICOTINE POLACRILEX 2 MG GUM BUC PRN (14:09)
[2023-10-27] MEDS ORDERED: BISMUTH SUBSALICYLATE 262 MG/15 ML BTL PO PRN (14:09)
[2023-10-27] MEDS ORDERED: MAG HYDROX/AL HYDROX/SIMETH 30 ML UNIT-DOSE CUP PO PRN (14:09)
[2023-10-27] MEDS ORDERED: guaiFENesin 600 MG TABLET.ER (FP) PO PRN (14:09)
[2023-10-27] MEDS ORDERED: NICOTINE POLACRILEX 2 MG LOZENGE BC PRN (14:09)
[2023-10-27] MEDS ORDERED: MAGNESIUM HYDROX 2400MG/30ML ORAL SUSPENSION 30 ML CUP PO PRN (14:09)
[2023-10-27] MEDS ORDERED: DICYCLOMINE HCL 10 MG CAPSULE PO PRN (14:09)
[2023-10-27] MEDS ORDERED: POLYETHYLENE GLYCOL (HEALTHYLAX) 3350 17 GM PACKET PO PRN (14:09)
[2023-10-27] MEDS ORDERED: ACETAMINOPHEN 325 MG TABLET (FP) PO PRN (14:09)
[2023-10-27] MEDS ORDERED: P-EPHED 60MG/TRIPROLIDI 2.5MG TABLET PO PRN (14:09)
[2023-10-27] MEDS ORDERED: METHOCARBAMOL 500 MG TABLET ONE (16:33)
[2023-10-27] MEDS ORDERED: diazePAM 5 MG TABLET ONE (16:33)
[2023-10-27] MEDS: METHOCARBAMOL 500 MG TABLET PO PRN (16:35)
[2023-10-27] MEDS: diazePAM 5 MG TABLET PO SCH (16:48)
[2023-10-27] MEDS: hydrOXYzine PAMOATE 25 MG CAPSULE (FP) PO PRN (18:06)
[2023-10-27] MEDS: TAMSULOSIN HCL 0.4 MG CAP PO SCH (23:34)
[2023-10-27] MEDS: MELATONIN 5 MG TABLETS PO SCH (23:35)
[2023-10-27] MEDS: THIAMINE 100 MG TABLET PO SCH (23:55)
[2023-10-28] MEDS: ASPIRIN 81 MG CHEWABLE TABLETS PO SCH (10:42)
[2023-10-28] MEDS: PRENATAL VITAMINS W/ FOLIC ACID TABLET (FP) PO SCH (10:42)
[2023-10-28] MEDS: IBUPROFEN 600 MG TABLET (FP) PO PRN (18:14)
[2023-10-28] MEDS: diazePAM 5 MG TABLET PO PRN (18:15)
[2023-10-29] MEDS: diazePAM 5 MG TABLET PO SCH (06:15)
[2023-10-29] MEDS: PNEUMOC 20-VAL CONJ-DIP CRM/PF 0.5 ML SYRINGE IM ONE (11:20)
[2023-10-30] MEDS: diazePAM 5 MG TABLET PO SCH (06:43)
[2023-10-30 10:31] VITALS: RESP 18
[2023-10-30 13:34] VITALS: BP 137/72; PULSE 78; TEMP 98.9
[2023-10-31] MEDS ORDERED: diazePAM 5 MG TABLET PO ONE (06:00)
== END 2023-10-30 16:47 | disposition home or self-care (01) | DRG 774 ==
LOC: YASAS 11:40 → Y3N 14:55 → Y6N 16:16
PROVIDERS: ADMIT Allergy & Immunology; ATTEND Surgery
PROC: HZ2ZZZZ Detoxification Services for Substance Abuse Treatment (ICD-10-PCS; principal; 2023-10-27)
DX: F10.230 Alcohol dependence with withdrawal, uncomplicated (principal); F14.20 Cocaine dependence, uncomplicated; F17.210 Nicotine dependence, cigarettes, uncomplicated; G47.33 Obstructive sleep apnea (adult) (pediatric); I25.10 Atherosclerotic heart disease of native coronary artery without angina pectoris; I10 Essential (primary) hypertension; I25.2 Old myocardial infarction; N40.1 Benign prostatic hyperplasia with lower urinary tract symptoms; R39.11 Hesitancy of micturition
CPT/HCPCS: 36415; 80305; 80307; 90677; G0009

== ENCOUNTER 2024-01-16 12:28 | Inpatient (IN) | payer OTHER ==
[2024-01-16 13:59] VITALS: BMI 33.0
[2024-01-16] MEDS ORDERED: ONDANSETRON *ODT* 4 MG TABLET SL PRN (16:25)
[2024-01-16] MEDS ORDERED: MAG HYDROX/AL HYDROX/SIMETH 30 ML UNIT-DOSE CUP PO PRN (16:25)
[2024-01-16] MEDS ORDERED: MAGNESIUM HYDROX 2400MG/30ML ORAL SUSPENSION 30 ML CUP PO PRN (16:25)
[2024-01-16] MEDS ORDERED: DICYCLOMINE HCL 10 MG CAPSULE PO PRN (16:25)
[2024-01-16] MEDS ORDERED: IBUPROFEN 400 MG TABLET (FP) PO PRN (16:25)
[2024-01-16] MEDS ORDERED: POLYETHYLENE GLYCOL (HEALTHYLAX) 3350 17 GM PACKET PO PRN (16:25)
[2024-01-16] MEDS ORDERED: hydrOXYzine PAMOATE 25 MG CAPSULE (FP) PO PRN (16:25)
[2024-01-16] MEDS ORDERED: guaiFENesin 600 MG TABLET.ER (FP) PO PRN (16:25)
[2024-01-16] MEDS ORDERED: ACETAMINOPHEN 325 MG TABLET (FP) PO PRN (16:25)
[2024-01-16] MEDS ORDERED: LOPERAMIDE HCL 2 MG CAPSULE PO PRN (16:25)
[2024-01-16] MEDS ORDERED: diazePAM 5 MG TABLET PO PRN (16:25)
[2024-01-16] MEDS ORDERED: NALOXONE (NARCAN) HCL 4 MG/0.1 ML SPRAY NS PRN (16:25)
[2024-01-16] MEDS ORDERED: BENZOCAINE/MENTHOL (CHLORASEPTIC ) LOZENGE MM PRN (16:25)
[2024-01-16] MEDS ORDERED: BENZONATATE 200 MG CAPSULE PO PRN (16:25)
[2024-01-16] MEDS ORDERED: IBUPROFEN 600 MG TABLET (FP) PO PRN (16:25)
[2024-01-16] MEDS ORDERED: NALOXONE HCL 0.4 MG/ML VIAL IM PRN (16:25)
[2024-01-16] MEDS ORDERED: BISMUTH SUBSALICYLATE 524 MG/30 ML PO PRN (16:25)
[2024-01-16] MEDS: diazePAM 5 MG TABLET PO SCH (22:19)
[2024-01-16] MEDS: TAMSULOSIN HCL 0.4 MG CAP PO SCH (22:20)
[2024-01-16] MEDS: METHOCARBAMOL 500 MG TABLET PO PRN (22:20)
[2024-01-16] MEDS: THIAMINE 100 MG TABLET PO SCH (22:20)
[2024-01-16] MEDS: MELATONIN 5 MG TABLETS PO SCH (22:20)
[2024-01-17] MEDS: PRENATAL VITAMINS W/ FOLIC ACID TABLET (FP) PO SCH (10:11)
[2024-01-17] MEDS: ASPIRIN 81 MG CHEWABLE TABLETS PO SCH (10:11)
[2024-01-17 12:42] LABS: HEMATOCRIT 40.5 % (35.4-49); HEMOGLOBIN 13.6 GM/dL (11.7-16.9); MCH 30.1 pg (25.7-33.7); MCHC 33.6 g/dl (32.0-35.9); MEAN CELL VOLUME 89.5 fl (80-96); MEAN PLT VOLUME 9.5 fl (7.5-11.1); PLATELET COUNT 275 10^3/uL (134-434); RBC 4.53 M/mm3 (4.00-5.60)
[2024-01-17 13:22] LABS: CHLORIDE 109 mmol/L (98-107); POTASSIUM 3.7 mmol/L (3.5-5.1); SODIUM 142 mmol/L (136-145)
[2024-01-17 13:30] LABS: CALCIUM 8.6 mg/dL (8.5-10.1)
[2024-01-17 13:31] LABS: ALBUMIN 2.9 g/dl (3.4-5.0); ANION GAP 8 mmol/L (4-13); BLOOD UREA NITROGEN 7.4 mg/dL (7-18); CO2 25 mmol/L (21-32); GLUCOSE,RANDOM 95 mg/dL (74-106); SGPT/ALT 22 U/L (13-61)
[2024-01-17 13:32] LABS: SGOT/AST 18 U/L (15-37)
[2024-01-17 13:34] LABS: CREATININE 0.7 mg/dL (0.55-1.3)
[2024-01-17 13:35] LABS: TOT PROT 5.6 g/dl (6.4-8.2)
[2024-01-17 13:36] LABS: ALK PHOS 66 U/L (45-117)
[2024-01-17 13:39] LABS: BILIRUBIN,TOTAL 0.6 mg/dL (0.2-1)
[2024-01-17] MEDS: SUVOREXANT 5 MG TABLET PO PRN (22:25)
[2024-01-18] MEDS: diazePAM 5 MG TABLET PO SCH (06:26)
[2024-01-18 09:29] VITALS: RESP 16; TEMP 97.5
[2024-01-18 12:59] VITALS: BP 133/77; PULSE 73
[2024-01-19] MEDS ORDERED: diazePAM 5 MG TABLET PO SCH (06:00)
[2024-01-20] MEDS ORDERED: diazePAM 5 MG TABLET PO ONE (06:00)
== END 2024-01-18 13:34 | disposition left against medical advice (07) | DRG 770 ==
LOC: YASAS 12:28 → Y3N 17:00
PROVIDERS: ADMIT Allergy & Immunology; ATTEND Surgery
PROC: HZ2ZZZZ Detoxification Services for Substance Abuse Treatment (ICD-10-PCS; principal; 2024-01-16)
DX: F10.230 Alcohol dependence with withdrawal, uncomplicated (principal); F14.20 Cocaine dependence, uncomplicated; F17.210 Nicotine dependence, cigarettes, uncomplicated; F43.10 Post-traumatic stress disorder, unspecified; F90.9 Attention-deficit hyperactivity disorder, unspecified type; E78.5 Hyperlipidemia, unspecified; I25.10 Atherosclerotic heart disease of native coronary artery without angina pectoris; I10 Essential (primary) hypertension; I25.2 Old myocardial infarction; K21.9 Gastro-esophageal reflux disease without esophagitis; N40.0 Benign prostatic hyperplasia without lower urinary tract symptoms
CPT/HCPCS: 36415; 80053; 80305; 80307; 85027; 86780; 93005; 93010